=== PATIENT | male | born 1950 | race Caucasian/White ===

== ENCOUNTER 2022-12-15 10:27 | Outpatient (OUT) | payer MEDICARE, OTHER, SELFPAY ==
--- NOTE | 2022-12-15 | XR_ITS ---
[address] [address] Patient Name: DEDE ESTEVEZ MRN: [id number] date: 1950 Sex: M Assigned Patient Location: LAB Current Patient Location: LAB Accession/Order Number: [id number] Exam Date: 12/15/2022 11:01 Report Date: 12/15/2022 11:21 At the request of: JAYLA DOMÍNGUEZ Procedure: XR chest 2V EXAMINATION: XR chest 2V HISTORY: Pneumonia COMPARISON: 06/18/2022 TECHNIQUE: PA and lateral FINDINGS: LUNGS: No significant pulmonary parenchymal abnormalities. VASCULATURE: No increased pulmonary vasculature. PLEURA: No pneumothorax, effusion, or pleural thickening. CARDIAC: No cardiomegaly or cardiac silhouette abnormality. MEDIASTINUM: No visible mass or adenopathy. BONES: No fracture or visible bone lesion. OTHER: Negative. XR/XR chest 2V IMPRESSION: No acute cardiopulmonary process Electronically authenticated by: ELI RAMÍREZ Date: 12/15/2022 11:21
[2022-12-15 11:10] LABS: Basophils Absolute Auto 0.1 10^3/uL (0.0-0.1); Basophils Percent Auto 0.6 % (0.2-2.0); Eosinophils Absolute Auto 0.2 10^3/uL (0.0-0.7); Eosinophils Percent Auto 2.4 % (0.9-7.0); Hematocrit 46.7 % (42.0-54.0); Hemoglobin 14.9 g/dL (14.0-18.0); Immature Granulocytes Abs Auto 0.02 10^3/uL (0.00-0.03); Immature Granulocytes Pct Auto 0.3 % (0.0-0.5); Lymphocytes Absolute Auto 1.6 10^3/uL (1.2-3.8); Lymphocytes Percent Auto 20.8 % (20.5-60.0); Mean Corpuscular HGB Conc 31.9 g/dL (29.9-35.2); Mean Corpuscular Hemoglobin 27.6 pg (25.9-34.0); Mean Corpuscular Volume 86.5 fL (80.0-94.0); Mean Platelet Volume 9.6 fL (9.5-13.5); Monocytes Absolute Auto 0.5 10^3/uL (0.3-0.8); Monocytes Percent Auto 6.5 % (1.7-12.0); Neutrophils Absolute Auto 5.5 10^3/uL (1.4-6.5); Neutrophils Percent Auto 69.4 % (43.0-75.0); Platelet Count 243 10^3/uL (150-450); Red Cell Distribution Width 13.2 % (11.0-15.0); White Blood Count 7.9 10^3/uL (4.0-11.0)
[2022-12-15 12:40] LABS: Alanine Aminotransferase 13 U/L (16-63); Albumin Globulin Ratio 1.1; Albumin Level 4.1 g/dL (3.4-5.0); Alkaline Phosphatase 83 U/L (46-116); Anion Gap 10.6; Aspartate Amino Transferase 20 U/L (15-37); Bilirubin Total 0.6 mg/dL (0.2-1.0); Calcium 9.4 mg/dL (8.5-10.1); Carbon Dioxide 31.7 mmol/L (21.0-32.0); Chloride 101 mmol/L (98-107); Chol HDL Ratio 2.6; Cholesterol 172 mg/dL (<=200); Estimated GFR (African America >60 (>=60); Estimated GFR (Non-African Ame >60 (>=60); Free T3 3.18 pg/mL (2.18-3.98); Globulin 3.6 g/dL; Glucose 94 mg/dL (74-106); HDL Cholesterol 66 mg/dL (40-60); Potassium 4.3 mmol/L (3.5-5.1); Sodium 139 mmol/L (136-145); Thyroid Stimulating Hormone 0.929 uIU/mL (0.358-3.740); Total Protein 7.7 g/dL (6.4-8.2); Triglycerides 77 mg/dL (<=150); VLDL CHOLESTEROL 15.4 mg/dL
[2022-12-15 12:59] LABS: Estimated Average Glucose 117 mg/dL; Glycohemoglobin A1C 5.7 % (4.5-6.2)
[2022-12-15 15:02] LABS: Prostate Specific Antigen Scrn 0.16 ng/mL (<=4.00)
[2022-12-16 12:09] LABS: Insulin 26.4 uIU/mL (2.6-24.9)
== END 2022-12-15 10:28 | disposition home or self-care (01) ==
LOC: LAB 10:34
PROVIDERS: PCP Family Medicine; Visit Provider Family Medicine
DX: J18.9 Pneumonia, unspecified organism (principal); E55.9 Vitamin D deficiency, unspecified; E78.01 Familial hypercholesterolemia; N40.0 Benign prostatic hyperplasia without lower urinary tract symptoms; E78.5 Hyperlipidemia, unspecified; R73.09 Other abnormal glucose; Z12.5 Encounter for screening for malignant neoplasm of prostate
CPT/HCPCS: 36415; 71046; 80053; 80061; 82306; 83036; 83525; 84436; 84443; 84481; 85025; G0103

== ENCOUNTER 2022-12-24 12:37 | Outpatient (REF) | payer MEDICARE, OTHER, SELFPAY ==
[2022-12-24 15:33] LABS: Occult Blood Negative
== END 2022-12-24 12:38 | disposition home or self-care (01) ==
LOC: LAB 12:37
PROVIDERS: PCP Family Medicine; Visit Provider Family Medicine
DX: E55.9 Vitamin D deficiency, unspecified (principal); E78.01 Familial hypercholesterolemia; N40.0 Benign prostatic hyperplasia without lower urinary tract symptoms; E78.5 Hyperlipidemia, unspecified; R73.09 Other abnormal glucose; Z12.5 Encounter for screening for malignant neoplasm of prostate; Z12.12 Encounter for screening for malignant neoplasm of rectum
CPT/HCPCS: G0328

== ENCOUNTER 2023-02-09 08:32 | Outpatient (RCR) | payer MEDICARE, OTHER, SELFPAY | END 2023-03-22 15:47 | disposition home or self-care (01) | LOC: PT 08:32 | PROVIDERS: PCP Family Medicine; Visit Provider Nurse Practitioner Family | DX: G20.C Parkinsonism, unspecified (principal); R26.81 Unsteadiness on feet | CPT/HCPCS: 97110; 97112; 97161 ==

== ENCOUNTER 2023-07-17 07:40 | Inpatient (IN) | payer MEDICARE, OTHER, SELFPAY ==
[2023-07-17] VITALS (29 sets, daily range): BP systolic 107–145; BP diastolic 63–80; PULSE 67–85; TEMP 36.4–36.7; O2SAT 92–100; BMI 29.4; BMI 28.6
--- OUTSIDE RECORDS SUMMARY | 2023-07-17 07:46 | XMS_ITS | CCD ---
Author Organization [facility] Care Team Providers Care Family Engagement Specialist Name Role Phone PHYSICIAN, DEFAULT Unavailable Unavailable PHYSICIAN, DEFAULT Unavailable Unavailable HINA, CHRISTOPHER Unavailable Unavailable HINA, CHRISTOPHER Unavailable Unavailable HINA, CHRISTOPHER Unavailable Unavailable HOY JAYLA Unavailable Unavailable HINA, CHRISTOPHER Unavailable Unavailable HOY, JAYLA Unavailable Unavailable HINA, CHRISTOPHER Unavailable Unavailable HINA, CHRISTOPHER Unavailable Unavailable HOY, JAYLA Unavailable Unavailable HINA, CHRISTOPHER Unavailable Unavailable HINA, CHRISTOPHER Unavailable Unavailable HINA, CHRISTOPHER Unavailable Unavailable Lynn Gomez Unavailable MD Jayla Kong Primary Care Provider VADIM Gomez Attending Provider Lynn Gomez Attending Unavailable Lynn Gomez Admitting Unavailable Jayla Kong Primary Care Unavailable Jayla Kong Primary Care Physician Owen COOPER Attending Unavailable CATRACHITA Elliott, DR DICKERSON Admitting Unavailable HOАлександр Elliott, DR DICKERSON Attending Unavailable HOАлександр ., DR DICKERSON Consulting Unavailable CATRACHITA Elliott, DR DICKERSON Primary Care Unavailable MYNOR Elliott, DR KONG Osman Admitting Unavaila edith Elliott, DR KONG Osman Attending Unavaila edith Elliott, DR KONG Osman Consulting Unavaila edith Elliott, DR DICKERSON Primary Care Unavailable GARCÍA, CHELSEA Admitting Unavailable GARCÍA, CHELSEA Attending Unavailable GARCÍA, CHELSEA Consulting Unavailable CATRACHITA Elliott, DR DICKERSON Primary Care Unavailable MICHELLE DWYER Admitting Unavailable CATRACHITA ., DR DICKERSON Primary Care Unavailable MICHELLE DWYER Attending Unavailable ANUPAM, DR GARRICK Ko Consulting Unavailable MCIHELLE DWYER Consulting Unavailable CATRACHITA Elliott, DR DICKERSON Admitting Unavailable HOY ., DR DICKERSON Primary Care Unavailable HOY ., DR DICKERSON Attending Unavailable HOY ., DR DICKERSON Consulting Unavailable ANUPAM, DR GARRICK Ko Consulting Unavailable HOY ., DR DICKERSON Admitting Unavailable HOY ., DR DICKERSON Attending Unavailable HOY ., DR DICKERSON Primary Care Unavailable HOY ., DR DICKERSON Primary Care Unavailable HOY ., DR DICKERSON Admitting Unavailable HOY ., DR DICKERSON Attending Unavailable HOY ., DR DICKERSON Consulting Unavailable FREDERICK, DR ELI Sanchez Consulting Unavailable SLOAN ., GENE Consulting Unavailable HOY ., DR DICKERSON Admitting Unavailable HOY ., DR DICKERSON Attending Unavailable HOY ., DR DICKERSON Consulting Unavailable HOY ., DR DICKERSON Primary Care Unavailable JUAN DANIEL GARCIA Attending Unavailable Allergies Allergy Classification Reported Allergen(s) Allergy Type Date of Onset Reaction(s) Facility (1 source) No Known Medication Allergies; Translations: [No Known Medication Allergies] Propensity to adverse reactions (disorder) [facility] Repository Medications Current Medications Medication Drug Class(es) Dates Sig (Normalized) Sig (Original) clonazePAM (2 sources) Benzodiazepine Start: 02-09-2019 clonazepam Ora l, TID, Refills(s) 0 Start Date: 02/09/19 Status: Ordered clonazePAM 0.5 M G Oral for 90 Days Active donepezil hydrochloride 23 mg oral tablet (2 sources) Start: 04-27-2022 take 1 tablet by mouth once daily at bedtime donepezil 23 mg oral tablet 23 mg = 1 tab(s), Oral, Once a day (at bedtime), # 30 tab(s), Refills(s) 0 Start Date: 04/27/22 Status: Ordered Donepezil HCl 23 MG Oral for 30 Days Active Lamictal (2 sources) Mood Stabilizer, Anti-epileptic Agent Start: 02-09-2019 Lamictal Oral, BID, Refills(s) 0 Start Date: 02/09/19 Status: Ordered lamoTRIgine 100 MG Oral for 90 Days Active memantine hydrochloride 10 mg oral tablet (1 source) U-abvehi-G-aspartate Receptor Antagonist Memantine HCl 10 MG Oral for 90 Days Active naproxen sodium 550 mg oral tablet (1 source) Nonsteroidal Anti-inflammatory Drug Start: take 1 tablet by mouth every twelve hours at mealtime as needed Naproxen Sodium 550 MG 1 tablet with food or milk as needed Orally every 12 hrs for 7 days Jan, Active nefazodone (1 source) Serotonin Reuptake Inhibitor Start: 020 nefazodone Oral, BID, Refills(s) 0 Start Date: 02/09/19 Status: Ordered simvastatin 20 mg oral tablet (2 sources) HMG-CoA Reductase Inhibitor Start: 023 simvastatin 20 mg Tab Refills(s) 0 Start Date: 04/27/22 Status: Ordered Simvastatin 20 M G Oral for 30 Days Active Wrist Brace - (1 source) Start: 01-13-2022 Wrist Brace - as directed Jan, Active Problems Active Problems Problem Classification Problem Date Documented Da te Episodic/Chronic Acute and unspecified renal failure (1 source) Acute kidney failure, unspecified; Translations: [ACUTE KIDNEY FAILURE UNSPECIFIED] Onset: 06-24-2022 Episodic Anxiety disorders (2 sources) Anxiety; Translations: [Anxiety disorder, unspecified] Onset: 06-24-2022 02-13-2020 Chronic Cardiac dysrhythmias (1 source) Tachycardia, unspecified; Translations: [TACHYCARDIA UNSPECIFIED] Onset: 06-24-2022 Episodic Congestive heart failure; nonhypertensive (1 source) Unspecified diastolic (congestive) heart failure; Translations: [UNSPECIFIED DIASTOLIC HEART FAILURE] Onset: 11-08-2021 Chronic Delirium, dementia, and amnestic and other cognitive disorders (4 sources) Alzheimer's disease, unspecified; Translations: [ALZHEIMERS DISEASE UNSPECIFIED] Onset: 05-14-2022 Chronic Diseases of white blood cells (1 source) Elevated white blood cell count, unspecified; Translations: [ELEVATED WHITE BLOOD CELL COUNT UNS] Onset: 06-24-2022 Chronic Disorders of lipid metabolism (3 sources) Pure hypercholesterolemi a, unspecified; Translations: [Familial hypercholesterolemi a] Onset: 11-08-2021 Chronic Fluid and electrolyte disorders (1 source) Dehydration; Translations: [DEHYDRATION] Onset: 06-24-2022 Episodic Fracture of upper limb (1 source) Nondisplaced fracture of triquetrum [cuneiform] bone, left wrist, initial encounter for closed fracture Episodic Genitourinary symptoms and ill-defined conditions (2 sources) Increased frequency of urination; Translations: [Urgent desire to urinate] 02-13-2020 Episodic Hyperplasia of prostate (7 sources) Benign prostatic hypertrophy with outflow obstruction; Translations: [Benign prostatic hyperplasia with lower urinary tract symptoms] Onset: 01-27-2022 Chronic Hypertension with complications and secondary hypertension (1 source) Hypertensive heart disease with heart failure; Translations: [HTN HEART DISEASE W/HEART FAIL] Onset: 11-08-2021 Chronic Malaise and fatigue (3 sources) Weakness; Translations: [WEAKNESS] Onset: 06-18-2022 Episodic Mood disorders (1 source) Major depressive disorder 02-13-2020 Chronic Mood disorders (1 source) Mood disorders; Translations: [DEPRESSION UNSPECIFIED] Onset: 06-24-2022 Nutritional deficiencies (1 source) Vitamin D deficiency, unspecified; Translations: [VITAMIN D DEFICIENCY UNSPECIFIED] Onset: 11-08-2021 Chronic Other aftercare (1 source) 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; Translations: [OTH TUCK POINTER CURRENT DRUG THERAPY] Onset: 06-24-2022 Episodic Other injuries and conditions due to external causes (1 source) Unspecified injury of left wrist, hand and finger(s), initial encounter Episodic Other lower respiratory disease (1 source) Acute respiratory distress; Translations: [ACUTE RESPIRATORY DISTRESS] Onset: 06-24-2022 Episodic Other male genital disorders (1 source) Impotence 02-13-2020 Chronic Parkinson`s disease (1 source) Parkinson's disease; Translations: [PARKINSONS DISEASE] Onset: 06-24-2022 Chronic Pneumonia (except that caused by tuberculosis or sexually transmitted disease) (1 source) Pneumonia, unspecified organism; Translations: [PNEUMONIA UNSPECIFIED ORGANISM] Onset: 06-24-2022 Episodic Residual codes; unclassified (1 source) Altered mental status, unspecified; Translations: [ALTERED MENTAL STATUS UNSPECIFIED] Onset: 06-24-2022 Episodic Unclassified (1 source) Unspecified injury of left wrist, hand and finger(s), initial encounter; Translations: [Unspecified injury of left wrist, hand and finger(s), initial encounter] Onset: 01-13-2022 Unclassified (1 source) CONTACT W/AND (SUSP) EXPOS COVID-19; Translations: [CONTACT W/AND (SUSP) EXPOS COVID-19] Onset: 06-24-2022 Unclassified (1 source) PERSONAL HISTORY OF COVID-19; Translations: [PERSONAL HISTORY OF COVID-19] Onset: 06-24-2022 Unclassified (3 sources) COUGH, UNSPECIFIED; Translations: [COUGH, UNSPECIFIED] Onset: 01-24-2022 Past or Other Problems Problem Classification Problem Date Documented Da te Episodic/Chronic Diabetes mellitus without complication (1 source) Other abnormal glucose; Translations: [OTHER ABNORMAL GLUCOSE] Onset: 11-08-2021 Episodic Inflammatory conditions of male genital organs (1 source) Inflammatory disease of prostate, unspecified; Translations: [INFLAMMATORY DISEASE PROSTATE UNS] Onset: 11-08-2021 Episodic Nonspecific chest pain (4 sources) Chest pain, unspecified; Translations: [CHEST PAIN UNSPECIFIED] Onset: 11-06-2021 Episodic Other connective tissue disease (4 sources) Pain in right foot; Translations: [PAIN IN RIGHT FOOT] Onset: 10-15-2021 Episodic Other connective tissue disease (1 source) Pain in left foot; Translations: [PAIN IN LEFT FOOT] Onset: 10-20-2021 Episodic Other nervous system disorders (5 sources) Other lack of coordination; Translations: [OTHER LACK OF COORDINATION] Onset: 11-04-2021 Episodic Other screening for suspected conditions (not mental disorders or infectious disease) (6 sources) Encounter for screening for malignant neoplasm of rectum; Translations: [Encounter for screening for malignant neoplasm of prostate] Onset: 11-08-2021 Episodic Unclassified (3 sources) Other amnesia; Translations: [OTHER AMNESIA] Onset: 04-08-2017 Episodic Unclassified (1 source) COUGH, UNSPECIFIED; Translations: [COUGH, UNSPECIFIED] Onset: 01-21-2022 Results Test Name Value Interpretation Reference Range Facility CBC W MANUAL DIFFon 06-20-19 ATYPICAL LYMPH # 0.61 103/ul Normal [facility] Comment on above: Performed By: #### C MARY #### [facility] [address] [address] [address] Timmy Grant ATYPICAL LYMPH % 4 % Normal [facility] Comment on above: Performed By: #### C MARY #### [facility] [address] [address] [address] Timmy Grant BAND # 0.0 103/ul Normal 0.0-0.3 [facility] Comment on above: Performed By: #### C BCNAFISA #### [facility] [address] [place] [address] Dr. Timmy Grant BAND % 0 % Normal 0-5 [facility] Comment on above: Performed By: #### C MARY #### [facility] [address] [place] [address] Dr. Timmy Grant BASOM # 0.00 103/ul Normal 0.00-0.10 [facility] Comment on above: Performed By: #### C MARY #### [facility] [address] [place] [address] Dr. Timmy Grant BASOM % 0.0 % Critically low 0.2-2.0 [facility] Comment on above: Performed By: #### C MARY #### [facility] [address] [place] [address] Dr. Timmy Grant BLAST # Normal [facility] Comment on above: Performed By: #### C MARY #### [facility] [address] [place] [address] Dr. Timmy Grant BLAST % Normal [facility] Comment on above: Performed By: #### C MARY #### [facility] [address] [place] [address] Dr. Timmy Grant CORRECTED WBC Normal 4.0-11.0 [facility] Comment on above: Performed By: #### C MARY #### [facility] [address] [place] [address] Dr. Timmy Grant EOS # 0.00 103/ul Normal 0.00-0.70 [facility] Comment on above: Performed By: #### C MARY #### [facility] [address] [place] [address] Dr. Timmy Grant EOS% 0.0 % Critically low 0.9-7.0 [facility] Comment on above: Performed By: #### C MARY #### [facility] [address] [place] [address] Dr. Timmy Grant HCT 42.1 % Normal 42.0-54.0 [facility] Comment on above: Performed By: #### C MARY #### [facility] [address] [place] [address] Dr. Timmy Grant HGB 13.8 g/dl Critically low 14.0-18.0 [facility] Comment on above: Performed By: #### C MARY #### [facility] [address] [address] [address] Timmy Grant LYMPHM # 0.00 103/ul Critically low 1.20-3.80 [facility] Comment on above: Performed By: #### C MARY #### [facility] [address] [place] [address] Dr. Timmy Grant LYMPHM% 0.0 % Critically low 20.5-60.0 [facility] Comment on above: Performed By: #### C MARY #### [facility] [address] [place] [address] Dr. Timmy Grant MCH 27.4 pg Normal 25.9-34.0 [facility] Comment on above: Performed By: #### C MARY #### [facility] [address] [place] [address] Dr. Timmy Grant MCHC 32.8 g/dl Normal 29.9-35.2 [facility] Comment on above: Performed By: #### C MARY #### [facility] [address] [place] [address] Dr. Timmy Gratn MCV 83.7 fL Normal 80.0-94.0 [facility] Comment on above: Performed By: #### C BCNAFISA #### [facility] [address] [place] [address] Dr. Timmy Grant METAMYELOCYTE # Normal [facility] Comment on above: Performed By: #### C MARY #### [facility] [address] [place] [address] Dr. Timmy Grant METAMYELOCYTE % Normal [facility] Comment on above: Performed By: #### C BCNAFISA #### [facility] [address] [address] [address] Timmy Grant MONOM# 0.00 103/ul Critically low 0.30-0.80 [facility] Comment on above: Performed By: #### C MARY #### [facility] [address] [address] [address] Timmy Grant MONOM% 0.0 % Critically low 1.7-12.0 [facility] Comment on above: Performed By: #### C MARY #### [facility] [address] [place] [address] Dr. Timmy Grant MPV 9.7 fL Normal 9.5-13.5 [facility] Comment on above: Performed By: #### C MARY #### [facility] [address] [place] [address] Dr. Timmy Grant MYELOCYTE # Normal [facility] Comment on above: Performed By: #### C MARY #### [facility] [address] [address] [address] Timmy Grant MYELOCYTE % Normal [facility] Comment on above: Performed By: #### C MARY #### [facility] [address] [place] [address] Dr. Timmy Grant NRBC Normal [facility] Comment on above: Performed By: #### C MARY #### [facility] [address] [place] [address] Dr. Timmy Grant PLT 224 103/ul Normal 150-450 [facility] Comment on above: Performed By: #### C MARY #### [facility] [address] [place] [address] Dr. Timmy Grant RBC 5.03 106/ul Normal 4.70-6.10 [facility] Comment on above: Performed By: #### C MARY #### [facility] [address] [place] [address] Dr. Timmy Grant RDW 12.8 % Normal 11.0-15.0 [facility] Comment on above: Performed By: #### C MARY #### [facility] [address] [place], [place] [id number] Dr. Timmy Grant SEG # 14.69 103/ul Critically high 1.40-6.50 [facility] Comment on above: Performed By: #### C MARY #### [facility] [address] [place] [address] Dr. Timmy Grant SEG % 96.0 % Critically high 43.0-75.0 [facility] Comment on above: Performed By: #### C MARY #### [facility] [address] [address] [address] Timmy Grant WBC 15.3 103/ul Critically high 4.0-11.0 [facility] Comment on above: Performed By: #### C MARY #### [facility] [address] [place] [address] Dr. Timmy Grant PROF 14(COMP METB)on 023 Albumin [Mass/Vol] 3.2 g/dL Critically low 3.4-5.0 [facility] Comment on above: Performed By: #### O BSCRN #### [facility] [address] [place] [address] Dr. Timmy Grant Albumin/Globulin [Mass ratio] 0.8 {ratio} [facility] Comment on above: Performed By: #### O BSCRN #### [facility] [address] [place] [address] Dr. Timmy Grant ALP [Catalytic activity/Vol] 92 U/L Normal 46-116 [facility] Comment on above: Performed By: #### O BSCRN #### [facility] [address] [place] [address] Dr. Timmy Grant ALT [Catalytic activity/Vol] 13 U/L Critically low 16-63 [facility] Comment on above: Performed By: #### O BSCRN #### [facility] [address] [place] [address] Dr. Timmy Grant Anion gap [Moles/Vol] 11.0 mmol/L Normal [facility] Comment on above: Performed By: #### O BSCRN #### [facility] [address] [address] [address] Timmy Grant AST [Catalytic activity/Vol] 14 U/L Critically low 15-37 [facility] Comment on above: Performed By: #### O BSCRN #### [facility] [address] [place] [address] Dr. Timmy Grant Bilirubin [Mass/Vol] 0.5 mg/dL Normal 0.2-1.0 [facility] Comment on above: Performed By: #### O BSCRN #### [facility] [address] [place] [address] Dr. Timmy Grant Calcium [Mass/Vol] 9.5 mg/dL Normal 8.5-10.1 [facility] Comment on above: Performed By: #### O BSCRN #### [facility] [address] [place] [address] Dr. Timmy Grant Chloride [Moles/Vol] 105 mmol/L Normal 98-107 [facility] Comment on above: Performed By: #### O BSCRN #### [facility] [address] [place] [address] Dr. Timmy Grant CO2 [Moles/Vol] 26.2 mmol/L Normal 21.0-32.0 [facility] Comment on above: Performed By: #### O BSCRN #### [facility] [address] [place] [address] Dr. Timmy Grant Creatinine [Mass/Vol] 1.12 mg/dL Normal 0.70-1.30 [facility] Comment on above: Performed By: #### O BSCRN #### [facility] [address] [place] [address] Dr. Timmy Grant EGFR-AF MARTINIQUAIS >60 Normal >=60 [facility] Comment on above: Performed By: #### O BSCRN #### [facility] [address] [place] [address] Dr. Timmy Grant EGFR-NON AF MARTINIQUAIS >60 Normal >=60 [facility] Comment on above: Performed By: #### O BSCRN #### [facility] [address] [place] [address] Dr. Timmy Grant Globulin (S) [Mass/Vol] 4.2 g/dL Normal [facility] Comment on above: Performed By: #### O BSCRN #### [facility] [address] [place] [address] Dr. Timmy Grant Glucose [Mass/Vol] 171 mg/dL Critically high 74-106 [facility] Comment on above: Performed By: #### O BSCRN #### [facility] [address] [place] [address] Dr. Timmy Grant Potassium [Moles/Vol] 4.2 mmol/L Normal 3.5-5.1 [facility] Comment on above: Performed By: #### O BSCRN #### [facility] [address] [place] [address] Dr. Timmy Grant Protein [Mass/Vol] 7.4 g/dL Normal 6.4-8.2 [facility] Comment on above: Performed By: #### O BSCRN #### [facility] [address] [place] [address] Dr. Timmy Grant Sodium [Moles/Vol] 138 mmol/L Normal 136-145 [facility] Comment on above: Performed By: #### O BSCRN #### [facility] [address] [place] [address] Dr. Timmy Grant Urea nitrogen [Mass/Vol] 15.0 mg/dL Normal 7.0-18.0 [facility] Comment on above: Performed By: #### O BSCRN #### [facility] [address] [place] [address] Dr. Timmy Grant Urea nitrogen/Creatinin e [Mass ratio] 13.4 mg/mg Normal [facility] Comment on above: Performed By: #### O BSCRN #### [facility] [address] [place] [address] Dr. Timmy Grant BNPon 06-18-2022 Natriuretic peptide B (Bld) [Mass/Vol] 114.0 pg/mL Normal <=900.0 [facility] Comment on above: Performed By: #### O BSCRN #### [facility] [address] [address] [address] Timmy Grant CARDIAC SANJUANA ADMITon 023 CK [Catalytic activity/Vol] 209 U/L Normal 39-308 [facility] Comment on above: Performed By: #### O BSCRN #### [facility] [address] [place] [address] Dr. Timmy Grant CK.MB [Mass/Vol] 2.98 ng/mL Normal <=3.60 [facility] Comment on above: Performed By: #### O BSCRN #### [facility] [address] [place] [address] Dr. Timmy Grant HSTROP 5.6 pg/mL Normal 4.0-76.1 [facility] Comment on above: Result Comment: CUT- OFF POINTS HAVE BEEN ESTABLISHED BASED ON THE FOURTH UNIVERSAL DEFINITIONS OF MYOCARDIAL INFARCTION. THE UPPER REFERENCE LIMIT (URL) OF TROPONIN, DEFINED THE 99TH PERCENTILE OF cTnI DISTRIBUTION IN A REFERENCE POPULATION, HAS BEEN CONFIRMED THE DECISION THRESHOLD FOR OR DIAGNOSIS. Performed By: #### O BSCRN #### [facility] [address] [place] [address] Dr. Timmy Grant NAFISA 118 ng/mL Critically high 16-96 [facility] Comment on above: Performed By: #### O BSCRN #### [facility] [address] [place] [address] Dr. Timmy Grant CBC W MANUAL DIFFon 06-19-19 23 ATYPICAL LYMPH # Normal [facility] Comment on above: Performed By: #### C BCMAN #### [facility] [address] [place] [address] Dr. Timmy Grant ATYPICAL LYMPH % Normal [facility] Comment on above: Performed By: #### C BCMAN #### [facility] [address] [place] [address] Dr. Timmy Grant BAND # 0.6 103/ul Critically high 0.0-0.3 [facility] Comment on above: Performed By: #### C BCMAN #### [facility] [address] [place] [address] Dr. Timmy Grant BAND % 5 % Normal 0-5 [facility] Comment on above: Performed By: #### C MARY #### [facility] [address] [place] [address] Dr. Timmy Grant BASOM # 0.00 103/ul Normal 0.00-0.10 [facility] Comment on above: Performed By: #### C MARY #### [facility] [address] [place] [address] Dr. Timmy Grant BASOM % 0.0 % Critically low 0.2-2.0 [facility] Comment on above: Performed By: #### C BCNAFISA #### [facility] [address] [place] [address] Dr. Timmy Grant BLAST # Normal [facility] Comment on above: Performed By: #### C MARY #### [facility] [address] [place] [address] Dr. Timmy Grant BLAST % Normal [facility] Comment on above: Performed By: #### C BCNAFISA #### [facility] [address] [place] [address] Dr. Timmy Grant CORRECTED WBC Normal 4.0-11.0 [facility] [facility] Comment on above: Performed By: #### C MARY #### [facility] [address] [place] [address] Dr. Timmy Grant EOS # 0.00 103/ul Normal 0.00-0.70 [facility] Comment on above: Performed By: #### C MARY #### [facility] [address] [place] [address] Dr. Timmy Grant EOS% 0.0 % Critically low 0.9-7.0 [facility] Comment on above: Performed By: #### C BCNAFISA #### [facility] [address] [place] [address] Dr. Timmy Grant HCT 46.4 % Normal 42.0-54.0 [facility] Comment on above: Performed By: #### C MARY #### [facility] [address] [place] [address] Dr. Timmy Grant HGB 14.8 g/dl Normal 14.0-18.0 [facility] Comment on above: Performed By: #### C MARY #### [facility] [address] [place] [address] Dr. Timmy Grant LYMPHM # 0.57 103/ul Critically low 1.20-3.80 [facility] Comment on above: Performed By: #### C MARY #### [facility] [address] [place] [address] Dr. Timmy Grant LYMPHM% 5.0 % Critically low 20.5-60.0 [facility] Comment on above: Performed By: #### C MARY #### [facility] [address] [place] [address] Dr. Timmy Grant MCH 26.8 pg Normal 25.9-34.0 [facility] Comment on above: Performed By: #### Tali HERNANDEZ #### [facility] [address] [place] [address] Dr. Timmy Grant MCHC 31.9 g/dl Normal 29.9-35.2 [facility] Comment on above: Performed By: #### Tali HERNANDEZ #### [facility] [address] [place] [address] Dr. Timmy Grant MCV 84.1 fL Normal 80.0-94.0 [facility] Comment on above: Performed By: #### Tali HERNANDEZ #### [facility] [address] [place] [address] Dr. Timmy Grant METAMYELOCYTE # Normal [facility] Comment on above: Performed By: #### Tali HERNANDEZ #### [facility] [address] [place] [address] Dr. Timmy Grant METAMYELOCYTE % Normal [facility] Comment on above: Performed By: #### C MARY #### [facility] [address] [place] [address] Dr. Timmy Grant MONOM# 0.23 103/ul Critically low 0.30-0.80 [facility] Comment on above: Performed By: #### C MARY #### [facility] [address] [address] [address] Timmy Grant MONOM% 2.0 % Normal 1.7-12.0 [facility] Comment on above: Performed By: #### C MARY #### [facility] [address] [address] [address] Timmy Grant MPV 9.5 fL Normal 9.5-13.5 [facility] Comment on above: Performed By: #### C MARY #### [facility] [address] [place] [address] Dr. Timmy Grant MYELOCYTE # Normal [facility] Comment on above: Performed By: #### C MARY #### [facility] [address] [place] [address] Dr. Timmy Grant MYELOCYTE % Normal [facility] Comment on above: Performed By: #### Tali HERNANDEZ #### [facility] [address] [place] [address] Dr. Timmy Grant NRBC Normal [facility] Comment on above: Performed By: #### C MARY #### [facility] [address] [place] [address] Dr. Timmy Grant PLT 219 103/ul Normal 150-450 [facility] Comment on above: Performed By: #### C MARY #### [facility] [address] [place] [address] Dr. Timmy Grant RBC 5.52 106/ul Normal 4.70-6.10 [facility] Comment on above: Performed By: #### C MARY #### [facility] [address] [place] [address] Dr. Timmy Grant RDW 12.6 % Normal 11.0-15.0 [facility] Comment on above: Performed By: #### C MARY #### [facility] [address] [place] [address] Dr. Timmy Grant SEG # 10.12 103/ul Critically high 1.40-6.50 [facility] Comment on above: Performed By: #### C MARY #### [facility] [address] [address] [address] Timmy Grant SEG % 88.0 % Critically high 43.0-75.0 [facility] Comment on above: Performed By: #### C MARY #### [facility] [address] [address] [address] Timmy Grant WBC 11.5 103/ul Critically high 4.0-11.0 [facility] Comment on above: Performed By: #### C MARY #### [facility] [id number] Timmy Grant CT HEAD WO CONon 06-18-2022 CT HEAD WO CON EXAM: CT HEAD WO CON ; [id number] REASON FOR EXAM: Pain COMPARISON: None. TECHNIQUE: Axial CT images of the head obtained without contrast. Multiplanar reformats generated at the scanner. Dose reduction technique used: Automated exposure control and/or adjustment of the mA and/or kV according to patient size and/or use of iterative reconstruction technique. FINDINGS: Parenchyma: -Moderate generalized cerebral volume loss. -No midline shift or mass effect. Basilar cisterns are patent. -No acute intracranial hemorrhage. -No loss of cortical hein-white differentiation to indicate acute cortical infarct. Extra-axial spaces: No extra-axial fluid collection or hemorrhage. Ventricles: Normal in size and symmetric. Paranasal sinuses: Complete opacification of the right frontal sinus, right anterior ethmoid air cells, and partial opacification of the right maxillary sinus. There is associated hyperostosis compatible with chronic sinusitis. No layering fluid. Mastoid air cells: Visualized mastoids are clear. Orbits: No acute abnormality. Osseous: No acute findings. Soft tissues: No acute abnormality. IMPRESSION: 1. No acute or remote infarct or hemorrhage. No focal mass lesion. 2. Chronic right-sided sinusitis. Electronically authenticated by: BENTON FOSTER Date: 2022-06-18 11:17 Normal [facility] CULTURE BLOODon 06-18-2022 Microscopic examination of blood, culture Culture Observations: NO GROWTH AT 5 DAYS. Normal [facility] Comment on above: Performed By: #### O BSCRN #### [facility] [address] [address] [address] Timmy Grant Microscopic examination of blood, culture Culture Observations: NO GROWTH AT 5 DAYS. Normal [facility] Comment on above: Performed By: #### O BSCRN #### [facility] [address] [place] [address] Dr. Timmy Grant ER URINE PROFILEon 3 Bilirubin Ql (U) Negative Normal NEGATIVE [facility] Comment on above: Performed By: #### E RUR #### [facility] [address] [place] [address] Dr. Timmy Grant Clarity (U) CLEAR Normal CLEAR [facility] Comment on above: Performed By: #### E RUR #### [facility] [address] [place] [address] Dr. Timmy Grant Color (U) YELLOW Normal YELLOW [facility] Comment on above: Performed By: #### E RUR #### [facility] [address] [place] [address] Dr. Timmy Grant ERUAHD A micrscopic examina tion will be performed if indicated. Normal [facility] Comment on above: Performed By: #### E RUR #### [facility] [address] [place] [address] Dr. Timmy Grant Glucose Ql (U) Negative Normal NEGATIVE [facility] Comment on above: Performed By: #### E RUR #### [facility] [address] [place] [address] Dr. Timmy Grant Hemoglobin Ql (U) Negative Normal NEGATIVE [facility] Comment on above: Performed By: #### E RUR #### [facility] [address] [place] [address] Dr. Timmy Grant Ketones Ql (U) TRACE Abnormal NEGATIVE [facility] Comment on above: Performed By: #### E RUR #### [facility] [address] [place] [address] Dr. Timmy Grant LEUKOCYTES Negative Normal NEGATIVE [facility] Comment on above: Performed By: #### E RUR #### [facility] [address] [place] [address] Dr. Timmy Grant Nitrite Ql (U) Negative Normal NEGATIVE [facility] Comment on above: Performed By: #### E RUR #### [facility] [address] [place] [address] Dr. Timmy Gratn pH (U) 5.5 [pH] Normal 5-9 [facility] Comment on above: Performed By: #### E RUR #### [facility] [address] [place] [address] Dr. Timmy Grant SPEC GRAVITY 1.025 Normal 1.005-<=1.[address] [place] [address] Comment on above: Performed By: #### E RUR #### [facility] [address] [place] [address] Dr. Timmy Grant UA PROTEIN Negative Normal NEGATIVE/ TRACE [facility] Comment on above: Performed By: #### E RUR #### [facility] [address] [place] [address] Dr. Timmy Grant UR MICRO IND NOT INDICATED Normal [facility] Comment on above: Performed By: #### E RUR #### [facility] [address] [place] [address] Dr. Timmy Grant Urobilinogen Qn (U) 0.2 {Ana'U}/dL Normal 0.2 - 1.0 [facility] Comment on above: Performed By: #### E RUR #### [facility] [address] [place] [address] Dr. Timmy Grant GROUP A STREP CULTUREon 06-08 S. pyogenes Ag Ql (Unsp spec) Culture Observations: NEGATIVE FOR GROUP A STREPTOCOCCUS. Normal [facility] Comment on above: Performed By: #### P SASC, VITB12, VITAD #### [facility] [address] [place] [address] Dr. Timmy Grant LACTATE/LACTIC ACIDon 2022 Lactate [Moles/Vol] 2.0 mmol/L Normal 0.4-2.0 [facility] Comment on above: Performed By: #### P SASC, VITB12, VITAD #### [facility] [address] [place] [address] Dr. Timmy Grant Lactate [Moles/Vol] 1.7 mmol/L Normal 0.4-2.0 [facility] Comment on above: Performed By: #### E RUR #### [facility] [address] [place] [address] Dr. Timmy Grant PROF 14(COMP METB)on 023 Albumin [Mass/Vol] 3.6 g/dL Normal 3.4-5.0 [facility] Comment on above: Performed By: #### O BSCRN #### [facility] [address] [place] [address] Dr. Timmy Grant Albumin/Globulin [Mass ratio] 0.8 {ratio} Normal [facility] Comment on above: Performed By: #### O BSCRN #### [facility] [address] [place] [address] Dr. Timmy Grant ALP [Catalytic activity/Vol] 94 U/L Normal 46-116 [facility] Comment on above: Performed By: #### O BSCRN #### [facility] [address] [place] [address] Dr. Timmy Grant ALT [Catalytic activity/Vol] 33 U/L Normal 16-63 [facility] Comment on above: Performed By: #### O BSCRN #### [facility] [address] [place] [address] Dr. Timmy Grant Anion gap [Moles/Vol] 12.5 mmol/L Normal [facility] Comment on above: Performed By: #### O BSCRN #### [facility] [address] [place] [address] Dr. Timmy Grant AST [Catalytic activity/Vol] 19 U/L Normal 15-37 [facility] Comment on above: Performed By: #### O BSCRN #### [facility] [address] [place] [address] Dr. Timmy Grant Bilirubin [Mass/Vol] 0.8 mg/dL Normal 0.2-1.0 [facility] Comment on above: Performed By: #### O BSCRN #### [facility] [address] [address] [address] Timmy Grant Calcium [Mass/Vol] 9.4 mg/dL Normal 8.5-10.1 [facility] Comment on above: Performed By: #### O BSCRN #### [facility] [address] [address] [address] Timmy Grant Chloride [Moles/Vol] 100 mmol/L Normal 98-107 [facility] Comment on above: Performed By: #### O BSCRN #### [facility] [address] [address] [address] Timmy Grant CO2 [Moles/Vol] 28.7 mmol/L Normal 21.0-32.0 [facility] Comment on above: Performed By: #### O BSCRN #### [facility] [address] [place] [address] Dr. Timmy Grant Creatinine [Mass/Vol] 1.43 mg/dL Critically high 0.70-1.30 [facility] Comment on above: Performed By: #### O BSCRN #### [facility] [address] [address] [address] Timmy Grant EGFR-AF MARTINIQUAIS 59 mL/min/1.73m2 Critically low >=60 [facility] Comment on above: Performed By: #### O BSCRN #### [facility] [address] [place] [address] Dr. Timmy Grant EGFR-NON AF MARTINIQUAIS 49 mL/min/1.73m2 Critically low >=60 [facility] Comment on above: Performed By: #### O BSCRN #### [facility] [address] [address] [address] Timmy Grant Globulin (S) [Mass/Vol] 4.6 g/dL Normal [facility] Comment on above: Performed By: #### O BSCRN #### [facility] [address] [place] [address] Dr. Timmy Grant Glucose [Mass/Vol] 161 mg/dL Critically high 74-106 [facility] Comment on above: Performed By: #### O BSCRN #### [facility] [address] [address] [address] Timmy Grant Potassium [Moles/Vol] 4.2 mmol/L Normal 3.5-5.1 [facility] Comment on above: Performed By: #### O BSCRN #### [facility] [address] [address] [address] Timmy Grant Protein [Mass/Vol] 8.2 g/dL Normal 6.4-8.2 [facility] Comment on above: Performed By: #### O BSCRN #### [facility] [address] [address] [address] Timmy Grant Sodium [Moles/Vol] 137 mmol/L Normal 136-145 [facility] Comment on above: Performed By: #### O BSCRN #### [facility] [address] [place] [address] Dr. Timmy Grant Urea nitrogen [Mass/Vol] 14.0 mg/dL Normal 7.0-18.0 [facility] Comment on above: Performed By: #### O BSCRN #### [facility] [address] [address] [address] Timmy Grant Urea nitrogen/Creatinin e [Mass ratio] 9.8 mg/mg Normal [facility] Comment on above: Performed By: #### O BSCRN #### [facility] [address] [place] [address] Dr. Timmy Grant PROTIMEon 06-18-2022 INR Coag (PPP) [Relative time] 1.01 {INR} Normal [facility] Comment on above: Performed By: #### P SASC, VITB12, VITAD #### [facility] [address] [address] [address] Timmy Grant INR GUIDELINES SEE BELOW Normal [facility] Comment on above: Result Comment: REMIGIO RED INR: 2.0 - 3.0 CONDITIONS NOT LISTED BELOW 2.5 - 3.5 FOR PROSTHETIC HEART VALVE REPLACEMENT 2.5 - 3.5 RECURRENT THROMBOSIS Performed By: #### P SASC, VITB12, VITAD #### [facility] [address] [place] [address] Dr. Timmy Grant PT Coag (PPP) [Time] 10.7 s Normal 9.0-11.6 [facility] Comment on above: Performed By: #### P SASC, VITB12, VITAD #### [facility] [address] [place] [address] Dr. Timmy Grant PTTon 06-18-2022 aPTT Coag (Bld) [Time] 31.4 s Normal 22.3-36.2 [facility] Comment on above: Performed By: #### P SASC, VITB12, VITAD #### [facility] [address] [place] [address] Dr. Timmy Grant STREPT SCREENon 06-18-2022 STREP SCREEN A Negative Normal NEGATIVE [facility] Comment on above: Performed By: #### E RUR #### [facility] [address] [place] [address] Dr. Timmy Grant SYMPTOMATIC COVID-19 ANTIGEN on 06-18-2022 EUA Statement SEE BELOW Normal [facility] Comment on above: Result Comment: This test has not been FDA cleared or approved, but has been authorized by the FDA under an Emergency Use Authorization (EUA) for use by authorized laboratories certified under CLIA that meet the requirements to perform moderate or high complexity testing. This test has been authorized only for the detection of proteins from SARS-CoV-2, not for any other viruses or pathogens. The emergency use of this test is authorized for the duration of the declaration that circumstances exist justifying the authorization of emergency use of in vitro diagnostic tests for detection and/or diagnosis of Covid-19 under section 564(b)(1) of the Act, 21 U.S.C. 360bbb-3(b)(1), unless the declaration is terminated or authorization is revoked sooner. Performed By: #### P SASC, VITB12, VITAD #### [facility] [address] [place] [address] Dr. Timmy Grant SARS-CoV-2 (COVID-19) RNA ALEXA+probe Ql (Unsp spec) Negative Normal NEGATIVE [facility] Comment on above: Performed By: #### P SASC, VITB12, VITAD #### [facility] [address] [address] [address] Timmy Grant XR CHEST 1 Von 06-18-2022 XR CHEST 1 V EXAMINATION: XR CHES T 1 V HISTORY: COUGH COMPARISON: 12/11/2019 TECHNIQUE: Portable FINDINGS: LUNGS: Low lung volumes. The lungs are clear VASCULATURE: No increased pulmonary vasculature. PLEURA: No pneumothorax, effusion, or pleural thickening. CARDIAC: No cardiomegaly or cardiac silhouette abnormality. MEDIASTINUM: No visible mass or adenopathy. BONES: No fracture or visible bone lesion. OTHER: Negative. IMPRESSION: No acute cardiopulmonary process Electronically authenticated by: ELI RAMÍREZ Date: 2022-06-18 08:25 Normal [facility] VIT B12 AND FOLATEon 023 Cobalamin (Vitamin B12) [Mass/Vol] 270.0 pg/mL Normal 193.0-986.0 [facility] Comment on above: Performed By: #### B 12FOL #### [facility] [address] [place] [address] Dr. Timmy Grant FOLATE 23.00 ng/mL Normal 8.60-58.90 [facility] Comment on above: Performed By: #### B 12FOL #### [facility] [address] [place] [address] Dr. Timmy Grant Ambulatory Visit Summaryon 0 04-27-2022 Ambulatory Visit Summary CAMERON HENAO :1950 Visit Date:04/27/2022 Ambulatory Visit Instructions Your Diagnosis BPH with urinary obstruction Tests Performed Urnls Dip Stick Auto w/o Microscopy POC 27672 Your Care Team Attending Physician - DONAVON KOENIG, Owen Ko Primary Care Physician - Jayla Kong MD This Is Your Medications List Contact prescribing physician if questions or concerns clonazepam donepezil (donepezil 23 mg oral tablet) lamotrigine (Lamictal) nefazodone simvastatin (simvastatin 20 mg Tab) Procedures Performed TURP - Transurethral resection of prostate (03/04/2016), Cystoscopy (04/26/2015), Vasectomy. Discharge Vitals Heart Rate (Peripheral) 76 Respiratory Rate 16 Blood Pressure 132/84 Height 188 cm Height 74 in Weight 107 kg Weight 235.4 lb BMI 30.27 What to do next You Need to Schedule the Following Appointments Follow Up with DONAVON KOENIG, JENNY Miller When: Where: [facility] [address], [place] [id number]- Medications What How Much When Instructions Unchanged clonazepam By Mouth 3 times a day Contact prescribing physician if questions or concerns Unchanged donepezil (donepezil 23 mg oral tablet) 1 Tablets By Mouth Once a day (at bedtime) Contact prescribing physician if questions or concerns Unchanged lamotrigine (Lamictal) By Mouth 2 times a day Contact prescribing physician if questions or concerns Unchanged nefazodone By Mouth 2 times a day Contact prescribing physician if questions or concerns Unchanged simvastatin (simvastatin 20 mg Tab) Contact prescribing physician if questions or concerns Test Results Urnls Dip Stick Auto w/o Microscopy POC 22027 (04/27/2022) Bilirubin Urine Dipstick - Negative Blood Urine Dipstick - Negative Glucose Urine Dipstick - Negative Ketones Urine Dipstick - Negative Leukocytes Urine Dipstick - Negative Nitrite Urine Dipstick - Negative Protein Urine Dipstick - Negative Specific [place] Urine Dipstick - 1.015 Urine Appearance Urine Dipstick - Clear Urine Color Urine Dipstick - Yellow Urobilinogen Urine Dipstick - Normal 0.2-1 EU/dl pH Urine Dipstick - 5.5 Allergies No Known Medication Allergies Problems Ongoing - Any problem that you are currently receiving treatment for. Anxiety BPH with urinary obstruction Depression, major Erectile dysfunction Frequent urination Urgency of urination Education Materials Prostate Cancer Screening The prostate is a walnut-sized gland that is located below the bladder and in front of the rectum in males. The function of the prostate (prostate gland) is to add fluid to semen during ejaculation. Prostate cancer is the second most common type of cancer in men. A screening test for cancer is a test that is done before cancer symptoms start. Screening can help to identify cancer at an early stage, when the cancer can be treated more easily. The recommended prostate cancer screening test is a blood test called the prostate-specific antigen (PSA) test. PSA is a protein that is made in the prostate. As you age, your prostate naturally produces more PSA. Abnormally high PSA levels may be caused by: ? Prostate cancer. ? An enlarged prostate that is not caused by cancer (benign prostatic hyperplasia, BPH). This condition is very common in older men. ? A prostate gland infection (prostatitis). ? Medicines to assist with hair growth, such as finasteride. Depending on the PSA results, you may need more tests, such as: ? A physical exam to check the size of your prostate gland. ? Blood and imaging tests. ? A procedure to remove tissue samples from your prostate gland for testing (biopsy). Who should have screening? Screening recommendations vary based on age. ? If you are younger than age 40, screening is not recommended. ? If you are age 40?54 and you have no risk factors, screening is not recommended. ? If you are younger than age 55, ask your health care provider if you need screening if you have one of these risk factors: ? Being of -[place] descent. ? Having a family history of prostate cancer. ? If you are age 55?69, talk with your health care provider about your need for screening and how often screening should be done. ? If you are older than age 70, screening is not recommended. This is because the risks that screening can cause are greater than the benefits that it may provide (risks outweigh the benefits). If you are at high risk for prostate cancer, your health care provider may recommend that you have screenings more often or start screening at a younger age. You may be at high risk if you: ? Are older than age 55. ? Are -[place]ian. ? Have a father, brother, or uncle who has been diagnosed with prostate cancer. The risk may be higher if your family member's cancer occurred at an early age. What are the benefits of screening? Th (more content not included)... Normal [facility] Patient Educationon 04-28-19 Patient Education Oncology Prostate Cancer Screening The prostate is a walnut-sized gland that is located below the bladder and in front of the rectum in males. The function of the prostate (prostate gland) is to add fluid to semen during ejaculation. Prostate cancer is the second most common type of cancer in men. A screening test for cancer is a test that is done before cancer symptoms start. Screening can help to identify cancer at an early stage, when the cancer can be treated more easily. The recommended prostate cancer screening test is a blood test called the prostate-specific antigen (PSA) test. PSA is a protein that is made in the prostate. As you age, your prostate naturally produces more PSA. Abnormally high PSA levels may be caused by: ? Prostate cancer. ? An enlarged prostate that is not caused by cancer (benign prostatic hyperplasia, BPH). This condition is very common in older men. ? A prostate gland infection (prostatitis). ? Medicines to assist with hair growth, such as finasteride. Depending on the PSA results, you may need more tests, such as: ? A physical exam to check the size of your prostate gland. ? Blood and imaging tests. ? A procedure to remove tissue samples from your prostate gland for testing (biopsy). Who should have screening? Screening recommendations vary based on age. ? If you are younger than age 40, screening is not recommended. ? If you are age 40?54 and you have no risk factors, screening is not recommended. ? If you are younger than age 55, ask your health care provider if you need screening if you have one of these risk factors: ? Being of -[place] descent. ? Having a family history of prostate cancer. ? If you are age 55?69, talk with your health care provider about your need for screening and how often screening should be done. ? If you are older than age 70, screening is not recommended. This is because the risks that screening can cause are greater than the benefits that it may provide (risks outweigh the benefits). If you are at high risk for prostate cancer, your health care provider may recommend that you have screenings more often or start screening at a younger age. You may be at high risk if you: ? Are older than age 55. ? Are -[place]ian. ? Have a father, brother, or uncle who has been diagnosed with prostate cancer. The risk may be higher if your family member's cancer occurred at an early age. What are the benefits of screening? There is a small chance that screening may lower your risk of dying from prostate cancer. The chance is small because prostate cancer is typically a slow-growing cancer, and most men with prostate cancer from a different cause. What are the risks of screening? The main risk of prostate cancer screening is diagnosing and treating prostate cancer that would never have caused any symptoms or problems (overdiagnosis and overtreatment). PSA screening cannot tell you if your PSA is high due to cancer or a different cause. A prostate biopsy is the only procedure to diagnose prostate cancer. Even the results of a biopsy may not tell you if your cancer needs to be treated. Slow-growing prostate cancer may not need any treatment other than monitoring, so diagnosing and treating it may cause unnecessary stress or other side effects. A prostate biopsy may also cause: ? Infection or fever. ? A false negative. This is a result that shows that you do not have prostate cancer when you actually do have prostate cancer. Questions to ask your health care provider ? When should I start prostate cancer screening? ? What is my risk for prostate cancer? ? How often do I need screening? ? What type of screening tests do I need? ? How do I get my test results? ? What do my results mean? ? Do I need treatment? Contact a health care provider if: ? You have difficulty urinating. ? You have pain when you urinate or ejaculate. ? You have blood in your urine or semen. ? You have pain in your back or in the area of your prostate. ? You have trouble getting or maintaining an erection (erectile dysfunction, ED). Summary ? Prostate cancer is a common type of cancer in men. The prostate (prostate gland) is located below the bladder and in front of the rectum. This gland adds fluid to semen during ejaculation. ? Prostate cancer screening may identify cancer at an early stage, when the cancer can be treated more easily. ? The prostate-specific antigen (PSA) test is the recommended screening test for prostate cancer. ? Discuss the risks and benefits of prostate cancer screening with your health care provider. If you are age 70 or older, screening is likely to lead to more risks than benefits (risks outweigh the benefits). This information is not intended to replace advice given to you by your health care provider. Make sure you discuss any questions you have with your health care provider. Document Released: 11/05/2017 Document R (more content not included)... 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 DX: BPH & ED *No Urology Medications. PSA done 01/27/22- 0.29 Frequency increases with cold weather. Getting up 1x/night to void. No concerns with urinary symptoms at this time. History of Present Illness Tests reviewed: reviewed UA, PSA. I have reviewed the previous health record information and history for this patient from Dr. Pompa. I have reviewed and verified the staff HPI to be accurate for this encounter. There have been no associated fever, chills, flank pain, or blood in the urine. Denies any urinary infections since last encounter. Review of Systems PHQ Score Initial Depression Screen Score: 0 ROS - Provider Constitutional: denies weight loss, denies hot flashes. Eyes: denies eye problems. Gastrointestinal: denies nausea, denies vomiting. Cardiovascular: denies chest pain or angina. Integumentary: no dryness Musculoskeletal: denies musculoskeletal symptoms. ENMT: denies otolaryngeal symptoms. Respiratory: no shortness of breath. Heme/Lymph: denies easy bleeding tendency, denies easy bruising tendency. Psychiatric: no confusion, no anxiety. Genitourinary: See HPI. Physical Exam Vitals & Measurements HR: 76(Peripheral) RR: 16 BP: 132/84 HT: 74 in HT: 188 cm WT: 107 kg WT: 235.4 lb BMI: 30.27 General Appearance: alert, no distress, well nourished, well developed male. Genitourinary: normal scrotum, normal testes, normal urethra, normal epididymis, normal vas deferens/spermatic cord. Flank Pain: none. Bladder: nonpalpable. Assessment/Plan DLS pt. 1. BPH with urinary obstruction (N40.1: Benign prostatic hyperplasia with lower urinary tract symptoms) PSA: 01/10/20 - 0.48 01/30/21 - 0.10 01/27/22 - 0.29 S/p TURP 2017. UA today negative for blood and infection. Not taking any prostate meds. Nocturia 1x/night. Cold weather increases frequency but able to make it to the bathroom. Some urge with water running. Urinary habits not bothersome. PSA remains very low for age and stable. Will continue to monitor. Pt not interested in ED medication therapy. PCP is Dr. Kong, only sees him PRN. Overall pt is doing very well from a urologic standpoint. Discussed having Dr. Kong follow PSA. Strongly advised pt to see PCP annually. Admits to having mild dementia, follows with neurology. Follow up PRN. Pt understands and agrees with plan. Follow-up With When Contact Information DONAVON KOENIG, Owen Ko, [facility] [address] [place] [address]- Additional Instructions: PRN, PSA with Dr. Kong Patient Education Prostate Cancer Screening I, Archana Cheng, personally scribed for Dr. Cooper on 04/27/2022 12:34:04. . Documentation recorded by the scribe, Archana Cheng, accurately reflects the services(s) I performed and decisions made by me. Authenticated by Dr. Cooper on 04/27/2022 12:37:41. Problem List/Past Medical History Ongoing Anxiety BPH with urinary obstruction Depression, major Erectile dysfunction Frequent urination Urgency of urination Historical No qualifying data Procedure/Surgical History TURP - Transurethral resection of prostate (03/04/2016), Cystoscopy (04/26/2015), Vasectomy. Medications clonazepam, Oral, TID donepezil 23 mg oral tablet, 23 mg= 1 tab(s), Oral, Once a day (at bedtime) Lamictal, Oral, BID nefazodone, Oral, BID simvastatin 20 mg Tab Allergies No Known Medication Allergies Social History Tobacco Never (less than 100 in lifetime) Tobacco Use:. Never Smokeless Tobacco Use:., 04/27/2022 Family History Family history is negative Immunizations Vaccine Date Status Comments SARS-CoV-2 (COVID-19) mRNA-1273 vaccine 01/13/2021 Recorded SARS-CoV-2 (COVID-19) mRNA-1273 vaccine 12/2020 Recorded *Booster SARS-CoV-2 (COVID-19) mRNA-1273 vaccine 05/14/2020 Recorded SARS-CoV-2 (COVID-19) mRNA-1273 vaccine 04/16/2020 Recorded 2022-04-23: TPV70 SARS-CoV-2 (COVID-19) mRNA-1273 vaccine 03/2020 Recorded SARS-CoV-2 (COVID-19) mRNA-1273 vaccine 02/2020 Recorded zoster vaccine, inactivated 06/26/2018 Recorded zoster vaccine, inactivated 05/05/2017 Recorded Lab Results Test Name Test Result Date/Time PSA, External 0.29 ng/mL 01/27/2022 09:27 EST PSA, External 0.1 ng/mL 01/30/2021 14:31 EST PSA, External 0.48 ng/mL 01/10/2020 13:19 EST Ambulatory Point of Care Results Bilirubin Urine Dipstick: Negative (04/27/22 11:39:00) Blood Urine Dipstick: Negative (04/27/22 11:39:00) Glucose Urine Dipstick: Negative (04/27/22 11:39:00) Ketones Urine Dipstick: Negative (04/27/22 11:39:00) Leukocytes Urine Dipstick: Negative (04/27/22 11:39:00) Nitrite Urine Dipstick: Negative (04/27/22 11:39:00) Protein Urine Dipstick: Negative (04/27/22 11:39:00) Specific [place] Urine Dipstick: 1.015 (04/27/22 11:39:00) Urine Appearance Urine Dipstick: Clear (04/27/22 11:39:00) Urine Color (more content not included)... Normal [facility] Comment on above: Result Comment: Elec tronically Signed By: Owen COOPER MD\.br\Date and Time Signed: 04/27/22 12:37 EDT\.br\Electronically Co-Signed By: Archana Cheng\.br\Date and Time Co-Signed: 04/27/22 12:36 EDT Lab Reportson 01-28-2022 Lab Reports [id number] Normal [facility]08 SARS-CoV-2 (COVID-19) RNA ALEXA+probe Ql (Unsp spec) Not detected Normal NOT DETECTED [facility] Comment on above: Result Comment: When diagnostic testing is negative, the possibility of a false negative should be considered in the context of a patient's recent exposures and the presence of clinical signs and symptoms consistent with SARS-CoV-2. This test is not yet approved or cleared by the [place] FDA. When there are no FDA-approved or cleared tests available, and other criteria are met, FDA can make tests available under an emergency access mechanism called an Emergency Use Authorization (EUA). The EUA for this test is supported by the [place] of Health and Human Service's declaration that circumstances exist to justify the emergency use of in vitro diagnostics for the detection and/or diagnosis of the virus that causes COVID-19. This EUA will remain in effect for the duration of the COVID-19 declaration justifying emergency of IVDs, unless it is terminated or revoked by the FDA (after which the test may no longer be used). Performed By: #### C VDTB #### [facility] [address] [place] [address] Dr. Timmy Grant INFLUENZA A AND B AGon 01-21 INFLUBNEGH SEE BELOW Normal [facility] Comment on above: Result Comment: Nega tive for Flu B protein antigen. Infection due to Flu B cannot be ruled out. Flu B antigen in the sample may be below the detection limit of the test. Performed By: #### E RUR #### [facility] [address] [place] [address] Dr. Timmy Grant INFLUENZA A AG Positive Abnormal NEGATIVE SEE COMMENT [facility] Comment on above: Performed By: #### E RUR #### [facility] [address] [place] [address] Dr. Timmy Grant INFLUENZA B AG Negative Normal NEGATIVE SEE COMMENT [facility] Comment on above: Performed By: #### E RUR #### [facility] [address] [place] [address] Dr. Timmy Grant INFLUPOS SEE BELOW Normal [facility] Comment on above: Result Comment: NOTE : Live attenuated influenzae vaccine viruses can cause a positive result for a rapid influenza diagnostic test if administered up to 7 days prior to rapid testing. Performed By: #### E RUR #### [facility] [address] [place] [address] Dr. Timmy Grant INTERNAL CONTROLS Within Normal Limits Normal Wi thin Normal Limits [facility] Comment on above: Performed By: #### E RUR #### [facility] [address] [place] [address] Dr. Timmy Grant XR wrist LT min 3V*on 2021 XR wrist LT min 3V* [facility] Other XR wrist LT min 3V* [facility] [place] [employer] Other XR wrist LT min 3V* [address] [facility] [employer] Other XR wrist LT min 3V* R[place] [address] [employer] Other XR wrist LT min 3V* XRay Report [employer] Other XR wrist LT min 3V* Signed [employer] Other XR wrist LT min 3V* Patient: Cameron Henao MR#: [id number] [employer] Other XR wrist LT min 3V* 2 [employer] Other XR wrist LT min 3V* : 1950 Acct:[id number] [employer] Other XR wrist LT min 3V* Age/Sex: 71 / M ADM Date: 01/13/22 [employer] Other XR wrist LT min 3V* Loc: XDUCLY Room: Type: REG CLI [employer] Other XR wrist LT min 3V* [facility]ending Dr[facility] Gomez [facility] [employer] Other XR wrist LT min 3V* Copies to: LYNN GOMEZ [facility] [employer] Other XR wrist LT min 3V* Ordering Provider: LYNN GOMEZ [facility] [employer] Other XR wrist LT min 3V* Date of Service: 01/13/22 [employer] Other XR wrist LT min 3V* XR/XR wrist LT min 3V*: LEFT WRIST INJURY [employer] Other XR wrist LT min 3V* LEFT WRIST - 4 views [employer] Other XR wrist LT min 3V* CLINICAL HISTORY: Fell yesterday now with pain in left wrist and swelling. [employer] Other XR wrist LT min 3V* COMPARISON: None [employer] Other XR wrist LT min 3V* FINDINGS: [employer] Other XR wrist LT min 3V* Mild soft tissue swelling. Calcification versus radiopaque foreign body along the volar soft [employer] Other XR wrist LT min 3V* tissues. No acute bony process. Presumed remote triquetral fracture. Cystic changes involving the [employer] Other XR wrist LT min 3V* carpal bones without significant joint space narrowing. [employer] Other XR wrist LT min 3V* XR/XR wrist LT min 3V* [employer] Other XR wrist LT min 3V* IMPRESSION: [employer] Other XR wrist LT min 3V* MILD SOFT TISSUE SWELLING WITHOUT DEFINITIVE ACUTE BONY PROCESS. [employer] Other XR wrist LT min 3V* PRESUMED REMOTE TRIQUETRAL FRACTURE. CORRELATION WITH PAIN IS RECOMMENDED. [employer] Other XR wrist LT min 3V* Impression dictated by: Mehrdad Garcia Jr., D.OLexi01/13/2022 10:23 AM [employer] Other XR wrist LT min 3V* Dictation Location: [facility]--12 [employer] Other XR wrist LT min 3V* Transcribed By: YADIRA 01/13/22 [facility] [employer] Other XR wrist LT min 3V* Dictated By: Mehrdad Garcia Jr, DO 01/13/22 1020 [employer] Other XR wrist LT min 3V* Signed By: [employer] Other XR wrist LT min 3V* 01/13/22 1023 [employer] [facility] [employer] Other XR wrist LT min 3V* [facility] [place] [address] [place] [address] XRay Report Signed Patient: Cameron Henao MR#: [id number] 2 : 1950 Acct:[id number] Age/Sex: 71 / M ADM Date: 01/13/22 Loc: XDUCLY Room: Type: [facility] Attending Dr: Lynn FIERRO Copies to: LYNN GOMEZ Ordering Provider: LYNN GOMEZ Date of Service: 01/13/22 XR/XR wrist LT min 3V*: LEFT WRIST INJURY LEFT WRIST - 4 views CLINICAL HISTORY: Fell yesterday now with pain in left wrist and swelling. COMPARISON: None FINDINGS: Mild soft tissue swelling. Calcification versus radiopaque foreign body along the volar soft tissues. No acute bony process. Presumed remote triquetral fracture. Cystic changes involving the carpal bones without significant joint space narrowing. XR/XR wrist LT min 3V* IMPRESSION: MILD SOFT TISSUE SWELLING WITHOUT DEFINITIVE ACUTE BONY PROCESS. PRESUMED REMOTE TRIQUETRAL FRACTURE. CORRELATION WITH PAIN IS RECOMMENDED. Impression dictated by: Mehrdad Garcia Jr., DLexiOLexi01/13/2022 10:23 AM Dictation Location: [place] [address] Transcribed By: [facility] 01/13/22 1023 Dictated By: Mehrdad Garcia Jr, 01/13/22 1020 Signed By: 01/13/22 [address] [facility] OCC BLD IMMUNO SCREENon 10-0 OCCULT BLOOD Negative Normal NEGATIVE [facility] Comment on above: Performed By: #### O BSCRN #### [facility] [address] [address] [address] Timmy Grant INSULINon 11-07-2021 Insulin 27.7 uIU/mL Critically high 2.6-24.9 [facility] Comment on above: Performed By: #### P SASC, VITB12, VITAD #### [facility] [address] [place] [address] Dr. Timmy Grant T4, T3U, FTI LABCORPon 11-07 Free Thyroxine Index 1.7 Normal 1.2-4.9 [facility] Comment on above: Performed By: #### T HYLC #### [facility] [address] [place] [address] Dr. Timmy Grant T3 Uptake 23 % Critically low 24-39 [facility] Comment on above: Performed By: #### T HYLC #### [facility] [address] [place] [address] Dr. Timmy Grant T4 [Mass/Vol] 7.2 ug/dL Normal 4.5-12.0 [facility] Comment on above: Performed By: #### T HYLC #### [facility] [address] [place] [address] Dr. Timmy Grant BNPon 11-06-2021 Natriuretic peptide B (Bld) [Mass/Vol] 31.0 pg/mL Normal <=900.0 [facility] Comment on above: Performed By: #### E RUR #### [facility] [address] [place] [address] Dr. Timmy Grant CBC AUTO DIFFon 11-06-2021 BASO # 0.0 103/ul Normal 0.0-0.1 [facility] Comment on above: Performed By: #### P SASC, VITB12, VITAD #### [facility] [address] [place] [address] Dr. Timmy Grant Basophils/100 WBC (Bld) 0.6 % Normal 0.2-2.0 [facility] Comment on above: Performed By: #### P SASC, VITB12, VITAD #### [facility] [address] [place] [address] Dr. Timmy Grant EO # 0.1 103/ul Normal 0.0-0.7 [facility] Comment on above: Performed By: #### P SASC, VITB12, VITAD #### [facility] [address] [place] [address] Dr. Timmy Grant Eosinophils/100 WBC (Bld) 1.7 % Normal 0.9-7.0 [facility] Comment on above: Performed By: #### P SASC, VITB12, VITAD #### [facility] [address] [place] [address] Dr. Timmy Grant Erythrocyte distribution width (RBC) [Ratio] 13.3 % Normal 11.0-15.0 [facility] Comment on above: Performed By: #### P SASC, VITB12, VITAD #### [facility] [address] [place] [address] Dr. Timmy Grant Hematocrit (Bld) [Volume fraction] 48.8 % Normal 42.0-54.0 [facility] Comment on above: Performed By: #### P SASC, VITB12, VITAD #### [facility] [address] [place] [address] Dr. Timmy Grant Hemoglobin (Bld) [Mass/Vol] 15.7 g/dL Normal 14.0-18.0 [facility] Comment on above: Performed By: #### P SASC, VITB12, VITAD #### [facility] [address] [place] [address] Dr. Timmy Grant IG # 0.01 10e3/ul Normal 0.00-0.03 [facility] Comment on above: Performed By: #### P SASC, VITB12, VITAD #### [facility] [address] [place] [address] Dr. Timmy Grant IG % 0.2 % Normal 0.0-0.5 [facility] Comment on above: Performed By: #### P SASC, VITB12, VITAD #### [facility] [address] [place] [address] Dr. Timmy Grant LYMPH # 1.5 103/ul Normal 1.2-3.8 [facility] Comment on above: Performed By: #### P SASC, VITB12, VITAD #### [facility] [address] [place] [address] Dr. Timmy Grant Lymphocytes/100 WBC (Bld) 28.3 % Normal 20.5-60.0 [facility] Comment on above: Performed By: #### P SASC, VITB12, VITAD #### [facility] [address] [place] [address] Dr. Timmy Grant MANUAL DIFF REQ NO Normal [facility] Comment on above: Performed By: #### P SASC, VITB12, VITAD #### [facility] [address] [place] [address] Dr. Timmy Grant MCH (RBC) [Entitic mass] 27.1 pg Normal 25.9-34.0 [facility] Comment on above: Performed By: #### P SASC, VITB12, VITAD #### [facility] [address] [place] [address] Dr. Timmy Grant MCHC (RBC) [Mass/Vol] 32.2 g/dL Normal 29.9-35.2 [facility] Comment on above: Performed By: #### P SASC, VITB12, VITAD #### [facility] [address] [place] [address] Dr. Timmy Grant MCV (RBC) [Entitic vol] 84.3 fL Normal 80.0-94.0 [facility] Comment on above: Performed By: #### P SASC, VITB12, VITAD #### [facility] [address] [place] [address] Dr. Timmy Grant MONO # 0.4 103/ul Normal 0.3-0.8 [facility] Comment on above: Performed By: #### P SASC, VITB12, VITAD #### [facility] [address] [place] [address] Dr. Timmy Grant Monocytes/100 WBC (Bld) 7.8 % Normal 1.7-12.0 [facility] Comment on above: Performed By: #### P SASC, VITB12, VITAD #### [facility] [address] [place] [address] Dr. Timmy Grant NEUT # 3.2 103/ul Normal 1.4-6.5 [facility] Comment on above: Performed By: #### P SASC, VITB12, VITAD #### [facility] [address] [place] [address] Dr. Timmy Grant Neutrophils/100 WBC (Bld) 61.4 % Normal 43.0-75.0 [facility] Comment on above: Performed By: #### P SASC, VITB12, VITAD #### [facility] [address] [address] [address] Timmy Grant Platelet mean volume (Bld) [Entitic vol] 9.9 fL Normal 9.5-13.5 [facility] Comment on above: Performed By: #### P SASC, VITB12, VITAD #### [facility] [address] [place] [address] Dr. Timmy Grant PLT 237 103/ul Normal 150-450 [facility] Comment on above: Performed By: #### P SASC, VITB12, VITAD #### [facility] [address] [place] [address] Dr. Timmy Grant RBC 5.79 106/ul Normal 4.70-6.10 [facility] Comment on above: Performed By: #### P SASC, VITB12, VITAD #### [facility] [address] [place] [address] Dr. Timmy Grant WBC 5.3 103/ul Normal 4.0-11.0 [facility] Comment on above: Performed By: #### P SASC, VITB12, VITAD #### [facility] [address] [place] [address] Dr. Timmy Grant GLYCOHEMOGLOBIN A1Con 2021 ADA RECOMMENDATION SEE BELOW Normal [facility] Comment on above: Result Comment: ADA RECOMMENDED LIMIT 4.0 - 6.0 ADA THERAPEUTIC TARGET < 7.0 ACTION SUGGESTED > 7.0 Performed By: #### E RUR #### [facility] [address] [place] [address] Dr. Timmy Grant Glucose [Mass/Vol] 117 mg/dL Normal [facility] Comment on above: Performed By: #### E RUR #### [facility] [address] [address] [address] Timmy Grant HbA1c (Bld) [Mass fraction] 5.7 % Normal 4.5-6.2 [facility] Comment on above: Performed By: #### E RUR #### [facility] [address] [address] [address] Timmy Grant LIPID PROFILEon 11-06-2021 CHOL-HDL RATIO NORM SEE BELOW Normal [facility] Comment on above: Result Comment: 3.3 - 4.4 LOW RISK 4.4 - 7.1 AVERAGE RISK 7.1 - 11.0 MODERATE RISK >11.0 HIGH RISK Performed By: #### E RUR #### [facility] [address] [place] [address] Dr. Timmy Grant Cholesterol [Mass/Vol] 175 mg/dL Normal <=200 [facility] Comment on above: Performed By: #### E RUR #### [facility] [address] [place] [address] Dr. Timmy Grant Cholesterol in HDL [Mass/Vol] 65 mg/dL Critically high 40-60 [facility] Comment on above: Performed By: #### E RUR #### [facility] [address] [place] [address] Dr. Timmy Grant Cholesterol in LDL [Mass/Vol] 98.4 mg/dL Normal [facility] Comment on above: Performed By: #### E RUR #### [facility] [address] [place] [address] Dr. Timmy Grant Cholesterol.total/ Cholesterol in HDL [Mass ratio] 2.7 {ratio} Normal [facility] Comment on above: Performed By: #### E RUR #### [facility] [address] [place] [address] Dr. Timmy Grant HDL NORMAL > or = 60 mg/dl - LO W CARDIOVASCULAR RISK <40 mg/dl - HIGH CARDIOVASCULAR RISK Normal [facility] Comment on above: Performed By: #### E RUR #### [facility] [address] [address] [address] Timmy Grant LDL CALC NORMAL SEE BELOW Normal [facility] Comment on above: Result Comment: <100 mg/dl OPTIMAL 100 - 129 mg/dl NEAR OR ABOVE OPTIMAL 130 - 159 mg/dl BORDERLINE HIGH 160 - 189 mg/dl HIGH >190 mg/dl VERY HIGH Performed By: #### E RUR #### [facility] [address] [address] [address] Timmy Grant Triglyceride [Mass/Vol] 58 mg/dL Normal <=150 [facility] Comment on above: Performed By: #### E RUR #### [facility] [address] [address] [address] Timmy Grant VLDL CALC 11.6 mg/dL Normal [facility] Comment on above: Performed By: #### E RUR #### [facility] [address] [address] [address] Timmy Grant NM STRESS/REST MULTIon 11-06 SD STRESS/REST MULTI Patient: CAMERON HENAO Exam Date: 11/06/2021 : 1950 Gender:M Ordering : DR JAYLA KONG . Admission #: [id number] Family : Order #: [id number] CLICK HERE TO VIEW EXAM RADIOLOGY REPORT PROCEDURE: RADIONUCLIDE IMAGING STRESS/REST MULTI COMPARISON: SD STRESS/REST MULTI, 04/18/2015. INDICATIONS: Chest pain TECHNIQUE: Exam Description: Stress/Rest one day protocol gated SPECT Rest Imagin.6 mCi Tc-99m Cardiolite IV on 11/06/2021 Stress Imaging 31.4 mCi Tc-99m Cardiolite IV on 11/06/2021 Exercise Protocol: 0.4 mg Lexiscan given IV Heart Rate (bpm): Rest: 64 Max: 102 PMHR: 68 Blood Pressure: Rest: 128/86 Max: 138/78 Symptoms: Rest and peak stress ECG findings were normal and the exercise portion of the study was normal per attending physician Dr. Culver . For more details please see separate cardiac stress test report. FINDINGS: QUALITY OF STUDY: Excellent. PERFUSION DEFECT: None. LOCATION: N/A SIZE: N/A. SEVERITY: N/A. TYPE: N/A. WALL MOTION: Normal. LV SIZE: Normal. 67 mL. TID / TCD: None; 0.7 LVEF: Normal. Calculated EF 70%. SUMMARY: Myocardial perfusion imaging study is NORMAL. CONCLUSION: 1. Normal nuclear medicine myocardial perfusion scan. Dictated by: Garrick Armstrong M.D. on 11/06/2021 at 14:47 Approved by: Garrick Armstrong M.D. on 11/06/2021 at 14:54 Normal [facility] PROF 14(COMP METB)on 022 Albumin [Mass/Vol] 4.1 g/dL Normal 3.4-5.0 [facility] Comment on above: Performed By: #### E RUR #### [facility] [address] [place] [address] Dr. Timmy Grant Albumin/Globulin [Mass ratio] 1.1 {ratio} Normal [facility] Comment on above: Performed By: #### E RUR #### [facility] [address] [place] [address] Dr. Timmy Grant ALP [Catalytic activity/Vol] 79 U/L Normal 46-116 [facility] Comment on above: Performed By: #### E RUR #### [facility] [address] [place] [address] Dr. Timmy Grant ALT [Catalytic activity/Vol] 47 U/L Normal 16-63 [facility] Comment on above: Performed By: #### E RUR #### [facility] [address] [place] [address] Dr. Timmy Grant Anion gap [Moles/Vol] 10.5 mmol/L Normal [facility] Comment on above: Performed By: #### E RUR #### [facility] [address] [place] [address] Dr. Timmy Grant AST [Catalytic activity/Vol] 25 U/L Normal 15-37 [facility] Comment on above: Performed By: #### E RUR #### [facility] [address] [place] [address] Dr. Timmy Grant Bilirubin [Mass/Vol] 0.6 mg/dL Normal 0.2-1.0 [facility] Comment on above: Performed By: #### E RUR #### [facility] [address] [address] [address] Timmy Grant Calcium [Mass/Vol] 9.3 mg/dL Normal 8.5-10.1 [facility] Comment on above: Performed By: #### E RUR #### [facility] [address] [address] [address] Timmy Grant Chloride [Moles/Vol] 101 mmol/L Normal 98-107 [facility] Comment on above: Performed By: #### E RUR #### [facility] [address] [address] [address] Timmy Grant CO2 [Moles/Vol] 31.1 mmol/L Normal 21.0-32.0 [facility] Comment on above: Performed By: #### E RUR #### [facility] [address] [address] [address] Timmy Grant Creatinine [Mass/Vol] 1.17 mg/dL Normal 0.70-1.30 [facility] Comment on above: Performed By: #### E RUR #### [facility] [address] [address] [address] Timmy Grant EGFR-AF MARTINIQUAIS >60 Normal >=60 [facility] Comment on above: Performed By: #### E RUR #### [facility] [address] [address] [address] Timmy Grant EGFR-NON AF MARTINIQUAIS >60 Normal >=60 [facility] Comment on above: Performed By: #### E RUR #### [facility] [address] [address] [address] Timmy Grant Globulin (S) [Mass/Vol] 3.7 g/dL Normal [facility] Comment on above: Performed By: #### E RUR #### [facility] [address] [address] [address] Timmy Grant Glucose [Mass/Vol] 106 mg/dL Normal 74-106 [facility] Comment on above: Performed By: #### E RUR #### [facility] [address] [address] [address] Timmy Grant Potassium [Moles/Vol] 4.6 mmol/L Normal 3.5-5.1 [facility] Comment on above: Performed By: #### E RUR #### [facility] [address] [place] [address] Dr. Timmy Grant Protein [Mass/Vol] 7.8 g/dL Normal 6.4-8.2 [facility] Comment on above: Performed By: #### E RUR #### [facility] [address] [place] [address] Dr. Timmy Grant Sodium [Moles/Vol] 138 mmol/L Normal 136-145 [facility] Comment on above: Performed By: #### E RUR #### [facility] [address] [place] [address] Dr. Timmy Grant Urea nitrogen [Mass/Vol] 14.0 mg/dL Normal 7.0-18.0 [facility] Comment on above: Performed By: #### E RUR #### [facility] [address] [place] [address] Dr. Timmy Grant Urea nitrogen/Creatinin e [Mass ratio] 12.0 mg/mg Normal [facility] Comment on above: Performed By: #### E RUR #### [facility] [address] [place] [address] Dr. Timmy Grant TSHon 11-06-2021 TSH 0.931 uIU/mL Normal 0.358-3.740 [facility] Comment on above: Performed By: #### E RUR #### [facility] [address] [place] [address] Dr. Timmy Grant URIC ACID SERUMon 11-06-2021 Urate [Mass/Vol] 5.4 mg/dL Normal 3.5-7.2 [facility] Comment on above: Performed By: #### E RUR #### [facility] [address] [place] [address] Dr. Timmy Grant VITAMIN B12on 11-06-2021 Cobalamin (Vitamin B12) [Mass/Vol] 369.0 pg/mL Normal 193.0-986.0 [facility] Comment on above: Performed By: #### P SASC, VITB12, VITAD #### [facility] [address] [place] [address] Dr. Timmy Grant VITAMIN D 25 OHon 11-06-2021 VIT D 25-OH 35.4 ng/mL Normal [facility] Comment on above: Performed By: #### P SASC, VITB12, VITAD #### [facility] [address] [place] [address] Dr. Timmy Grant VIT D RANGES SEE BELOW Normal [facility] Comment on above: Result Comment: <20 ng/mL Vit D deficient 20 - <30 ng/mL Vit D insufficient 30 - 100 ng/mL Vit D sufficient >100 ng/mL Potential Toxicity Performed By: #### P SASC, VITB12, VITAD #### [facility] [address] [place] [address] Dr. Timmy Grant XR FOOT ABHINAV MIN 3 VIEWSon XR FOOT ABHINAV MIN 3 VIEWS EXAMINATION: XR FOOT ABHINAV MIN 3 VIEWS HISTORY: Pain in both feet ; chronic bilateral toes curling under COMPARISON: No relevant comparison available. FINDINGS: RIGHT FINDINGS: BONES: Persistent flexion of the fourth and fifth toes, and medial angulation of the articular surface of the distal interphalangeal joint of both toes. SOFT TISSUES: No visible soft tissue swelling. OTHER: Negative. LEFT FINDINGS: BONES: Persistent flexion of the fourth and fifth toes. Mediastinum ablation of the articular surface of the distal interphalangeal joint of both toes. SOFT TISSUES: No visible soft tissue swelling. OTHER: Negative. IMPRESSION: RIGHT CONCLUSION: Persistent flexion of fourth and fifth toes consistent with patient history which may be related to bone development or muscle contracture. LEFT CONCLUSION: Persistent flexion of fourth and fifth toes consistent patient history which may relate to bone development or muscle contracture. Electronically authenticated by: GARRICK ARMSTRONG Date: 2021-10-15 13:51 Normal [facility] Rehab Psych Evaluationon Rehab Psych Evaluation MR#: [id number] SERVICES( ) INPATIENT ( x )OUTPATIENT Patient Name: Cameron Henao Date of : 1950 Referring Physician: Maria C Gonzales D.O. 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 Cameron Henao, a 66-year-old, right-handed, White, gentleman. This evaluation was requested by Dr. Claudio, neurologist, to determine Mr. Henao's present neurocognitivestatus. Mr. Henao was referred with memory loss.HISTORY OF PRESENTING PROBLEM: The following information was obtained froma clinical interview with Mr. Henao on the date of this evaluation. Hewas a fine historian. He was accompanied by his , Ida Henao, whoalso provided background information. In addition, Dr. Gonzales kindlyforwarded to me a couple of clinic notes. According to Mr. Henao, he hasnoticed changes to his short-term memory. He describes when he is with hislong-term friends, one friend in particular has been finishing his thoughtsfor him because Mr. Henao has such difficulty finding the words he wantsto use and recalling his train of thought. He believes this has been goingon for at least 6 months, though Dr. Gonzales's clinic note from 02/14/2017indicates Mr. Henao stated at that time it has been about a year. reports he has recently been prescribed donepezil and he believesthis has helped to a degree. According to Dr. Gonzales's clinic note, underwent an EEG on 02/12/2017 that was read as normal. Dr. Gonzalesprovided me with an MRI of the brain report conducted on 02/10/2017 thatwas read as age-consistent atrophy and minimal chronic small vesselischemic changes; no suspicious findings to account for the patient'ssymptoms. Dr. Gonzales's neurologic exam appears to have been within normallimits with the exception of the cognitive screening ([facility] CognitiveAssessment), at which time it was a 1430 (severely impaired).CURRENT MEDICATIONS: Mr. Henao knew the names of a couple of hismedications, but used a list to remind himself of the others: Klonopin,Serzone, lamotrigine, and donepezil.PAST MEDICAL HISTORY: Mr. Henao acknowledges a long-term history ofanxiety and depression. He notes no other major medical conditions,history of seizures, history of head trauma, or hospitalizations.PAST SURGICAL HISTORY: Mrs. Henao indicates her underwent a TURPlast year.PSYCHIATRIC HISTORY: Mr. Henao reports his psychotropic medication isprescribed by a psychiatrist in [place], Dr. Donis. He reports no history ofcounseling, though his believes when Mr. Henao first began to see apsychiatrist, he may have participated in a short period of counseling.Mr. Henao acknowledges a history of suicidal ideation, particularly whenhe was in his late 30s or early 40s. He reports no suicide attempts, nopsychiatric hospitalizations, no emotionally traumatic events, and nohistory of abuse.SUBSTANCE USE: Mr. Henao reports very occasional alcohol use (perhaps 6drinks per year), which he notes has been typical for him throughout hislife. He reports no illicit drug use and no tobacco use.FAMILY MEDICAL HISTORY: Mr. Henoa reports his mother in her 60s dueto cancer. He acknowledges she had significant mental health issuesthrough her life and attempted suicide a couple times. He reports hisfather was 86 at the time of his and had Parkinson disease. His wifeindicates Mr. Henao's almost had dementia at the end. She notes hedeveloped a deep vein thrombosis, which eventually led to his passing. indicates he had one brother, who recently after sustaining afall. He notes he has two sisters and his describes one of hissisters as being obsessed with the idea she has multiple sclerosis. reports this sister holds this belief even after having seenmultiple neurologists, who have all told her she does not have MS. indicates his children are in good health, though his reportsone has seizures.SOCIAL HISTORY: Mr. Henao reports he [place] of 44 [place] He notes he is a samish of [employer]. He notes theyhave 3 sons.EDUCATIONAL HISTORY: Mr. 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 Henao acknowledges his sleep is perhaps more restlesswith the sabianism of the donepezil. His describes occasional snoringand an increase in mumbling and thrashing. Despite this, Mr. Ferreradicates his sleep is pretty good. He reports no naps on a regularbasis, though his acknowledges they tend to doze in the evening whenwatching television. Mr. Henao reports no problems with appetite. Hiswife indicates her sense of smell has always been better than Mr. Henao's,though Mr. Henao does not believe this is a change for him. He reports nochange in his interest level in activities.Emotional: Mr. Henao acknowledges a lifelong history of anxiety anddepression. His reports he has been treated for about the past 20years. He reports the medications are quite helpful to him. He reports nohistory of hallucinations. He acknowledges feeling stressed at presentbecause he is bringing his son into the farming operation and this is achange for all of them.Cognitive: Mr. Henao believes his ability to sustain his attention isfine. He acknowledges he may lose his train of thought in a conversationand he has noticed his friend is finishing his thoughts. Mr. Henaobelieves his ability to understand what he is reading is as it always hasbeen, though acknowledges writing and particularly spelling are morechallenging for him than they used to be. His believes hisorganization ability is as it always was.Physical: Mr. Henao believes his ability to walk is not as quick as itused to be. He acknowledges he has had a few stumbles, but no yaquelin falls.He reports no pain on a regular basis. He believes his vision to beadequately corrected with his bifocal lenses. He reports no difficultieswith hearing.Activities of Daily Living: Mr. Henao reports his ability to self-care isintact. He indicates he cooks his own breakfast and is quite vigilantabout turning off the stove and making sure the toaster is not on. Hereports no incontinence, though acknowledges he is awoken once per night touse the restroom. His believes the TURP surgery has helped. Thecouple indicates that they conduct money management for the householdtogether and his indicates his math brain is good. Mr. Henaoreports he conducts his own medication management. He notes no particulardifficulties with driving, though acknowledges judging distances whenparking, may be more of a challenge for him.FINDINGSBehavior: Mr. Henao was early to the appointment. He was neat and clean inappearance. He was appropriately dressed for the season and situation. Heis of above average height and average weight. Ambulation appeared ofnormal gait and posture. His level of activity throughout the examinationwas generally normal, though he exhibited very mild impulsivity in that hewanted to start before the examiner was ready for him to, but just a fewtimes. Sensory and motor functions appeared within functional limits.Rapport was easily established; he is a friendly gentleman with pleasantmood, good sense of humor, and normal range of emotional expression. Hecould become easily frustrated by some of the more challenging tasks, butpersevered. Speech was coherent and goal-directed. No formal languageerrors were noted. He required a few repetitions of instructions because heforgot them almost immediately. Language pragmatics was notable for a smallamount of perseveration. He also was mildly just internally distractible.He recognized when he was having difficulties and made self-deprecatingcomments at times, such as, I must look really stupid. Nevertheless, heremained cooperative through testing; embedded validity measures werewithin normal limits and results appear valid.Intellectual Functioning: Mr. Henao was administered a reading recognitiontask designed to yield an estimate of premorbid IQ. His score is a 98(average). He was then administered selected subtests from the WAIS-IV,earning a current estimated IQ score of 83 (low end of low average). [id number] difference is significant, indicating attenuation.Orientation: Mr. Henao was oriented to all temporal information. He wasunsure what particular building he was in; this is qualitatively in the lowaverage range, but still within normal limits.Motor: On tasks of praxis (e.g., alternating hand movements), hisperformance was well within functional limits.Visual Perception: This domain is variable; on less complex tasks,performances were intact. As the executive function component of the taskincreased, he had increasing difficulty. On the Construction subtest fromthe Dementia Rating (DRS-2), his performance was in the average range; hewas well able to copy simple geometric shapes. On a task of visualconstruction in which he had to put red and white blocks together to makethem look like a pictured design, his performance was in the low averagerange; this likely reflects a subtle decline for him, as his describeshim as having been someone who always was able to manufacture and assemblecomplicated pieces of machinery. On a task of visual spatial judgment(recognizing orientation of lines), his performance was borderline. Whenasked to draw a clock, his initial drawing was in the profoundly impairedrange. He exhibited a tendency to be stimulus bound in that when asked toput in the time of 1:45, he actually wrote the numbers 1 and 45. He wasable to benefit only slightly from the examiner cuing, rising to themoderately impaired range when asked to copy a clock.Speech and Language: This domain is variable; with increasing executivefunction component, his performances were lower. On the Conceptualizationsubtest from the DRS-2, his performance was borderline; he exhibited atendency toward concrete thinking. Oral vocabulary was in the averagerange. On tasks of speech fluency, his performance ranged from borderlineto low average; he had most difficulty with categorical fluency, thoughoverall exhibited slightly slower speed of information processing.Attention: His performance on a task of Attention from the DRS-2 was lowaverage. On a more complex task of immediate auditory attention from theWAIS-IV, his scores varied from mildly impaired to low average. He actuallydid best with the most challenging task in which he had to listen to a listof numbers and repeat them back in reverse order (low average). Overall,however, his working memory span is about 3-4 items of information.Memory: This domain is significantly impaired. On the Memory subtest fromthe DRS-2, his score was profoundly impaired. Memory for stories on theWMS-IV was profoundly impaired with initially and after a delay. He did notbenefit significantly from recognition cuing, rising only to the moderatelyimpaired range on that aspect of the task. Memory for a list of words wasalso profoundly impaired initially and after a delay. Again, he did notbenefit significantly from recognition cuing, rising only to the moderatelyimpaired range on that aspect of the task. Mr. Henao best performance wason a task of visual memory; his initial recall was borderline, delayedrecall was low average, and with recognition cuing, he ever to the averagerange. When the story memory and visual memory scores are combined,however, on the WMS-IV, his Immediate Memory index is 66 (moderatelyimpaired) and Delayed Memory is 64 (severely impaired). These are comparedto predicted scores (based on the reading recognition task mentioned above)of 97 and 98, respectively, both average. There has been significantattenuation of memory functioning.Higher Cognitive Functioning: This domain is impaired. On the DRS-2, hisoverall Total score was in the profoundly impaired range; this indicates heis scoring more similarly to individuals with dementia than without. On atask of visual motor sequencing in which he had to connect the dots asquickly as he could, his performance was in the severely impaired range.When the task demands were increased and he needed to switch back and forthbetween two sequences, but still go as quickly as he could, his performancewas in the profoundly impaired range.Affective functioning: Mr. Henao was administered a self-reportquestionnaire current depressive symptomatology. His responses indicate martinais endorsing a [id number] level of depressive symptoms.TEST DATA:TOPF: Pred FSIQ: 98WAIS-IV (all scores are scale scores): VC = 9, BD = 8, DS = 5DRS-2 (all scores are scale scores): ATT = 8, I/P = 6, CONST = 10, concept= 6, ME = 2, TOT = 3 (3)CLOX I: 5; II: 12JOLO: 14F-A-S: 27Animal fluency: 13Trail making test: A = 78 , B = 58 WMS-IV (all scores are scale scores): LM I = 2, II = 1; VR I = 6, II = 7;IMI = 66, DMI = 64HVLT-R: Recall = 10, trial 4 = 4, DI = 8, FP = 2GDS: 14IMPRESSIONS: 1. Mr. Henao was referred with memory loss. The results of the currentevaluation are consistent with a diagnosis of dementia. Specifically, heexhibits a steep forgetting curve and limited benefit from cueing,suggestive of cortical dysfunction. He also exhibits deficits in attentionand executive functioning (particularly planning, sequencing, and cognitiveflexibility). The most common cortical dementia is Alzheimer's. He reportsno history of tremor, orthostasis, hallucinations, vivid dreams,incontinence, or gait disturbance. 2. Mr. Henao did well in the following areas: Motor praxis, simple visual perception, expressive language, simple attention, and did best with learning and retaining visual information. 3. No behavioral issues were exhibited during testing. He was pleasant, cooperative, and hard working. He could become frustrated with the more challenging tasks, but generally coped adequately. 4. Emotional issues exhibited during testing included the mild frustration. He acknowledges a history/diagnosis of anxiety/depression; his responses on a self-report questionnaire current psychological symptomatology indicate he is endorsing a mild to moderate level ofdepressive symptoms.RECOMMENDATIONS 1. Continued use of memory-enhancing medication appears warranted. Dr. Gonzales may wish to consider the addition of memantine. 2. Continued psychotropic medication appears warranted. 3. Mr. Henao's psychiatrist may wish to refer him for individual counseling for adjustment to disability. Mr. Henao is experiencing asignificant change in his abilities and having a professional who may helpteach him new coping strategies at this juncture in his life may be aprudent tack. 4. If not already done, I encourage Mr. Henao to assign a trustedindividual with durable power of admitted attorneys. This person should accompany himto all appointments. 5. Based on the diagnosis of dementia, I am concerned about Mr. Henao continuing to drive. If Dr. Gonzales shares my concern, he may wish to refer Mr. Henao for a driving simulation evaluation. An order may be faxed to [phone]. Mr. Henao should be aware that the risks for accident for those with diagnosis of dementia does not just increase, it multiplies. Regardless, I encourage him to use common sense whiledriving, (driving only short distances), avoiding night driving, avoidingdriving on the expressway or in heavy traffic, and avoiding driving inheavy precipitation. ADDENDUM: Mr. Henao left a voice mail expressinghis dismay that I would question his driving skills. As I stated duringthe feedback session, I have never seen him drive and do not know hispersonal skills and certainly do not mean to impugn him. However, as notedabove, research indicates individuals with diagnoses of dementia have asignificantly increased risk of accident and I would be remiss if I did notexpress my concerns about driving as the result of that diagnosis. 6. Mr. Henao and his family may benefit from information and resources found online or with the Alzheimer's association: Alz.org;669.171.3698. 7. I encourage Mr. Henao to remain as physically and cognitively active as possible. These are the best strategies for brain health. 8. These results are to be discussed with Mr. Henao and his on Friday, April 21, 2017, at 3 p.m. ADDENDUM: So discussed. At thistime, he is discharged from my care. 9. Follow up neuropsychological evaluation at Dr. Gonzales's discretion.2-3 years is a great timeline.Thank you for allowing me to participate in the care of this chaztleman. If you have any questions, call [phone].DICTATED AND REVIEWED BY:Electronically Signed by:Sarah Estrada PhD, ABPP 04/23/2017 08:35 A Sarah Estrada, PhD, ABPPBoard Certified Clinical NeuropsychologistDate Dict: 04/15/2017/11:18 A/Sarah Estrada PhD, ABPPDate Trans: 04/16/2017 07:20 A/mmoAddendum: 04/16/2017 01:23 P/paDN_JN:[id number]: Sarah Estrada, PhD, ABPP [address] [facility] [address] Maria C Gonzales D.O. [address] [facility] [address] Jayla Kong M.D. [facility] [address] [facility] [facility] [address] *Mr. cameron henao ([address]; [place] [address]) Normal [facility] Vital Signs Date Time Vital Sign Value Performing Clinician Facility 04-27-2022 11:43-0400 Blood Pressure Location Owensaul COOPER [facility] 04-27-2022 11:43-0400 Diastolic blood pressure 84 mm[Hg] Owensaul COOPER [facility] 04-27-2022 11:43-0400 Heart rate 76 /min Owen COOPER [facility] 04-27-2022 11:43-0400 Respiratory rate 16 /min Owen COOPER [facility] 04-27-2022 11:43-0400 Systolic blood pressure 132 mm[Hg] Owen COOPER [facility] 01-13-2022 10:25-0500 Body height 187.96 cm Lynn Gomez Other [facility] Other 01-13-2022 10:25-0500 Body mass index (BMI) [Ratio] 29.53 kg/m2 Lynn Gomez Other [facility] Other 01-13-2022 10:25-0500 Body temperature 97.8 [degF] Lynn Gomez Other [facility] Other 01-13-2022 10:25-0500 Body weight 104.33 kg Lynn Gomez Other [facility] Other 01-13-2022 10:25-0500 Diastolic blood pressure 70 mm[Hg] Lynn Gomez Other [facility] Other 01-13-2022 10:25-0500 Respiratory rate 18 /min Lynn Gomez Other [facility] Other 01-13-2022 10:25-0500 SaO2% (BldA) [Mass fraction] 97 % Lynn Gomez Other [facility] Other 01-13-2022 10:25-0500 Systolic blood pressure 122 mm[Hg] Lynn Gomez Other [facility] Other Encounters Encounter Date Encounter Type Care Provider Facility Start: 03-02-2023 End: 03-02-2023 ambulatory JUAN DANIEL A JOSE Not Available Start: 06-18-2022 End: 06-19-[address] JAYLA KONG . Facility: Start: 05-14-2022 End: 05-15-2022 ambulatory CHELSEA MARIANO Facility: Start: 04-27-2022 End: 04-28-2022 ambulatory Owen COOPER Facility:[facility] Start: 04-27-2022 End: 04-27-2022 Patient encounter procedure Owen COOPER [facility] Start: 01-27-2022 End: 01-28-[address] KONG Elliott Facility: Start: 01-21-2022 End: 01-21-[address] JAYLA KONG . Facility:[facility] Start: 01-13-2022 Office outpatient ne w 20 minutes Lynn Gomez [facility] Start: 01-13-2022 End: 01-13-2022 ambulatory MD Jayla Kong Work Phone: [facility] Other Start: 01-13-2022 End: 01-13-2022 Patient encounter procedure MD Jayla Kong Work Phone: [facility] Start: 11-11-2021 End: 11-11-[address] JAYLA KONG . Facility: Start: 11-06-2021 End: 11-07-[address] JAYLA KONG . Facility: Start: 11-04-2021 End: 12-12-[address] JAYLA KONG . Facility: Start: 10-15-2021 End: 2021 ambulatory MICHELLE DWYER Facility: Start: 04-08-2017 End: 05-09-2017 Ambulatory JAYLA KONG Facility:[facility] Start: 03-11-2017 End: 04-08-2017 Ambulatory MARIA C GONZALES Facility:[facility] Start: 02-26-2017 End: 03-11-2017 Ambulatory MARIA C GONZALES Facility:[facility] Start: 02-26-2017 End: 02-27-2017 Ambulatory DEFAULT PHYSICIAN Facility:[facility] Procedures Date Procedure Procedure Detail Performing Clinician Start: 01-27-[address] KINA KONG . Comment on above: Performed By: #### O BSCRN #### [facility] [address] [place] [address] Dr. Timmy Grant Start: 01-13-2022 Plain X-ray of left wrist MD Jayla Kong Work Phone: Start: 11-06-[address] KINA KONG . Comment on above: Performed By: #### P SASC, VITB12, VITAD #### [facility] [address] [place] [address] Dr. Timmy Grant Start: 03-04-2016 Transurethral prostatectomy Owen COOPER Start: 04-26-2015 Cystoscopy Owen CARL Vasectomy Owen COOPER Immunizations Immunization Date Immunization Notes Care Provider Fa cili 01-13-2021 SARS-CoV-2 (COVID-19 ) mRNA-1273 vaccine Owen COOPER [facility] 12-09-2020 SARS-CoV-2 (COVID-19 ) mRNA-1273 vaccine Owen COOPER [facility] Comment on above: Result Comment: *Stephens ster 05-14-2020 SARS-CoV-2 (COVID-19 ) mRNA-1273 vaccine Owen COOPER [facility] 04-16-2020 SARS-CoV-2 (COVID-19 ) mRNA-1273 vaccine Owen COOPER [facility] Comment on above: Result Comment: 2022: [id number] 03-11-2020 SARS-CoV-2 (COVID-19 ) mRNA-1273 vaccine Owen COOPER [facility] 02-09-2020 SARS-CoV-2 (COVID-19 ) mRNA-1273 vaccine Owen COOPER [facility] 06-26-2018 zoster vaccine recombinant Owen COOPER [facility] 05-05-2017 zoster vaccine recombinant Owen COOPER [facility] Payers Date Payer Category Payer Private Health Insurance [id number] 2022 Self-pay [id number] 2019 Private Health Insurance [id number] 2014 Medicare [id number] 1959 Medicare [id number] 2.1 [id number] 1959 Private Health Insurance [id number] 1949 Unknown [id number] 2.16.8 [id number] 1950 Unknown [id number] 2.16.84 [id number] 1950 Unknown [id number] 2.16.84 0.1.176212.3.579.2.593 1949 Unknown [id number] 2.16.84 0.1.996115.3.579.2.593 1949 Unknown [id number] 2.16.84 0.1.313152.3.579.2.593 1949 Unknown [id number] 2.16.84 0.1.892463.3.579.2.593 1949 Unknown [id number] 2.16.84 0.1.395781.3.579.2.593 1949 Unknown [id number] 2.16.84 0.1.686548.3.579.2.593 1949 Unknown [id number] 2.16.84 0.1.436007.3.579.2.593 1949 Unknown [id number] 2.16.84 [id number] Medicare [id number] Unknown Unknown [id number] 2.16.8 [id number] Social History Date Type Detail Facility Sex Assigned At [facility] Start: 1950 Sex Assigned At Male [facility] Start: 04-27-2022 Tobacco smoking status Never s moked tobacco (finding) [facility] Tobacco smoking status Never [facility] Functional Status Date Assessment Result Facility 04-27-2022 Functional Status N/A [facility] Hospital Discharge instructions 04-27-2022 Note Date & Type Note Facility 04-27-2022 Hospital Discharg e instructions Patient Education 04/27/2022 12:29:43 Prostate Cancer Screening Prostate Cancer Screening The prostate is a walnut-sized gland that is located below the bladder and in front of the rectum in males. The function of the prostate (prostate gland) is to add fluid to semen during ejaculation. Prostate cancer is the second most common type of cancer in men. A screening test for cancer is a test that is done before cancer symptoms start. Screening can help to identify cancer at an early stage, when the cancer can be treated more easily. The recommended prostate cancer screening test is a blood test called the prostate-specific antigen (PSA) test. PSA is a protein that is made in the prostate. As you age, your prostate naturally produces more PSA. Abnormally high PSA levels may be caused by: Prostate cancer. An enlarged prostate that is not caused by cancer (benign prostatic hyperplasia, BPH). This condition is very common in older men. A prostate gland infection (prostatitis). Medicines to assist with hair growth, such as finasteride. Depending on the PSA results, you may need more tests, such as: A physical exam to check the size of your prostate gland. Blood and imaging tests. A procedure to remove tissue samples from your prostate gland for testing (biopsy). Who should have screening? Screening recommendations vary based on age. If you are younger than age 40, screening is not recommended. If you are age 40 54 and you have no risk factors, screening is not recommended. If you are younger than age 55, ask your health care provider if you need screening if you have one of these risk factors: ?Being of -[place] descent. ?Having a family history of prostate cancer. If you are age 55 69, talk with your health care provider about your need for screening and how often screening should be done. If you are older than age 70, screening is not recommended. This is because the risks that screening can cause are greater than the benefits that it may provide (risks outweigh the benefits). If you are at high risk for prostate cancer, your health care provider may recommend that you have screenings more often or start screening at a younger age. You may be at high risk if you: Are older than age 55. Are -[place]ian. Have a father, brother, or uncle who has been diagnosed with prostate cancer. The risk may be higher if your family member's cancer occurred at an early age. What are the benefits of screening? There is a small chance that screening may lower your risk of dying from prostate cancer. The chance is small because prostate cancer is typically a slow-growing cancer, and most men with prostate cancer from a different cause. What are the risks of screening? The main risk of prostate cancer screening is diagnosing and treating prostate cancer that would never have caused any symptoms or problems (overdiagnosis and overtreatment). PSA screening cannot tell you if your PSA is high due to cancer or a different cause. A prostate biopsy is the only procedure to diagnose prostate cancer. Even the results of a biopsy may not tell you if your cancer needs to be treated. Slow-growing prostate cancer may not need any treatment other than monitoring, so diagnosing and treating it may cause unnecessary stress or other side effects. A prostate biopsy may also cause: Infection or fever. A false negative. This is a result that shows that you do not have prostate cancer when you actually do have prostate cancer. Questions to ask your health care provider When should I start prostate cancer screening? What is my risk for prostate cancer? How often do I need screening? What type of screening tests do I need? How do I get my test results? What do my results mean? Do I need treatment? Contact a health care provider if: You have difficulty urinating. You have pain when you urinate or ejaculate. You have blood in your urine or semen. You have pain in your back or in the area of your prostate. You have trouble getting or maintaining an erection (erectile dysfunction, ED). Summary Prostate cancer is a common type of cancer in men. The prostate (prostate gland) is located below the bladder and in front of the rectum. This gland adds fluid to semen during ejaculation. Prostate cancer screening may identify cancer at an early stage, when the cancer can be treated more easily. The prostate-specific antigen (PSA) test is the recommended screening test for prostate cancer. Discuss the risks and benefits of prostate cancer screening with your health care provider. If you are age 70 or older, screening is likely to lead to more risks than benefits (risks outweigh the benefits). This information is not intended to replace advice given to you by your health care provider. Make sure you discuss any questions you have with your health care provider. Document Released: 11/05/2017 Document Revised: 01/07/2018 Document Reviewed: 11/05/2017 [employer] Patient Education 2020 [employer]. Follow Up Care 02/11/2021 08:58:53 With:DONAVON KOENIG, Owen Ko, URL Address: [facility] [address], [place] [address]- When: Unknown [facility] Evaluation note 01-13-2022 Note Date & Type Note Facility 01-13-2022 Evaluation note Encounter Date Diagnosis Assessment Notes Jan, Injury of left wrist, initial encounter (ICD-10 - S69.92XA) Jan, Closed nondisplaced fracture of triquetrum of left wrist, initial encounter (ICD-10 - S62.115A) Use RICE therapy as discussed: Rest, Ice Compression, Elevate. Apply ice to affected area 3-4 times daily (Do not place ice source directly on skin, must cover with towel-like material). Take medication as directed. Rest and elevate sore extremity as much as possible. Do not take OTC medication pain relievers if prescription of medication given in office today. Contact PCP for follow up [facility] Other Evaluation + Plan note Note Date & Type Note Facility Evaluation + Plan note No data available for this section [facility] Evaluation note Note Date & Type Note Facility Evaluation note No assessment information availa [facility] Work Phone: History general Narrative - Reported Note Date & Type Note Facility History general Narrative - Reported Type Medical History hypercholesterolemia Medical History Depression Medical History alzheimers disease [facility] Other Progress note Note Date & Type Note Facility Progress note No data available for this section [facility] Summary Purpose Family History No Family History Records FoundNo Family History Records FoundNo Family History Records FoundNo Family History Records FoundNo Family History Records Found Advance Directives No Advanced Directives Records Found Advance Directive Response Recorded Date/ Time Advance Directives No June 01, 018 2:30pm Additional Source Comments (unrecognized sect ion and content) No Status Records FoundNo Status Records FoundNo Status Records FoundNo Status Records FoundNo Status Records Found INFORMATION SOURCE (unrecogn ized section and content) DATE CREATED AUTHOR 07/29/2017 [facility] DATE CREATED AUTHOR AUTHOR'S ORGANIZ ATION 01/30/2022 [facility] DATE CREATED AUTHOR AUTHOR'S ORGANIZ ATION 04/28/2022 [facility] DATE CREATED AUTHOR AUTHOR'S ORGANIZ ATION 06/24/2022 [facility] DATE CREATED AUTHOR AUTHOR'S ORGANIZ ATION 03/03/2023 [facility] d[facility] Specialists EPIC REASON FOR VISIT (unrecogniz ed section and content) LEFT WRIST PT FELL ON THAT W RIST Care Teams (unrecognized sec tion and content) Team Status: Inactive Member Role Status Dates Jayla Kong MD Primary Care Provider Active VADIM Pablo Attending Provider Active Team Status: Active Member Role Status Dates Jayla Kong MD Primary Care Provider Active Goals (unrecognized section and content) Goals may be documented in a n alternate section FOR RECORDS PERTAINING TO PATIENTS WHO ARE OR HAVE BEEN ENROLLED IN A CHEMICAL DEPENDENCY/SUBSTANCEABUSE PROGRAM, SOME INFORMATION MAY BE OMITTED. This clinical summary was aggregated from multiple sources. Caution should be exercised in using it in the provision of clinical care. This summary normalizes information from multiple sources, and as a consequence, information in this document may materially change the coding, format and clinical context of patient data. In addition, data may be omitted in some cases. CLINICAL DECISIONS SHOULD BE BASED ON THE PRIMARY CLINICAL RECORDS. [employer] [facility]. provides no warranty or guarantee of the accuracy or completeness of information in this document.
--- NOTE | 2023-07-17 07:56 | ECG_ITS ---
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
--- NOTE | 2023-07-17 07:56 | CT_ITS ---
[address] [address] Patient Name: DEDE ESTEVEZ MRN: [id number] date: 1950 Sex: M Assigned Patient Location: ER Current Patient Location: ER Accession/Order Number: [id number] Exam Date: 07/17/2023 08:40 Report Date: 07/17/2023 09:06 At the request of: CONY SEVILLA Procedure: CT head/brain wo con CT head/brain wo con, 07/17/2023 8:40 AM EDT INDICATION: Confusion, fall COMPARISON: Noncontrast CT of the head 06/18/2022 TECHNIQUE: Axial CT images of the brain from skull base to vertex, including portions of the face and sinuses, were obtained without contrast. Multiplanar reformatted images were generated and reviewed as needed. FINDINGS: No intracranial mass, hydrocephalus, midline shift or acute hemorrhage. No extra-axial collection. Multifocal and confluent mild periventricular and deep white matter microvascular ischemic change. Caballero-white matter differentiation is preserved. Faint calcifications within the basal ganglia bilaterally. The paranasal sinuses and mastoid air cells are clear. Orbits are within normal limits. No acute skull fracture. CT/CT head/brain wo con IMPRESSION: No acute intracranial abnormality. Electronically authenticated by: ANANDA NOBLE Date: 07/17/2023 09:06
--- NOTE | 2023-07-17 07:56 | CT_ITS ---
The [address] [address] Patient Name: DEDE ESTEVEZ MRN: [id number] date: 1950 Sex: M Assigned Patient Location: ER Current Patient Location: Accession/Order Number: [id number] Exam Date: 07/17/2023 08:40 Report Date: 07/17/2023 10:02 At the request of: CONY SEVILLA Procedure: CT pelvis wo con EXAM: CT pelvis wo con HISTORY: Fall. Left lower back and hip pain. COMPARISON: CT lumbar spine 07/17/2023. TECHNIQUE: Multiple axial unenhanced CT images of the pelvis were supplemented with 2-D coronal and sagittal reformations. Dose reduction techniques were achieved by using automated exposure control and/or adjustment of mA and/or kV according to patient size and/or use of iterative reconstruction technique. FINDINGS: No displaced sacrococcygeal fracture is identified. Mild to moderate bilateral SI joint marginal spur and subchondral sclerosis. The pelvic ring appears intact. Mild to moderate bilateral hip joint marginal spur is noted with subchondral cystic change in the periphery of the acetabula bilaterally. Femoral heads appear smooth. Proximal femurs appear intact. Mild to moderate calcific plaque in the abdominal aorta and iliac branches. Cggk-[id number] stool throughout the course of the colon and rectum. Urinary bladder appears unremarkable. Prostate gland measures 4.1 cm. No inguinal or pelvic lymphadenopathy identified. CT/CT pelvis wo con IMPRESSION: 1. No acute osseous variation identified. 2. Mild to moderate bilateral hip joint osteoarthritis. Electronically authenticated by: GEOVANI CHRISTOPHER Date: 07/17/2023 10:02
--- NOTE | 2023-07-17 07:56 | CT_ITS ---
The [address] [address] Patient Name: DEDE ESTEVEZ MRN: [id number] date: 1950 Sex: M Assigned Patient Location: ER Current Patient Location: Accession/Order Number: [id number] Exam Date: 07/17/2023 08:40 Report Date: 07/17/2023 09:52 At the request of: CONY SEVILLA Procedure: CT lumbar spine wo con EXAM: CT lumbar spine wo con HISTORY: fall, pain COMPARISON: CT pelvis performed contemporaneously and reported separately. TECHNIQUE: Axial noncontrast CT imaging of the lumbar spine was performed without intravenous contrast. This CT exam was performed using one or more of the following dose reduction techniques: Automated exposure control, adjustment of the MA and/or kV according to patient size, or use of iterative reconstruction technique. FINDINGS: Alignment: Minimal dextrocurvature of the lumbar spine. No substantial subluxation. Vertebrae: Vertebral body heights are maintained. Acute fracture of the right L2 transverse process without substantial displacement. Mineralization is normal. Degenerative changes: T12-L1: No substantial canal or foraminal stenosis. L1-L2: No substantial canal or foraminal stenosis. L2-L3: No substantial canal or foraminal stenosis. L3-L4: Minimal disc bulge. Mild facet arthropathy. No substantial canal or foraminal stenosis. L4-L5: Mild diffuse disc bulge. Mild left greater than right facet arthropathy. Mild canal stenosis. Mild bilateral foraminal stenosis. L5-S1: Mild eccentric right disc bulge with probable small left central protrusion. Minimal facet arthropathy. No substantial canal stenosis. Mild bilateral foraminal stenosis. Additional comments: Mild atherosclerotic change. Visualized portion of the intra-abdominal structures are otherwise grossly unremarkable. CT/CT lumbar spine wo con IMPRESSION: 1. Acute nondisplaced fracture of the right L2 transverse process. 2. Mild degenerative changes of lower lumbar spine. Electronically authenticated by: DILLON CISSE Date: 07/17/2023 09:52
--- NOTE | 2023-07-17 08:11 | ED.GENADUL1 ---
HPI HPI - General Adult General Chief complaint: Fall Stated complaint: FALL Time Seen by Provider: 07/17/23 07:42 Source: patient Mode of arrival: Wheelchair History of Present Illness HPI narrative: Patient presents ED after a fall last night. Patient has a history of Parkinson's and reports that it is kind of worsened recently. He has had more rigidity and difficulty moving. She was going upstairs last night to get ready and when she came back downstairs he was on the floor. Patient reports pain in the left hip and the left low back and tailbone area. Initially he was able to get up and walk but when he tried to go up the steps he could not. He slept in the chair last night but according to the they had a rough night because he was in pain and not able to get comfortable. Then this morning he had a lot of difficulty even standing or walking. He does have a history of dementia and does have some confusion but reports he is relatively at baseline with his mentation and neurological status. No fevers no cough no shortness of breath. Patient denies headache or neck pain. Related Data Home Medications ?Medication ?Instructions ?Recorded ?Confirmed carbidopa 25 mg-levodopa 100 mg 2 tab PO TID 07/17/23 07/17/23 tablet clonazepam 0.5 mg tablet 0.5 mg PO Q12H 07/17/23 07/17/23 donepezil 23 mg tablet 23 mg PO DAILY 07/17/23 07/17/23 lamotrigine 100 mg tablet 100 mg PO Q12H 07/17/23 07/17/23 memantine 10 mg tablet 10 mg PO BID 07/17/23 07/17/23 polyethylene glycol 3350 17 gram 17 g PO DAILY 07/17/23 07/17/23 oral powder packet (ClearLax) simvastatin 20 mg tablet 20 mg PO DAILY 07/17/23 07/17/23 Allergies Allergy/AdvReac Type Severity Reaction Status Date / Time No Known Drug Allergies Allergy Verified 07/17/23 07:49 Opioid HPI Opioid Management Most Recent Opioid Data: Last Pain Scale 3 07/17/23 14:09 Last Pain Assessment 07/17/23 15:46 Last ORT Total Score 1 07/17/23 13:20 Last ORT Risk Category Low Risk 07/17/23 13:20 Review of Systems ROS Status of ROS 10 or more systems reviewed and unremarkable except as noted in history and below PFSH PFSH Medical History (Updated 07/17/23 @ 16:39 by Eve Caballero DO) Anxiety ?F41.9 - Anxiety disorder, unspecified (ICD-10) Depression ?F32.A - Depression, unspecified (ICD-10) Urinary hesitancy ?R39.11 - Hesitancy of micturition (ICD-10) High blood cholesterol ?E78.00 - Pure hypercholesterolemia, unspecified (ICD-10) Dementia ?F03.90 - Unspecified dementia, unspecified severity, without behavioral disturbance, psychotic disturbance, mood disturbance, and anxiety (ICD-10) Parkinson disease ?G20.A1 - Parkinson's disease without dyskinesia, without mention of fluctuations (ICD-10) Surgical History (Updated 07/17/23 @ 13:47 by Kiah Garcia) H/O transurethral resection of prostate ?Z98.890 - Other specified postprocedural states (ICD-10) ?Z90.79 - Acquired absence of other genital organ(s) (ICD-10) Family History (Updated 07/17/23 @ 13:47 by Kiah Garcia) Mother Family history of cancer Sister Family history of hypertension Social History (Updated 07/17/23 @ 13:50 by Kiah Garcia) Within the past year, how often did you have a drink containing alcohol: never Within the past year, how often did you have six or more drinks on one occasion: never Score interpretation: A score less than 4 is consistent with normal alcohol consumption. Smoking status: Never smoker Non-prescribed substance use: denies use Previous occupational history: retired Highest level of school completed/degree received: high school graduate Are you now , , , , never or living with a partner: Little interest or pleasure in doing things: not at all Feeling down, depressed, or hopeless: not at all Feel stressed/tense/nervous/anxious/difficulty sleeping: not at all Exam Narrative Exam Narrative: Time Seen: [] Vital Signs: [Per nurse's notes.] General: [Alert] Skin: [Warm, dry, no rash.] Head: [Normocephalic, atraumatic.] Neck: [Supple, trachea midline.] Eye: [Pupils are equal, round and reactive to light, extraocular movements are intact, normal conjunctiva.] Ears, nose, mouth and throat: oral mucosa moist. Cardiovascular: [Regular rate and rhythm, no murmur.] Respiratory: [Lungs are clear to auscultation, respirations are non-labored, breath sounds are equal.] Chest wall: [No tenderness, no deformity.] Gastrointestinal: [Soft, nontender, non distended, normal bowel sounds.] MSK: 4 out of 5 muscle strength x 4 extremities no calf pain or edema. Pain with internal/external rotation of the left hip. Pain to the left lateral hip and tailbone area Lymphatics: [No lymphadenopathy.] Psychiatric: [Cooperative, appropriate mood & affect.] Neurological: [Alert and oriented to person, place, time, and situation, no focal neurological deficit observed.] Constitutional Vital Signs, click to edit/add: Last Vital Signs Temp 97.8 F 07/17/23 13:20 Pulse 74 07/17/23 13:20 Resp 20 07/17/23 13:20 BP 124/72 07/17/23 13:20 Pulse Ox 94 L 07/17/23 13:20 O2 Del Method Room Air 07/17/23 13:20 Course Vital Signs Vital signs: Vital Signs Temperature 97.6 F 07/17/23 07:44 Pulse Rate 85 07/17/23 07:44 Respiratory Rate 18 07/17/23 07:44 Blood Pressure 126/68 07/17/23 07:44 Pulse Oximetry 98 07/17/23 07:44 Oxygen Delivery Method Room Air 07/17/23 07:44 Temperature 97.8 F 07/17/23 13:20 Pulse Rate 74 07/17/23 13:20 Respiratory Rate 20 07/17/23 13:20 Blood Pressure 124/72 07/17/23 13:20 Pulse Oximetry 94 L 07/17/23 13:20 Oxygen Delivery Method Room Air 07/17/23 13:20 Medical Decision Making MDM Narrative Medical decision making narrative: Patient has an L2 transverse process fracture. Labs are stable. Patient is not able to move get up and around or ambulate well at home. His is unable to take care of him. He will be admitted to the hospital for pain control and possible placement to a rehab facility. I spoke to Dr. Crisostomo and he agrees with plan for admission. Patient and family are comfortable with care plan for admit. Differential Diagnosis Differential Diagnosis: Fracture sprain strain Multiple falls worsening Parkinson's Lab Data Lab results reviewed: Yes I reviewed the patient's lab results Labs: Lab Results 07/17/23 07/17/23 Range/Units 08:14 10:46 WBC 9.5 (4.0-11.0) 10^3/uL RBC 4.79 (4.70-6.10) 10^6/uL Hgb 13.3 L (14.0-18.0) g/dL Hct 41.3 L (42.0-54.0) % MCV 86.2 (80.0-94.0) fL MCH 27.8 (25.9-34.0) pg MCHC 32.2 (29.9-35.2) g/dL RDW 12.4 (11.0-15.0) % Plt Count 245 (150-450) 10^3/uL MPV 9.5 (9.5-13.5) fL Neut % (Auto) 79.7 H (43.0-75.0) % Lymph % (Auto) 11.5 L (20.5-60.0) % [place] % (Auto) 7.5 (1.7-12.0) % Eos % (Auto) 0.8 L (0.9-7.0) % Baso % (Auto) 0.3 (0.2-2.0) % Neut # (Auto) 7.6 H (1.4-6.5) 10^3/uL Lymph # (Auto) 1.1 L (1.2-3.8) 10^3/uL [place] # (Auto) 0.7 (0.3-0.8) 10^3/uL Eos # (Auto) 0.1 (0.0-0.7) 10^3/uL Baso # (Auto) 0.0 (0.0-0.1) 10^3/uL Abs Immat Gran (auto) 0.02 (0.00-0.03) 10^3/uL Imm/Tot Granulo (auto) 0.2 (0.0-0.5) % Sodium 142 (136-145) mmol/L Potassium 4.2 (3.5-5.1) mmol/L Chloride 103 (98-107) mmol/L Carbon Dioxide 28.5 (21.0-32.0) mmol/L Anion Gap 14.7 BUN 18.0 (7.0-18.0) mg/dL Creatinine 1.00 (0.70-1.30) mg/dL Est GFR ( Amer) >60 (>=60) Est GFR (Non-Af Amer) >60 (>=60) BUN/Creatinine Ratio 18.0 Glucose 131 H (74-106) mg/dL Calcium 9.0 (8.5-10.1) mg/dL Total Bilirubin 0.6 (0.2-1.0) mg/dL AST 21 (15-37) U/L ALT 15 L (16-63) U/L Alkaline Phosphatase 101 (46-116) U/L Total Protein 7.2 (6.4-8.2) g/dL Albumin 3.3 L (3.4-5.0) g/dL Globulin 3.9 g/dL Albumin/Globulin Ratio 0.8 Urine Color Yellow (YELLOW) Urine Clarity Clear (CLEAR) Urine pH 6.0 (5.0-9.0) Ur Specific [place] >=1.030 A (1.005-1.025) Urine Protein Negative (NEG/TRACE) mg/dL Urine Glucose (UA) Negative (NEGATIVE) mg/dL Urine Ketones Negative (NEGATIVE) mg/dL Urine Occult Blood Negative (NEGATIVE) Urine Nitrite Negative (NEGATIVE) Urine Bilirubin Negative (NEGATIVE) Urine Urobilinogen 0.2 (0.2-1.0) EU/dL Ur Leukocyte Esterase Negative (NEGATIVE) Imaging Data CT scan - pelvis: Radiologist's impression: ITS Impressions Head CT 07/17/23 07:56 IMPRESSION: No acute intracranial abnormality. Electronically authenticated by: ANANDA NOBLE Date: 07/17/2023 09:[address] 07/17/23 07:56 IMPRESSION: 1. Acute nondisplaced fracture of the right L2 transverse process. 2. Mild degenerative changes of lower lumbar spine. Electronically authenticated by: DILLON CISSE Date: 07/17/2023 09:[address] 07/17/23 07:56 IMPRESSION: 1. No acute osseous variation identified. 2. Mild to moderate bilateral hip joint osteoarthritis. Electronically authenticated by: GEOVANI CHRISTOPHER Date: 07/17/2023 10:02 ECG Data Attestation: I personally reviewed and interpreted this ECG as follows: Interpretation: EKG INTERPRETATION Time: []808 Rate: []76 Rhythm: _ []Normal sinus rhythm ST segments: _ [] T waves: _ [] Ectopy: _ [] P wave/NV interval: _ [] QRS interval: _ [] QT interval: _ [] Comparison: _ [] Comparison EKG date: [] Performed by: [self]No acute ST elevation or depression Discharge Plan Discharge Chief Complaint: Fall Clinical Impression: Closed fracture of transverse process of lumbar vertebra Patient Disposition: Admitted as Observation Condition: Fair Discharge Date/Time: 07/17/23 13:08
[2023-07-17 08:25] LABS: Basophils Percent Auto 0.3 % (0.2-2.0); Eosinophils Absolute Auto 0.1 10^3/uL (0.0-0.7); Eosinophils Percent Auto 0.8 % (0.9-7.0); Hematocrit 41.3 % (42.0-54.0); Hemoglobin 13.3 g/dL (14.0-18.0); Immature Granulocytes Abs Auto 0.02 10^3/uL (0.00-0.03); Immature Granulocytes Pct Auto 0.2 % (0.0-0.5); Lymphocytes Absolute Auto 1.1 10^3/uL (1.2-3.8); Lymphocytes Percent Auto 11.5 % (20.5-60.0); Mean Corpuscular HGB Conc 32.2 g/dL (29.9-35.2); Mean Corpuscular Hemoglobin 27.8 pg (25.9-34.0); Mean Corpuscular Volume 86.2 fL (80.0-94.0); Mean Platelet Volume 9.5 fL (9.5-13.5); Monocytes Absolute Auto 0.7 10^3/uL (0.3-0.8); Monocytes Percent Auto 7.5 % (1.7-12.0); Neutrophils Absolute Auto 7.6 10^3/uL (1.4-6.5); Neutrophils Percent Auto 79.7 % (43.0-75.0); Platelet Count 245 10^3/uL (150-450); Red Blood Count 4.79 10^6/uL (4.70-6.10); Red Cell Distribution Width 12.4 % (11.0-15.0); White Blood Count 9.5 10^3/uL (4.0-11.0)
[2023-07-17 08:41] LABS: Alanine Aminotransferase 15 U/L (16-63); Albumin Globulin Ratio 0.8; Albumin Level 3.3 g/dL (3.4-5.0); Alkaline Phosphatase 101 U/L (46-116); Anion Gap 14.7; Aspartate Amino Transferase 21 U/L (15-37); Bilirubin Total 0.6 mg/dL (0.2-1.0); Carbon Dioxide 28.5 mmol/L (21.0-32.0); Chloride 103 mmol/L (98-107); Estimated GFR (African America >60 (>=60); Estimated GFR (Non-African Ame >60 (>=60); Globulin 3.9 g/dL; Glucose 131 mg/dL (74-106); Potassium 4.2 mmol/L (3.5-5.1); Sodium 142 mmol/L (136-145); Total Protein 7.2 g/dL (6.4-8.2)
[2023-07-17 11:03] LABS: Bilirubin Urine NEGATIVE (NEGATIVE); Blood Urine NEGATIVE (NEGATIVE); Clarity Urine CLEAR (CLEAR); Color Urine YELLOW (YELLOW); Glucose Urine UA NEGATIVE (NEGATIVE); Ketones Urine NEGATIVE (NEGATIVE); Leukocyte Esterase Urine NEGATIVE (NEGATIVE); Nitrite Urine NEGATIVE (NEGATIVE); Protein Urine NEGATIVE (NEG/TRACE); Specific Gravity Urine >=1.030 (1.005-1.025); Urobilinogen Urine 0.2 EU/dL (0.2-1.0)
[2023-07-17 11:07] LABS: Urine Microscopic Indicated NO
--- OUTSIDE RECORDS SUMMARY | 2023-07-17 13:16 | XMS_ITS | CCD ---
Author Organization [facility] Care Team Providers Care Cellular Phone Repairer Name Role Phone PHYSICIAN, DEFAULT Unavailable Unavailable [...] Unavailable MD Jayla Kong Primary Care Provider [phone] VADIM Gomez Attending Provider Lynn Gomez Attending [...] Unavailable ANUPAM, DR GARRICK Ko Consulting Unavailable MICHELLE DWYER Consulting Unavailable CATRACHITA Elliott, DR DICKERSON [...] Unavailable HOY ., DR DICKERSON Consulting Unavailable DANIELSON, DR ELI Sanchez Consulting Unavailable SLOAN ., [...] Medication Allergies] Propensity to adverse reactions (disorder) [facility] Repository Medications Current Medications Medication Drug [...] hydrochloride 10 mg oral tablet (1 source) W-tstbvb-C-aspartate Receptor Antagonist Memantine HCl 10 MG Oral [...] 11-08-2021 Chronic Other aftercare (1 source) Other intermediate card tender (current) drug therapy; Translations: [OTH SALESPERSON HANDBAGS CURRENT DRUG THERAPY] Onset: 06-24-2022 Episodic Other [...] ATYPICAL LYMPH # 0.61 103/ul Normal [facility] Comment on above: Performed By: #### C MARY #### [facility] [address] [address] [address] Timmy Grant ATYPICAL LYMPH % 4 % Normal [facility] Comment on above: Performed By: #### C MARY #### [facility] [address] [address] [address] Timmy Grant BAND # 0.0 103/ul Normal 0.0-0.3 [facility] Comment on above: Performed By: #### C BCNAFISA #### [facility] [address] [place] [address] Dr. Timmy Grant BAND % 0 % Normal 0-5 [facility] Comment on above: Performed By: #### C MARY #### [facility] [address] [place] [address] Dr. Timmy Grant BASOM # 0.00 103/ul Normal 0.00-0.10 [facility] Comment on above: Performed By: #### C MARY #### [facility] [address] [place] [address] Dr. Timmy Grant BASOM % 0.0 % Critically low 0.2-2.0 [facility] Comment on above: Performed By: #### C MARY #### [facility] [address] [place] [address] Dr. Timmy Grant BLAST # Normal [facility] Comment on above: Performed By: #### C MARY #### [facility] [address] [place] [address] Dr. Timmy Grant BLAST % Normal [facility] Comment on above: Performed By: #### C MARY #### [facility] [address] [place] [address] Dr. Timmy Grant CORRECTED WBC Normal 4.0-11.0 [facility] Comment on above: Performed By: #### C MARY #### [facility] [address] [place] [address] Dr. Timmy Grant EOS # 0.00 103/ul Normal 0.00-0.70 [facility] Comment on above: Performed By: #### C MARY #### [facility] [address] [place] [address] Dr. Timmy Grant EOS% 0.0 % Critically low 0.9-7.0 [facility] Comment on above: Performed By: #### C MARY #### [facility] [address] [place] [address] Dr. Timmy Grant HCT 42.1 % Normal 42.0-54.0 [facility] Comment on above: Performed By: #### C MARY #### [facility] [address] [place] [address] Dr. Timmy Grant HGB 13.8 g/dl Critically low 14.0-18.0 [facility] Comment on above: Performed By: #### C MARY #### [facility] [address] [address] [address] Tmimy Grant LYMPHM # 0.00 103/ul Critically low 1.20-3.80 [facility] Comment on above: Performed By: #### C MARY #### [facility] [address] [place] [address] Dr. Timmy Grant LYMPHM% 0.0 % Critically low 20.5-60.0 [facility] Comment on above: Performed By: #### C MARY #### [facility] [address] [place] [address] Dr. Timmy Grant MCH 27.4 pg Normal 25.9-34.0 [facility] Comment on above: Performed By: #### C MARY #### [facility] [address] [place] [address] Dr. Timmy Grant MCHC 32.8 g/dl Normal 29.9-35.2 [facility] Comment on above: Performed By: #### C MARY #### [facility] [address] [place] [address] Dr. Timmy Grant MCV 83.7 fL Normal 80.0-94.0 [facility] Comment on above: Performed By: #### C BCNAFISA #### [facility] [address] [place] [address] Dr. Timmy Grant METAMYELOCYTE # Normal [facility] Comment on above: Performed By: #### C MARY #### [facility] [address] [place] [address] Dr. Timmy Grant METAMYELOCYTE % Normal [facility] Comment on above: Performed By: #### C BCNAFISA #### [facility] [address] [address] [address] Timmy Grant MONOM# 0.00 103/ul Critically low 0.30-0.80 [facility] Comment on above: Performed By: #### C MARY #### [facility] [address] [address] [address] Timmy Grant MONOM% 0.0 % Critically low 1.7-12.0 [facility] Comment on above: Performed By: #### C MARY #### [facility] [address] [place] [address] Dr. Timmy Grant MPV 9.7 fL Normal 9.5-13.5 [facility] Comment on above: Performed By: #### C MARY #### [facility] [address] [place] [address] Dr. Timmy Grant MYELOCYTE # Normal [facility] Comment on above: Performed By: #### C MARY #### [facility] [address] [address] [address] Timmy Grant MYELOCYTE % Normal [facility] Comment on above: Performed By: #### C MARY #### [facility] [address] [place] [address] Dr. Timmy Grant NRBC Normal [facility] Comment on above: Performed By: #### C MARY #### [facility] [address] [place] [address] Dr. Timmy Grant PLT 224 103/ul Normal 150-450 [facility] Comment on above: Performed By: #### C MARY #### [facility] [address] [place] [address] Dr. Timmy Grant RBC 5.03 106/ul Normal 4.70-6.10 [facility] Comment on above: Performed By: #### C MARY #### [facility] [address] [place] [address] Dr. Timmy Grant RDW 12.8 % Normal 11.0-15.0 [facility] Comment on above: Performed By: #### C MARY #### [facility] [address] [place], [place] [id number] Dr. Timmy Grant SEG # 14.69 103/ul Critically high 1.40-6.50 [facility] Comment on above: Performed By: #### C MARY #### [facility] [address] [place] [address] Dr. Timmy Grant SEG % 96.0 % Critically high 43.0-75.0 [facility] Comment on above: Performed By: #### C MARY #### [facility] [address] [address] [address] Timmy Grant WBC 15.3 103/ul Critically high 4.0-11.0 [facility] Comment on above: Performed By: #### C MARY #### [facility] [address] [place] [address] Dr. Timmy Grant PROF 14(COMP METB)on 023 Albumin [Mass/Vol] 3.2 g/dL Critically low 3.4-5.0 [facility] Comment on above: Performed By: #### O BSCRN #### [facility] [address] [place] [address] Dr. Timmy Grant Albumin/Globulin [Mass ratio] 0.8 {ratio} [facility] Comment on above: Performed By: #### O BSCRN #### [facility] [address] [place] [address] Dr. Timmy Grant ALP [Catalytic activity/Vol] 92 U/L Normal 46-116 [facility] Comment on above: Performed By: #### O BSCRN #### [facility] [address] [place] [address] Dr. Timmy Grant ALT [Catalytic activity/Vol] 13 U/L Critically low 16-63 [facility] Comment on above: Performed By: #### O BSCRN #### [facility] [address] [place] [address] Dr. Timmy Grant Anion gap [Moles/Vol] 11.0 mmol/L Normal [facility] Comment on above: Performed By: #### O BSCRN #### [facility] [address] [address] [address] Timmy Grant AST [Catalytic activity/Vol] 14 U/L Critically low 15-37 [facility] Comment on above: Performed By: #### O BSCRN #### [facility] [address] [place] [address] Dr. Timmy Grant Bilirubin [Mass/Vol] 0.5 mg/dL Normal 0.2-1.0 [facility] Comment on above: Performed By: #### O BSCRN #### [facility] [address] [place] [address] Dr. Timmy Grant Calcium [Mass/Vol] 9.5 mg/dL Normal 8.5-10.1 [facility] Comment on above: Performed By: #### O BSCRN #### [facility] [address] [place] [address] Dr. Timmy Grant Chloride [Moles/Vol] 105 mmol/L Normal 98-107 [facility] Comment on above: Performed By: #### O BSCRN #### [facility] [address] [place] [address] Dr. Timmy Grant CO2 [Moles/Vol] 26.2 mmol/L Normal 21.0-32.0 [facility] Comment on above: Performed By: #### O BSCRN #### [facility] [address] [place] [address] Dr. Timmy Grant Creatinine [Mass/Vol] 1.12 mg/dL Normal 0.70-1.30 [facility] Comment on above: Performed By: #### O BSCRN #### [facility] [address] [place] [address] Dr. Timmy Grant EGFR-AF RWANDAN >60 Normal >=60 [facility] Comment on above: Performed By: #### O BSCRN #### [facility] [address] [place] [address] Dr. Timmy Grant EGFR-NON AF RWANDAN >60 Normal >=60 [facility] Comment on above: Performed By: #### O BSCRN #### [facility] [address] [place] [address] Dr. Timmy Grant Globulin (S) [Mass/Vol] 4.2 g/dL Normal [facility] Comment on above: Performed By: #### O BSCRN #### [facility] [address] [place] [address] Dr. Timmy Grant Glucose [Mass/Vol] 171 mg/dL Critically high 74-106 [facility] Comment on above: Performed By: #### O BSCRN #### [facility] [address] [place] [address] Dr. Timmy Grant Potassium [Moles/Vol] 4.2 mmol/L Normal 3.5-5.1 [facility] Comment on above: Performed By: #### O BSCRN #### [facility] [address] [place] [address] Dr. Timmy Grant Protein [Mass/Vol] 7.4 g/dL Normal 6.4-8.2 [facility] Comment on above: Performed By: #### O BSCRN #### [facility] [address] [place] [address] Dr. Timmy Grant Sodium [Moles/Vol] 138 mmol/L Normal 136-145 [facility] Comment on above: Performed By: #### O BSCRN #### [facility] [address] [place] [address] Dr. Timmy Grant Urea nitrogen [Mass/Vol] 15.0 mg/dL Normal 7.0-18.0 [facility] Comment on above: Performed By: #### O BSCRN #### [facility] [address] [place] [address] Dr. Timmy Grant Urea nitrogen/Creatinin e [Mass ratio] 13.4 mg/mg Normal [facility] Comment on above: Performed By: #### O BSCRN #### [facility] [address] [place] [address] Dr. Timmy Grant BNPon 06-18-2022 Natriuretic peptide B (Bld) [Mass/Vol] 114.0 pg/mL Normal <=900.0 [facility] Comment on above: Performed By: #### O BSCRN #### [facility] [address] [address] [address] Timmy Grant CARDIAC SANJUANA ADMITon 023 CK [Catalytic activity/Vol] 209 U/L Normal 39-308 [facility] Comment on above: Performed By: #### O BSCRN #### [facility] [address] [place] [address] Dr. Timmy Grant CK.MB [Mass/Vol] 2.98 ng/mL Normal <=3.60 [facility] Comment on above: Performed By: #### O BSCRN #### [facility] [address] [place] [address] Dr. Timmy Grant HSTROP 5.6 pg/mL Normal 4.0-76.1 [facility] Comment on above: Result Comment: CUT- OFF POINTS HAVE BEEN ESTABLISHED BASED ON THE FOURTH UNIVERSAL DEFINITIONS OF MYOCARDIAL INFARCTION. THE UPPER REFERENCE LIMIT (URL) OF TROPONIN, DEFINED THE 99TH PERCENTILE OF cTnI DISTRIBUTION IN A REFERENCE POPULATION, HAS BEEN CONFIRMED THE DECISION THRESHOLD FOR CA DIAGNOSIS. Performed By: #### O BSCRN #### [facility] [address] [place] [address] Dr. Timmy Grant NAFISA 118 ng/mL Critically high 16-96 [facility] Comment on above: Performed By: #### O BSCRN #### [facility] [address] [place] [address] Dr. Timmy Grant CBC W MANUAL DIFFon 06-19-19 23 ATYPICAL LYMPH # Normal [facility] Comment on above: Performed By: #### C BCMAN #### [facility] [address] [place] [address] Dr. Timmy Grant ATYPICAL LYMPH % Normal [facility] Comment on above: Performed By: #### C BCMAN #### [facility] [address] [place] [address] Dr. Timmy Grant BAND # 0.6 103/ul Critically high 0.0-0.3 [facility] Comment on above: Performed By: #### C BCMAN #### [facility] [address] [place] [address] Dr. Timmy Grant BAND % 5 % Normal 0-5 [facility] Comment on above: Performed By: #### C MARY #### [facility] [address] [place] [address] Dr. Timmy Grant BASOM # 0.00 103/ul Normal 0.00-0.10 [facility] Comment on above: Performed By: #### C MARY #### [facility] [address] [place] [address] Dr. Timmy Grant BASOM % 0.0 % Critically low 0.2-2.0 [facility] Comment on above: Performed By: #### C BCNAFISA #### [facility] [address] [place] [address] Dr. Timmy Grant BLAST # Normal [facility] Comment on above: Performed By: #### C MARY #### [facility] [address] [place] [address] Dr. Timmy Grant BLAST % Normal [facility] Comment on above: Performed By: #### C BCNAFISA #### [facility] [address] [place] [address] Dr. Timmy Grant CORRECTED WBC Normal 4.0-11.0 [facility] Comment on above: Performed By: #### C MARY #### [facility] [address] [place] [address] Dr. Timmy Grant EOS # 0.00 103/ul Normal 0.00-0.70 [facility] Comment on above: Performed By: #### C MARY #### [facility] [address] [place] [address] Dr. Timmy Grant EOS% 0.0 % Critically low 0.9-7.0 [facility] Comment on above: Performed By: #### C BCNAFISA #### [facility] [address] [place] [address] Dr. Timmy Grant HCT 46.4 % Normal 42.0-54.0 [facility] Comment on above: Performed By: #### C MARY #### [facility] [address] [place] [address] Dr. Timmy Grant HGB 14.8 g/dl Normal 14.0-18.0 [facility] Comment on above: Performed By: #### C MARY #### [facility] [address] [place] [address] Dr. Timmy Grant LYMPHM # 0.57 103/ul Critically low 1.20-3.80 [facility] Comment on above: Performed By: #### C MARY #### [facility] [address] [place] [address] Dr. Timmy Grant LYMPHM% 5.0 % Critically low 20.5-60.0 [facility] Comment on above: Performed By: #### C MARY #### [facility] [address] [place] [address] Dr. Timmy Grant MCH 26.8 pg Normal 25.9-34.0 [facility] Comment on above: Performed By: #### Tali HERNANDEZ #### [facility] [address] [place] [address] Dr. Timmy Grant MCHC 31.9 g/dl Normal 29.9-35.2 [facility] Comment on above: Performed By: #### Tali HERNANDEZ #### [facility] [address] [place] [address] Dr. Timmy Grant MCV 84.1 fL Normal 80.0-94.0 [facility] Comment on above: Performed By: #### Tali HERNANDEZ #### [facility] [address] [place] [address] Dr. Timmy Grant METAMYELOCYTE # Normal [facility] Comment on above: Performed By: #### Tali HERNANDEZ #### [facility] [address] [place] [address] Dr. Timmy Grant METAMYELOCYTE % Normal [facility] Comment on above: Performed By: #### C MARY #### [facility] [address] [place] [address] Dr. Timmy Grant MONOM# 0.23 103/ul Critically low 0.30-0.80 [facility] Comment on above: Performed By: #### C MARY #### [facility] [address] [address] [address] Timmy Grant MONOM% 2.0 % Normal 1.7-12.0 [facility] Comment on above: Performed By: #### C MARY #### [facility] [address] [address] [address] Timmy Grant MPV 9.5 fL Normal 9.5-13.5 [facility] Comment on above: Performed By: #### C MARY #### [facility] [address] [place] [address] Dr. Timmy Grant MYELOCYTE # Normal [facility] Comment on above: Performed By: #### C MARY #### [facility] [address] [place] [address] Dr. Timmy Grant MYELOCYTE % Normal [facility] Comment on above: Performed By: #### Tali HERNANDEZ #### [facility] [address] [place] [address] Dr. Timmy Grant NRBC Normal [facility] Comment on above: Performed By: #### C MARY #### [facility] [address] [place] [address] Dr. Timmy Grant PLT 219 103/ul Normal 150-450 [facility] Comment on above: Performed By: #### C MARY #### [facility] [address] [place] [address] Dr. Timmy Grant RBC 5.52 106/ul Normal 4.70-6.10 [facility] Comment on above: Performed By: #### C MARY #### [facility] [address] [place] [address] Dr. Timmy Grant RDW 12.6 % Normal 11.0-15.0 [facility] Comment on above: Performed By: #### C MARY #### [facility] [address] [place] [address] Dr. Timmy Grant SEG # 10.12 103/ul Critically high 1.40-6.50 [facility] Comment on above: Performed By: #### C MARY #### [facility] [address] [address] [address] Timmy Grant SEG % 88.0 % Critically high 43.0-75.0 [facility] Comment on above: Performed By: #### C MARY #### [facility] [address] [address] [address] Timmy Grant WBC 11.5 103/ul Critically high 4.0-11.0 [facility] Comment on above: Performed By: #### C MARY #### [facility] [id number] Timmy Grant CT HEAD WO CONon 06-18-2022 CT HEAD WO CON EXAM: CT HEAD WO CON ; [id number] REASON FOR EXAM: Pain COMPARISON: None. TECHNIQUE: [...] BENTON FOSTER Date: 2022-06-18 11:17 Normal [facility] CULTURE BLOODon 06-18-2022 Microscopic examination of blood, culture Culture Observations: NO GROWTH AT 5 DAYS. Normal [facility] Comment on above: Performed By: #### O BSCRN #### [facility] [address] [address] [address] Timmy Grant Microscopic examination of blood, culture Culture Observations: NO GROWTH AT 5 DAYS. Normal [facility] Comment on above: Performed By: #### O BSCRN #### [facility] [address] [place] [address] Dr. Timmy Grant ER URINE PROFILEon 3 Bilirubin Ql (U) Negative Normal NEGATIVE [facility] Comment on above: Performed By: #### E RUR #### [facility] [address] [place] [address] Dr. Timmy Grant Clarity (U) CLEAR Normal CLEAR [facility] Comment on above: Performed By: #### E RUR #### [facility] [address] [place] [address] Dr. Timmy Grant Color (U) YELLOW Normal YELLOW [facility] Comment on above: Performed By: #### E RUR #### [facility] [facility] [address] [place] [address] Dr. Timmy Grant ERUAHD A micrscopic examina tion will be performed if indicated. Normal [facility] Comment on above: Performed By: #### E RUR #### [facility] [address] [place] [address] Dr. Timmy Grant Glucose Ql (U) Negative Normal NEGATIVE [facility] Comment on above: Performed By: #### E RUR #### [facility] [address] [place] [address] Dr. Timmy Grant Hemoglobin Ql (U) Negative Normal NEGATIVE [facility] Comment on above: Performed By: #### E RUR #### [facility] [address] [place] [address] Dr. Timmy Grant Ketones Ql (U) TRACE Abnormal NEGATIVE [facility] Comment on above: Performed By: #### E RUR #### [facility] [address] [place] [address] Dr. Timmy Grant LEUKOCYTES Negative Normal NEGATIVE [facility] Comment on above: Performed By: #### E RUR #### [facility] [address] [place] [address] Dr. Timmy Grant Nitrite Ql (U) Negative Normal NEGATIVE [facility] Comment on above: Performed By: #### E RUR #### [facility] [address] [place] [address] Dr. Timmy Grant pH (U) 5.5 [pH] Normal 5-9 [facility] Comment on above: Performed By: #### E RUR #### [facility] [address] [place] [address] Dr. Timmy Grant SPEC GRAVITY 1.025 Normal 1.005-<=1.[address] [place] [address] Comment on above: Performed By: #### E RUR #### [facility] [address] [place] [address] Dr. Timmy Grant UA PROTEIN Negative Normal NEGATIVE/ TRACE [facility] Comment on above: Performed By: #### E RUR #### [facility] [address] [place] [address] Dr. Timmy Grant UR MICRO IND NOT INDICATED Normal [facility] Comment on above: Performed By: #### E RUR #### [facility] [address] [place] [address] Dr. Timmy Grant Urobilinogen Qn (U) 0.2 {Ana'U}/dL Normal 0.2 - 1.0 [facility] Comment on above: Performed By: #### E RUR #### [facility] [address] [place] [address] Dr. Timmy Grant GROUP A STREP CULTUREon 06-08 S. pyogenes Ag Ql (Unsp spec) Culture Observations: NEGATIVE FOR GROUP A STREPTOCOCCUS. Normal [facility] Comment on above: Performed By: #### P SASC, VITB12, VITAD #### [facility] [address] [place] [address] Dr. Timmy Grant LACTATE/LACTIC ACIDon 2022 Lactate [Moles/Vol] 2.0 mmol/L Normal 0.4-2.0 [facility] Comment on above: Performed By: #### P SASC, VITB12, VITAD #### [facility] [address] [place] [address] Dr. Timmy Grant Lactate [Moles/Vol] 1.7 mmol/L Normal 0.4-2.0 [facility] Comment on above: Performed By: #### E RUR #### [facility] [address] [place] [address] Dr. Timmy Grant PROF 14(COMP METB)on 023 Albumin [Mass/Vol] 3.6 g/dL Normal 3.4-5.0 [facility] Comment on above: Performed By: #### O BSCRN #### [facility] [address] [place] [address] Dr. Timmy Grant Albumin/Globulin [Mass ratio] 0.8 {ratio} Normal [facility] Comment on above: Performed By: #### O BSCRN #### [facility] [address] [place] [address] Dr. Timmy Grant ALP [Catalytic activity/Vol] 94 U/L Normal 46-116 [facility] Comment on above: Performed By: #### O BSCRN #### [facility] [address] [place] [address] Dr. Timmy Grant ALT [Catalytic activity/Vol] 33 U/L Normal 16-63 [facility] Comment on above: Performed By: #### O BSCRN #### [facility] [address] [place] [address] Dr. Timmy Grant Anion gap [Moles/Vol] 12.5 mmol/L Normal [facility] Comment on above: Performed By: #### O BSCRN #### [facility] [address] [place] [address] Dr. Timmy Grant AST [Catalytic activity/Vol] 19 U/L Normal 15-37 [facility] Comment on above: Performed By: #### O BSCRN #### [facility] [address] [place] [address] Dr. Timmy Grant Bilirubin [Mass/Vol] 0.8 mg/dL Normal 0.2-1.0 [facility] Comment on above: Performed By: #### O BSCRN #### [facility] [address] [address] [address] Timmy Grant Calcium [Mass/Vol] 9.4 mg/dL Normal 8.5-10.1 [facility] Comment on above: Performed By: #### O BSCRN #### [facility] [address] [address] [address] Timmy Grant Chloride [Moles/Vol] 100 mmol/L Normal 98-107 [facility] Comment on above: Performed By: #### O BSCRN #### [facility] [address] [address] [address] Timmy Grant CO2 [Moles/Vol] 28.7 mmol/L Normal 21.0-32.0 [facility] Comment on above: Performed By: #### O BSCRN #### [facility] [address] [place] [address] Dr. Timmy Grant Creatinine [Mass/Vol] 1.43 mg/dL Critically high 0.70-1.30 [facility] Comment on above: Performed By: #### O BSCRN #### [facility] [address] [address] [address] Timmy Grant EGFR-AF RWANDAN 59 mL/min/1.73m2 Critically low >=60 [facility] Comment on above: Performed By: #### O BSCRN #### [facility] [address] [place] [address] Dr. Timmy Grant EGFR-NON AF RWANDAN 49 mL/min/1.73m2 Critically low >=60 [facility] Comment on above: Performed By: #### O BSCRN #### [facility] [address] [address] [address] Timmy Grant Globulin (S) [Mass/Vol] 4.6 g/dL Normal [facility] Comment on above: Performed By: #### O BSCRN #### [facility] [address] [place] [address] Dr. Timmy Grant Glucose [Mass/Vol] 161 mg/dL Critically high 74-106 [facility] Comment on above: Performed By: #### O BSCRN #### [facility] [address] [address] [address] Timmy Grant Potassium [Moles/Vol] 4.2 mmol/L Normal 3.5-5.1 [facility] Comment on above: Performed By: #### O BSCRN #### [facility] [address] [address] [address] Timmy Grant Protein [Mass/Vol] 8.2 g/dL Normal 6.4-8.2 [facility] Comment on above: Performed By: #### O BSCRN #### [facility] [address] [address] [address] Timmy Grant Sodium [Moles/Vol] 137 mmol/L Normal 136-145 [facility] Comment on above: Performed By: #### O BSCRN #### [facility] [address] [place] [address] Dr. Timmy Grant Urea nitrogen [Mass/Vol] 14.0 mg/dL Normal 7.0-18.0 [facility] Comment on above: Performed By: #### O BSCRN #### [facility] [address] [address] [address] Timmy Grant Urea nitrogen/Creatinin e [Mass ratio] 9.8 mg/mg Normal [facility] Comment on above: Performed By: #### O BSCRN #### [facility] [address] [place] [address] Dr. Timmy Grant PROTIMEon 06-18-2022 INR Coag (PPP) [Relative time] 1.01 {INR} Normal [facility] Comment on above: Performed By: #### P SASC, VITB12, VITAD #### [facility] [address] [address] [address] Timmy Grant INR GUIDELINES SEE BELOW Normal [facility] Comment on above: Result Comment: REMIGIO RED INR: 2.0 - 3.0 CONDITIONS NOT LISTED BELOW 2.5 - 3.5 FOR PROSTHETIC HEART VALVE REPLACEMENT 2.5 - 3.5 RECURRENT THROMBOSIS Performed By: #### P SASC, VITB12, VITAD #### [facility] [address] [place] [address] Dr. Timmy Grant PT Coag (PPP) [Time] 10.7 s Normal 9.0-11.6 [facility] Comment on above: Performed By: #### P SASC, VITB12, VITAD #### [facility] [address] [place] [address] Dr. Timmy Grant PTTon 06-18-2022 aPTT Coag (Bld) [Time] 31.4 s Normal 22.3-36.2 [facility] Comment on above: Performed By: #### P SASC, VITB12, VITAD #### [facility] [address] [place] [address] Dr. Timmy Grant STREPT SCREENon 06-18-2022 STREP SCREEN A Negative Normal NEGATIVE [facility] Comment on above: Performed By: #### E RUR #### [facility] [address] [place] [address] Dr. Timmy Grant SYMPTOMATIC COVID-19 ANTIGEN on 06-18-2022 EUA Statement SEE BELOW Normal [facility] Comment on above: Result Comment: This [...] By: #### P SASC, VITB12, VITAD #### [facility] [address] [place] [address] Dr. Timmy Grant SARS-CoV-2 (COVID-19) RNA ALEXA+probe Ql (Unsp spec) Negative Normal NEGATIVE [facility] Comment on above: Performed By: #### P SASC, VITB12, VITAD #### [facility] [address] [address] [address] Timmy Grant XR CHEST 1 Von [...] by: ELI RAMÍREZ Date: 2022-06-18 08:25 Normal [facility] VIT B12 AND FOLATEon 023 Cobalamin (Vitamin B12) [Mass/Vol] 270.0 pg/mL Normal 193.0-986.0 [facility] Comment on above: Performed By: #### B 12FOL #### [facility] [address] [place] [address] Dr. Timmy Grant FOLATE 23.00 ng/mL Normal 8.60-58.90 [facility] Comment on above: Performed By: #### B 12FOL #### [facility] [address] [place] [address] Dr. Timmy Grant Ambulatory Visit Summaryon 0 04-27-2022 Ambulatory Visit Summary CAMERON HENAO :1950 Visit Date:04/27/2022 Ambulatory Visit Instructions Your Diagnosis BPH with urinary obstruction Tests Performed Urnls Dip Stick Auto w/o Microscopy POC 18263 Your Care Team Attending Physician - DONAVON [...] Urology [address], [place] [address]- Medications What How Much When Instructions Unchanged [...] Urnls Dip Stick Auto w/o Microscopy POC 44395 (04/27/2022) Bilirubin Urine Dipstick - Negative Blood Urine Dipstick - Negative Glucose Urine Dipstick - Negative Ketones Urine Dipstick - Negative Leukocytes Urine Dipstick - Negative Nitrite Urine Dipstick - Negative Protein Urine Dipstick - Negative Specific [place] Urine Dipstick - 1.015 Urine Appearance Urine [...] of these risk factors: ? Being of -[place]og[place] descent. ? Having a family history of [...] Are older than age 55. ? Are -T[place]ese. ? Have a father, brother, or uncle who has been diagnosed with prostate cancer. The risk may be higher if your family member's cancer occurred at an early age. What are the benefits of screening? Th (more content not included)... Normal [facility] Patient Educationon 04-28-19 Patient Education Oncology [...] of these risk factors: ? Being of -[place] descent. ? Having a family history of [...] Are older than age 55. ? Are -T[place]ese. ? Have a father, brother, or uncle [...] Document R (more content not included)... Normal [facility] Urology Office/Clinic Noteon 04-27-2022 Urology Office/Clinic [...] Ko, URL [facility] [address] [place] [address]- Additional Instructions: PRN, PSA with Dr. Kong [...] Protein Urine Dipstick: Negative (04/27/22 11:39:00) Specific [place] Urine Dipstick: 1.015 (04/27/22 11:39:00) Urine Appearance Urine Dipstick: Clear (04/27/22 11:39:00) Urine Color (more content not included)... Normal [facility] Comment on above: Result Comment: Elec tronically Signed By: Owen COOPER MD\.br\Date and Time Signed: 04/27/22 12:37 EDT\.br\Electronically Co-Signed By: Archana Cheng\.br\Date and Time Co-Signed: 04/27/22 12:36 EDT Lab Reportson 01-28-2022 Lab Reports [id number] Normal [facility]08 SARS-CoV-2 (COVID-19) RNA ALEXA+probe Ql (Unsp spec) Not detected Normal NOT DETECTED [facility] Comment on above: Result Comment: When diagnostic [...] for this test is supported by the [place] of [employer] and Human Service's declaration that [...] used). Performed By: #### C VDTB #### [facility] [address] [place] [address] Dr. Timmy Grant INFLUENZA A AND B AGon 01-21 INFLUBNEGH SEE BELOW Normal [facility] Comment on above: Result Comment: Nega tive for Flu B protein antigen. Infection due to Flu B cannot be ruled out. Flu B antigen in the sample may be below the detection limit of the test. Performed By: #### E RUR #### [facility] [address] [place] [address] Dr. Timmy Grant INFLUENZA A AG Positive Abnormal NEGATIVE SEE COMMENT [facility] Comment on above: Performed By: #### E RUR #### [facility] [address] [place] [address] Dr. Timmy Grant INFLUENZA B AG Negative Normal NEGATIVE SEE COMMENT [facility] Comment on above: Performed By: #### E RUR #### [facility] [address] [place] [address] Dr. Timmy Grant INFLUPOS SEE BELOW Normal [facility] Comment on above: Result Comment: NOTE : Live attenuated influenzae vaccine viruses can cause a positive result for a rapid influenza diagnostic test if administered up to 7 days prior to rapid testing. Performed By: #### E RUR #### [facility] [address] [place] [address] Dr. Timmy Grant INTERNAL CONTROLS Within Normal Limits Normal Wi thin Normal Limits [facility] Comment on above: Performed By: #### E RUR #### [facility] [address] [place] [address] Dr. Timmy Grant XR wrist LT min 3V*on 2021 XR wrist LT min 3V* [facility] [employer] Other XR wrist LT min 3V* [facility] [address] [place] [employer] Other XR wrist LT min 3V* [address] [facility] [employer] Other XR wrist LT min 3V* RUBEN Aviles [address] [employer] Other XR wrist LT min 3V* XRay Report [employer] Other XR wrist LT min 3V* Signed [employer] Other XR wrist LT min 3V* Patient: Cameron Henao MR#: [id number] [employer] Other XR wrist LT min 3V* 2 [employer] Other XR wrist LT min 3V* : 1950 Acct:[id number] [employer] Other XR wrist LT min 3V* Age/Sex: 71 / M ADM Date: 01/13/22 [employer] Other XR wrist LT min 3V* Loc: XDUCLY Room: Type: REG CLI [employer] Other XR wrist LT min 3V* Attending Dr: Lynn Gomez [facility] [employer] Other XR wrist LT min 3V* Copies [facility]: [facility] Other XR wrist LT min 3V* Ordering Provider: LYNN GOMEZ [facility] [employer] Other XR wrist LT min 3V* Date of Service: 01/13/22 [employer] Other XR wrist LT min 3V* XR/XR wrist LT min 3V*: LEFT WRIST INJURY [employer] Other XR wrist LT min 3V* LEFT WRIST - 4 views [employer] Other XR wrist LT min 3V* CLINICAL HISTORY: Fell yesterday now with pain in left wrist and swelling. [employer] Other XR wrist LT min 3V* COMPARISON: None [employer] Other XR wrist LT min 3V* FINDINGS: [employer] Other XR wrist LT min 3V* Mild soft tissue swelling. Calcification versus radiopaque foreign body along the volar soft [employer] Other XR wrist LT min 3V* tissues. No acute bony process. Presumed remote triquetral fracture. Cystic changes involving the [employer] Other XR wrist LT min 3V* carpal bones without significant joint space narrowing. [employer] Other XR wrist LT min 3V* XR/XR wrist LT min 3V* [employer] Other XR wrist LT min 3V* IMPRESSION: [employer] Other XR wrist LT min 3V* MILD SOFT TISSUE SWELLING WITHOUT DEFINITIVE ACUTE BONY PROCESS. [employer] Other XR wrist LT min 3V* PRESUMED REMOTE TRIQUETRAL FRACTURE. CORRELATION WITH PAIN IS RECOMMENDED. [employer] Other XR wrist LT min 3V* Impression dictated by: Mehrdad Garcia Jr., D.OLexi01/13/2022 10:23 AM [employer] Other XR wrist LT min 3V* Dictation Location: [facility]12 [employer] Other XR wrist LT min 3V* Transcribed By: YADIRA 01/13/22 [facility] [employer] Other XR wrist LT min 3V* Dictated By: Mehrdad Garcia Jr, DO 01/13/22 1020 [employer] Other XR wrist LT min 3V* Signed By: [employer] Other XR wrist LT min 3V* 01/13/22 1023 [facility] [employer] Other XR wrist LT min 3V* [facility] [address] [place] [address] [place] [address] XRay Report Signed Patient: Cameron Henao MR#: [id number] 2 : 1950 Acct:[id number] Age/Sex: 71 / M ADM Date: 01/13/22 Loc: XDUCLY Room: Type: [facility] Attending Dr: Lynn FIERRO Copies to: [...] Garcia Jr., DLexiOLexi01/13/2022 10:23 AM Dictation Location: [place] [address] Transcribed By: [facility] 01/13/22 1023 Dictated By: Mehrdad Garcia Jr, 01/13/22 1020 Signed By: 01/13/22 1023 Normal [facility] OCC BLD IMMUNO SCREENon 10-0 OCCULT BLOOD Negative Normal NEGATIVE [facility] Comment on above: Performed By: #### O BSCRN #### [facility] [address] [address] [address] Timmy Grant INSULINon 11-07-2021 Insulin 27.7 uIU/mL Critically high 2.6-24.9 [facility] Comment on above: Performed By: #### P SASC, VITB12, VITAD #### [facility] [address] [place] [address] Dr. Timmy Grant T4, T3U, FTI LABCORPon 11-07 Free Thyroxine Index 1.7 Normal 1.2-4.9 [facility] Comment on above: Performed By: #### T HYLC #### [facility] [address] [place] [address] Dr. Timmy Grant T3 Uptake 23 % Critically low 24-39 [facility] Comment on above: Performed By: #### T HYLC #### [facility] [address] [place] [address] Dr. Timmy Grant T4 [Mass/Vol] 7.2 ug/dL Normal 4.5-12.0 [facility] Comment on above: Performed By: #### T HYLC #### [facility] [address] [place] [address] Dr. Timmy Grant BNPon 11-06-2021 Natriuretic peptide B (Bld) [Mass/Vol] 31.0 pg/mL Normal <=900.0 [facility] Comment on above: Performed By: #### E RUR #### [facility] [address] [place] [address] Dr. Timmy Grant CBC AUTO DIFFon 11-06-2021 BASO # 0.0 103/ul Normal 0.0-0.1 [facility] Comment on above: Performed By: #### P SASC, VITB12, VITAD #### [facility] [address] [place] [address] Dr. Timmy Grant Basophils/100 WBC (Bld) 0.6 % Normal 0.2-2.0 [facility] Comment on above: Performed By: #### P SASC, VITB12, VITAD #### [facility] [address] [place] [address] Dr. Timmy Grant EO # 0.1 103/ul Normal 0.0-0.7 [facility] Comment on above: Performed By: #### P SASC, VITB12, VITAD #### [facility] [address] [place] [address] Dr. Timmy Grant Eosinophils/100 WBC (Bld) 1.7 % Normal 0.9-7.0 [facility] Comment on above: Performed By: #### P SASC, VITB12, VITAD #### [facility] [address] [place] [address] Dr. Timmy Grant Erythrocyte distribution width (RBC) [Ratio] 13.3 % Normal 11.0-15.0 [facility] Comment on above: Performed By: #### P SASC, VITB12, VITAD #### [facility] [address] [place] [address] Dr. Timmy Grant Hematocrit (Bld) [Volume fraction] 48.8 % Normal 42.0-54.0 [facility] Comment on above: Performed By: #### P SASC, VITB12, VITAD #### [facility] [address] [place] [address] Dr. Timmy Grant Hemoglobin (Bld) [Mass/Vol] 15.7 g/dL Normal 14.0-18.0 [facility] Comment on above: Performed By: #### P SASC, VITB12, VITAD #### [facility] [address] [place] [address] Dr. Timmy Grant IG # 0.01 10e3/ul Normal 0.00-0.03 [facility] Comment on above: Performed By: #### P SASC, VITB12, VITAD #### [facility] [address] [place] [address] Dr. Timmy Grant IG % 0.2 % Normal 0.0-0.5 [facility] Comment on above: Performed By: #### P SASC, VITB12, VITAD #### [facility] [address] [place] [address] Dr. Timmy Grant LYMPH # 1.5 103/ul Normal 1.2-3.8 [facility] Comment on above: Performed By: #### P SASC, VITB12, VITAD #### [facility] [address] [place] [address] Dr. Timmy Grant Lymphocytes/100 WBC (Bld) 28.3 % Normal 20.5-60.0 [facility] Comment on above: Performed By: #### P SASC, VITB12, VITAD #### [facility] [address] [place] [address] Dr. Timmy Grant MANUAL DIFF REQ NO Normal [facility] Comment on above: Performed By: #### P SASC, VITB12, VITAD #### [facility] [address] [place] [address] Dr. Timmy Grant MCH (RBC) [Entitic mass] 27.1 pg Normal 25.9-34.0 [facility] Comment on above: Performed By: #### P SASC, VITB12, VITAD #### [facility] [address] [place] [address] Dr. Timmy Grant MCHC (RBC) [Mass/Vol] 32.2 g/dL Normal 29.9-35.2 [facility] Comment on above: Performed By: #### P SASC, VITB12, VITAD #### [facility] [address] [place] [address] Dr. Timmy Grant MCV (RBC) [Entitic vol] 84.3 fL Normal 80.0-94.0 [facility] Comment on above: Performed By: #### P SASC, VITB12, VITAD #### [facility] [address] [place] [address] Dr. Timmy Grant MONO # 0.4 103/ul Normal 0.3-0.8 [facility] Comment on above: Performed By: #### P SASC, VITB12, VITAD #### [facility] [address] [place] [address] Dr. Timmy Grant Monocytes/100 WBC (Bld) 7.8 % Normal 1.7-12.0 [facility] Comment on above: Performed By: #### P SASC, VITB12, VITAD #### [facility] [address] [place] [address] Dr. Timmy Grant NEUT # 3.2 103/ul Normal 1.4-6.5 [facility] Comment on above: Performed By: #### P SASC, VITB12, VITAD #### [facility] [address] [place] [address] Dr. Timmy Grant Neutrophils/100 WBC (Bld) 61.4 % Normal 43.0-75.0 [facility] Comment on above: Performed By: #### P SASC, VITB12, VITAD #### [facility] [address] [address] [address] Timmy Grant Platelet mean volume (Bld) [Entitic vol] 9.9 fL Normal 9.5-13.5 [facility] Comment on above: Performed By: #### P SASC, VITB12, VITAD #### [facility] [address] [place] [address] Dr. Timmy Grant PLT 237 103/ul Normal 150-450 [facility] Comment on above: Performed By: #### P SASC, VITB12, VITAD #### [facility] [address] [place] [address] Dr. Timmy Grant RBC 5.79 106/ul Normal 4.70-6.10 [facility] Comment on above: Performed By: #### P SASC, VITB12, VITAD #### [facility] [address] [place] [address] Dr. Timmy Grant WBC 5.3 103/ul Normal 4.0-11.0 [facility] Comment on above: Performed By: #### P SASC, VITB12, VITAD #### [facility] [address] [place] [address] Dr. Timmy Grant GLYCOHEMOGLOBIN A1Con 2021 ADA RECOMMENDATION SEE BELOW Normal [facility] Comment on above: Result Comment: ADA RECOMMENDED LIMIT 4.0 - 6.0 ADA THERAPEUTIC TARGET < 7.0 ACTION SUGGESTED > 7.0 Performed By: #### E RUR #### [facility] [address] [place] [address] Dr. Timmy Grant Glucose [Mass/Vol] 117 mg/dL Normal [facility] Comment on above: Performed By: #### E RUR #### [facility] [address] [address] [address] Timmy Grant HbA1c (Bld) [Mass fraction] 5.7 % Normal 4.5-6.2 [facility] Comment on above: Performed By: #### E RUR #### [facility] [address] [address] [address] Timmy Grant LIPID PROFILEon 11-06-2021 CHOL-HDL RATIO NORM SEE BELOW Normal [facility] Comment on above: Result Comment: 3.3 - 4.4 LOW RISK 4.4 - 7.1 AVERAGE RISK 7.1 - 11.0 MODERATE RISK >11.0 HIGH RISK Performed By: #### E RUR #### [facility] [address] [place] [address] Dr. Timmy Grant Cholesterol [Mass/Vol] 175 mg/dL Normal <=200 [facility] Comment on above: Performed By: #### E RUR #### [facility] [address] [place] [address] Dr. Timmy Grant Cholesterol in HDL [Mass/Vol] 65 mg/dL Critically high 40-60 [facility] Comment on above: Performed By: #### E RUR #### [facility] [address] [place] [address] Dr. Timmy Grant Cholesterol in LDL [Mass/Vol] 98.4 mg/dL Normal [facility] Comment on above: Performed By: #### E RUR #### [facility] [address] [place] [address] Dr. Timmy Grant Cholesterol.total/ Cholesterol in HDL [Mass ratio] 2.7 {ratio} Normal [facility] Comment on above: Performed By: #### E RUR #### [facility] [address] [place] [address] Dr. Timmy Grant HDL NORMAL > or = 60 mg/dl - LO W CARDIOVASCULAR RISK <40 mg/dl - HIGH CARDIOVASCULAR RISK Normal [facility] Comment on above: Performed By: #### E RUR #### [facility] [address] [address] [address] Timmy Grant LDL CALC NORMAL SEE BELOW Normal [facility] Comment on above: Result Comment: <100 mg/dl OPTIMAL 100 - 129 mg/dl NEAR OR ABOVE OPTIMAL 130 - 159 mg/dl BORDERLINE HIGH 160 - 189 mg/dl HIGH >190 mg/dl VERY HIGH Performed By: #### E RUR #### [facility] [address] [address] [address] Timmy Grant Triglyceride [Mass/Vol] 58 mg/dL Normal <=150 [facility] Comment on above: Performed By: #### E RUR #### [facility] [address] [address] [address] Timmy Grant VLDL CALC 11.6 mg/dL Normal [facility] Comment on above: Performed By: #### E RUR #### [facility] [address] [address] [address] Timmy Grant NM STRESS/REST MULTIon 11-06 [place] STRESS/REST MULTI Patient: CAMERON HENAO Exam Date: 11/06/2021 : 1950 Gender:M Ordering : DR JAYLA KONG . Admission #: [id number] Family : Order #: [id number] CLICK HERE TO VIEW EXAM RADIOLOGY REPORT PROCEDURE: RADIONUCLIDE IMAGING STRESS/REST MULTI COMPARISON: [place] STRESS/REST MULTI, 04/18/2015. INDICATIONS: Chest pain TECHNIQUE: [...] M.D. on 11/06/2021 at 14:54 Normal [facility] PROF 14(COMP METB)on 022 Albumin [Mass/Vol] 4.1 g/dL Normal 3.4-5.0 [facility] Comment on above: Performed By: #### E RUR #### [facility] [address] [place] [address] Dr. Timmy Grant Albumin/Globulin [Mass ratio] 1.1 {ratio} Normal [facility] Comment on above: Performed By: #### E RUR #### [facility] [address] [place] [address] Dr. Timmy Grant ALP [Catalytic activity/Vol] 79 U/L Normal 46-116 [facility] Comment on above: Performed By: #### E RUR #### [facility] [address] [place] [address] Dr. Timmy Grant ALT [Catalytic activity/Vol] 47 U/L Normal 16-63 [facility] Comment on above: Performed By: #### E RUR #### [facility] [address] [place] [address] Dr. Timmy Grant Anion gap [Moles/Vol] 10.5 mmol/L Normal [facility] Comment on above: Performed By: #### E RUR #### [facility] [address] [place] [address] Dr. Timmy Grant AST [Catalytic activity/Vol] 25 U/L Normal 15-37 [facility] Comment on above: Performed By: #### E RUR #### [facility] [address] [place] [address] Dr. Timmy Grant Bilirubin [Mass/Vol] 0.6 mg/dL Normal 0.2-1.0 [facility] Comment on above: Performed By: #### E RUR #### [facility] [address] [address] [address] Timmy Grant Calcium [Mass/Vol] 9.3 mg/dL Normal 8.5-10.1 [facility] Comment on above: Performed By: #### E RUR #### [facility] [address] [address] [address] Timmy Grant Chloride [Moles/Vol] 101 mmol/L Normal 98-107 [facility] Comment on above: Performed By: #### E RUR #### [facility] [address] [address] [address] Timmy Grant CO2 [Moles/Vol] 31.1 mmol/L Normal 21.0-32.0 [facility] Comment on above: Performed By: #### E RUR #### [facility] [address] [address] [address] Timmy Grant Creatinine [Mass/Vol] 1.17 mg/dL Normal 0.70-1.30 [facility] Comment on above: Performed By: #### E RUR #### [facility] [address] [address] [address] Timmy Grant EGFR-AF RWANDAN >60 Normal >=60 [facility] Comment on above: Performed By: #### E RUR #### [facility] [address] [address] [address] Timmy Grant EGFR-NON AF RWANDAN >60 Normal >=60 [facility] Comment on above: Performed By: #### E RUR #### [facility] [address] [address] [address] Timmy Grant Globulin (S) [Mass/Vol] 3.7 g/dL Normal [facility] Comment on above: Performed By: #### E RUR #### [facility] [address] [address] [address] Timmy Grant Glucose [Mass/Vol] 106 mg/dL Normal 74-106 [facility] Comment on above: Performed By: #### E RUR #### [facility] [address] [address] [address] Timmy Grant Potassium [Moles/Vol] 4.6 mmol/L Normal 3.5-5.1 [facility] Comment on above: Performed By: #### E RUR #### [facility] [address] [place] [address] Dr. Timmy Grant Protein [Mass/Vol] 7.8 g/dL Normal 6.4-8.2 [facility] Comment on above: Performed By: #### E RUR #### [facility] [address] [place] [address] Dr. Timmy Grant Sodium [Moles/Vol] 138 mmol/L Normal 136-145 [facility] Comment on above: Performed By: #### E RUR #### [facility] [address] [place] [address] Dr. Timmy Grant Urea nitrogen [Mass/Vol] 14.0 mg/dL Normal 7.0-18.0 [facility] Comment on above: Performed By: #### E RUR #### [facility] [address] [place] [address] Dr. Timmy Grant Urea nitrogen/Creatinin e [Mass ratio] 12.0 mg/mg Normal [facility] Comment on above: Performed By: #### E RUR #### [facility] [address] [place] [address] Dr. Timmy Grant TSHon 11-06-2021 TSH 0.931 uIU/mL Normal 0.358-3.740 [facility] Comment on above: Performed By: #### E RUR #### [facility] [address] [place] [address] Dr. Timmy Grant URIC ACID SERUMon 11-06-2021 Urate [Mass/Vol] 5.4 mg/dL Normal 3.5-7.2 [facility] Comment on above: Performed By: #### E RUR #### [facility] [address] [place] [address] Dr. Timmy Grant VITAMIN B12on 11-06-2021 Cobalamin (Vitamin B12) [Mass/Vol] 369.0 pg/mL Normal 193.0-986.0 [facility] Comment on above: Performed By: #### P SASC, VITB12, VITAD #### [facility] [address] [place] [address] Dr. Timmy Grant VITAMIN D 25 OHon 11-06-2021 VIT D 25-OH 35.4 ng/mL Normal [facility] Comment on above: Performed By: #### P SASC, VITB12, VITAD #### [facility] [address] [place] [address] Dr. Timmy Grant VIT D RANGES SEE BELOW Normal [facility] Comment on above: Result Comment: <20 ng/mL Vit D deficient 20 - <30 ng/mL Vit D insufficient 30 - 100 ng/mL Vit D sufficient >100 ng/mL Potential Toxicity Performed By: #### P SASC, VITB12, VITAD #### [facility] [address] [place] [address] Dr. Timmy Grant XR FOOT ABHINAV MIN [...] GARRICK ARMSTRONG Date: 2021-10-15 13:51 Normal [facility] Rehab Psych Evaluationon Rehab Psych Evaluation MR#: [id number] SERVICES( ) INPATIENT ( x )OUTPATIENT Patient Name: Cameron Henao Date of : 1950 Referring Physician: Maria C Gonzales D.O. 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 Donis. He reports no history ofcounseling, [...] and no tobacco use.FAMILY MEDICAL HISTORY: Mr. Henao reports his mother in her 60s dueto [...] and his of 44 [place] He notes he is a eyak of [employer]. He notes theyhave 3 sons.EDUCATIONAL HISTORY: Mr. [...] his sleep is perhaps more restlesswith the gnosticism of the donepezil. His describes occasional snoringand [...] of 83 (low end of low average). Rlta80-ldvpe difference is significant, indicating attenuation.Orientation: Mr. Henao [...] symptomatology. His responses indicate martinais endorsing a efmo-kx-mjjxhhcs level of depressive symptoms.TEST DATA:TOPF: Pred FSIQ: [...] assign a trustedindividual with durable power of divorce attorney. This person should accompany himto all appointments. 5. Based on the diagnosis of dementia, I am concerned about Mr. Henao continuing to drive. If Dr. Gonzales shares my concern, he may wish to refer Mr. Henao for a driving simulation evaluation. An order may be faxed to [phone]. Mr. Henao should be aware that the [...] found online or with the Alzheimer's association: Alz.org;[phone]. 7. I encourage Mr. Henao to remain [...] chaztleman. If you have any questions, call [phone].DICTATED AND REVIEWED BY:Electronically Signed by:Sarah Estrada PhD, ABPP 04/23/2017 08:35 A Sarah Estrada, PhD, ABPPBoard Certified Clinical NeuropsychologistDate Dict: 04/15/2017/11:18 A/Sarah Estrada PhD, ABPPDate Trans: 04/16/2017 07:20 A/mmoAddendum: 04/16/2017 01:23 P/paDN_JN:[id number]/ [id number]: Sarah Estrada, PhD, ABPP [address] [facility] [address] Maria C Gonzales D.O. [address] [facility] [address] aJyla Kong M.D. [facility] [address] [facility] [address] *Mr. cameron henao ([address]; [place] [address]) Normal [facility] Vital Signs Date Time Vital Sign Value Performing Clinician Facility 04-27-2022 11:43-0400 Blood Pressure Location Owensaul COOPER [facility] 04-27-2022 11:43-0400 Diastolic blood pressure 84 mm[Hg] Owensaul COOPER [facility] 04-27-2022 11:43-0400 Heart rate 76 /min Owen COOPER [facility] 04-27-2022 11:43-0400 Respiratory rate 16 /min Owen COOPER [facility] 04-27-2022 11:43-0400 Systolic blood pressure 132 mm[Hg] Owen COOPER [facility] 01-13-2022 10:25-0500 Body height 187.96 cm Lynn Gomez Other [facility] Other 01-13-2022 10:25-0500 Body mass index (BMI) [Ratio] 29.53 kg/m2 Lynn Gomez Other [facility] Other 01-13-2022 10:25-0500 Body temperature 97.8 [degF] Lynn Gomez Other [facility] Other 01-13-2022 10:25-0500 Body weight 104.33 kg Lynn Gomez Other [facility] Other 01-13-2022 10:25-0500 Diastolic blood pressure 70 mm[Hg] Lynn Gomez Other [facility] Other 01-13-2022 10:25-0500 Respiratory rate 18 /min Lynn Gomez Other [facility] Other 01-13-2022 10:25-0500 SaO2% (BldA) [Mass fraction] 97 % Lynn Gomez Other [facility] Other 01-13-2022 10:25-0500 Systolic blood pressure 122 mm[Hg] Lynn Gomez Other [facility] Other Encounters Encounter Date Encounter Type Care Provider Facility Start: 03-02-2023 End: 03-02-2023 ambulatory JUAN DANIEL A JOSE Not Available Start: 06-18-2022 End: 06-19-[address] JAYLA KONG . Facility: Start: 05-14-2022 End: 05-15-2022 ambulatory CHELSEA MARIANO Facility: Start: 04-27-2022 End: 04-28-2022 ambulatory Owen COOPER Facility:[facility] Start: 04-27-2022 End: 04-27-2022 Patient encounter procedure Owen COOPER [facility] Start: 01-27-2022 End: 01-28-[address] KONG Elliott Facility: Start: 01-21-2022 End: 01-21-[address] JAYLA KONG . Facility:[facility] Start: 01-13-2022 Office outpatient ne w 20 minutes Lynn Gomez [facility] Start: 01-13-2022 End: 01-13-2022 ambulatory MD Jayla Kong Work Phone: [facility] Other Start: 01-13-2022 End: 01-13-2022 Patient encounter procedure MD Jayla Kong Work Phone: [facility] Start: 11-11-2021 End: 11-11-[address] JAYLA KONG . Facility: Start: 11-06-2021 End: 11-07-[address] JAYLA KONG . Facility: Start: 11-04-2021 End: 12-12-[address] JAYLA KONG . Facility: Start: 10-15-2021 End: 2021 ambulatory MICHELLE DWYER Facility: Start: 04-08-2017 End: 05-09-2017 Ambulatory JAYLA KONG Facility:[facility] Start: 03-11-2017 End: 04-08-2017 Ambulatory MARIA C GONZALES Facility:[facility] Start: 02-26-2017 End: 03-11-2017 Ambulatory MARIA C GONZALES Facility:[facility] Start: 02-26-2017 End: 02-27-2017 Ambulatory DEFAULT PHYSICIAN Facility:[facility] Procedures Date Procedure Procedure Detail Performing Clinician Start: 01-27-[address] KINA KONG . Comment on above: Performed By: #### O BSCRN #### [facility] [address] [place] [address] Dr. Timmy Grant Start: 01-13-2022 Plain X-ray of left wrist MD Jayla Kong Work Phone: Start: 11-06-[address] KINA KONG . Comment on above: Performed By: #### P SASC, VITB12, VITAD #### [facility] [address] [place] [address] Dr. Timmy Grant Start: 03-04-2016 Transurethral prostatectomy Owen COOPER Start: 04-26-2015 Cystoscopy Owen CARL Vasectomy Owen COOPER Immunizations Immunization Date Immunization Notes Care Provider Fa cili 01-13-2021 SARS-CoV-2 (COVID-19 ) mRNA-1273 vaccine Owen COOPER [facility] 12-09-2020 SARS-CoV-2 (COVID-19 ) mRNA-1273 vaccine Owen COOPER [facility] Comment on above: Result Comment: *Stephens ster 05-14-2020 SARS-CoV-2 (COVID-19 ) mRNA-1273 vaccine Owen COOPER [facility] 04-16-2020 SARS-CoV-2 (COVID-19 ) mRNA-1273 vaccine Owen COOPER [facility] Comment on above: Result Comment: 2022: [id number] 03-11-2020 SARS-CoV-2 (COVID-19 ) mRNA-1273 vaccine Owen COOPER [facility] 02-09-2020 SARS-CoV-2 (COVID-19 ) mRNA-1273 vaccine Owen COOPER [facility] 06-26-2018 zoster vaccine recombinant Owen COOPER [facility] 05-05-2017 zoster vaccine recombinant Owen COOPER [facility] Payers Date Payer Category Payer Private Health Insurance [id number] 2022 Self-pay [id number] 2019 Private Health Insurance [id number] 2014 Medicare [id number] 1959 Medicare [id number] 2.1 [id number] 1959 Private Health Insurance [id number] 1950 Unknown [id number] 2.16.8 [id number] 1950 Unknown [id number] 2.16.84 [id number] 1950 Unknown [id number] 2.16.84 [id number] 1950 Unknown [id number] 2.16.84 0.1.140105.3.579.2.593 1950 Unknown [id number] 2.16.84 0.1.077899.3.579.2.593 1950 Unknown [id number] 2.16.84 0.1.179694.3.579.2.593 1950 Unknown [id number] 2.16.84 [id number] 1950 Unknown [id number] 2.16.84 [id number] 1950 Unknown [id number] 2.16.84 0.1.276876.3.579.2.593 1950 Unknown [id number] 2.16.84 [id number] Medicare [id number] Unknown Unknown [id number] 2.16.8 [id number] Social History Date Type Detail Facility Sex Assigned At [facility] Start: 1950 Sex Assigned At Male [facility] Start: 04-27-2022 Tobacco smoking status Never s moked tobacco (finding) [facility] Tobacco smoking status Never [facility] Functional Status Date Assessment Result Facility 04-27-2022 Functional Status N/A [facility] Discharge instructions 04-27-2022 Note Date & [...] one of these risk factors: ?Being of -[place] descent. ?Having a family history of prostate [...] you: Are older than age 55. Are -Tog[place]ese. Have a father, brother, or uncle who [...] 11/05/2017 Document Revised: 01/07/2018 Document Reviewed: 11/05/2017 [employer] Patient Education 2020 [employer]. Follow Up Care 02/11/2021 08:58:53 With:DONAVON KOEING, Owen Ko, URL Address: [facility] [address], [place] [address]- When: Unknown [facility] Evaluation note 01-13-2022 Note Date & Type [...] office today. Contact PCP for follow up [facility] Other Evaluation + Plan note Note Date & Type Note Facility Evaluation + Plan note No data available for this section [facility] Evaluation note Note Date & Type Note Facility Evaluation note No assessment information availa [facility] Work Phone: History general Narrative - Reported Note Date & Type Note Facility History general Narrative - Reported Type Medical History hypercholesterolemia Medical History Depression Medical History alzheimers disease [facility] Other Progress note Note Date & Type Note Facility Progress note No data available for this section [facility] Summary Purpose Family History No Family History [...] section and content) DATE CREATED AUTHOR 07/29/2017 [facility] DATE CREATED AUTHOR AUTHOR'S ORGANIZ ATION 01/30/2022 [facility] DATE CREATED AUTHOR AUTHOR'S ORGANIZ ATION 04/28/2022 [facility] DATE CREATED AUTHOR AUTHOR'S ORGANIZ ATION 06/24/2022 [facility] DATE CREATED AUTHOR AUTHOR'S ORGANIZ ATION 03/03/2023 [facility] EPIC REASON FOR VISIT (unrecogniz [...] BE BASED ON THE PRIMARY CLINICAL RECORDS. [employer] [facility]. provides no warranty or guarantee of the accuracy or completeness of information in this document.
[2023-07-17] MEDS: CARBIDOPA/LEVODOPA 25 MG-100 MG TABLET 2 TAB PO (17:59)
[2023-07-17] MEDS: ATORVASTATIN CALCIUM 10 MG TABLET PO (17:59)
[2023-07-17] MEDS: LAMOTRIGINE 100 MG TABLET PO (18:00)
[2023-07-17] MEDS: MEMANTINE HCL 28 MG CAP XR PO (18:00)
[2023-07-17] MEDS: CLONAZEPAM 0.5 MG TABLET PO (18:00)
[2023-07-17] MEDS: ENOXAPARIN SODIUM 40 MG/0.4 ML SYRINGE SUBQ (18:00)
[2023-07-18] VITALS (10 sets, daily range): BP systolic 138–154; BP diastolic 81–84; PULSE 77–97; TEMP 36.4–36.6; O2SAT 93–94
[2023-07-18] MEDS: CLONAZEPAM 0.5 MG TABLET PO ×2 (05:26→17:30)
[2023-07-18] MEDS: POLYETHYLENE GLYCOL 3350 17 GM POWDER PACKET PO (05:26)
[2023-07-18] MEDS: LAMOTRIGINE 100 MG TABLET PO ×2 (05:26→17:30)
[2023-07-18] MEDS: CARBIDOPA/LEVODOPA 25 MG-100 MG TABLET 2 TAB PO ×3 (05:26→17:30)
[2023-07-18 05:51] LABS: Basophils Percent Auto 0.4 % (0.2-2.0); Eosinophils Absolute Auto 0.1 10^3/uL (0.0-0.7); Hemoglobin 13.7 g/dL (14.0-18.0); Immature Granulocytes Abs Auto 0.04 10^3/uL (0.00-0.03); Immature Granulocytes Pct Auto 0.4 % (0.0-0.5); Lymphocytes Absolute Auto 1.8 10^3/uL (1.2-3.8); Lymphocytes Percent Auto 17.2 % (20.5-60.0); Mean Corpuscular HGB Conc 32.6 g/dL (29.9-35.2); Mean Corpuscular Hemoglobin 27.7 pg (25.9-34.0); Mean Corpuscular Volume 84.8 fL (80.0-94.0); Mean Platelet Volume 9.6 fL (9.5-13.5); Monocytes Absolute Auto 0.8 10^3/uL (0.3-0.8); Monocytes Percent Auto 7.6 % (1.7-12.0); Neutrophils Absolute Auto 7.6 10^3/uL (1.4-6.5); Neutrophils Percent Auto 73.4 % (43.0-75.0); Platelet Count 271 10^3/uL (150-450); Red Blood Count 4.95 10^6/uL (4.70-6.10); Red Cell Distribution Width 12.4 % (11.0-15.0); White Blood Count 10.4 10^3/uL (4.0-11.0)
[2023-07-18 05:54] LABS: Anion Gap 11.9; BUN Creatinine Ratio 16.1; Calcium 9.3 mg/dL (8.5-10.1); Carbon Dioxide 27.3 mmol/L (21.0-32.0); Chloride 105 mmol/L (98-107); Estimated GFR (African America >60 (>=60); Estimated GFR (Non-African Ame >60 (>=60); Glucose 105 mg/dL (74-106); Potassium 4.2 mmol/L (3.5-5.1); Sodium 140 mmol/L (136-145)
[2023-07-18] MEDS: DONEPEZIL HCL 10 MG TABLET 20 MG PO (06:05)
--- NOTE | 2023-07-18 07:58 | P.HP_ITS ---
HPI H&P: HPI History of Present Illness Chief complaint: FALL K2 TRANSVERSE L2 Narrative: Patient was seen and evaluated in the emergency room status post fall. Found to have transverse process L2 fracture. Patient with significant pain and unable to ambulate so admitted to observation. I saw patient up on the medical surgical floor, resting comfortably in bed and does have significant pain with any activity. Unable to get out of bed on his own. No other complaints. He does describe a attack as was sounds like syncopal. He says multiple times he just falls asleep. While walking. Opioid HPI Opioid Management Most Recent Opioid Data: Last Pain Scale 3 07/17/23 14:09 Last Pain Assessment 07/18/23 07:29 Last ORT Total Score 1 07/17/23 13:20 Last ORT Risk Category Low Risk 07/17/23 13:20 Review of Systems ROS Status of ROS 10 or more systems reviewed and unremark able except as noted in history and below PFSH PFSH Medical History (Updated 07/17/23 @ 16:39 by Eve Caballero DO) Anxiety ?F41.9 - Anxiety disorder, unspecified (ICD-10) Depression ?F32.A - Depression, unspecified (ICD-10) Urinary hesitancy ?R39.11 - Hesitancy of micturition (ICD-10) High blood cholesterol ?E78.00 - Pure hypercholesterolemia, unspecified (ICD-10) Dementia ?F03.90 - Unspecified dementia, unspecified severity, without behavioral disturbance, psychotic disturbance, mood disturbance, and anxiety (ICD-10) Parkinson disease ?G20.A1 - Parkinson's disease without dyskinesia, without mention of fluctuations (ICD-10) Surgical History (Updated 07/17/23 @ 13:47 by Kiah Garcia) H/O transurethral resection of prostate ?Z98.890 - Other specified postprocedural states (ICD-10) ?Z90.79 - Acquired absence of other genital organ(s) (ICD-10) Family History (Updated 07/17/23 @ 13:47 by Kiah Garcia) Mother Family history of cancer Sister Family history of hypertension Social History (Updated 07/17/23 @ 13:50 by Kiah Garcia) Within the past year, how often did you have a drink containing alcohol: never Within the past year, how often did you have six or more drinks on one occasion: never Score interpretation: A score less than 4 is consistent with normal alcohol consumption. Smoking status: Never smoker Non-prescribed substance use: denies use Previous occupational history: retired Highest level of school completed/degree received: high school graduate Are you now , , , , never or living with a partner: Little interest or pleasure in doing things: not at all Feeling down, depressed, or hopeless: not at all Feel stressed/tense/nervous/anxious/difficulty sleeping: not at all Meds Home Medications and Allergies Home Medications ?Medication ?Instructions ?Recorded ?Confirmed ?Type carbidopa 25 mg-levodopa 100 mg 2 tab PO TID 07/17/23 07/17/23 History tablet clonazepam 0.5 mg tablet 0.5 mg PO Q12H 07/17/23 07/17/23 History donepezil 23 mg tablet 23 mg PO DAILY 07/17/23 07/17/23 History lamotrigine 100 mg tablet 100 mg PO Q12H 07/17/23 07/17/23 History memantine 10 mg tablet 10 mg PO BID 07/17/23 07/17/23 History polyethylene glycol 3350 17 gram 17 g PO DAILY 07/17/23 07/17/23 History oral powder packet (ClearLax) simvastatin 20 mg tablet 20 mg PO DAILY 07/17/23 07/17/23 History Allergies Allergy/AdvReac Type Severity Reaction Status Date / Time No Known Drug Allergies Allergy Verified 07/17/23 07:49 Exam Constitutional Vital Signs, click to edit/add: Last Vital Signs Temp 97.5 F L 07/18/23 05:37 Pulse 97 H 07/18/23 05:37 Resp 20 07/18/23 05:37 BP 154/84 H 07/18/23 05:37 Pulse Ox 94 L 07/18/23 05:37 O2 Del Method Room Air 07/18/23 05:37 Documenting provider has reviewed patient's vital signs: yes Common normals: no apparent distress Chest Common normals: inspection of chest normal and palpation of chest normal Respiratory Common normals: normal respiratory effort, no retractions and clear to auscultation bilaterally Cardio Common normals: regular rate, regular rhythm and no murmurs GI Common normals: Normal to inspection, nondistended, normoactive bowel sounds pr esent Back & Pelvis Common normals: thoracic and lumbar spine normal to inspection; thoracic and/or lumbar spine tender Lumbar spine/lower back: ROM limited, pain with ROM, lumbar spinal tenderness, paraspinal muscle tenderness and straight leg raise negative bilaterally; lumbar ROM abnormal Neuro Common normals: oriented x3, CN's II-XII intact bilaterally and moves all extremities (Slowly secondary to Parkinson's) Results Labs Labs: Short CBC 07/17/23 07/18/23 Range/Units 08:14 05:08 WBC 9.5 10.4 (4.0-11.0) 10^3/uL Hgb 13.3 L 13.7 L (14.0-18.0) g/dL Hct 41.3 L 42.0 (42.0-54.0) % Plt Count 245 271 (150-450) 10^3/uL BMP 07/17/23 07/18/23 08:14 05:08 Sodium 142 140 Potassium 4.2 4.2 Chloride 103 105 Carbon Dioxide 28.5 27.3 BUN 18.0 15.0 Creatinine 1.00 0.93 Glucose 131 H 105 Calcium 9.0 9.3 Liver Function 07/17/23 Range/Units 08:14 Total Bilirubin 0.6 (0.2-1.0) mg/dL AST 21 (15-37) U/L ALT 15 L (16-63) U/L Alkaline Phosphatase 101 (46-116) U/L Albumin 3.3 L (3.4-5.0) g/dL Urine 07/17/23 Range/Units 10:46 Urine Color Yellow (YELLOW) Urine Clarity Clear (CLEAR) Urine pH 6.0 (5.0-9.0) Ur Specific [place] >=1.030 A (1.005-1.025) Urine Protein Negative (NEG/TRACE) mg/dL Urine Glucose (UA) Negative (NEGATIVE) mg/dL Assessment and Plan Assessment and Plan (1) Closed fracture of transverse process of lumbar vertebra: (2) Parkinson disease: (3) Dementia: Plan Back pain and unable to ambulate secondary to pain secondary to L2 transverse process fracture. Physical therapy to evaluate and treat patient. Patient likely needs placement for rehabilitation. High fall risk. Syncopal episode-patient states he just falls asleep at random times. Could be orthostatic hypotension related to the Parkinson's versus bradycardia. Place patient on telemetry. Unable to do orthostatic vital secondary to pain. Parkinson's disease-continue with home medications. This has been progressive. Stiffness definitely progressive. This is likely the reason for his fall. A 2 to 3-week rehabilitation will improve his stiffness and ability to ambulate while decreasing his fall risk. Dementia-continue with home medications Generalized anxiety disorder-continue with home medications Hypercholesterolemia-continue with home medications Admission status: Patient without significant improvement in his ability to ambulate. A significant fall risk. Patient is in need of rehabilitation. But currently is medically necessary treatment as we complete workup for syncope will span 2 midnights. Will change patient to inpatient status
[2023-07-18] MEDS: ATORVASTATIN CALCIUM 10 MG TABLET PO (17:30)
[2023-07-18] MEDS: MEMANTINE HCL 28 MG CAP XR PO (17:30)
[2023-07-18] MEDS: ENOXAPARIN SODIUM 40 MG/0.4 ML SYRINGE SUBQ (17:30)
[2023-07-18] MEDS: OXYCODONE HCL/ACETAMINOPHEN 5MG/325MG 1 TAB PO (22:18)
[2023-07-18] MEDS: DIPHENHYDRAMINE HCL 25 MG CAPSULE PO (22:18)
[2023-07-19] VITALS (16 sets, daily range): BP systolic 112–132; BP diastolic 71–78; PULSE 67–96; TEMP 36.5–36.6; O2SAT 92–96
[2023-07-19 05:11] LABS: Basophils Percent Auto 0.2 % (0.2-2.0); Eosinophils Absolute Auto 0.1 10^3/uL (0.0-0.7); Eosinophils Percent Auto 1.4 % (0.9-7.0); Hematocrit 42.7 % (42.0-54.0); Hemoglobin 13.8 g/dL (14.0-18.0); Immature Granulocytes Abs Auto 0.02 10^3/uL (0.00-0.03); Immature Granulocytes Pct Auto 0.2 % (0.0-0.5); Lymphocytes Absolute Auto 1.9 10^3/uL (1.2-3.8); Lymphocytes Percent Auto 22.5 % (20.5-60.0); Mean Corpuscular HGB Conc 32.3 g/dL (29.9-35.2); Mean Corpuscular Hemoglobin 27.5 pg (25.9-34.0); Mean Corpuscular Volume 85.1 fL (80.0-94.0); Mean Platelet Volume 9.8 fL (9.5-13.5); Monocytes Absolute Auto 0.6 10^3/uL (0.3-0.8); Monocytes Percent Auto 7.7 % (1.7-12.0); Neutrophils Absolute Auto 5.7 10^3/uL (1.4-6.5); Platelet Count 286 10^3/uL (150-450); Red Blood Count 5.02 10^6/uL (4.70-6.10); Red Cell Distribution Width 12.4 % (11.0-15.0); White Blood Count 8.3 10^3/uL (4.0-11.0)
[2023-07-19 05:25] LABS: Anion Gap 12.6; Calcium 9.3 mg/dL (8.5-10.1); Carbon Dioxide 28.2 mmol/L (21.0-32.0); Chloride 104 mmol/L (98-107); Estimated GFR (African America >60 (>=60); Estimated GFR (Non-African Ame >60 (>=60); Glucose 95 mg/dL (74-106); Potassium 3.8 mmol/L (3.5-5.1); Sodium 141 mmol/L (136-145)
[2023-07-19] MEDS: CARBIDOPA/LEVODOPA 25 MG-100 MG TABLET 2 TAB PO ×3 (06:00→17:36)
[2023-07-19] MEDS: DONEPEZIL HCL 10 MG TABLET 20 MG PO (06:00)
[2023-07-19] MEDS: POLYETHYLENE GLYCOL 3350 17 GM POWDER PACKET PO (06:01)
[2023-07-19] MEDS: LAMOTRIGINE 100 MG TABLET PO ×2 (06:01→17:36)
[2023-07-19] MEDS: CLONAZEPAM 0.5 MG TABLET PO ×2 (06:01→17:37)
[2023-07-19] MEDS: OXYCODONE HCL/ACETAMINOPHEN 5MG/325MG 1 TAB PO (06:01)
--- NOTE | 2023-07-19 08:00 | P.PN_ITS ---
Progress Note: Subjective Subjective Interval history: Saw patient at bedside with present as well. Still has pain in back as expected from the fracture. Still difficulty getting out of bed on his own secondary to the pain and stiffness. Exam Constitutional Vital Signs, click to edit/add: Last Vital Signs Temp 97.7 F 07/19/23 04:31 Pulse 77 07/19/23 06:00 Resp 18 07/19/23 04:31 BP 124/74 07/19/23 04:31 Pulse Ox 94 L 07/19/23 04:31 O2 Del Method Room Air 07/19/23 04:31 Documenting provider has reviewed patient's vital signs: yes Common normals: no apparent distress Chest Common normals: inspection of chest normal and palpation of chest normal Respiratory Common normals: normal respiratory effort, no retractions and clear to auscultation bilaterally Cardio Common normals: regular rate, regular rhythm and no murmurs GI Common normals: Normal to inspection, nondistended, normoactive bowel sounds present Back & Pelvis Common normals: thoracic and lumbar spine normal to inspection; thoracic and/or lumbar spine tender Lumbar spine/lower back: ROM limited, pain with ROM, lumbar spinal tenderness, paraspinal muscle tenderness and straight leg raise negative bilaterally; lumbar ROM abnormal Neuro Common normals: oriented x3, CN's II-XII intact bilaterally and moves all extremities (Slowly secondary to Parkinson's) Progress Note: Objective Labs Labs: Short CBC 07/19/23 Range/Units 04:39 WBC 8.3 (4.0-11.0) 10^3/uL Hgb 13.8 L (14.0-18.0) g/dL Hct 42.7 (42.0-54.0) % Plt Count 286 (150-450) 10^3/uL BMP 07/19/23 04:39 Sodium 141 Potassium 3.8 Chloride 104 Carbon Dioxide 28.2 BUN 15.0 Creatinine 1.00 Glucose 95 Calcium 9.3 Progress Note: A&P Assessment and Plan (1) Closed fracture of transverse process of lumbar vertebra: (2) Parkinson disease: (3) Dementia: Plan Admission findings: Syncopal episode resulting in transverse process fracture- pain persisting. Unable to ambulate safely. High fall risk. Pain control, physical therapy Syncopal episode-patient states he just falls asleep at random times. Could be orthostatic hypotension related to the Parkinson's versus bradycardia. Check on telemetry today. See if we can complete orthostatic vitals, will be difficult secondary to pain and stiffness Parkinson's disease-continue with home medications. This has been progressive. Stiffness definitely progressive. This is likely the reason for his fall. A 2 to 3-week rehabilitation will improve his stiffness and ability to ambulate while decreasing his fall risk. Physical therapy to work with patient today Dementia-continue with home medications-did have deterioration yesterday afternoon but is alert and oriented this morning Generalized anxiety disorder-continue with home medications Hypercholesterolemia-continue with home medications Admission status: Patient without significant improvement in his ability to ambulate. A significant fall risk. Patient is in need of rehabilitation. But currently is medically necessary treatment as we complete workup for syncope will span 2 midnights. Maintain inpatient status
--- NOTE | 2023-07-19 09:43 | SWNOTE1 ---
SW received a message from case management and pt's would like pt to go to [facility]. Pt has Parkinsons and Dementia. SW to reach out to [facility].
--- NOTE | 2023-07-19 09:53 | SWNOTE1 ---
Referral sent to [facility].. Referral included face sheet, ED note, H&P, provider notes, case management report, nursing notes, diagnostic imaging, med list, and PT notes.
--- NOTE | 2023-07-19 10:46 | SWNOTE1 ---
[facility] is able to accept when pt is medically stable for discharge.
[2023-07-19] MEDS: ENOXAPARIN SODIUM 40 MG/0.4 ML SYRINGE SUBQ (17:36)
[2023-07-19] MEDS: MEMANTINE HCL 28 MG CAP XR PO (17:37)
[2023-07-19] MEDS: ATORVASTATIN CALCIUM 10 MG TABLET PO (17:38)
[2023-07-20] VITALS (16 sets, daily range): BP systolic 103–135; BP diastolic 70–86; PULSE 76–103; TEMP 36.2–36.6; O2SAT 91–94
[2023-07-20 05:54] LABS: Basophils Percent Auto 0.4 % (0.2-2.0); Eosinophils Absolute Auto 0.1 10^3/uL (0.0-0.7); Eosinophils Percent Auto 0.9 % (0.9-7.0); Hematocrit 43.3 % (42.0-54.0); Hemoglobin 14.1 g/dL (14.0-18.0); Immature Granulocytes Abs Auto 0.03 10^3/uL (0.00-0.03); Immature Granulocytes Pct Auto 0.3 % (0.0-0.5); Lymphocytes Absolute Auto 1.7 10^3/uL (1.2-3.8); Lymphocytes Percent Auto 16.3 % (20.5-60.0); Mean Corpuscular HGB Conc 32.6 g/dL (29.9-35.2); Mean Corpuscular Hemoglobin 27.9 pg (25.9-34.0); Mean Corpuscular Volume 85.6 fL (80.0-94.0); Monocytes Absolute Auto 0.7 10^3/uL (0.3-0.8); Monocytes Percent Auto 6.9 % (1.7-12.0); Neutrophils Absolute Auto 7.9 10^3/uL (1.4-6.5); Neutrophils Percent Auto 75.2 % (43.0-75.0); Platelet Count 313 10^3/uL (150-450); Red Blood Count 5.06 10^6/uL (4.70-6.10); Red Cell Distribution Width 12.3 % (11.0-15.0); White Blood Count 10.5 10^3/uL (4.0-11.0)
[2023-07-20] MEDS: CLONAZEPAM 0.5 MG TABLET PO ×2 (06:04→18:03)
[2023-07-20] MEDS: DONEPEZIL HCL 10 MG TABLET 20 MG PO (06:04)
[2023-07-20] MEDS: CARBIDOPA/LEVODOPA 25 MG-100 MG TABLET 2 TAB PO ×3 (06:04→18:03)
[2023-07-20] MEDS: LAMOTRIGINE 100 MG TABLET PO ×2 (06:04→18:03)
[2023-07-20] MEDS: POLYETHYLENE GLYCOL 3350 17 GM POWDER PACKET PO (06:05)
[2023-07-20 06:15] LABS: Anion Gap 13.7; BUN Creatinine Ratio 14.2; Calcium 9.2 mg/dL (8.5-10.1); Carbon Dioxide 27.8 mmol/L (21.0-32.0); Chloride 103 mmol/L (98-107); Estimated GFR (African America >60 (>=60); Estimated GFR (Non-African Ame >60 (>=60); Glucose 109 mg/dL (74-106); Potassium 3.5 mmol/L (3.5-5.1); Sodium 141 mmol/L (136-145)
--- NOTE | 2023-07-20 06:53 | P.PN_ITS ---
Progress Note: Subjective Subjective Interval history: Saw patient at bedside with present as well. Did not sleep much last night. No new complaints. Pain well-controlled Exam Constitutional Vital Signs, click to edit/add: Last Vital Signs Temp 97.4 F L 07/20/23 04:18 Pulse 76 07/20/23 06:00 Resp 18 07/20/23 04:18 BP 135/86 07/20/23 04:18 Pulse Ox 94 L 07/20/23 04:18 O2 Del Method Room Air 07/20/23 04:18 Documenting provider has reviewed patient's vital signs: yes Common normals: no apparent distress Chest Common normals: inspection of chest normal and palpation of chest normal Respiratory Common normals: normal respiratory effort, no retractions and clear to auscultation bilaterally Cardio Common normals: regular rate, regular rhythm and no murmurs GI Common normals: Normal to inspection, nondistended, normoactive bowel sounds present Back & Pelvis Common normals: thoracic and lumbar spine normal to inspection; thoracic and/or lumbar spine tender Lumbar spine/lower back: ROM limited, pain with ROM, lumbar spinal tenderness, paraspinal muscle tenderness and straight leg raise negative bilaterally; lumbar ROM abnormal Neuro Common normals: oriented x3, CN's II-XII intact bilaterally and moves all extremities (Slowly secondary to Parkinson's) Progress Note: Objective Labs Labs: Short CBC 07/20/23 Range/Units 04:57 WBC 10.5 (4.0-11.0) 10^3/uL Hgb 14.1 (14.0-18.0) g/dL Hct 43.3 (42.0-54.0) % Plt Count 313 (150-450) 10^3/uL BMP 07/20/23 04:57 Sodium 141 Potassium 3.5 Chloride 103 Carbon Dioxide 27.8 BUN 16.0 Creatinine 1.13 Glucose 109 H Calcium 9.2 Progress Note: A&P Assessment and Plan (1) Closed fracture of transverse process of lumbar vertebra: (2) Parkinson disease: (3) Dementia: Plan Admission findings: Syncopal episode resulting in transverse process fracture- pain persisting. Pain fairly well-controlled currently. Needs further rehab. Syncopal episode-patient states he just falls asleep at random times. So far telemetry is unremarkable. Check on echo Parkinson's disease-continue with home medications. This has been progressive. Stiffness definitely progressive. This is likely the reason for his fall. A 2 to 3-week rehabilitation will improve his stiffness and ability to ambulate while decreasing his fall risk. Physical therapy to work with patient today Dementia-continue with home medications-did have deterioration yesterday afternoon but is alert and oriented this morning Generalized anxiety disorder-continue with home medications Hypercholesterolemia-continue with home medications Insomnia-add Restoril Admission status: Patient without significant improvement in his ability to ambulate. A significant fall risk. Patient is in need of rehabilitation. But currently is medically necessary treatment as we complete workup for syncope will span 2 midnights. Maintain inpatient status
--- NOTE | 2023-07-20 10:37 | SWNOTE1 ---
Important Message from [employer] reviewed and discussed with patient's . Pt's verbalized understanding and signed the form. Original given to patient's and copy placed in patient?s chart. Plan is for possible discharge tomorrow to [facility].
--- NOTE | 2023-07-20 11:33 | REH.PTDLY ---
Physical Therapy Daily Note PT Daily Note/Assess Start: 07/19/23 08:29 Freq: Status: Active Protocol: Document 07/20/23 11:24 KAIA (Rec: 07/20/23 11:33 [id number]) Physical Therapy Daily Note/Assessment Time In 10:41 Time Out 10:56 Subjective in room with pt and wanting to get up and move. Therapeutic Exercise Minutes (minutes) 5 Therapeutic Exercise Units 0 Therapeutic Exercise Treatment Instructed in seated exs prior to gait and transfers to help reduce stiffness 10x ea. Therapeutic Activity Minutes (minutes) 10 Therapeutic Activity Units 1 Chair Transfer Ability Contact Guard Assist,Minimum Assist,1 Person Assist Therapeutic Activity Comments Instructed in sit to stand transfers Min A first time with pt given RW to ambulate. Pt ambulates with RW 25 feet with Min A to help move RW and cues for larger strides to avoid shuffling. Pt then over exaggerates strides and is not focused on RW, cues to just ambulate with normal stride length and help is needed when turning RW with several cues. Pt returns to chair to rest. Sit to stand transfer again CGA this time. Gait training with no AD CGA with pt doing much better with improved posture and able to follow cues better. Pt ambulated for 165 feet, small limp noted towards end of gait, pt states L LE gives him trouble at times. Pt returns to chair with chair alarm on and in room Total Therapy Minutes 15 Total Physical Therapy Units 1 Daily Note Summary Attempted AD, but pt does not do well with this. Improved ambulation with less confusion when ambulating with no AD. Pt does not do well with dual tasks. Needs CGA for safety due to unsteadiness at times. Plan is for pt is to go SNF at [place] tomorrow
--- NOTE | 2023-07-20 12:13 | SWNOTE1 ---
SW sent over PT/OT, progress note, labs, vitals, and updated med list to [facility].
--- NOTE | 2023-07-20 12:54 | OT.DAILY ---
Occupational Therapy Daily Note OT Inpatient Daily Visit Note Start: 07/19/23 11:20 Freq: Status: Active Protocol: Document 07/20/23 12:51 [id number] (Rec: 07/20/23 12:54 [id number]) Visit Not Completed Visit Not Completed Visit Not Completed Due to: Pt refusing Other Reason Visit Not Completed Pt refusal. Pt sleeping in bed and did not want to participate. Denies the need to complete self care tasks. When offered to get out of bed he refuses. Reports he did not get much sleep the night before due to loud noises during the night. He states he is fatigued and just wants to sleep. Left in bed, call light within reach. OT Visit Details Time In/Time Out Time In 12:40 Time Out 12:50 GG. Functional Abilities and Goals-Complete for Swing Bed Patients Only [id number]. Self-Care [id number]. Mobility
[2023-07-20] MEDS: ENOXAPARIN SODIUM 40 MG/0.4 ML SYRINGE SUBQ (18:02)
[2023-07-20] MEDS: ATORVASTATIN CALCIUM 10 MG TABLET PO (18:03)
[2023-07-20] MEDS: MEMANTINE HCL 28 MG CAP XR PO (18:04)
[2023-07-20] MEDS: TEMAZEPAM 15 MG CAPSULE PO (21:09)
[2023-07-20] MEDS: OXYCODONE HCL/ACETAMINOPHEN 5MG/325MG 1 TAB PO (21:09)
[2023-07-21] VITALS (8 sets, daily range): BP systolic 128; BP diastolic 77; PULSE 70–85; TEMP 36.6; O2SAT 94
[2023-07-21 05:16] LABS: Basophils Percent Auto 0.4 % (0.2-2.0); Eosinophils Absolute Auto 0.1 10^3/uL (0.0-0.7); Eosinophils Percent Auto 1.4 % (0.9-7.0); Hematocrit 42.6 % (42.0-54.0); Hemoglobin 13.6 g/dL (14.0-18.0); Immature Granulocytes Abs Auto 0.03 10^3/uL (0.00-0.03); Immature Granulocytes Pct Auto 0.4 % (0.0-0.5); Lymphocytes Percent Auto 23.3 % (20.5-60.0); Mean Corpuscular HGB Conc 31.9 g/dL (29.9-35.2); Mean Corpuscular Hemoglobin 27.3 pg (25.9-34.0); Mean Corpuscular Volume 85.4 fL (80.0-94.0); Mean Platelet Volume 9.8 fL (9.5-13.5); Monocytes Absolute Auto 0.7 10^3/uL (0.3-0.8); Monocytes Percent Auto 8.3 % (1.7-12.0); Neutrophils Absolute Auto 5.6 10^3/uL (1.4-6.5); Neutrophils Percent Auto 66.2 % (43.0-75.0); Platelet Count 273 10^3/uL (150-450); Red Blood Count 4.99 10^6/uL (4.70-6.10); Red Cell Distribution Width 12.4 % (11.0-15.0); White Blood Count 8.5 10^3/uL (4.0-11.0)
[2023-07-21 05:24] LABS: Anion Gap 9.7; Calcium 9.2 mg/dL (8.5-10.1); Carbon Dioxide 28.4 mmol/L (21.0-32.0); Chloride 105 mmol/L (98-107); Estimated GFR (African America >60 (>=60); Estimated GFR (Non-African Ame >60 (>=60); Glucose 96 mg/dL (74-106); Potassium 4.1 mmol/L (3.5-5.1); Sodium 139 mmol/L (136-145)
--- NOTE | 2023-07-21 06:04 | PC.NURSE ---
pt woke up and had his call light on stating he needed someone to come into his room. RN in room to assist and patient stated he is very confused and does not understand what is going on. 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 RN re-oriented patient that he was in the hospital due to a fall but the patient was still caught up in the farm. RN stated that his would be here later this morning and she would be better able to explain the farm to him. Patient was okay with this and was then resting in bed with call light in reach. About 10 minutes later the patient had his call light on again stating he was confused and needed someone to explain what is going on. Nursing supervisor floor assembly went into room to assist and was able to help re-orient the patient and help him call his . Pt is now resting in bed with call light in reach on the phone with his .
[2023-07-21] MEDS: CARBIDOPA/LEVODOPA 25 MG-100 MG TABLET 2 TAB PO ×2 (06:08→11:52)
[2023-07-21] MEDS: CLONAZEPAM 0.5 MG TABLET PO (06:08)
[2023-07-21] MEDS: LAMOTRIGINE 100 MG TABLET PO (06:09)
[2023-07-21] MEDS: DONEPEZIL HCL 10 MG TABLET 20 MG PO (06:09)
[2023-07-21] MEDS: POLYETHYLENE GLYCOL 3350 17 GM POWDER PACKET PO (06:09)
--- NOTE | 2023-07-21 08:10 | P.DS_ITS ---
DS: Providers Provider Date of admission: 07/18/23 07:59 Primary care physician: Lázaro Kong MD Consults: 07/17/23 14:27 Occupational Therapy Eval and Treat Routine Reason for consultation: L2 transverse fracture, weakness Physical Therapy Eval and Treat Routine Reason for consultation: L2 transverse fracture, weakness DS: Diagnosis Discharge Diagnosis (1) Closed fracture of transverse process of lumbar vertebra: (2) Parkinson disease: (3) Dementia: Plan Admission findings: Syncopal episode resulting in transverse process fracture- pain persisting. Stable at rehab Syncopal episode-patient states he just falls asleep at random times. No further episodes Parkinson's disease-continue with home medications. Stable Dementia-continue with home medications-deteriorated while he was here, is more alert this morning Generalized anxiety disorder-continue with home medications Hypercholesterolemia-continue with home medications Insomnia-add Restoril Admission status: Patient without significant improvement in his ability to ambulate. A significant fall risk. Patient is in need of rehabilitation. But currently is medically necessary treatment as we complete workup for syncope will span 2 midnights. Maintain inpatient status ? DS: Summary Hospital Course Hospital Course: Patient was admitted after syncopal episode. No further syncopal episodes while here in the hospital. She was also normal. Could be orthostatic hypotension. Unable to assess secondary to his Parkinson's. And low back pain. Low back pains been pretty stable. Still has significant stiffness and weakness secondary to the fall and Parkinson's. Excellent rehabilitation candidate. Cleared for rehab today. Time Spent with Patient Time attestation: Total time spent providing and/or coordinating discharge services: Time spent: greater than 30 minutes Exam Constitutional Vital Signs, click to edit/add: Last Vital Signs Temp 97.9 F 07/21/23 04:39 Pulse 71 07/21/23 07:48 Resp 16 07/21/23 04:39 BP 128/77 07/21/23 04:39 Pulse Ox 94 L 07/21/23 04:39 O2 Del Method Room Air 07/21/23 04:39 Documenting provider has reviewed patient's vital signs: yes Common normals: no apparent distress Chest Common normals: inspection of chest normal and palpation of chest normal Respiratory Common normals: normal respiratory effort, no retractions and clear to auscultation bilaterally Cardio Common normals: regular rate, regular rhythm and no murmurs GI Common normals: Normal to inspection, nondistended, normoactive bowel sounds present Back & Pelvis Common normals: thoracic and lumbar spine normal to inspection; thoracic and/or lumbar spine tender Lumbar spine/lower back: ROM limited, pain with ROM, lumbar spinal tenderness, paraspinal muscle tenderness and straight leg raise negative bilaterally; lumbar ROM abnormal Neuro Common normals: oriented x3, CN's II-XII intact bilaterally and moves all extremities (Slowly secondary to Parkinson's) DS: Data Data Completed and Pending Labs on day of discharge: Labs from last 24 hours 07/21/23 04:32 WBC 8.5 RBC 4.99 Hgb 13.6 L Hct 42.6 MCV 85.4 MCH 27.3 MCHC 31.9 RDW 12.4 Plt Count 273 MPV 9.8 Neut % (Auto) 66.2 Lymph % (Auto) 23.3 [place] % (Auto) 8.3 Eos % (Auto) 1.4 Baso % (Auto) 0.4 Neut # (Auto) 5.6 Lymph # (Auto) 2.0 [place] # (Auto) 0.7 Eos # (Auto) 0.1 Baso # (Auto) 0.0 Abs Immat Gran (auto) 0.03 Imm/Tot Granulo (auto) 0.4 Sodium 139 Potassium 4.1 Chloride 105 Carbon Dioxide 28.4 Anion Gap 9.7 BUN 17.0 Creatinine 1.06 Est GFR ( Amer) >60 Est GFR (Non-Af Amer) >60 BUN/Creatinine Ratio 16.0 Glucose 96 Calcium 9.2 Discharge Plan Discharge Disposition: Xfer SNF Condition: Fair Discharge Medications: New acetaminophen 500 mg Tablet 1,000 mg PO Q6H PRN (Reason: Pain) Qty: 240 11RF Continued carbidopa-levodopa 25-100 mg tablet 2 tab PO TID clonazepam 0.5 mg tablet 0.5 mg PO Q12H donepezil 23 mg tablet 23 mg PO DAILY lamotrigine 100 mg tablet 100 mg PO Q12H simvastatin 20 mg tablet 20 mg PO DAILY polyethylene glycol 3350 [ClearLax] 17 gram powder in packet 17 g PO DAILY memantine 10 mg tablet 10 mg PO BID Rx Instructions: AT 6 AND 6 Print Language: Mosotho Forms: Portal Instructions
--- NOTE | 2023-07-21 10:06 | SWNOTE1 ---
Pt is ready for discharge today to [facility] for rehab. Pt's is transporting. SW spoke to nurse and she will have him ready around noon. SW let pt's know and [facility]. KARYNA sent over dc med rec and dc summary to [facility].
--- NOTE | 2023-07-21 10:37 | SWNOTE1 ---
SW completed HENS. Pt is going to [facility] today for rehab, SNF.
[2023-07-21] MEDS: ACETAMINOPHEN 500 MG TABLET 1000 MG PO (12:04)
--- NOTE | 2023-07-21 12:25 | PC.NURSE ---
card writer hand gave report to Sunita at the [facility]
== END 2023-07-21 12:53 | DRG 552 ==
LOC: ER 07:44 → MS 13:14
PROVIDERS: Family Medicine; Admitting Provider Family Medicine; Emergency Provider Emergency Medicine; PCP Family Medicine; Visit Provider Family Medicine
DX: S32.029A Unspecified fracture of second lumbar vertebra, initial encounter for closed fracture (principal); W19.XXXA Unspecified fall, initial encounter; G20.A1 Parkinson's disease without dyskinesia, without mention of fluctuations; F02.80 Dementia in other diseases classified elsewhere, unspecified severity, without behavioral disturbance, psychotic disturbance, mood disturbance, and anxiety; E78.00 Pure hypercholesterolemia, unspecified; F32.A Depression, unspecified; Z90.79 Acquired absence of other genital organ(s); Z91.81 History of falling; R55 Syncope and collapse; F41.1 Generalized anxiety disorder; G47.00 Insomnia, unspecified
CPT/HCPCS: 36415; 70450; 72131; 72192; 80048; 80053; 81003; 85025; 93005; 96372; 97161; 97165; 97530; 97535; 99285; G0378; J1650

== ENCOUNTER 2023-11-17 07:53 | Outpatient (OUT) | payer MEDICARE, OTHER, SELFPAY ==
--- OUTSIDE RECORDS SUMMARY | 2023-11-17 07:55 | XMS_ITS | CCD ---
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 Role Phone PHYSICIAN, DEFAULT Unavailable Unavailable [...] Unavailable MD Jayla Kong Primary Care Provider [phone] VADIM Gomez Attending Provider Lynn Gomez Attending Unavailable Lynn Gomez Admitting Unavailable Jayla Kong Primary Care Unavailable Jayla Kong Primary Care Physician [phone] Owen COOPER Attending Unavailable CATRACHITA Elliott, DR DICKERSON Admitting Unavailable HOY ., DR DICKERSON Attending Unavailable HOY ., DR DICKERSON Consulting Unavailable HOАлександр Elliott, DR DICKERSON Primary Care Unavailable MYNOR Elliott, DR KONG Osman Admitting Unavaila edith Elliott, DR KONG Osman Attending Unavaila edith Elliott, DR KONG Osman Consulting Unavaila edith Elliott, DR DICKERSON Primary Care Unavailable GARCÍA, CHELSEA Admitting Unavailable GARCÍAEDWARDOE Attending Unavailable GARCÍA, CHELSEA Consulting Unavailable CATRACHITA Elliott, DR DICKERSON Primary Care Unavailable MICHELLE DWYER Admitting Unavailable HOАлександр ., DR DICKERSON Primary Care Unavailable MICHELLE DWYER Attending Unavailable ANUPAM, DR NARA Ko Consulting Unavailable MICHELLE DWYER Consulting Unavailable CATRACHITA Elliott, DR DICKERSON Admitting Unavailable HOY ., DR DICKERSON Primary Care Unavailable HOАлександр ., DR DICKERSON Attending Unavailable HOY ., DR DICKERSON Consulting Unavailable ANUPAM, DR NARA Ko Consulting Unavailable HOY ., DR DICKERSON Admitting Unavailable HOY ., DR DICKERSON Attending Unavailable HOY ., DR DICKERSON Primary Care Unavailable HOY ., DR DICKERSON Primary Care Unavailable HOY ., DR DICKERSON Admitting Unavailable HOY ., DR DICKERSON Attending Unavailable HOY ., DR DICKERSON Consulting Unavailable HACKETT, DR ELI Sanchez Consulting Unavailable SLOAN ., GENE Consulting Unavailable HOY ., DR DICKERSON Admitting Unavailable HOY ., DR DICKERSON Attending Unavailable HOY ., DR DICKERSON Consulting Unavailable HOY ., DR DICKERSON Primary Care Unavailable JUAN DANIEL GARCIA Attending Jayla Fortune MD Primary Care Provider [phone] JAYLA KONG Referring Unavailable JAYLA KONG Primary Care Unavailable DUSTIN BURNS Attending JAYLA Parsons Primary Care Unavailable DUSTIN BURNS Referring Unavailab DUSTIN Carney Attending JAYLA Parsons Primary Care Unavailable DUSTIN BURNS Attending Unavailab ki SELF, SELF Referring Unavailable Allergies Allergy Classification Reported Allergen(s) Allergy Type Date of Onset Reaction(s) Facility (1 source) No Known Medication Allergies; Translations: [No Known Medication Allergies] Propensity to adverse reactions (disorder) [facility] Repository Medications Current Medications Medication Drug Class(es) Dates Sig (Normalized) Sig (Original) carbidopa 25 mg / levodopa 100 mg oral tablet (5 sources) Aromatic Amino Acid Decarboxylation Inhibitor, Aromatic Amino Acid Carbidopa-levodopa 25-100 MG per tablet Take 2 tablets by mouth 3 times daily. Taking every 5 hours Active End: 09-14-2023 carbidopa-levodopa 25-100 MG Tab CR Take 2 tablets by mouth 3 times daily. 1.5 3 times a day 09/14/2023 Discontinued (Alternate therapy) clonazePAM (5 sources) Benzodiazepine Start: 02-09-2019 clonazepam Ora l, TID, Refills(s) 0 Start Date: 02/09/19 Status: Ordered take 1 tablet by bhavin th at bedtime, then take 1 tablet by mouth in the morning, then take 1 tablet by mouth in the evening clonazePAM 0.5 MG tablet Take 1 tablet b y mouth at bedtime. 1 tablet at 900 am and 1 tablet at 900 pm Active donepezil hydrochloride 23 mg oral tablet (6 sources) Start: 09-14-2023 take 1 tablet by mouth once daily in the morning Donepezil HCl 23 MG tablet Indications: Cognitive impairment Take 1 tablet by mouth daily every morning. 90 tablet 3 09/14/2023 Active Start: 04-27-2022 take 1 tablet by bhavin th once daily at bedtime donepezil 23 mg oral tablet 23 mg = 1 tab(s), Oral, Once a day (at bedtime), # 30 tab(s), Refills(s) 0 Start Date: 04/27/22 Status: Ordered End: 09-14-2023 take 1 tablet by mouth once daily donepezil 5 MG tablet Take 1 tablet by mouth daily. 09/14/2023 Discontinued (Dose adjustment (suppress cancel msg)) Donepezil HCl 23 MG Oral for 30 Days Active Lamictal (5 sources) Mood Stabilizer, Anti-epileptic Agent Start: 02-09-2019 Lamictal Oral, BID, Refills(s) 0 Start Date: 02/09/19 Status: Ordered take 1 tablet by mouth at bedtim e lamoTRIgine 100 MG tablet Take 1 tablet by mouth at bedtime. Active memantine hydrochloride 10 mg oral tablet (5 sources) Q-ejewct-D-aspartate Receptor Antagonist Start: 09-14-2023 take 1 tablet by mouth twice daily Memantine 10 MG tablet Indications: Cognitive impairment Take 1 tablet by mouth 2 times daily. 180 tablet 3 09/14/2023 Active End: 09-14-2023 take 10 mg by mouth every twenty-four hours at bedtime Memantine HCl ER 7 MG Cap SR 24HR Take 10 mg by mouth at bedtime. 09/14/2023 Discontinued (Dose adjustment (suppress cancel msg)) Memantine HCl 10 MG Oral for 90 Days Active naproxen sodium 550 mg oral tablet (1 source) Nonsteroidal Anti-inflammatory Drug Start: 01-13-2022 take 1 tablet by mouth every twelve hours at mealtime as needed Naproxen Sodium 550 MG 1 tablet with food or milk as needed Orally every 12 hrs for 7 days Jan, Active nefazodone (1 source) Serotonin Reuptake Inhibitor Start: 02-09-2019 nefazodone Oral, BID, Refills(s) 0 Start Date: 02/09/19 Status: Ordered polyethylene glycol 3350 05086 mg powder for oral solution (3 sources) Osmotic Laxative take 1 dose by mouth once daily Polyethylene glycol 17 g Pack packet Take 1 packet by mouth daily. Active simvastatin 20 mg oral tablet (5 sources) HMG-CoA Reductase Inhibitor Start: 04-27-2022 simvastatin 20 mg Tab Refills(s) 0 Start Date: 04/27/22 Status: Ordered vitamin b12 0.5 mg oral tablet (3 sources) Vitamin B12 take 2 tablets by mouth once daily cyanocobalamin 500 MCG tablet Take 2 tablets by mouth daily. Active Wrist Brace - (1 source) Start: 01-13-2022 Wrist Brace - as directed Jan, Active Completed/Discontinued Medications Medication Drug Class(es) Dates Sig (Normalized) Sig (Original) Gadopiclenol SOLN 1-25 mL (1 source) Start: 08-25-2023 End: 08-25-2023 1-25 mL, Intravenous, ONCE, 1 dose, On Wed08/25/23 at 1345 Problems Active Problems Problem Classification Problem Date Documented Da te Episodic/Chronic Acute and unspecified renal failure (1 source) Acute kidney failure, unspecified; Translations: [ACUTE KIDNEY FAILURE UNSPECIFIED] Onset: 06-24-2022 Episodic Anxiety disorders (5 sources) Anxiety; Translations: [Anxiety disorder, unspecified] Onset: 06-24-2022 02-13-2020 Chronic Cardiac dysrhythmias (1 source) Tachycardia, unspecified; Translations: [TACHYCARDIA UNSPECIFIED] Onset: 06-24-2022 Episodic Congestive heart failure; nonhypertensive (1 source) Unspecified diastolic (congestive) heart failure; Translations: [UNSPECIFIED DIASTOLIC HEART FAILURE] Onset: 11-08-2021 Chronic Delirium, dementia, and amnestic and other cognitive disorders (12 sources) Alzheimer's disease, unspecified; Translations: [Alzheimer's disease] Onset: 05-14-2022 Chronic Diseases of white blood cells (1 source) Elevated white blood cell count, unspecified; Translations: [ELEVATED WHITE BLOOD CELL COUNT UNS] Onset: 06-24-2022 Chronic Disorders of lipid metabolism (3 sources) Pure hypercholesterolemia , unspecified; Translations: [Familial hypercholesterolemia ] Onset: 11-08-2021 Chronic Fluid and electrolyte disorders (1 source) Dehydration; Translations: [DEHYDRATION] Onset: 06-24-2022 Episodic Fracture of upper limb (1 source) Nondisplaced fracture of triquetrum [cuneiform] bone, left wrist, initial encounter for closed fracture Episodic Genitourinary symptoms and ill-defined conditions (4 sources) Increased frequency of urination; Translations: [Urgent desire to urinate] Onset: 09-14-2023 02-13-2020 Episodic Hyperplasia of prostate (7 sources) [...] Major depressive disorder 02-13-2020 Chronic Mood disorders (2 sources) Mood swings; Translations: [Emotional lability] Onset: 09-14-2023 09-14-2023 Episodic Mood disorders (1 source) Mood disorders; Translations: [DEPRESSION UNSPECIFIED] Onset: 06-24-2022 Nutritional deficiencies (1 source) Vitamin D deficiency, unspecified; Translations: [VITAMIN D DEFICIENCY UNSPECIFIED] Onset: 11-08-2021 Chronic Other aftercare (1 source) Other long term care phlebotomist (current) drug therapy; Translations: [OTH 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 CURRENT DRUG THERAPY] Onset: 06-24-2022 Episodic Other eye disorders (2 sources) Abnormal ocular motility; Translations: [Unspecified disorder of binocular movement] Onset: 09-14-2023 09-14-2023 Episodic Other injuries and conditions due to external causes (1 source) Unspecified injury of left wrist, hand and finger(s), initial encounter Episodic Other lower respiratory disease (1 source) Acute respiratory distress; Translations: [ACUTE RESPIRATORY DISTRESS] Onset: 06-24-2022 Episodic Other male genital disorders (1 source) Impotence 02-13-2020 Chronic Other nervous system disorders (3 sources) Abnormal gait; Translations: [Unspecified abnormalities of gait and mobility] Onset: 09-14-2023 08-04-2023 Episodic Other nervous system disorders (3 sources) Unsteady when standing; Translations: [Unsteadiness on feet] Onset: 07-23-2023 07-23-2023 Episodic Other nervous system disorders (2 sources) Impaired cognition; Translations: [Other symptoms and signs involving cognitive functions and awareness] Onset: 09-14-2023 09-14-2023 Episodic Parkinson`s disease (1 source) Parkinson's disease; Translations: [PARKINSONS DISEASE] Onset: 06-24-2022 Chronic Pneumonia (except that caused by tuberculosis or sexually transmitted disease) (1 source) Pneumonia, unspecified organism; Translations: [PNEUMONIA UNSPECIFIED ORGANISM] Onset: 06-24-2022 Episodic Residual codes; unclassified (1 source) Altered mental status, unspecified; Translations: [ALTERED MENTAL STATUS UNSPECIFIED] Onset: 06-24-2022 Episodic Residual codes; unclassified (2 sources) Detailed recall of dream; Translations: [Other general symptoms and signs] Onset: 09-14-2023 09-14-2023 Episodic Skin and subcutaneous tissue infections (3 sources) Cellulitis of left hand; Translations: [Cellulitis of left upper limb] Onset: 07-23-2023 07-23-2023 Episodic Unclassified (3 sources) Atypical Parkinsonism; 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] Onset: 09-14-2023 08-04-2023 Chronic Unclassified (1 source) Unspecified injury of left [...] prostate] Onset: 11-08-2021 Episodic Unclassified (3 sources) Parkinson's disease; Translations: [Parkinson disease] Onset: 07-23-2023 Resolved: 09-14-2023 07-23-2023 Chronic Unclassified (3 sources) Other amnesia; Translations: [OTHER AMNESIA] Onset: 04-08-2017 Episodic Unclassified (1 source) COUGH, UNSPECIFIED; Translations: [COUGH, UNSPECIFIED] Onset: 01-21-2022 Unclassified (1 source) Onset: 08-04-2023 08-04-2023 Results Test Name Value Interpretation Reference Range Facility MRI BRAIN WITH AND WITHOUT C [facility] 08-26-2023 MRI BRAIN WITH AND WITHOUT CONTRAST [facility] NAME: CAMERON HENAO DATE OF SERVICE: 08/25/2023 Patient No: [id number] Physician: MARIA EUGENIA Date of : 1950 MRI BRAIN WITH AND WITHOUT CONTRAST INDICATION: PARKINSONISM; atypical parkinsonism, levodopa Unresponsive COMPARISON: None. TECHNIQUE: Multiplanar, multisequence MRI of the brain with and without intravenous contrast. Sequences obtained include localizer, axial T1W, axial DWI/ADC map, axial, sagittal and coronal FLAIR, axial T2W, axial SWI with mIP reconstructions and axial, coronal and sagittal T1W postcontrast. FINDINGS: No acute infarct. No mass-effect, shift of midline structures or hydrocephalus. The major vascular flow voids are present at the skull base. Midline structures appear normal. No suspicious cerebral T2W/FLAIR or SWI signal alteration. No pathologic intracranial enhancement. Mild brain parenchymal volume loss and mild white matter changes. Incidental developmental venous anomaly along theLateral aspect of the right cerebral hemisphere. The paranasal sinuses appear clear. No mastoid or middle ear effusions. IMPRESSION: No evidence for acute intracranial abnormality. Maria C Casey M.D. This report has been electronically signed and verified by the Radiologist whose name is printed above. This report contains privileged and confidential information and is intended solely for the use of the individual or entity to which it is addressed. If you are not the intended recipient of this report, you are hereby notified that any copying, distribution, dissemination or action taken in relation to the contents of this report is strictly prohibited and may be unlawful. If you have received this report in error, please notify the sender immediately at [phone] and permanently delete the original report and destroy any copies or printouts. Normal [facility] CBC W MANUAL DIFFon 06-20-19 23 ATYPICAL LYMPH # 0.61 103/ul Normal [facility] Comment on above: Performed By: #### C BCMAN #### [facility] [address] [place] [address] Dr. Timmy Grant ATYPICAL LYMPH % 4 % Normal [facility] Comment on above: Performed By: #### C BCMAN #### [facility] [address] [place] [address] Dr. Timmy Grant BAND # 0.0 103/ul Normal 0.0-0.3 [facility] Comment on above: Performed By: #### C BCMAN #### [facility] [address] [place] [address] Dr. Timmy Grant BAND % 0 % Normal 0-5 [facility] Comment on above: Performed By: #### C BCMAN #### [facility] [address] [place] [address] Dr. Timmy Grant BASOM # 0.00 103/ul Normal 0.00-0.10 [facility] Comment on above: Performed By: #### C BCMAN #### [facility] [address] [place] [address] Dr. Timmy Grant BASOM % 0.0 % Critically low 0.2-2.0 [facility] Comment on above: Performed By: #### C BCMAN #### [facility] [address] [address] [address] Timmy Grant BLAST # Normal [facility] Comment on above: Performed By: #### C BCMAN #### [facility] [address] [address] [address] Timmy Grant BLAST % Normal [facility] Comment on above: Performed By: #### C BCNAFISA #### [facility] [address] [place] [address] Dr. Timmy Grant CORRECTED WBC Normal 4.0-11.0 [facility] Comment on above: Performed By: #### C BCNAFISA #### [facility] [address] [place] [address] Dr. Timmy Grant EOS # 0.00 103/ul Normal 0.00-0.70 [facility] Comment on above: Performed By: #### C BCNAFISA #### [facility] [address] [place] [address] Dr. Timmy Grant EOS% 0.0 % Critically low 0.9-7.0 [facility] Comment on above: Performed By: #### C BCNAFISA #### [facility] [address] [place] [address] Dr. Timmy Grant HCT 42.1 % Normal 42.0-54.0 [facility] Comment on above: Performed By: #### C BCMAN #### [facility] [address] [place] [address] Dr. Timmy Grant HGB 13.8 g/dl Critically low 14.0-18.0 [facility] Comment on above: Performed By: #### C BCMAN #### [facility] [address] [place] [address] Dr. Timmy Grant LYMPHM # 0.00 103/ul Critically low 1.20-3.80 [facility] Comment on above: Performed By: #### C BCMAN #### [facility] [address] [address] [address] Timmy Grant LYMPHM% 0.0 % Critically low 20.5-60.0 [facility] Comment on above: Performed By: #### C MARY #### [facility] [address] [place] [address] Dr. Timmy Grant MCH 27.4 pg Normal 25.9-34.0 [facility] Comment on above: Performed By: #### C MARY #### [facility] [address] [place] [address] Dr. Timmy Grant MCHC 32.8 g/dl Normal 29.9-35.2 [facility] Comment on above: Performed By: #### C MARY #### [facility] [address] [place] [address] Dr. Timmy Grant MCV 83.7 fL Normal 80.0-94.0 [facility] Comment on above: Performed By: #### C MARY #### [facility] [address] [place] [address] Dr. Timmy Grant METAMYELOCYTE # Normal [facility] Comment on above: Performed By: #### C MARY #### [facility] [address] [place] [address] Dr. Timmy Grant METAMYELOCYTE % Normal [facility] Comment on above: Performed By: #### C MARY #### [facility] [address] [place] [address] Dr. Timmy Grant MONOM# 0.00 103/ul Critically low 0.30-0.80 [facility] Comment on above: Performed By: #### C MARY #### [facility] [address] [place] [address] Dr. Timmy Grant MONOM% 0.0 % Critically low 1.7-12.0 [facility] Comment on above: Performed By: #### C MARY #### [facility] [address] [place] [address] Dr. Timmy Grant MPV 9.7 fL Normal 9.5-13.5 [facility] Comment on above: Performed By: #### C BCMAN #### [facility] [address] [address] [address] Timmy Grant MYELOCYTE # Normal [facility] Comment on above: Performed By: #### C BCMAN #### [facility] [address] [address] [address] Timmy Grant MYELOCYTE % Normal [facility] Comment on above: Performed By: #### C BCMAN #### [facility] [address] [address] [address] Timmy Grant NRBC Normal [facility] Comment on above: Performed By: #### C BCNAFISA #### [facility] [address] [address] [address] Timmy Grant PLT 224 103/ul Normal 150-450 [facility] Comment on above: Performed By: #### C MARY #### [facility] [address] [address] [address] Timmy Grant RBC 5.03 106/ul Normal 4.70-6.10 [facility] Comment on above: Performed By: #### C MARY #### [facility] [address] [address] [address] Timmy Grant RDW 12.8 % Normal 11.0-15.0 [facility] Comment on above: Performed By: #### C MARY #### [facility] [address] [address] [address] Timmy Grant SEG # 14.69 103/ul Critically high 1.40-6.50 [facility] Comment on above: Performed By: #### C BCNAFISA #### [facility] [address] [address] [address] Timmy Grant SEG % 96.0 % Critically high 43.0-75.0 [facility] Comment on above: Performed By: #### C BCMAN #### [facility] [address] [address] [address] Timmy Grant WBC 15.3 103/ul Critically high 4.0-11.0 [facility] Comment on above: Performed By: #### C BCNAFISA #### [facility] [address] [address] [address] Timmy Grant PROF 14(COMP METB)on 023 Albumin [Mass/Vol] 3.2 g/dL Critically low 3.4-5.0 [facility] Comment on above: Performed By: #### O BSCRN #### [facility] [address] [address] [address] Timmy Grant Albumin/Globulin [Mass ratio] 0.8 {ratio} Normal [facility] Comment on above: Performed By: #### O BSCRN #### [facility] [address] [address] [address] Timmy Grant ALP [Catalytic activity/Vol] 92 U/L Normal 46-116 [facility] Comment on above: Performed By: #### O BSCRN #### [facility] [address] [address] [address] Timmy Grant ALT [Catalytic activity/Vol] 13 U/L Critically low 16-63 [facility] Comment on above: Performed By: #### O BSCRN #### [facility] [address] [address] [address] Timmy Grant Anion gap [Moles/Vol] 11.0 mmol/L Normal [facility] Comment on above: Performed By: #### O BSCRN #### [facility] [address] [address] [address] Timmy Grant AST [Catalytic activity/Vol] 14 U/L Critically low 15-37 [facility] Comment on above: Performed By: #### O BSCRN #### [facility] [address] [address] [address] Timmy Grant Bilirubin [Mass/Vol] 0.5 mg/dL Normal 0.2-1.0 [facility] Comment on above: Performed By: #### O BSCRN #### [facility] [address] [address] [address] Timmy Grant Calcium [Mass/Vol] 9.5 mg/dL Normal 8.5-10.1 [facility] Comment on above: Performed By: #### O BSCRN #### [facility] [address] [address] [address] Timmy Grant Chloride [Moles/Vol] 105 mmol/L Normal 98-107 [facility] Comment on above: Performed By: #### O BSCRN #### [facility] [address] [address] [address] Timmy Grnat CO2 [Moles/Vol] 26.2 mmol/L Normal 21.0-32.0 [facility] Comment on above: Performed By: #### O BSCRN #### [facility] [address] [address] [address] Timmy Grant Creatinine [Mass/Vol] 1.12 mg/dL Normal 0.70-1.30 [facility] Comment on above: Performed By: #### O BSCRN #### [facility] [address] [place] [address] Dr. Timmy Grant EGFR-AF GERMAN >60 Normal >=60 [facility] Comment on above: Performed By: #### O BSCRN #### [facility] [address] [address] [address] Timmy Grant EGFR-NON AF GERMAN >60 Normal >=60 [facility] Comment on above: Performed By: #### O BSCRN #### [facility] [address] [address] [address] Timmy Grant Globulin (S) [Mass/Vol] 4.2 g/dL Normal [facility] Comment on above: Performed By: #### O BSCRN #### [facility] [address] [address] [address] Timmy Grant Glucose [Mass/Vol] 171 mg/dL Critically high 74-106 [facility] Comment on above: Performed By: #### O BSCRN #### [facility] [address] [address] [address] Timmy Grant Potassium [Moles/Vol] 4.2 mmol/L Normal 3.5-5.1 [facility] Comment on above: Performed By: #### O BSCRN #### [facility] [address] [place] [address] Dr. Timmy Grant Protein [Mass/Vol] 7.4 g/dL Normal 6.4-8.2 [facility] Comment on above: Performed By: #### O BSCRN #### [facility] [address] [place] [address] Dr. Timmy Grant Sodium [Moles/Vol] 138 mmol/L Normal 136-145 [facility] Comment on above: Performed By: #### O BSCRN #### [facility] [address] [place] [address] Dr. Timmy Grant Urea nitrogen [Mass/Vol] 15.0 mg/dL Normal 7.0-18.0 [facility] Comment on above: Performed By: #### O BSCRN #### [facility] [address] [place] [address] Dr. Timmy Grant Urea nitrogen/Creatinin e [Mass ratio] 13.4 mg/mg Normal [facility] Comment on above: Performed By: #### O BSCRN #### [facility] [address] [place] [address] Dr. Timmy Grant BNPon 06-18-2022 Natriuretic peptide B (Bld) [Mass/Vol] 114.0 pg/mL Normal <=900.0 [facility] Comment on above: Performed By: #### O BSCRN #### [facility] [address] [place] [address] Dr. Timmy Grant CARDIAC SANJUANA ADMITon 023 CK [Catalytic activity/Vol] 209 U/L Normal 39-308 [facility] Comment on above: Performed By: #### O BSCRN #### [facility] [address] [place] [address] Dr. Timmy Grant CK.MB [Mass/Vol] 2.98 ng/mL Normal <=3.60 [facility] Comment on above: Performed By: #### O BSCRN #### [facility] [address] [place] [address] Dr. Timmy Grant HSTROP 5.6 pg/mL Normal 4.0-76.1 [facility] Comment on above: Result Comment: CUT- OFF POINTS HAVE BEEN ESTABLISHED BASED ON THE FOURTH UNIVERSAL DEFINITIONS OF MYOCARDIAL INFARCTION. THE UPPER REFERENCE LIMIT (URL) OF TROPONIN, DEFINED THE 99TH PERCENTILE OF cTnI DISTRIBUTION IN A REFERENCE POPULATION, HAS BEEN CONFIRMED THE DECISION THRESHOLD FOR [place] DIAGNOSIS. Performed By: #### O BSCRN #### [facility] [address] [place] [address] Dr. Timmy Grant NAFISA 118 ng/mL Critically high 16-96 [facility] Comment on above: Performed By: #### O BSCRN #### [facility] [address] [place] [address] Dr. Timmy Grant CBC W MANUAL DIFFon 06-19-19 23 ATYPICAL LYMPH # Normal [facility] Comment on above: Performed By: #### C BCMAN #### [facility] [address] [place] [address] Dr. Timmy Grant ATYPICAL LYMPH % Normal [facility] Comment on above: Performed By: #### C BCMAN #### [facility] [address] [place] [address] Dr. Timmy Grant BAND # 0.6 103/ul Critically high 0.0-0.3 [facility] Comment on above: Performed By: #### C BCMAN #### [facility] [address] [place] [address] Dr. Timmy Grant BAND % 5 % Normal 0-5 [facility] Comment on above: Performed By: #### C BCMAN #### [facility] [address] [place] [address] Dr. Timmy Grant BASOM # 0.00 103/ul Normal 0.00-0.10 [facility] Comment on above: Performed By: #### C BCMAN #### [facility] [address] [place] [address] Dr. Timmy Grant BASOM % 0.0 % Critically low 0.2-2.0 [facility] Comment on above: Performed By: #### C BCMAN #### [facility] [address] [address] [address] Timmy Grant BLAST # Normal [facility] Comment on above: Performed By: #### C BCNAFISA #### [facility] [address] [address] [address] Timmy Grant BLAST % Normal [facility] Comment on above: Performed By: #### C BCNAFISA #### [facility] [address] [address] [address] Timmy Grant CORRECTED WBC Normal 4.0-11.0 [facility] Comment on above: Performed By: #### C MARY #### [facility] [address] [address] [address] Timmy Grant EOS # 0.00 103/ul Normal 0.00-0.70 [facility] Comment on above: Performed By: #### C MARY #### [facility] [address] [place] [address] Dr. Timmy Grant EOS% 0.0 % Critically low 0.9-7.0 [facility] Comment on above: Performed By: #### C MARY #### [facility] [address] [address] [address] Timmy Grant HCT 46.4 % Normal 42.0-54.0 [facility] Comment on above: Performed By: #### C MARY #### [facility] [address] [place] [address] Dr. Timmy Grant HGB 14.8 g/dl Normal 14.0-18.0 [facility] Comment on above: Performed By: #### C BCMAN #### [facility] [address] [address] [address] Timmy Grant LYMPHM # 0.57 103/ul Critically low 1.20-3.80 [facility] Comment on above: Performed By: #### C BCNAFISA #### [facility] [address] [address] [address] Timmy Grant LYMPHM% 5.0 % Critically low 20.5-60.0 [facility] Comment on above: Performed By: #### C MARY #### [facility] [address] [place] [address] Dr. Timmy Grant MCH 26.8 pg Normal 25.9-34.0 [facility] Comment on above: Performed By: #### C MARY #### [facility] [address] [place] [address] Dr. Timmy Grant MCHC 31.9 g/dl Normal 29.9-35.2 [facility] Comment on above: Performed By: #### C MARY #### [facility] [address] [place] [address] Dr. Timmy Grant MCV 84.1 fL Normal 80.0-94.0 [facility] Comment on above: Performed By: #### C MARY #### [facility] [address] [place] [address] Dr. Timmy Grant METAMYELOCYTE # Normal [facility] Comment on above: Performed By: #### C MARY #### [facility] [address] [place] [address] Dr. Timmy Grant METAMYELOCYTE % Normal [facility] Comment on above: Performed By: #### Tali HERNANDEZ #### [facility] [address] [place] [address] Dr. Timmy Grant MONOM# 0.23 103/ul Critically low 0.30-0.80 [facility] Comment on above: Performed By: #### Tali HERNANDEZ #### [facility] [address] [place] [address] Dr. Timmy Grant MONOM% 2.0 % Normal 1.7-12.0 [facility] Comment on above: Performed By: #### Tali HERNANDEZ #### [facility] [address] [place] [address] Dr. Timmy Grant MPV 9.5 fL Normal 9.5-13.5 [facility] Comment on above: Performed By: #### C MARY #### [facility] [address] [place] [address] Dr. Timmy Grant MYELOCYTE # Normal [facility] Comment on above: Performed By: #### C MARY #### [facility] [address] [address] [address] Timmy Grant MYELOCYTE % Normal [facility] Comment on above: Performed By: #### C BCMAN #### [facility] [address] [address] [address] Timmy Grant NRBC Normal [facility] Comment on above: Performed By: #### C BCMAN #### [facility] [address] [address] [address] Timmy Grant PLT 219 103/ul Normal 150-450 [facility] Comment on above: Performed By: #### C BCMAN #### [facility] [address] [address] [address] Timmy Grant RBC 5.52 106/ul Normal 4.70-6.10 [facility] Comment on above: Performed By: #### C BCMAN #### [facility] [address] [place] [address] Dr. Timmy Grant RDW 12.6 % Normal 11.0-15.0 [facility] Comment on above: Performed By: #### C BCMAN #### [facility] [address] [address] [address] Timmy Grant SEG # 10.12 103/ul Critically high 1.40-6.50 [facility] Comment on above: Performed By: #### C BCMAN #### [facility] [address] [address] [address] Timmy Grant SEG % 88.0 % Critically high 43.0-75.0 [facility] Comment on above: Performed By: #### C BCMAN #### [facility] [address] [address] [address] Timmy Grant WBC 11.5 103/ul Critically high 4.0-11.0 [facility] Comment on above: Performed By: #### C BCMAN #### [facility] [address] [place] [address] HEAD WO CONon 06-18-2022 CT HEAD WO CON EXAM: CT HEAD WO CON ; [id number] REASON FOR EXAM: Pain COMPARISON: None. TECHNIQUE: [...] by: BENTON FOSTER Date: 2022-06-18 11:17 Normal [facility] CULTURE BLOODon 06-18-2022 Microscopic examination of blood, culture Culture Observations: NO GROWTH AT 5 DAYS. Normal [facility] Comment on above: Performed By: #### O BSCRN #### [facility] [address] [place] [address] Dr. Timmy Grant Microscopic examination of blood, culture Culture Observations: NO GROWTH AT 5 DAYS. Normal [facility] Comment on above: Performed By: #### O BSCRN #### [facility] [address] [place] [address] Dr. Timmy Grant ER URINE PROFILEon 3 Bilirubin Ql (U) Negative Normal NEGATIVE [facility] Comment on above: Performed By: #### E RUR #### [facility] [address] [place] [address] Dr. Timmy Grant Clarity (U) CLEAR Normal CLEAR [facility] Comment on above: Performed By: #### E RUR #### [facility] [address] [place] [address] Dr. Timmy Grant Color (U) YELLOW Normal YELLOW [facility] Comment on above: Performed By: #### E RUR #### [facility] [address] [place] [address] Dr. Timmy GUY A micrscopic examina tion will be performed if indicated. Normal [facility] Comment on above: Performed By: #### E RUR #### [facility] [address] [place] [address] Dr. Timmy Grant Glucose Ql (U) Negative Normal NEGATIVE [facility] Comment on above: Performed By: #### E RUR #### [facility] [address] [place] [address] Dr. Timmy Grant Hemoglobin Ql (U) Negative Normal NEGATIVE [facility] Comment on above: Performed By: #### E RUR #### [facility] [address] [place] [address] Dr. Timmy Grant Ketones Ql (U) TRACE Abnormal NEGATIVE [facility] Comment on above: Performed By: #### E RUR #### [facility] [address] [place] [address] Dr. Timmy Grant LEUKOCYTES Negative Normal NEGATIVE [facility] Comment on above: Performed By: #### E RUR #### [facility] [address] [place] [address] Dr. Timmy Grant Nitrite Ql (U) Negative Normal NEGATIVE [facility] Comment on above: Performed By: #### E RUR #### [facility] [address] [place] [address] Dr. Timmy Grant pH (U) 5.5 [pH] Normal 5-9 [facility] Comment on above: Performed By: #### E RUR #### [facility] [address] [place] [address] Dr. Timmy Grant SPEC GRAVITY 1.025 Normal 1.005-<=1.02 5 [facility] Comment on above: Performed By: #### E RUR #### [facility] [address] [place] [address] Dr. Timmy Grant UA PROTEIN Negative Normal NEGATIVE/ TRACE [facility] Comment on above: Performed By: #### E RUR #### [facility] [address] [place] [address] Dr. Timmy Grant UR MICRO IND NOT INDICATED Normal [facility] Comment on above: Performed By: #### E RUR #### [facility] [address] [place] [address] Dr. Timmy Grant Urobilinogen Qn (U) 0.2 {Ana'U}/dL Normal 0.2 - 1.0 [facility] Comment on above: Performed By: #### E RUR #### [facility] [address] [place] [address] Dr. Timmy Grant GROUP A STREP CULTUREon 06-08 S. pyogenes Ag Ql (Unsp spec) Culture Observations: NEGATIVE FOR GROUP A STREPTOCOCCUS. Normal [facility] Comment on above: Performed By: #### P SASC, VITB12, VITAD #### [facility] [address] [place] [address] Dr. Timmy Grant LACTATE/LACTIC ACIDon 2022 Lactate [Moles/Vol] 2.0 mmol/L Normal 0.4-2.0 [facility] Comment on above: Performed By: #### P SASC, VITB12, VITAD #### [facility] [address] [place] [address] Dr. Timmy Grant Lactate [Moles/Vol] 1.7 mmol/L Normal 0.4-2.0 [facility] Comment on above: Performed By: #### E RUR #### [facility] [address] [place] [address] Dr. Timmy Grant PROF 14(COMP METB)on 023 Albumin [Mass/Vol] 3.6 g/dL Normal 3.4-5.0 [facility] Comment on above: Performed By: #### O BSCRN #### [facility] [address] [place] [address] Dr. Timmy Grant Albumin/Globulin [Mass ratio] 0.8 {ratio} Normal [facility] Comment on above: Performed By: #### O BSCRN #### [facility] [address] [address] [address] Timmy Grant ALP [Catalytic activity/Vol] 94 U/L Normal 46-116 [facility] Comment on above: Performed By: #### O BSCRN #### [facility] [address] [address] [address] Timmy Grant ALT [Catalytic activity/Vol] 33 U/L Normal 16-63 [facility] Comment on above: Performed By: #### O BSCRN #### [facility] [address] [address] [address] Timmy Grant Anion gap [Moles/Vol] 12.5 mmol/L Normal [facility] Comment on above: Performed By: #### O BSCRN #### [facility] [address] [address] [address] Timmy Grant AST [Catalytic activity/Vol] 19 U/L Normal 15-37 [facility] Comment on above: Performed By: #### O BSCRN #### [facility] [address] [address] [address] Timmy Grant Bilirubin [Mass/Vol] 0.8 mg/dL Normal 0.2-1.0 [facility] Comment on above: Performed By: #### O BSCRN #### [facility] [address] [address] [address] Timmy Grant Calcium [Mass/Vol] 9.4 mg/dL Normal 8.5-10.1 [facility] Comment on above: Performed By: #### O BSCRN #### [facility] [address] [address] [address] Timmy Grant Chloride [Moles/Vol] 100 mmol/L Normal 98-107 [facility] Comment on above: Performed By: #### O BSCRN #### [facility] [address] [address] [address] Timmy Grant CO2 [Moles/Vol] 28.7 mmol/L Normal 21.0-32.0 [facility] Comment on above: Performed By: #### O BSCRN #### [facility] [address] [address] [address] Timmy Grant Creatinine [Mass/Vol] 1.43 mg/dL Critically high 0.70-1.30 [facility] Comment on above: Performed By: #### O BSCRN #### [facility] [address] [address] [address] Timmy Grant EGFR-AF GERMAN 59 mL/min/1.73m2 Critically low >=60 [facility] Comment on above: Performed By: #### O BSCRN #### [facility] [address] [address] [address] Timmy Grant EGFR-NON AF GERMAN 49 mL/min/1.73m2 Critically low >=60 [facility] Comment on above: Performed By: #### O BSCRN #### [facility] [address] [address] [address] Timmy Grant Globulin (S) [Mass/Vol] 4.6 g/dL Normal [facility] Comment on above: Performed By: #### O BSCRN #### [facility] [address] [address] [address] Timmy Grant Glucose [Mass/Vol] 161 mg/dL Critically high 74-106 [facility] Comment on above: Performed By: #### O BSCRN #### [facility] [address] [address] [address] Timmy Grant Potassium [Moles/Vol] 4.2 mmol/L Normal 3.5-5.1 [facility] Comment on above: Performed By: #### O BSCRN #### [facility] [address] [address] [address] Timmy Grant Protein [Mass/Vol] 8.2 g/dL Normal 6.4-8.2 [facility] Comment on above: Performed By: #### O BSCRN #### [facility] [address] [address] [address] Timmy Grant Sodium [Moles/Vol] 137 mmol/L Normal 136-145 [facility] Comment on above: Performed By: #### O BSCRN #### [facility] [address] [place] [address] Dr. Timmy Grant Urea nitrogen [Mass/Vol] 14.0 mg/dL Normal 7.0-18.0 [facility] Comment on above: Performed By: #### O BSCRN #### [facility] [address] [place] [address] Dr. Timmy Grant Urea nitrogen/Creatinin e [Mass ratio] 9.8 mg/mg Normal [facility] Comment on above: Performed By: #### O BSCRN #### [facility] [address] [place] [address] Dr. Timmy Grant PROTIMEon 06-18-2022 INR Coag (PPP) [Relative time] 1.01 {INR} Normal [facility] Comment on above: Performed By: #### P SASC, VITB12, VITAD #### [facility] [address] [place] [address] Dr. Timmy Grant INR GUIDELINES SEE BELOW Normal [facility] Comment on above: Result Comment: REMIGIO RED INR: 2.0 - 3.0 CONDITIONS NOT LISTED BELOW 2.5 - 3.5 FOR PROSTHETIC HEART VALVE REPLACEMENT 2.5 - 3.5 RECURRENT THROMBOSIS Performed By: #### P SASC, VITB12, VITAD #### [facility] [address] [place] [address] Dr. Timmy Grant PT Coag (PPP) [Time] 10.7 s Normal 9.0-11.6 [facility] Comment on above: Performed By: #### P SASC, VITB12, VITAD #### [facility] [address] [place] [address] Dr. Timmy Grant PTTon 06-18-2022 aPTT Coag (Bld) [Time] 31.4 s Normal 22.3-36.2 [facility] Comment on above: Performed By: #### P SASC, VITB12, VITAD #### [facility] [address] [place] [address] Dr. Timmy Grant STREPT SCREENon 06-18-2022 STREP SCREEN A Negative Normal NEGATIVE [facility] Comment on above: Performed By: #### E RUR #### [facility] [address] [place] [address] Dr. Timmy Grant SYMPTOMATIC COVID-19 ANTIGEN on 06-18-2022 EUA Statement SEE BELOW Normal [facility] Comment on above: Result Comment: This [...] By: #### P SASC, VITB12, VITAD #### [facility] [address] [place] [address] Dr. Timmy Grant SARS-CoV-2 (COVID-19) RNA ALEXA+probe Ql (Unsp spec) Negative Normal NEGATIVE [facility] Comment on above: Performed By: #### P SASC, VITB12, VITAD #### [facility] [address] [place] [address] Dr. Timmy Grant XR CHEST 1 Von [...] by: ELI RAMÍREZ Date: 2022-06-18 08:25 Normal [facility] VIT B12 AND FOLATEon 023 Cobalamin (Vitamin B12) [Mass/Vol] 270.0 pg/mL Normal 193.0-986.0 [facility] Comment on above: Performed By: #### B 12FOL #### [facility] [address] [address] [address] Timmy Grant FOLATE 23.00 ng/mL Normal 8.60-58.90 [facility] Comment on above: Performed By: #### B 12FOL #### [facility] [address] [address] [address] Timmy Grant Ambulatory Visit Summaryon 0 04-27-2022 Ambulatory Visit Summary CAMERON HENAO :1950 Visit Date:04/27/2022 Ambulatory Visit Instructions Your Diagnosis BPH with urinary obstruction Tests Performed Urnls Dip Stick Auto w/o Microscopy POC 35891 Your Care Team Attending Physician - Owen COOPER MD Primary Care Physician - Jayla Kong MD [...] Miller When: Where: [facility] [address] [place] [address]- Medications What How Much When Instructions Unchanged [...] Urnls Dip Stick Auto w/o Microscopy POC 86026 (04/27/2022) Bilirubin Urine Dipstick - Negative Blood Urine Dipstick - Negative Glucose Urine Dipstick - Negative Ketones Urine Dipstick - Negative Leukocytes Urine Dipstick - Negative Nitrite Urine Dipstick - Negative Protein Urine Dipstick - Negative Specific [place] Urine Dipstick - 1.015 Urine Appearance Urine [...] of these risk factors: ? Being of -[place] descent. ? Having a family history of [...] Are older than age 55. ? Are -[place]serr[place]ian. ? Have a father, brother, or uncle who has been diagnosed with prostate cancer. The risk may be higher if your family member's cancer occurred at an early age. What are the benefits of screening? Th (more content not included)... Normal [facility] Patient Educationon 04-28-19 Patient Education Oncology [...] of these risk factors: ? Being of -[place] descent. ? Having a family history of [...] Are older than age 55. ? Are -[place]err[place]ian. ? Have a father, brother, or uncle [...] Document R (more content not included)... Normal [facility] Urology Office/Clinic Noteon 04-27-2022 Urology Office/Clinic [...] Owen Ko, URL [facility] [address] [place] [address]- Additional Instructions: PRN, PSA with Dr. Kong [...] Protein Urine Dipstick: Negative (04/27/22 11:39:00) Specific [place] Urine Dipstick: 1.015 (04/27/22 11:39:00) Urine Appearance Urine Dipstick: Clear (04/27/22 11:39:00) Urine Color (more content not included)... Normal [facility] Comment on above: Result Comment: Elec tronically Signed By: Owen COOPER MD\.br\Date and Time Signed: 04/27/22 12:37 EDT\.br\Electronically Co-Signed By: Archana Cheng\.br\Date and Time Co-Signed: 04/27/22 12:36 EDT Lab Reportson 01-28-2022 Lab Reports [id number] Normal [facility]08 SARS-CoV-2 (COVID-19) RNA ALEXA+probe Ql (Unsp spec) Not detected Normal NOT DETECTED [facility] Comment on above: Result Comment: When [...] for this test is supported by the Marketing Compliance Manager of Health and Human Service's declaration that [...] used). Performed By: #### C VDTB #### [facility] [address] [place] [address] Dr. Timmy Grant INFLUENZA A AND B AGon 01-21 INFLUBNEG SEE BELOW Normal [facility] Comment on above: Result Comment: Nega tive for Flu B protein antigen. Infection due to Flu B cannot be ruled out. Flu B antigen in the sample may be below the detection limit of the test. Performed By: #### E RUR #### [facility] [address] [address] [address] Timmy Grant INFLUENZA A AG Positive Abnormal NEGATIVE SEE COMMENT [facility] Comment on above: Performed By: #### E RUR #### [facility] [address] [address] [address] Timmy Grant INFLUENZA B AG Negative Normal NEGATIVE SEE COMMENT [facility] Comment on above: Performed By: #### E RUR #### [facility] [address] [address] [address] Timmy Grant INFLUPOSH SEE BELOW Normal [facility] Comment on above: Result Comment: NOTE : Live attenuated influenzae vaccine viruses can cause a positive result for a rapid influenza diagnostic test if administered up to 7 days prior to rapid testing. Performed By: #### E RUR #### [facility] [address] [address] [address] Timmy Grant INTERNAL CONTROLS Within Normal Limits Normal Wi thin Normal Limits [facility] Comment on above: Performed By: #### E RUR #### [facility] [address] [place] [address] Dr. Timmy Grant XR wrist LT min 3V*on 2021 XR wrist LT min 3V* [facility] [employer] [facility] [employer] Other XR wrist LT min 3V* [facility] [employer] Other XR wrist LT min 3V* [address] [place] [address] [employer] Other XR wrist LT min 3V* [place] [address] [employer] [facility] [employer] Other XR wrist LT min 3V* XRay Report [employer] [facility] [employer] Other XR wrist LT min 3V* Signed [employer] Other XR wrist LT min 3V* Patient: Cameron Henao MR#: [id number] [employer] Other XR wrist LT min 3V* 2 [employer] Other XR wrist LT min 3V* : 1950 Acct:[id number] [employer] Other XR wrist LT min 3V* Age/Sex: 71 / M ADM Date: 01/13/22 [employer] Other XR wrist LT min 3V* Loc: XDUCLY Room: Type: REG CLI [employer] Other XR wrist LT min 3V* Attending Dr: Lynn Gomez [facility] [employer] Other XR wrist LT min 3V* Copies to: LYNN G[facility]Z [facility] [employer] Other XR wrist LT min 3V* Ordering Provider: LYNN GOMEZ [facility] Brigade Other XR wrist LT min 3V* Date of Service: 01/13/22 Brigade Other XR wrist LT min 3V* XR/XR wrist LT min 3V*: LEFT WRIST INJURY Brigade Other XR wrist LT min 3V* LEFT WRIST - 4 views Brigade Other XR wrist LT min 3V* CLINICAL HISTORY: Fell yesterday now with pain in left wrist and swelling. Brigade Other XR wrist LT min 3V* COMPARISON: None Brigade Other XR wrist LT min 3V* FINDINGS: Brigade Other XR wrist LT min 3V* Mild soft tissue swelling. Calcification versus radiopaque foreign body along the volar soft Brigade Other XR wrist LT min 3V* tissues. No acute bony process. Presumed remote triquetral fracture. Cystic changes involving the Brigade Other XR wrist LT min 3V* carpal bones without significant joint space narrowing. Brigade Other XR wrist LT min 3V* XR/XR wrist LT min 3V* Brigade Other XR wrist LT min 3V* IMPRESSION: Brigade Other XR wrist LT min 3V* MILD SOFT TISSUE SWELLING WITHOUT DEFINITIVE ACUTE BONY PROCESS. Brigade Other XR wrist LT min 3V* PRESUMED REMOTE TRIQUETRAL FRACTURE. CORRELATION WITH PAIN IS RECOMMENDED. Brigade Other XR wrist LT min 3V* Impression dictated by: Mehrdad Garcia Jr., D.O.01/13/2022 10:23 AM Brigade Other XR wrist LT min 3V* Dictation Location: [place] [address] Brigade Other XR wrist LT min 3V* Transcribed By: [facility] 01/13/22 [facility] Brigade Other XR wrist LT min 3V* Dictated By: Mehrdad Garcia Jr, DO 01/13/22 [facility] [place][note 2] Brigade Other XR wrist LT min 3V* Signed By: Brigade Other XR wrist LT min 3V* 01/13/22 [facility] Brigade Other XR wrist LT min 3V* [facility] [place] [address] [place] [address] XRay Report Signed Patient: Cameron Henao MR#: [id number] 2 : 1950 Acct:[id number] Age/Sex: 71 / M ADM Date: 01/13/22 Loc: XDUCLY Room: Type: [facility] Attending Dr: Lynn FIERRO Copies to: LYNN GOMEZ Ordering Provider: LYNN GOMEZ-Tali Date of Service: 01/13/22 XR/XR wrist LT [...] RECOMMENDED. Impression dictated by: Mehrdad Garcia Jr., D.OLexi01/13/2022 10:23 AM Dictation Location: [place] [address] Transcribed By: [facility] 01/13/22 1023 Dictated By: Mehrdad Garcia Jr, DO 01/13/22 1020 Signed By: 01/13/22 1023 [facility] OCC BLD IMMUNO SCREENon 10-0 OCCULT BLOOD Negative Normal NEGATIVE [facility] Comment on above: Performed By: #### O BSCRN #### [facility] [address] [place] [address] Dr. Timmy Grant INSULINon 11-07-2021 Insulin 27.7 uIU/mL Critically high 2.6-24.9 [facility] Comment on above: Performed By: #### P SASC, VITB12, VITAD #### [facility] [address] [place] [address] Dr. Timmy Grant T4, T3U, FTI LABCORPon 11-07 Free Thyroxine Index 1.7 Normal 1.2-4.9 [facility] Comment on above: Performed By: #### T HYLC #### [facility] [address] [place] [address] Dr. Timmy Grant T3 Uptake 23 % Critically low 24-39 [facility] Comment on above: Performed By: #### T HYLC #### [facility] [address] [place] [address] Dr. Timmy Grant T4 [Mass/Vol] 7.2 ug/dL Normal 4.5-12.0 [facility] Comment on above: Performed By: #### T HYLC #### [facility] [address] [place] [address] Dr. Timmy Grant BNPon 11-06-2021 Natriuretic peptide B (Bld) [Mass/Vol] 31.0 pg/mL Normal <=900.0 [facility] Comment on above: Performed By: #### E RUR #### [facility] [address] [place] [address] Dr. Timmy Grant CBC AUTO DIFFon 11-06-2021 BASO # 0.0 103/ul Normal 0.0-0.1 [facility] Comment on above: Performed By: #### P SASC, VITB12, VITAD #### [facility] [address] [place] [address] Dr. Timmy Grant Basophils/100 WBC (Bld) 0.6 % Normal 0.2-2.0 [facility] Comment on above: Performed By: #### P SASC, VITB12, VITAD #### [facility] [address] [place] [address] Dr. Timmy Grant EO # 0.1 103/ul Normal 0.0-0.7 [facility] Comment on above: Performed By: #### P SASC, VITB12, VITAD #### [facility] [address] [place] [address] Dr. Timmy Grant Eosinophils/100 WBC (Bld) 1.7 % Normal 0.9-7.0 [facility] Comment on above: Performed By: #### P SASC, VITB12, VITAD #### [facility] [address] [place] [address] Dr. Timmy Grant Erythrocyte distribution width (RBC) [Ratio] 13.3 % Normal 11.0-15.0 [facility] Comment on above: Performed By: #### P SASC, VITB12, VITAD #### [facility] [address] [place] [address] Dr. Timmy Grant Hematocrit (Bld) [Volume fraction] 48.8 % Normal 42.0-54.0 [facility] Comment on above: Performed By: #### P SASC, VITB12, VITAD #### [facility] [address] [place] [address] Dr. Timmy Grant Hemoglobin (Bld) [Mass/Vol] 15.7 g/dL Normal 14.0-18.0 [facility] Comment on above: Performed By: #### P SASC, VITB12, VITAD #### [facility] [address] [place] [address] Dr. Timmy Grant IG # 0.01 10e3/ul Normal 0.00-0.03 [facility] Comment on above: Performed By: #### P SASC, VITB12, VITAD #### [facility] [address] [place] [address] Dr. Timmy Grant IG % 0.2 % Normal 0.0-0.5 [facility] Comment on above: Performed By: #### P SASC, VITB12, VITAD #### [facility] [address] [place] [address] Dr. Timmy Grant LYMPH # 1.5 103/ul Normal 1.2-3.8 [facility] Comment on above: Performed By: #### P SASC, VITB12, VITAD #### [facility] [address] [place] [address] Dr. Timmy Grant Lymphocytes/100 WBC (Bld) 28.3 % Normal 20.5-60.0 [facility] Comment on above: Performed By: #### P SASC, VITB12, VITAD #### [facility] [address] [place] [address] Dr. Timmy Grant MANUAL DIFF REQ NO Normal [facility] Comment on above: Performed By: #### P SASC, VITB12, VITAD #### [facility] [address] [place] [address] Dr. Timmy Grant MCH (RBC) [Entitic mass] 27.1 pg Normal 25.9-34.0 [facility] Comment on above: Performed By: #### P SASC, VITB12, VITAD #### [facility] [address] [place] [address] Dr. Timmy Grant MCHC (RBC) [Mass/Vol] 32.2 g/dL Normal 29.9-35.2 [facility] Comment on above: Performed By: #### P SASC, VITB12, VITAD #### [facility] [address] [place] [address] Dr. Timmy Grant MCV (RBC) [Entitic vol] 84.3 fL Normal 80.0-94.0 [facility] Comment on above: Performed By: #### P SASC, VITB12, VITAD #### [facility] [address] [place] [address] Dr. Timmy Grant MONO # 0.4 103/ul Normal 0.3-0.8 [facility] Comment on above: Performed By: #### P SASC, VITB12, VITAD #### [facility] [address] [place] [address] Dr. Timmy Grant Monocytes/100 WBC (Bld) 7.8 % Normal 1.7-12.0 [facility] Comment on above: Performed By: #### P SASC, VITB12, VITAD #### [facility] [address] [place] [address] Dr. Timmy Grant NEUT # 3.2 103/ul Normal 1.4-6.5 [facility] Comment on above: Performed By: #### P SASC, VITB12, VITAD #### [facility] [address] [place] [address] Dr. Timmy Grant Neutrophils/100 WBC (Bld) 61.4 % Normal 43.0-75.0 [facility] Comment on above: Performed By: #### P SASC, VITB12, VITAD #### [facility] [address] [place] [address] Dr. Timmy Grant Platelet mean volume (Bld) [Entitic vol] 9.9 fL Normal 9.5-13.5 [facility] Comment on above: Performed By: #### P SASC, VITB12, VITAD #### [facility] [address] [place] [address] Dr. Timmy Grant PLT 237 103/ul Normal 150-450 [facility] Comment on above: Performed By: #### P SASC, VITB12, VITAD #### [facility] [address] [place] [address] Dr. Timmy Grant RBC 5.79 106/ul Normal 4.70-6.10 [facility] Comment on above: Performed By: #### P SASC, VITB12, VITAD #### [facility] [address] [place] [address] Dr. Timmy Grant WBC 5.3 103/ul Normal 4.0-11.0 [facility] Comment on above: Performed By: #### P SASC, VITB12, VITAD #### [facility] [address] [place] [address] Dr. Timmy Grant GLYCOHEMOGLOBIN A1Con 2021 ADA RECOMMENDATION SEE BELOW Normal [facility] Comment on above: Result Comment: ADA RECOMMENDED LIMIT 4.0 - 6.0 ADA THERAPEUTIC TARGET < 7.0 ACTION SUGGESTED > 7.0 Performed By: #### E RUR #### [facility] [address] [place] [address] Dr. Timmy Grnat Glucose [Mass/Vol] 117 mg/dL Normal [facility] Comment on above: Performed By: #### E RUR #### [facility] [address] [place] [address] Dr. Timmy Grant HbA1c (Bld) [Mass fraction] 5.7 % Normal 4.5-6.2 [facility] Comment on above: Performed By: #### E RUR #### [facility] [address] [place] [address] Dr. Timmy Grant LIPID PROFILEon 11-06-2021 CHOL-HDL RATIO NORM SEE BELOW Normal [facility] Comment on above: Result Comment: 3.3 - 4.4 LOW RISK 4.4 - 7.1 AVERAGE RISK 7.1 - 11.0 MODERATE RISK >11.0 HIGH RISK Performed By: #### E RUR #### [facility] [address] [place] [address] [address] Timmy Grant Cholesterol [Mass/Vol] 175 mg/dL Normal <=200 [facility] Comment on above: Performed By: #### E RUR #### [facility] [address] [place] [address] [address] Timmy Grant Cholesterol in HDL [Mass/Vol] 65 mg/dL Critically high 40-60 [facility] Comment on above: Performed By: #### E RUR #### [facility] [address] [place] [address] [address] Timmy Grant Cholesterol in LDL [Mass/Vol] 98.4 mg/dL Normal [facility] Comment on above: Performed By: #### E RUR #### [facility] [address] [place] [address] [address] Timmy Grant Cholesterol.total/ Cholesterol in HDL [Mass ratio] 2.7 {ratio} Normal [facility] Comment on above: Performed By: #### E RUR #### [facility] [address] [place] [address] [address] Timmy Grant HDL NORMAL > or = 60 mg/dl - LO W CARDIOVASCULAR RISK <40 mg/dl - HIGH CARDIOVASCULAR RISK Normal [facility] Comment on above: Performed By: #### E RUR #### [facility] [address] [place] [address] [address] Timmy Grant LDL CALC NORMAL SEE BELOW Normal [facility] Comment on above: Result Comment: <100 mg/dl OPTIMAL 100 - 129 mg/dl NEAR OR ABOVE OPTIMAL 130 - 159 mg/dl BORDERLINE HIGH 160 - 189 mg/dl HIGH >190 mg/dl VERY HIGH Performed By: #### E RUR #### [facility] [address] [place] [address] [address] Timmy Grant Triglyceride [Mass/Vol] 58 mg/dL Normal <=150 [facility] Comment on above: Performed By: #### E RUR #### [facility] [address] [place] [address] [address] Timmy Grant VLDL CALC 11.6 mg/dL Normal [facility] Comment on above: Performed By: #### E RUR #### [facility] [address] [place], [place] [address] Dr. Timmy Grant NM STRESS/REST MULTIon 11-06 NM STRESS/REST MULTI Patient: CAMERON HENAO Exam Date: 11/06/2021 : 1950 Gender:M Ordering : DR JAYLA KONG . Admission #: [id number] Family : Order #: [id number] CLICK HERE TO VIEW EXAM RADIOLOGY REPORT PROCEDURE: RADIONUCLIDE IMAGING STRESS/REST MULTI COMPARISON: NM STRESS/REST MULTI, 04/18/2015. INDICATIONS: Chest pain TECHNIQUE: [...] nuclear medicine myocardial perfusion scan. Dictated by: Nara Armstrong M.D. on 11/06/2021 at 14:47 Approved by: Nara Armstrong M.D. on 11/06/2021 at 14:54 Normal [facility] PROF 14(COMP METB)on 022 Albumin [Mass/Vol] 4.1 g/dL Normal 3.4-5.0 [facility] Comment on above: Performed By: #### E RUR #### [facility] [address] [place] [address] Dr. Timmy Grant Albumin/Globulin [Mass ratio] 1.1 {ratio} Normal [facility] Comment on above: Performed By: #### E RUR #### [facility] [address] [place] [address] Dr. Timmy Grant ALP [Catalytic activity/Vol] 79 U/L Normal 46-116 [facility] Comment on above: Performed By: #### E RUR #### [facility] [address] [place] [address] Dr. Timmy Grant ALT [Catalytic activity/Vol] 47 U/L Normal 16-63 [facility] Comment on above: Performed By: #### E RUR #### [facility] [address] [place] [address] Dr. Timmy Grant Anion gap [Moles/Vol] 10.5 mmol/L Normal [facility] Comment on above: Performed By: #### E RUR #### [facility] [address] [place] [address] Dr. Timmy Grant AST [Catalytic activity/Vol] 25 U/L Normal 15-37 [facility] Comment on above: Performed By: #### E RUR #### [facility] [address] [place] [address] Dr. Timmy Grant Bilirubin [Mass/Vol] 0.6 mg/dL Normal 0.2-1.0 [facility] Comment on above: Performed By: #### E RUR #### [facility] [address] [place] [address] Dr. Timmy Grant Calcium [Mass/Vol] 9.3 mg/dL Normal 8.5-10.1 [facility] Comment on above: Performed By: #### E RUR #### [facility] [address] [place] [address] Dr. Timmy Grant Chloride [Moles/Vol] 101 mmol/L Normal 98-107 [facility] Comment on above: Performed By: #### E RUR #### [facility] [address] [place] [address] Dr. Timmy Grant CO2 [Moles/Vol] 31.1 mmol/L Normal 21.0-32.0 [facility] Comment on above: Performed By: #### E RUR #### [facility] [address] [place] [address] Dr. Timmy Grant Creatinine [Mass/Vol] 1.17 mg/dL Normal 0.70-1.30 [facility] Comment on above: Performed By: #### E RUR #### [facility] [address] [place] [address] [address] Timmy Grant EGFR-AF GERMAN >60 Normal >=60 [facility] Comment on above: Performed By: #### E RUR #### [facility] [address] [place] [address] Dr. Timmy Grant EGFR-NON AF GERMAN >60 Normal >=60 [facility] Comment on above: Performed By: #### E RUR #### [facility] [address] [place] [address] Dr. Timmy Grant Globulin (S) [Mass/Vol] 3.7 g/dL Normal [facility] Comment on above: Performed By: #### E RUR #### [facility] [address] [place] [address] Dr. Timmy Grant Glucose [Mass/Vol] 106 mg/dL Normal 74-106 [facility] Comment on above: Performed By: #### E RUR #### [facility] [address] [place] [address] Dr. Timmy Grant Potassium [Moles/Vol] 4.6 mmol/L Normal 3.5-5.1 [facility] Comment on above: Performed By: #### E RUR #### [facility] [address] [place] [address] Dr. Timmy Grant Protein [Mass/Vol] 7.8 g/dL Normal 6.4-8.2 [facility] Comment on above: Performed By: #### E RUR #### [facility] [address] [place] [address] Dr. Timmy Grant Sodium [Moles/Vol] 138 mmol/L Normal 136-145 [facility] Comment on above: Performed By: #### E RUR #### [facility] [address] [place] [address] Dr. Timmy Grant Urea nitrogen [Mass/Vol] 14.0 mg/dL Normal 7.0-18.0 [facility] Comment on above: Performed By: #### E RUR #### [facility] [address] [place] [address] Dr. Timmy Grant Urea nitrogen/Creatinin e [Mass ratio] 12.0 mg/mg Normal [facility] Comment on above: Performed By: #### E RUR #### [facility] [address] [place] [address] Dr. Timmy Grant TSHon 11-06-2021 TSH 0.931 uIU/mL Normal 0.358-3.740 [facility] Comment on above: Performed By: #### E RUR #### [facility] [address] [place] [address] Dr. Timmy Grant URIC ACID SERUMon 11-06-2021 Urate [Mass/Vol] 5.4 mg/dL Normal 3.5-7.2 [facility] Comment on above: Performed By: #### E RUR #### [facility] [address] [place] [address] Dr. Timmy Grant VITAMIN B12on 11-06-2021 Cobalamin (Vitamin B12) [Mass/Vol] 369.0 pg/mL Normal 193.0-986.0 [facility] Comment on above: Performed By: #### P SASC, VITB12, VITAD #### [facility] [address] [place] [address] Dr. Timmy Grant VITAMIN D 25 OHon 11-06-2021 VIT D 25-OH 35.4 ng/mL Normal [facility] Comment on above: Performed By: #### P SASC, VITB12, VITAD #### [facility] [address] [place] [address] Dr. Timmy Grant VIT D RANGES SEE BELOW Normal [facility] Comment on above: Result Comment: <20 ng/mL Vit D deficient 20 - <30 ng/mL Vit D insufficient 30 - 100 ng/mL Vit D sufficient >100 ng/mL Potential Toxicity Performed By: #### P SASC, VITB12, VITAD #### [facility] [address] [place] [address] [address] Timmy Grant XR FOOT ABHINAV MIN [...] development or muscle contracture. Electronically authenticated by: NARA ARMSTRONG Date: 2021-10-15 13:51 Normal [facility] Rehab Psych Evaluationon Rehab Psych Evaluation MR#: [id number] SERVICES( ) INPATIENT ( x )OUTPATIENT Patient Name: Cameron Henao Date of : 1950 Referring Physician: Maria C Gonzales D.O. 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 Henao knew the [...] psychotropic medication isprescribed by a psychiatrist in Dr. Gag[place]. He reports no history ofcounseling, though his [...] he and his of 44 years reside [place], [place]. He notes he is a [place] [employer]. He notes theyhave 3 sons.EDUCATIONAL HISTORY: [...] his sleep is perhaps more restlesswith the jewish of the donepezil. His describes occasional snoringand an increase in mumbling and thrashing. Despite this, Mr. Powellindicates his sleep is pretty good. 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 Kbji79-hnhhk difference is significant, indicating attenuation.Orientation: Mr. Henao [...] self-reportquestionnaire current depressive symptomatology. His responses indicate heis endorsing a cajs-on-amauexgk level of depressive symptoms.TEST DATA:TOPF: Pred FSIQ: [...] assign a trustedindividual with durable power of attorney at law. This person should accompany himto all appointments. 5. Based on the diagnosis of dementia, I am concerned about Mr. Henao continuing to drive. If Dr. Gonzales shares my concern, he may wish to refer Mr. Henao for a driving simulation evaluation. An order may be faxed to [phone]. Mr. Henao should be aware that the [...] found online or with the Alzheimer's association: Alz.org;182.605.6603. 7. I encourage Mr. Henao to remain [...] to participate in the care of this cristaman. If you have any questions, call [phone].DICTATED AND REVIEWED BY:Electronically Signed by:Sarah Estrada, PhD, ABPP 04/23/2017 08:35 A Sarah Estrada, PhD, ABPPBoard Certified Clinical NeuropsychologistDate Dict: 04/15/2017/11:18 A/Sarah Estrada, PhD, ABPPDate Trans: 04/16/2017 07:20 A/mmoAddendum: 04/16/2017 01:23 P/[id number]: Sarah Estrada, PhD, ABPP [address] [facility] Rehab Medicine [facility] [address] Maria C Gonzales D.O. [address] [facility] [address] [facility] [address] [facility] [address] *Mr. cameron henao ([address]; [place] [address]) Normal [facility] [place] Vital Signs Date Time Vital Sign Value Performing Clinician Scotty smith 09-14-2023 13:48-0400 Body height 188 cm Dustin Burns DO Work Phone: [facility] 09-14-2023 13:48-0400 Body mass index (BMI) [Ratio] 27.73 kg/m2 Dustin Burns DO Work Phone: [facility] 09-14-2023 13:48-0400 Body weight 97.98 kg Dustin Burns DO Work Phone: [facility] 09-14-2023 13:48-0400 Diastolic blood pressure 66 mm[Hg] Dustin Burns DO Work Phone: [facility] 09-14-2023 13:48-0400 Heart rate 101 /min Dustin Burns DO Work Phone: [facility] 09-14-2023 13:48-0400 Systolic blood pressure 125 mm[Hg] Dustin Burns DO Work Phone: [facility] 08-25-2023 13:29-0400 Body height 188 cm Dustin Burns DO Work Phone: [facility] 08-25-2023 13:29-0400 Body mass index (BMI) [Ratio] 27.73 kg/m2 Dustin Burns DO Work Phone: [facility] 08-25-2023 13:29-0400 Body weight 97.98 kg Dustin Burns DO Work Phone: [facility] 08-25-2023 13:29-0400 Diastolic blood pressure 71 mm[Hg] Dustin Burns DO Work Phone: [facility] 08-25-2023 13:29-0400 Heart rate 108 /min Dustin Burns DO Work Phone: [facility] 08-25-2023 13:29-0400 Systolic blood pressure 130 mm[Hg] Dustin Burns DO Work Phone: [facility] 08-04-2023 15:19-0400 Body height 188 cm Dustin Burns DO Work Phone: [facility] 08-04-2023 15:19-0400 Body mass index (BMI) [Ratio] 27.73 kg/m2 Dsutin Katy DO Work Phone: [facility] 08-04-2023 15:19-0400 Body temperature 97.2 [degF] Dustin Burns DO Work Phone: [facility] 08-04-2023 15:19-0400 Body weight 97.98 kg Dustin Niharikaloc DO Work Phone: [facility] 08-04-2023 15:19-0400 Diastolic blood pressure 80 mm[Hg] Dustin Burns DO Work Phone: [facility] 08-04-2023 15:19-0400 Heart rate 100 /min Dustin Burns DO Work Phone: [facility] 08-04-2023 15:19-0400 Systolic blood pressure 136 mm[Hg] Dustin Burns DO Work Phone: [facility] 04-27-2022 11:43-0400 Blood Pressure Location [facility] 04-27-2022 11:43-0400 Diastolic blood pressure 84 mm[Hg] [facility] 04-27-2022 11:43-0400 Heart rate 76 /min Owen [facility] 04-27-2022 11:43-0400 Respiratory rate 16 /min [facility] 04-27-2022 11:43-0400 Systolic blood pressure 132 mm[Hg] [facility] [facility] 01-13-2022 10:25-0500 Body height 187.96 cm Lynn Gomez Other Brigade Other 01-13-2022 10:25-0500 Body mass index (BMI) [Ratio] 29.53 kg/m2 Lynn Gomez Other Brigade Other 01-13-2022 10:25-0500 Body temperature 97.8 [degF] Lynn Gomez Other [facility] Other 01-13-2022 10:25-0500 Body weight 104.33 kg Lynn Gomez Other [facility] Other 01-13-2022 10:25-0500 Diastolic blood pressure 70 mm[Hg] Lynn Gomez Other Brigade Other 01-13-2022 10:25-0500 Respiratory rate 18 /min Lynn Gomez Other [facility] Other 01-13-2022 10:25-0500 SaO2% (BldA) [Mass fraction] 97 % Lynn Gomez Other [facility] Other 01-13-2022 10:25-0500 Systolic blood pressure 122 mm[Hg] Lynn Gomez Other Brigade Other Encounters Encounter Date Encounter Type Care Provider Facility Start: 09-14-2023 End: 09-14-2023 Office outpatient visit 40 minutes Dustin Burns DO Work Phone: [facility] Comment on above: Atypical parkinsonis m (Primary Dx); Abnormality of gait and mobility; Eye movement abnormality; Vivid dream; Alzheimers disease; Cognitive impairment; Nocturia; Emotional lability Start: 09-14-2023 ambulatory JAYLA KONG Facility: [facility] Start: 08-25-2023 ambulatory JAYLA KONG Facility: [facility] Start: 08-25-2023 End: 08-25-2023 Subsequent hospital visit by physician Dustin Burns DO Work Phone: [facility] Comment on above: Arrived Start: 08-04-2023 End: 08-04-2023 Office outpatient new 60 minutes Dustin Burns DO Work Phone: [facility] Comment on above: Atypical parkinsonis m (Primary Dx); Alzheimers disease; Abnormality of gait and mobility Start: 08-04-2023 ambulatory JAYLA KONG Facility: [facility] Start: 03-02-2023 End: 03-02-2023 ambulatory JUAN DANIEL GARCIA Not Available Start: 06-18-2022 End: 06-19-[address] JAYLA KONG . Facility: Start: 05-14-2022 End: 05-15-2022 ambulatory CHELSEA MARIANO Facility: Start: 04-27-2022 End: 04-28-2022 ambulatory Owen COOPER Facility:[facility] Start: 04-27-2022 End: 04-27-2022 Patient encounter procedure Owen COOPER [facility] Start: 01-27-2022 End: 01-28-[address] KONG Elliott Facility: Start: 01-21-2022 End: 01-21-[address] JAYLA KONG . Facility:[facility] Start: 01-13-2022 Office outpatient ne w 20 minutes Lynn Gmoez [facility] Start: 01-13-2022 End: 01-13-2022 ambulatory MD Jayla Kong Work Phone: Brigade Other Start: 01-13-2022 End: 01-13-2022 Patient encounter procedure MD Jayla Kong Work Phone: [facility] Start: 11-11-2021 End: 11-11-[address] JAYLA KONG . Facility: Start: 11-06-2021 End: 11-07-[address] JAYLA KONG . Facility: Start: 11-04-2021 End: 12-12-[address] JAYLA KONG . Facility: Start: 10-15-2021 End: 2021 ambulatory MICHELLE DWYER Facility: Start: 04-08-2017 End: 05-09-2017 Ambulatory JAYLA KONG Facility:[facility] Start: 03-11-2017 End: 04-08-2017 Ambulatory MARIA C GONZALES Facility:[facility] Start: 02-26-2017 End: 03-11-2017 Ambulatory MARIA C GONZALES Facility:[facility] Start: 02-26-2017 End: 02-27-2017 Ambulatory DEFAULT PHYSICIAN Facility:[facility] Procedures Date Procedure Procedure Detail Performing Clinician Start: 09-14-2023 Follow-up visit Follow-up DUSTIN BURNS Start: 01-27-[address] KINA KONG . Comment on above: Performed By: #### O BSCRN #### [facility] [address] [place] [address] Dr. Timmy Grant Start: 01-13-2022 Plain X-ray of left wrist MD Jayla Kong Work Phone: Start: 11-06-[address] KINA KONG . Comment on above: Performed By: #### P SASC, VITB12, VITAD #### [facility] [address] [place] [address] Dr. Timmy Grant Start: 03-04-2016 Transurethral prostatectomy Owen COOPER Start: 04-26-2015 Cystoscopy Owen CARL Vasectomy Owen COOPER Plan of Treatment Date Care Activity Detail Author Start: 12-16-2023 End: 12-16-2023 Telemedicine consultation with patient 12/16/2023 3:00 PM EST Telemedicine [facility] [address] [place] [address] Dustin Burns, [address] [place] [address] [facility] [place] Start: 11-25-2023 End: 11-25-2023 Patient encounter procedure 11/25/2023 3:00 PM EDT Office Visit [facility] [address] [place] [address] [place] [id number] Nuha Olguin, QUANTITATIVE ANALYST-HOLLOW HANDLE KNIFE ASSEMBLER [address] [place] [id number] [facility] Start: 10-10-2023 Influenza vaccination INFLUENZA VACCINE (#1) [facility] Start: 10-09-2022 COVID-19 VACCINE ( season) COVID-19 VACCINE ( season) [facility] Start: 2014 Abdominal aortic aneurysm screening ABDOMINAL AORTIC ANEURYSM HIGH RISK SCREEN [facility] Start: 10-17-1999 Prostate specific antigen measurement PROSTATE CANCER SCREENING DISCUSSION [facility] Start: 1994 Screening for malignant neoplasm of colon COLORECTAL CANCER SCREENING DISCUSSION [facility] Start: 1989 Lipid panel LIPID SCREENING [facility] Start: 1968 Third diphtheria, tetanus and acellular pertussis (DTaP) vaccination TDAP (ADULT) [facility] Start: 1949 Hepatitis C screening HEPATITIS C VIRUS SCREENING [facility] Start: 1950 Tetanus vaccination TETANUS [facility] Immunizations Immunization Date Immunization Notes Care Provider Fa cility 01-13-2021 SARS-CoV-2 (COVID-19 ) mRNA-1273 vaccine Owen COOPER [facility] 12-09-2020 SARS-CoV-2 (COVID-19 ) mRNA-1273 vaccine Owen COOPER [facility] Comment on above: Result Comment: *Stephens ster 05-14-2020 SARS-CoV-2 (COVID-19 ) mRNA-1273 vaccine Owen COOPER [facility] 04-16-2020 SARS-CoV-2 (COVID-19 ) mRNA-1273 vaccine Owensaul COOPER [facility] Comment on above: Result Comment: 2022: [id number] 03-11-2020 SARS-CoV-2 (COVID-19 ) mRNA-1273 vaccine Owensaul COOPER [facility] 02-09-2020 SARS-CoV-2 (COVID-19 ) mRNA-1273 vaccine Owensaul COOPER [facility] 06-26-2018 zoster vaccine recombinant Owen COOPER [facility] 05-05-2017 zoster vaccine recombinant Owen COOPER [facility] Payers Date Payer Category Payer Medicare MEDICARE MEDICAR E A AND B [id number] 2023-Present [address] [place] [address] [id number] 2022 Private Health Insurance [id number] 2022 Self-pay [id number] 2019 Private Health Insurance [id number] 2015 Unknown 2014 Medicare [id number] 1959 Medicare [id number] 1959 Private Health Insurance [id number] 1949 Unknown [id number] 1949 Unknown [id number] .593 1949 Unknown [id number] [id number] .593 1949 Unknown [id number] [id number] .593 1949 Unknown [id number] [id number] .593 1949 Unknown [id number] [id number] .593 1949 Unknown [id number] [id number] .593 1949 Unknown [id number] [id number] .593 1949 Unknown [id number] [id number] .593 1949 Unknown [id number] [id number] .1259 1949 Unknown [id number] [id number] .594 1949 Unknown [id number] [id number] .594 1949 Unknown [id number] .594 Medicare [id number] Unknown [id number] .531 Social History Date Type Detail Facility Sex Assigned At [facility] Start: 1950 Sex Assigned At Male [facility] Start: 04-27-2022 Tobacco smoking status Never smoked tobacco (finding) [facility] Tobacco smoking status Never [facility] Tobacco smoking status NHIS Tobacco smoking consumption unknown [facility] Start: 1950 Sex assigned at Not on file O MCNAMARA [facility] Functional Status Date Assessment Result Facility 04-27-2022 Functional Status N/A [facility] Clinical Notes 01-13-2022 to 09-14-2023 Dustin Burns, DO - 09/14/2023 2:00 PM EDTPatient InstructionsDustin Burns, - 08/04/2023 4:00 PM EDTLatwaniru Lee - 08/04/2023 4:00 PM EDTPatient Instructions Note Date & Type Note Facility 09-14-2023 History of Present illness Narrative Images from the original note were not included. [facility] [address] [place] [address] [facility] Neurology Follow-Up Note - [facility] 09/14/2023 Cameron Henao 1950 72 y.o. [id number] REFERRED BY: Self Self No address on file Chief Complaint Patient presents with Follow-up History of Present Illness: I had the pleasure of seeing Cameron Henao and his son Gibran in my office today for neurological follow-up regarding a history of Parkinson's Disease (PD) with some form of cognitive impairment/dementia. He is a 72 y.o. year old right handed white male last seen on 08/04/23. As a reminder, he reportedly has a history of dementia and so his family provides the history. At his last visit his neurological exam demonstrated inconsistent parkinsonian features as well as cognitive difficulties Conclusions and Plans were as follows: At this time since we do not know if he is truly levodopa responsive we cannot formally say he has idiopathic PD. However he is not taking his Sinemet ideally nor were they really informed of what it should improve. We did discuss management strategies going forward. I will have them adjust his Sinemet to every 5 hours; if we can get to a ceiling of 3 pills TID and we don't see any benefit, we will start to wean him off and repeat a brain scan at that time to check for changes consistent with a parkinson's plus syndrome. The patient is NOT interested in participating in a research study at this time. Discharge Instructions were as follows: THE FIRST THING WE HAVE TO DO IS DETERMINE IF THIS IS TRUE PARKINSON'S DISEASE - THE WAY WE DO THAT IS TO CONFIRM RESPONSIVENESS TO THE CARBIDOPA/LEVODOPA FOR 2 WEEKS I WANT YOU TO KEEP THE CARBIDOPA/LEVODOPA AT 2 PILLS THREE TIMES A DAY BUT SPACE THE DOSES 5 HOURS APART SO FIRST DOSE SHOULD BE WHEN WE GET OUT OF BED TO START THE DAY (6 AM) SECOND DOSE IS 5 HOURS LATER THIRD DOSE IS 5 HOURS LATER DO THIS FOR 2 WEEKS THEN CONTACT ME WITH AN UPDATE - OR SOONER WITH ANY PROBLEMS IF HE IS TOLERATING THE DOSE BUT YOU ARE NOT SEEING ANY BENEFIT (SLOWNESS, STIFFNESS, SHAKING) WE WILL SLOWLY INCREASE THE DOSE FURTHER IF WE GET TO A CERTAIN CEILING WITHOUT ANY BENEFIT, WE WILL BACK OFF THE MEDICINE AND REPEAT A BRAIN SCAN HERE IS THE INFORMATION I GIVE PEOPLE WHEN I START THEM ON CARBIDOPA/LEVODOPA: PLEASE TAKE THIS MEDICATION FOLLOWS: SINEMET (CARBIDOPA/LEVODOPA) 25/100 mg - Round Yellow Pills MORNING (UPON WAKING) 5 HOURS LATER 5 HOURS LATER (NOT BEDTIME) HOW TO TAKE: Take without food (at least 30 minutes BEFORE eating or at least 60 minutes AFTER eating) - food will slow the medicine down and make it less effective, especially foods high in protein However, if taking it without food makes you nauseous, can take with cracker, banana, juice - just do not take pill with anything rich in protein (ie meat, fish, eggs, etc). IF YOU ARE TAKING ANY IRON SUPPLEMENTS/VITAMINS PLEASE TAKE THEM AT BEDTIME SO THEY DO NOT INTERFERE WITH THE SINEMET RULES: 1. If you miss a dose, do NOT double the next 2. NEVER STOP THIS MEDICINE SUDDENLY ( COLD TURKEY ) - IT MUST BE WEANED SLOWLY - IF YOU CANNOT TOLERATE PILL, CONTACT US TO LEARN HOW TO BACK OFF POTENTIAL SIDE EFFECTS: NAUSEA POSTURAL LIGHTHEADEDNESS (FEELING FAINT WHEN STANDING UP) HALLUCINATIONS VIVID DREAMS (IF TAKEN TOO CLOSE TO BEDTIME) DYSKINESIAS (FIDGET-LIKE MOVEMENTS THAT ARE HARD TO CONTROL) WHAT SYMPTOMS DOES THIS MEDICINE TREAT/HELP - (THE 3 S's) SLOWNESS OF MOVEMENT STIFFNESS (RIGIDITY) SHAKING (REST TREMOR) WHAT SYMPTOMS DOES THIS MEDICINE NOT HELP: FREEZING OF GAIT FALLING SPEECH CHANGES SWALLOWING CHANGES DROOLING WEAKNESS/STRENGTH NUMBNESS/TINGLING MEMORY PROBLEMS MOOD PROBLEMS PAIN OF ANY KIND QUESTIONS TO ASK AT EACH FOLLOWING VISIT: CAN YOU FEEL THE MEDICINE KICK IN (START TO WORK) - HOW LONG DOES IT TAKE? CAN YOU FEEL THE MEDICINE WEAR OFF (STOP WORKING)? HOW LONG DOES EACH DOSE LAST (5 HOURS OR FEWER)? WHAT DOES THE MEDICINE HELP WITH? WHAT SIDE EFFECTS ARE YOU HAVING (IF ANY)? REMEMBER THAT ALL TREMORS OF ALL KINDS WILL ALWAYS WORSEN UNDER ANY FORM OF STRESS (WHETHER YOU ARE BEING TREATED FOR TREMORS OR NOT) THIS INCLUDES: FATIGUE, PAIN, INFECTION, ANXIETY, DEPRESSION, ANGER, FEELING TOO COLD/HOT, ETC I WILL WORK ON GETTING THE OUTSIDE IMAGES NO OTHER MEDICATION CHANGES TODAY Several communications were exchanged since his visit, including noting any changes in his symptoms which seemed to be inconsistent at times. At the family's request, an MRI of the brain was performed on 08/25/23; while read as no acute findings, on personal review I question the presence of midbrain atrophy out of proportion to the rest of the brainstem. Today they state he has had a couple afternoons when he is mobile with less rigidity; however in the morning and evening and overnight he has trouble moving, rising, and nocturia. The good afternoons are unpredictable and do not seem to correspond with the timing of his most recent levodopa dose. He still has dreams some nights; to the point of he doesn't know what is reality after he wakes up - he can wake up panicky at times, sweaty. He continues on Sinemet IR 2 pills TID every 5 hours. No help, no side effects. They have no other new complaints. As a reminder, he was diagnosed with dementia by a neurologist, Dr. Gonzales in [place], by Jan 2017/February 2017 and started on Aricept for early onset dementia as diagnosed in [place]. They continued to follow with Dr. Gonzales, while his became concerned about his walking slower especially in May 2022. Neurological exam at that time was minimal until raised concerns for parkinson's at which point he was started on Sinemet; current dose is max ever at 2 pills TID He also apparently underwent neuropsychological testing in April of [address] Sarah Calloway, who reported findings consistent with dementia most likely Alzheimer's disease . MoCA scores in the past have been 14/30 in late 2016, 15/30 in July 2022 This spring the rigidity got much worse. He fell in early July and fractured part of his L2; this seems to have become more difficult over the past 4-6 weeks. Previous neurological testing includes none known; - images are NOT available as of today. With regards to His family history, nothing similar is known. The middle son Sea has seizures. There is no other known similar/neurological/autoimmune family history. DISEASE SUMMARY Handedness: right Duration of symptoms: 7+ years Initial Symptoms: slowness/memory Kidney Stones: ? Glaucoma: ? CKD: ? Sulfa Allergy: ? Neurosurgical History: ? Medications Tried (Max Doses, Reasons for Stopping) None known Current Movement Disorder/Important Neurological/Psychiatric Medication Schedule Sinemet 25/100 mg 2 pills 3 times a day at 6 am, 11 am and 4 pm (wake at 6 am, bedtime at 9-10 pm) - without food Aricept 23 mg 1 pill in the morning Namenda 10 mg BID (6-7, 6-7) Klonopin 0.5 mg 1 pill BID at morning (6-7 am) and 6-7 pm - anxiety Lamictal 100 mg 1 pil BID - same times - depression Historical Neuroleptic/Anti-Emetic Exposure: None known Symptomatic Assessment and Review of Systems: Can Feel Medicine Kick In: No Can Feel It Wear Off: No How Long Do Doses Last: N/A What Symptoms Improve: None Side Effects: ? Treatment effective: No Motor fluctuations: No Dyskinesias: no Independent with activities of daily living: yes, somewhat Falls: yes - no one direction Trouble Rising From Chairs/Rolling Over in Bed: yes Change in Writing: no Freezing: no Shuffling: no Assistive devices used: yes Vision changes: no Dry mouth: no Drooling: no Difficulty smelling: yes Change in Taste: no Dysphagia: no Voice changes: yes Urinary problems: yes Constipation: yes Sudden sleep attacks: yes Sleep disturbances: yes Vivid Dreams/Nightmares: yes Dream Enactment: yes Cognitive changes: yes Lightheadedness/Dizziness: no Muscle cramping/toe curling: yes Depression: yes Anxiety: yes Hallucinations/Delusions: yes - sees stuff at night; is confused about where he is and what he has to do - this past week Symptoms of impulse control disorder: no Currently driving: no - stopped about June 2023 Exercise: yes Recent rehab services: yes Past Medical History: Diagnosis Date Acute gastroenteritis Allergic rhinitis, seasonal Asymptomatic COVID-19 virus infection At risk for falls Chest pain, unspecified Coordination impairment Depression Familial hypercholesterolemia Frequency of urination Hand fracture, left Hyperplasia of prostate without lower urinary tract symptoms (LUTS) Influenza A (H5N1) Memory loss Nocturia Prostatitis Unresolved pneumonia Urgency of urination Vitamin D deficiency Well adult exam No past surgical history on file. History reviewed. No pertinent family history. Social History Socioeconomic History Marital status: Outpatient Medications Prior to Visit Medication Sig Dispense Refill Carbidopa-levodopa 25-100 MG per tablet Take 2 tablets by mouth 3 times daily. Taking every 5 hours clonazePAM 0.5 MG tablet Take 1 tablet by mouth at bedtime. 1 tablet at 900 am and 1 tablet at 900 pm cyanocobalamin 500 MCG tablet Take 2 tablets by mouth daily. donepezil 5 MG tablet Take 1 tablet by mouth daily. lamoTRIgine 100 MG tablet Take 1 tablet by mouth at bedtime. Memantine HCl ER 7 MG Cap SR 24HR Take 10 mg by mouth at bedtime. Polyethylene glycol 17 g Pack packet Take 1 packet by mouth daily. simvastatin 20 MG tablet Take 1 tablet by mouth every evening at 6 PM. carbidopa-levodopa 25-100 MG Tab CR Take 2 tablets by mouth 3 times daily. 1.5 3 times a day (Patient not taking: Reported on 09/14/2023) No facility-administered medications prior to visit. Allergies as of 09/14/2023 (Not on File) Review of Systems: Limited Due to Baseline Mental Status A neurological system review was conducted and was positive for chief complaint symptoms as per the HPI; it was negative for change in mentation/behavior, memory loss, headache, vision or hearing disturbance, loss of consciousness, lightheadedness/room-spinning dizziness, weakness, numbness/tingling, gait disturbance, tremor, falls, mood disorder, apathy, anosmia, dysphagia, loss of bowel/bladder control, sexual dysfunction, vivid dreams/nightmares, hallucinations. A 14-system review was conducted and was positive for fatigue as per the HPI; the remainder of the 14-system review was negative as per the HPI. Objective: Vitals: 09/14/23 1348 BP: 125/66 Pulse: 101 General: Awake and alert, in no apparent distress. Appears well-nourished and is not dehydrated. HEENT: Head normocephalic/atraumatic. No Cd's sign, Raccoon's sign, or evidence of CSF leak. Pupils equally round and reactive to light. Mucous membranes moist. Neck supple with no jugular venous distention. Cardiovascular: Heart regular rhythm with mild tachycardia. Respiratory: Lungs resonant bilaterally. No increased effort of breathing. No inspiratory stridor. Extremities: Radial and dorsalis pedis pulses 2/4 bilaterally. No cyanosis, clubbing or edema. Neurological Exam: Mental Status: He is awake, alert and oriented to self and his family. He has trouble counting backwards from 10. There is psychomotor slowing. Mood is ok and affect appears moderately blunted, although teary at times and somewhat anguished .. Speech is fluent with mild hypophonia and without aphasia or dysarthria. There is right-left confusion; when asked to do a task with one side he will use the opposite side. An Applause sign is absent. Cranial Nerves: I: Not tested II, III: Visual doll are full to confrontation bilaterally. Afferent and efferent pupil responses are intact bilaterally. Pupils are equal in size. III, IV, : Extraocular movements today reveal impaired bilateral upgaze and downgaze. V: Facial sensation is intact to light touch in all three distributions bilaterally. Muscles of mastication are intact bilaterally. VII: Muscles of facial expression are intact bilaterally with no obvious facial asymmetry. VIII: Hearing is grossly intact bilaterally. IX, X: Soft palate elevation is intact bilaterally. XI: Sternocleidomastoid and trapezius strength is intact bilaterally. XII: Tongue protrusion is midline without deviation. No atrophy, fasciculations or lacerations. Sensation Exam: Light touch and deep pressure sensation is intact globally. Double simultaneous stimulation is intact without extinction. Motor Exam: There is no pronator drift. Muscle strength testing is symmetrically anti-gravity in the bilateral deltoids, triceps, biceps, wrist flexors, wrist extensors, intrinsic hand muscles, hip flexors, knee flexors, knee extensors, ankle dorsiflexors, and ankle plantarflexors. Normal bulk without atrophy. No Cheng's or clonus. No myoclonus, asterixis or dystonic posturing. There is no spasticity or flaccidity. No fasciculations are seen. [facility] Clinic Exam: he is examined just over 3 hours after his last dose of Sinemet (2 pills). Bilateral hand high frequency postural < kinetic tremors are noted with milder resting spillover but no re-emergence. There is generalized moderate-marked bradykinesia and decrementing to repetitive movements. There is global paratonia due to inability to fully relax. It is hard to assess if there is true rigidity. He is able to rise from a chair with pushing off. He walks with a moderately posture and a normal-wide based, shuffling gait with reduced bilateral arm swing and no tremors. There is start hesitancy and en bloc turning. He cannot perform complex gait testing. Pull test deferred due to postural instability. MDS UPDRS Part III Motor examination 3a Is the patient on medication YES 3b Patient s clinical state ON 3c Is the patient on levodopa YES 3.c1 If yes, minutes since last dose: 185 3.1 Speech 1 3.2 Facial expression (observed 10 sec without talking and with talking) 2 3.3a Rigidity--neck PARATONIA 3.3b Rigidity--RUE P 3.3c Rigidity--LUE P 3.3d Rigidity--RLE P 3.3e Rigidity--LLE P 3.4a Finger tapping--right hand 1 3.4b Finger tapping--left hand 2 3.4c Hand movements--right hand 2 3.5a Hand movements--left hand 2 3.6a Pronation--supination movements--right hand 2 3.6b Pronation--supination movements--left hand 2 3.7a Toe tapping--right foot (pt taps 10 times big and fast) 3 3.7b Toe tapping--left foot 3 3.8a Leg agility--right leg 1 3.8b Leg agility--left leg 0 3.9 Arising from chair 2 3.10 Gait 2 3.11 Freezing of gait 2 3.12 Postural stability X 3.13 Posture 2 3.14 Global spontaneity of movement 2 3.15a Postural tremor RUE 2 3.15b Postural tremor LUE 2 3.16a Kinetic tremor RUE 3 3.16b Kinetic tremor LUE 2 3.17a Rest tremor amplitude RUE 1 3.17b Rest tremor amplitude LUE 1 3.17c Rest tremor amplitude RLE 0 3.17d Rest tremor amplitude LLE 0 3.17e Rest tremor amplitude Lip/jaw 0 3.18 Constancy of rest 1 Were dyskinesias present [x] No [] Yes If yes, did these movements interfere with rating? [x] No [] Yes Total Score 43 WITHOUT THE PULL TEST Andres and Yahr Stage asymptomatic Unilateral involvement only Bilateral involvement without impairment of balance Mild to moderate involvement; some postural instability but physically independent, needs assistance to recover from pull test Severe disability, still able to walk or stand unassisted Wheelchair bound or bedridden unless aided 4 Cerebellar testing: No truncal ataxia is seen while sitting. Reflexes: Plantar responses are equivocal bilaterally. No Cheng signs or ankle clonus. No frontal release signs are present. IMAGING: MRI BRAIN WITH AND WITHOUT CONTRAST INDICATION: PARKINSONISM; atypical parkinsonism, levodopa Unresponsive COMPARISON: None. TECHNIQUE: Multiplanar, multisequence MRI of the brain with and without intravenous contrast. Sequences obtained include localizer, axial T1W, axial DWI/ADC map, axial, sagittal and coronal FLAIR, axial T2W, axial SWI with mIP reconstructions and axial, coronal and sagittal T1W postcontrast. FINDINGS: No acute infarct. No mass-effect, shift of midline structures or hydrocephalus. The major vascular flow voids are present at the skull base. Midline structures appear normal. No suspicious cerebral T2W/FLAIR or SWI signal alteration. No pathologic intracranial enhancement. Mild brain parenchymal volume loss and mild white matter changes. Incidental developmental venous anomaly along theLateral aspect of the right cerebral hemisphere. The paranasal sinuses appear clear. No mastoid or middle ear effusions. IMPRESSION IMPRESSION: No evidence for acute intracranial abnormality. PROCEDURES: LABS: I have independently reviewed all of the available above testing and agree with the interpretations as stated. ASSESSMENT/PLAN: I had a lengthy discussion with Cameron Henao and his family in my office today. His neurological exam demonstrated several global parkinsonian features which seemed more pronounced today, with a UPDRS2 motor score of 43 without the pull test. Today more obvious vertical eye movement impairment was noted, as was emotional lability and cognitive difficulties. I reviewed His available records, imaging/reports, procedure reports, and labs personally and in full detail, and agree with the result reads as I personally understand them. I also reviewed his recent MRI of the brain in the room with them today. At this time since we do not think he is levodopa responsive; that plus his history of early falls, lack of obvious rest tremors, vertical gaze impairment, cognitive dysfunction, and suspected midbrain atrophy ( hummingbird sign ) on his MRI makes me concerned for an atypical parkinsonian/ parkinson's plus syndrome. I am most concerned for progressive supranuclear palsy (PSP). We went over this entity and how it differs from PD in detail. I also gave them the website [employer]. We did discuss management strategies going forward. I will have them start to wean his Sinemet down by 1/2 pill every 5 days and have them update me regularly. I also refilled his Aricept 23 mg and Namenda 10 mg 1 pill BID for 90 days each. I will refer them to Ms. Liza Delarosa of social work for guidance about community and home support resources. The patient is NOT interested in participating in a research study at this time. Discharge Instructions were as follows: WE WILL START WEANING DOWN THE CARBIDOPA/LEVODOPA 25/100 MG AT THE RATE OF ONE-HALF (1/2) PILL EVERY 5 DAYS FOLLOWS: DAYS 1-5: 2 PILLS - 2 PILLS - 1.5 PILLS DAYS 6-10: 2 PILLS - 1.5 PILLS - 1.5 PILLS DAYS 11-15: 1.5 PILLS THREE TIMES A DAY DAYS 16-20: 1.5 PILLS - 1.5 PILLS - 1 PILL DAYS 21-25: 1.5 PILLS - 1 PILL - 1 PILL DAYS 26-30: 1 PILL THREE TIMES A DAYS CONTACT ME WITH AN UPDATE - IF NOTHING HAS OBVIOUSLY WORSENED ALONG THE TIME OF THE WEANING SCHEDULE WE WILL CONTINUE TO WEAN OFF AT THE SAME RATE LET ME KNOW IF THE DREAMING HAS CHANGED IN ANY WAY REFERRAL TO CENTRAL STERILIZATION TECHNICIAN LIZA DELAROSA ABOUT COMMUNITY/HOME HELP AND SAFETY RESOURCES MONITOR SWALLOWING, AND FALL RISK Webiste [employer] - www.psp.org - select Progressive Supranuclear Palsy SET UP VIDEO VIRTUAL VISIT IN 3 MONTHS The patient has been advised to call the office in the interim with any questions or concerns. He and his family verbalized understanding and agreement of these plans. All questions were answered satisfactorily. This will likely be a long-term relationship with the patient given the complexity of the case. Total time: > 80 minutes, which includes pre-visit chart review (including relevant labs/imaging), [id number]-bk-[id number] time counseling and educating the patient, pre- and post-visit documentation and placing referrals. Dustin Burns D.O., M.B.A. Division of Movement Disorders Department of Neurology CC: Jayla Kong CC: - Neurology documented in this encounter [facility] 09-14-2023 Instructions Dustin Burns DO - 09/14/2023 2:00 PM EDT WE WILL START WEANING DOWN THE CARBIDOPA/LEVODOPA 25/100 MG AT THE RATE OF ONE-HALF (1/2) PILL EVERY 5 DAYS FOLLOWS: DAYS 1-5: 2 PILLS - 2 PILLS - 1.5 PILLS DAYS 6-10: 2 PILLS - 1.5 PILLS - 1.5 PILLS DAYS 11-15: 1.5 PILLS THREE TIMES A DAY DAYS 16-20: 1.5 PILLS - 1.5 PILLS - 1 PILL DAYS 21-25: 1.5 PILLS - 1 PILL - 1 PILL DAYS 26-30: 1 PILL THREE TIMES A DAYS CONTACT ME WITH AN UPDATE - IF NOTHING HAS OBVIOUSLY WORSENED ALONG THE TIME OF THE WEANING SCHEDULE WE WILL CONTINUE TO WEAN OFF AT THE SAME RATE LET ME KNOW IF THE DREAMING HAS CHANGED IN ANY WAY REFERRAL TO CENTRAL STERILIZATION TECHNICIAN LIZA DELAROSA ABOUT COMMUNITY/HOME HELP AND SAFETY RESOURCES MONITOR SWALLOWING, AND FALL RISK [employer] - www.[email or web address] - select Progressive Supranuclear Palsy SET UP VIDEO VIRTUAL VISIT IN 3 MONTHS documented in this encounter [facility] 08-04-2023 History of Present illness Narrative Images from the original note were not included. [facility] [address] [place] [address] [place] [id number] [facility] Neurology New Patient Note - Movement Disorders Center 08/04/2023 Cameron Henao 1950 72 y.o. [id number] REFERRED BY: Jayla Kong MD [address] [place] [address] Chief Complaint Patient presents with New Patient 72 year old Male PD. History of Present Illness: I had the pleasure of seeing Cameron Henao and his son Gibran and son Dexter in my office today for neurological evaluation regarding a history of Parkinson's Disease (PD) with some form of cognitive impairment/dementia. He is a 72 y.o. year old right handed white male requested to be seen by Jayla Kong MD [address] [place] [address] , as well as his PCP, Jayla Kong. He reportedly has a history of dementia and so his family provides the history. He was diagnosed with dementia by a neurologist, Dr. Gonzales in [place], by Jan 2017/February 2017 and started on Aricept for early onset dementia as diagnosed in [place]. They continued to follow with Dr. Gonzales, while his became concerned about his walking slower especially in May 2022. Neurological exam at that time was minimal until raised concerns for parkinson's at which point he was started on Sinemet; current dose is max ever at 2 pills TID He also apparently underwent neuropsychological testing in April of [address] Sarah Calloway, who reported findings consistent with dementia most likely Alzheimer's disease . MoCA scores in the past have been 14/30 in late 2016, 15/30 in July 2022 This spring the rigidity got much worse. He fell in early July and fractured part of his L2; this seems to have become more difficult over the past 4-6 weeks. Previous neurological testing includes none known; - images are NOT available as of today. With regards to His family history, nothing similar is known. The middle son Sea has seizures. There is no other known similar/neurological/autoimmune family history. DISEASE SUMMARY Handedness: right Duration of symptoms: 7+ years Initial Symptoms: slowness/memory Kidney Stones: ? Glaucoma: ? CKD: ? Sulfa Allergy: ? Neurosurgical History: ? Medications Tried (Max Doses, Reasons for Stopping) None known Current Movement Disorder/Important Neurological/Psychiatric Medication Schedule Sinemet 25/100 mg 2 pills 3 times a day at 6-7 am, 12 pm and 6-7 pm (wake at 6 am, bedtime at 9-10 pm) - without food Aricept 23 mg 1 pill in the morning Namenda 10 mg BID (6-7, 6-7) Klonopin 0.5 mg 1 pill BID at morning (6-7 am) and 6-7 pm - anxiety Lamictal 100 mg 1 pil BID - same times - depression Historical Neuroleptic/Anti-Emetic Exposure: None known Symptomatic Assessment and Review of Systems: Can Feel Medicine Kick In: No Can Feel It Wear Off: No How Long Do Doses Last: N/A What Symptoms Improve: None Side Effects: ? Treatment effective: No Motor fluctuations: No Dyskinesias: no Independent with activities of daily living: yes, somewhat Falls: yes - no one direction Trouble Rising From Chairs/Rolling Over in Bed: yes Change in Writing: no Freezing: no Shuffling: no Assistive devices used: yes Vision changes: no Dry mouth: no Drooling: no Difficulty smelling: yes Change in Taste: no Dysphagia: no Voice changes: yes Urinary problems: yes Constipation: yes Sudden sleep attacks: yes Sleep disturbances: yes Vivid Dreams/Nightmares: yes Dream Enactment: yes Cognitive changes: yes Lightheadedness/Dizziness: no Muscle cramping/toe curling: yes Depression: yes Anxiety: yes Hallucinations/Delusions: yes - sees stuff at night; is confused about where he is and what he has to do - this past week Symptoms of impulse control disorder: no Currently driving: no - stopped about June 2023 Exercise: yes Recent rehab services: yes Past Medical History: Diagnosis Date Acute gastroenteritis Allergic rhinitis, seasonal Asymptomatic COVID-19 virus infection At risk for falls Chest pain, unspecified Coordination impairment Depression Familial hypercholesterolemia Frequency of urination Hand fracture, left Hyperplasia of prostate without lower urinary tract symptoms (LUTS) Influenza A (H5N1) Memory loss Nocturia Prostatitis Unresolved pneumonia Urgency of urination Vitamin D deficiency Well adult exam No past surgical history on file. History reviewed. No pertinent family history. Social History Socioeconomic History Marital status: Outpatient Medications Prior to Visit Medication Sig Dispense Refill carbidopa-levodopa 25-100 MG Tab CR Take 2 tablets by mouth 3 times daily. 1.5 3 times a day clonazePAM 0.5 MG tablet Take 1 tablet by mouth at bedtime. cyanocobalamin 500 MCG tablet Take 2 tablets by mouth daily. donepezil 5 MG tablet Take 1 tablet by mouth daily. lamoTRIgine 100 MG tablet Take 1 tablet by mouth at bedtime. Memantine HCl ER 7 MG Cap SR 24HR Take 10 mg by mouth at bedtime. simvastatin 20 MG tablet Take 1 tablet by mouth every evening at 6 PM. No facility-administered medications prior to visit. Allergies as of 08/04/2023 (Not on File) Review of Systems: Limited Due to Baseline Mental Status A neurological system review was conducted and was positive for chief complaint symptoms as per the HPI; it was negative for change in mentation/behavior, memory loss, headache, vision or hearing disturbance, loss of consciousness, lightheadedness/room-spinning dizziness, weakness, numbness/tingling, gait disturbance, tremor, falls, mood disorder, apathy, anosmia, dysphagia, loss of bowel/bladder control, sexual dysfunction, vivid dreams/nightmares, hallucinations. A 14-system review was conducted and was positive for fatigue as per the HPI; the remainder of the 14-system review was negative as per the HPI. Objective: Vitals: 08/04/23 1519 BP: 136/80 Pulse: 100 Temp: 97.2 F (36.2 C) General: Awake and alert, in no apparent distress. Appears well-nourished and is not dehydrated. HEENT: Head normocephalic/atraumatic. No Dc's sign, Raccoon's sign, or evidence of CSF leak. Pupils equally round and reactive to light. Mucous membranes moist. Neck supple with no jugular venous distention. Cardiovascular: Heart regular rate and rhythm. Respiratory: Lungs resonant bilaterally. No increased effort of breathing. Extremities: Radial and dorsalis pedis pulses 2/4 bilaterally. No cyanosis, clubbing or edema. Neurological Exam: Mental Status: He is awake, alert and oriented to self and his family. There is psychomotor slowing. Mood is ok and affect appears moderately blunted. Speech is fluent with mild hypophonia and without aphasia or dysarthria. There is right-left confusion. An Applause sign is absent. Cranial Nerves: I: Not tested II, III: Visual doll are full to confrontation bilaterally. Afferent and efferent pupil responses are intact bilaterally. Pupils are equal in size. III, IV, : Extraocular movements are intact without nystagmus. V: Facial sensation is intact to light touch in all three distributions bilaterally. Muscles of mastication are intact bilaterally. VII: Muscles of facial expression are intact bilaterally with no obvious facial asymmetry. VIII: Hearing is grossly intact bilaterally. IX, X: Soft palate elevation is intact bilaterally. XI: Sternocleidomastoid and trapezius strength is intact bilaterally. XII: Tongue protrusion is midline without deviation. No atrophy, fasciculations or lacerations. Sensation Exam: Light touch and deep pressure sensation is intact globally. The reminder of the sensory exam is inconsistent. Double simultaneous stimulation is intact without extinction. Romberg position with eyes closed is deferred. Motor Exam: There is no pronator drift. Muscle strength testing is symmetrically anti-gravity in the bilateral deltoids, triceps, biceps, wrist flexors, wrist extensors, intrinsic hand muscles, hip flexors, knee flexors, knee extensors, ankle dorsiflexors, and ankle plantarflexors. Normal bulk without atrophy. No Cheng's or clonus. No myoclonus, asterixis or dystonic posturing. There is no spasticity or flaccidity. No fasciculations are seen. Movement Clinic Exam: he is examined 4.5 hours after his last dose of Sinemet (2 pills). No rest tremors are noted; bilateral hand high frequency postural and kinetic tremors are noted.. No overt bradykinesia or other hyperkinesia is appreciated. No rigidity is noted; global paratonia feels appreciated. Inconsistent decrementing to repetitive movements is noted. He is able to rise from a chair with pushing off. He walks with an upright posture and a normal based, symmetric gait with reduced bilateral arm swing. There is start hesitancy and en bloc turning. He cannot perform complex gait testing. Pull test deferred due to postural instability. MDS UPDRS Part III Motor examination 3a Is the patient on medication YES 3b Patient s clinical state OFF 3c Is the patient on levodopa 3.c1 If yes, minutes since last dose: 3.1 Speech 3.2 Facial expression (observed 10 sec without talking and with talking) 3.3a Rigidity--neck 3.3b Rigidity--RUE 3.3c Rigidity--LUE 3.3d Rigidity--RLE 3.3e Rigidity--LLE 3.4a Finger tapping--right hand 3.4b Finger tapping--left hand 3.4c Hand movements--right hand 3.5a Hand movements--left hand 3.6a Pronation--supination movements--right hand 3.6b Pronation--supination movements--left hand 3.7a Toe tapping--right foot (pt taps 10 times big and fast) 3.7b Toe tapping--left foot 3.8a Leg agility--right leg 3.8b Leg agility--left leg 3.9 Arising from chair 3.10 Gait 3.11 Freezing of gait 3.12 Postural stability 3.13 Posture 3.14 Global spontaneity of movement 3.15a Postural tremor RUE 3.15b Postural tremor LUE 3.16a Kinetic tremor RUE 3.16b Kinetic tremor LUE 3.17a Rest tremor amplitude RUE 3.17b Rest tremor amplitude LUE 3.17c Rest tremor amplitude RLE 3.17d Rest tremor amplitude LLE 3.17e Rest tremor amplitude Lip/jaw 3.18 Constancy of rest Were dyskinesias present [] No [] Yes If yes, did these movements interfere with rating? [] No [] Yes Total Score Andres and Yahr Stage asymptomatic Unilateral involvement only Bilateral involvement without impairment of balance Mild to moderate involvement; some postural instability but physically independent, needs assistance to recover from pull test Severe disability, still able to walk or stand unassisted Wheelchair bound or bedridden unless aided Cerebellar testing: There is no significant arm rebound. No truncal ataxia is seen while sitting. Spnwoi-vlhg-[id number] testing is normal bilaterally without dysmetria. Rapid alternating movements are performed normally without dysdiadochokinesia. Romberg position with eyes open is again deferred. Reflexes: Plantar responses are equivocal bilaterally. No Cheng signs or ankle clonus. No frontal release signs are present. IMAGING: PROCEDURES: LABS: CBC No results found for: WBC , WBCCOUNT , WBCFETAL , HGB , HCT , PLATELET , MCV EDIF No results found for: RBCDISTRIBU , GRNLOCYT , LYMPHOCYT , MONOCYTELEC , EOSINOPHILS , BASOPHILS , GRNLOCTYABS , LYMPHOCYTABS , MONOSABSOLU , EOSINOPHLABS , BASOPHILSABS , PLATELET , MNPLATVOLME , MPV I have independently reviewed all of the available above testing and agree with the interpretations as stated. ASSESSMENT/PLAN: I had a lengthy discussion with Cameron Henao and his family in my office today. His neurological exam demonstrated inconsistent parkinsonian features as well as cognitive difficulties I reviewed His available records, imaging/reports, procedure reports, and labs personally and in full detail, and agree with the result reads as I personally understand them. At this time since we do not know if he is truly levodopa responsive we cannot formally say he has idiopathic PD. However he is not taking his Sinemet ideally nor were they really informed of what it should improve. We did discuss management strategies going forward. I will have them adjust his Sinemet to every 5 hours; if we can get to a ceiling of 3 pills TID and we don't see any benefit, we will start to wean him off and repeat a brain scan at that time to check for changes consistent with a parkinson's plus syndrome. The patient is NOT interested in participating in a research study at this time. Discharge Instructions were as follows: THE FIRST THING WE HAVE TO DO IS DETERMINE IF THIS IS TRUE PARKINSON'S DISEASE - THE WAY WE DO THAT IS TO CONFIRM RESPONSIVENESS TO THE CARBIDOPA/LEVODOPA FOR 2 WEEKS I WANT YOU TO KEEP THE CARBIDOPA/LEVODOPA AT 2 PILLS THREE TIMES A DAY BUT SPACE THE DOSES 5 HOURS APART SO FIRST DOSE SHOULD BE WHEN WE GET OUT OF BED TO START THE DAY (6 AM) SECOND DOSE IS 5 HOURS LATER THIRD DOSE IS 5 HOURS LATER DO THIS FOR 2 WEEKS THEN CONTACT ME WITH AN UPDATE - OR SOONER WITH ANY PROBLEMS IF HE IS TOLERATING THE DOSE BUT YOU ARE NOT SEEING ANY BENEFIT (SLOWNESS, STIFFNESS, SHAKING) WE WILL SLOWLY INCREASE THE DOSE FURTHER IF WE GET TO A CERTAIN CEILING WITHOUT ANY BENEFIT, WE WILL BACK OFF THE MEDICINE AND REPEAT A BRAIN SCAN HERE IS THE INFORMATION I GIVE PEOPLE WHEN I START THEM ON CARBIDOPA/LEVODOPA: PLEASE TAKE THIS MEDICATION FOLLOWS: SINEMET (CARBIDOPA/LEVODOPA) 25/100 mg - Round Yellow Pills MORNING (UPON WAKING) 5 HOURS LATER 5 HOURS LATER (NOT BEDTIME) HOW TO TAKE: Take without food (at least 30 minutes BEFORE eating or at least 60 minutes AFTER eating) - food will slow the medicine down and make it less effective, especially foods high in protein However, if taking it without food makes you nauseous, can take with cracker, banana, juice - just do not take pill with anything rich in protein (ie meat, fish, eggs, etc). IF YOU ARE TAKING ANY IRON SUPPLEMENTS/VITAMINS PLEASE TAKE THEM AT BEDTIME SO THEY DO NOT INTERFERE WITH THE SINEMET RULES: 1. If you miss a dose, do NOT double the next 2. NEVER STOP THIS MEDICINE SUDDENLY ( COLD TURKEY ) - IT MUST BE WEANED SLOWLY - IF YOU CANNOT TOLERATE PILL, CONTACT US TO LEARN HOW TO BACK OFF POTENTIAL SIDE EFFECTS: NAUSEA POSTURAL LIGHTHEADEDNESS (FEELING FAINT WHEN STANDING UP) HALLUCINATIONS VIVID DREAMS (IF TAKEN TOO CLOSE TO BEDTIME) DYSKINESIAS (FIDGET-LIKE MOVEMENTS THAT ARE HARD TO CONTROL) WHAT SYMPTOMS DOES THIS MEDICINE TREAT/HELP - (THE 3 S's) SLOWNESS OF MOVEMENT STIFFNESS (RIGIDITY) SHAKING (REST TREMOR) WHAT SYMPTOMS DOES THIS MEDICINE NOT HELP: FREEZING OF GAIT FALLING SPEECH CHANGES SWALLOWING CHANGES DROOLING WEAKNESS/STRENGTH NUMBNESS/TINGLING MEMORY PROBLEMS MOOD PROBLEMS PAIN OF ANY KIND QUESTIONS TO ASK AT EACH FOLLOWING VISIT: CAN YOU FEEL THE MEDICINE KICK IN (START TO WORK) - HOW LONG DOES IT TAKE? CAN YOU FEEL THE MEDICINE WEAR OFF (STOP WORKING)? HOW LONG DOES EACH DOSE LAST (5 HOURS OR FEWER)? WHAT DOES THE MEDICINE HELP WITH? WHAT SIDE EFFECTS ARE YOU HAVING (IF ANY)? REMEMBER THAT ALL TREMORS OF ALL KINDS WILL ALWAYS WORSEN UNDER ANY FORM OF STRESS (WHETHER YOU ARE BEING TREATED FOR TREMORS OR NOT) THIS INCLUDES: FATIGUE, PAIN, INFECTION, ANXIETY, DEPRESSION, ANGER, FEELING TOO COLD/HOT, ETC I WILL WORK ON GETTING THE OUTSIDE IMAGES NO OTHER MEDICATION CHANGES TODAY MAKE AN APPOINTMENT TO COME BACK IN 3 MONTHS The patient has been advised to call the office in the interim with any questions or concerns. He and his family verbalized understanding and agreement of these plans. All questions were answered satisfactorily. This will likely be a long-term relationship with the patient given the complexity of the case. Total time: > 60 minutes, which includes pre-visit chart review (including relevant labs/imaging), [id number] time counseling and educating the patient, pre- and post-visit documentation and placing referrals. Dustin Burns D.O., M.B.A. Division of Movement Disorders Department of Neurology CC: Jayla Kong CC: - Neurology Cameron Henao was offered and declined a Medical Studio Assistant for this exam/procedure/test 08/04/2023. documented in this encounter [facility] 08-04-2023 Instructions Dustin Burns, DO - 08/04/2023 4:00 PM EDT THE FIRST THING WE HAVE TO DO IS DETERMINE IF THIS IS TRUE PARKINSON'S DISEASE - THE WAY WE DO THAT IS TO CONFIRM RESPONSIVENESS TO THE CARBIDOPA/LEVODOPA FOR 2 WEEKS I WANT YOU TO KEEP THE CARBIDOPA/LEVODOPA AT 2 PILLS THREE TIMES A DAY BUT SPACE THE DOSES 5 HOURS APART SO FIRST DOSE SHOULD BE WHEN WE GET OUT OF BED TO START THE DAY (6 AM) SECOND DOSE IS 5 HOURS LATER THIRD DOSE IS 5 HOURS LATER DO THIS FOR 2 WEEKS THEN CONTACT ME WITH AN UPDATE - OR SOONER WITH ANY PROBLEMS IF HE IS TOLERATING THE DOSE BUT YOU ARE NOT SEEING ANY BENEFIT (SLOWNESS, STIFFNESS, SHAKING) WE WILL SLOWLY INCREASE THE DOSE FURTHER IF WE GET TO A CERTAIN CEILING WITHOUT ANY BENEFIT, WE WILL BACK OFF THE MEDICINE AND REPEAT A BRAIN SCAN HERE IS THE INFORMATION I GIVE PEOPLE WHEN I START THEM ON CARBIDOPA/LEVODOPA: PLEASE TAKE THIS MEDICATION FOLLOWS: SINEMET (CARBIDOPA/LEVODOPA) 25/100 mg - Round Yellow Pills MORNING (UPON WAKING) 5 HOURS LATER 5 HOURS LATER (NOT BEDTIME) HOW TO TAKE: Take without food (at least 30 minutes BEFORE eating or at least 60 minutes AFTER eating) - food will slow the medicine down and make it less effective, especially foods high in protein However, if taking it without food makes you nauseous, can take with cracker, banana, juice - just do not take pill with anything rich in protein (ie meat, fish, eggs, etc). IF YOU ARE TAKING ANY IRON SUPPLEMENTS/VITAMINS PLEASE TAKE THEM AT BEDTIME SO THEY DO NOT INTERFERE WITH THE SINEMET RULES: 1. If you miss a dose, do NOT double the next 2. NEVER STOP THIS MEDICINE SUDDENLY ( COLD TURKEY ) - IT MUST BE WEANED SLOWLY - IF YOU CANNOT TOLERATE PILL, CONTACT US TO LEARN HOW TO BACK OFF POTENTIAL SIDE EFFECTS: NAUSEA POSTURAL LIGHTHEADEDNESS (FEELING FAINT WHEN STANDING UP) HALLUCINATIONS VIVID DREAMS (IF TAKEN TOO CLOSE TO BEDTIME) DYSKINESIAS (FIDGET-LIKE MOVEMENTS THAT ARE HARD TO CONTROL) WHAT SYMPTOMS DOES THIS MEDICINE TREAT/HELP - (THE 3 S's) SLOWNESS OF MOVEMENT STIFFNESS (RIGIDITY) SHAKING (REST TREMOR) WHAT SYMPTOMS DOES THIS MEDICINE NOT HELP: FREEZING OF GAIT FALLING SPEECH CHANGES SWALLOWING CHANGES DROOLING WEAKNESS/STRENGTH NUMBNESS/TINGLING MEMORY PROBLEMS MOOD PROBLEMS PAIN OF ANY KIND QUESTIONS TO ASK AT EACH FOLLOWING VISIT: CAN YOU FEEL THE MEDICINE KICK IN (START TO WORK) - HOW LONG DOES IT TAKE? CAN YOU FEEL THE MEDICINE WEAR OFF (STOP WORKING)? HOW LONG DOES EACH DOSE LAST (5 HOURS OR FEWER)? WHAT DOES THE MEDICINE HELP WITH? WHAT SIDE EFFECTS ARE YOU HAVING (IF ANY)? REMEMBER THAT ALL TREMORS OF ALL KINDS WILL ALWAYS WORSEN UNDER ANY FORM OF STRESS (WHETHER YOU ARE BEING TREATED FOR TREMORS OR NOT) THIS INCLUDES: FATIGUE, PAIN, INFECTION, ANXIETY, DEPRESSION, ANGER, FEELING TOO COLD/HOT, ETC I WILL WORK ON GETTING THE OUTSIDE IMAGES NO OTHER MEDICATION CHANGES TODAY MAKE AN APPOINTMENT TO COME BACK IN 3 MONTHS documented in this encounter [facility] 04-27-2022 Hospital Discharge instructions Patient Education 04/27/2022 12:29:43 Prostate Cancer [...] one of these risk factors: ?Being of -[place] descent. ?Having a family history of prostate [...] you: Are older than age 55. Are -[place]. Have a father, brother, or uncle who [...] 11/05/2017 Document Revised: 01/07/2018 Document Reviewed: 11/05/2017 [place] Patient Education [employer] Follow Up Care 02/11/2021 08:58:53 With:DONAVON KOENIG, Owen Ko, URL Address: [facility] [address], [place] [address]- When: Unknown [facility] 01-13-2022 Evaluation note Encounter Date Diagnosis Assessment [...] office today. 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 Other Evaluation + Plan note No data available for this section [facility] evaluation noteNo assessment information available [facility] Work Phone: Evaluation note* Diagnosis Atypical parkinsonism- Primary Paralysis agitans Alzheimers disease Alzheimer's disease Abnormality of gait and mobility Abnormality of gait [facility] Diagnosis Atypical parkinsonism- Primary Paralysis agitans Abnormality of gait and mobility Abnormality of gait Eye movement abnormality Unspecified disorder of eye movements Vivid dream Other dysfunctions of sleep stages or arousal from sleep Alzheimers disease Alzheimer's disease Cognitive impairment Unspecified persistent mental disorders due to conditions classified elsewhere Nocturia Emotional lability [facility] N[facility]ative - Reported* Type Description Date Medical History hypercholesterolemia Medical History Depression Medical History alzheimers disease 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 Other Progress note No data available for this section [facility] reason for referral (narrative)* Consultation (Routine) - New Request Specialty Diagnoses / Procedures Referred By Mone t Referred To Contact Neurology Diagnoses Atypical parkinsonism Cognitive impairment Dustin Burns, [address] [place] [address] [place] [address] Liza Delarosa, RA [address] [place] [address] Referral ID Status Reason Start Date Expiration Date V isits Requested Visits Authorized [id number] New Request 09/14/2023 10/08/2024 1 1 [facility] Summary Purpose Family History No Family History Records FoundNo Family History Records FoundNo Family History Records FoundNo Family History Records FoundNo Family History Records FoundNo Family History Records Found Advance Directives No Advanced Directives Records Found Advance Directive Response Recorded Date/ Time Advance Directives No June 01, 2 018 2:30pm Additional Source Comments (unrecognized sect ion and content) No Status Records FoundNo Status Records FoundNo Status Records FoundNo Status Records FoundNo Status Records FoundNo Status Records Found INFORMATION SOURCE (unrecogn ized section and content) DATE CREATED AUTHOR 07/29/2017 [facility] DATE CREATED AUTHOR AUTHOR'S ORGANIZ ATION 01/30/2022 [facility] DATE CREATED AUTHOR AUTHOR'S ORGANIZ ATION 04/28/2022 [facility] DATE CREATED AUTHOR AUTHOR'S ORGANIZ ATION 06/24/2022 [facility] DATE CREATED AUTHOR AUTHOR'S ORGANIZ ATION 03/03/2023 [facility] EPIC DATE CREATED AUTHOR AUTHOR'S ORGANIZ ATION 09/16/2023 [facility] REASON FOR VISIT (unrecogniz ed section and content) Reason Comments New Patient 72 year old Male PD. Specialty Diagnoses / Procedures Referred By Mone woodward Referred To Contact Neurology Diagnoses Parkinson's disease, unspecified whether dyskinesia present, unspecified whether manifestations fluctuate Jayla Kong MD [address] [facility] [place] [place] [address] [facility] [address] [place] [address] Referral ID Status Reason Start Date Expiration Date V isits Requested Visits Authorized [id number] Pending Review 07/21/2023 08/14/2024 1 1 Specialty Diagnoses / Procedures Referred By Mone woodward Referred To Contact Diagnoses Atypical parkinsonism Procedures MRI BRAIN WITH AND WITHOUT CONTRAST CHG MRI BRAIN BRAIN STEM W/O W/CONTRAST MATERIAL Dustin Burns, [address] [place] [address] Referral ID Status Reason Start Date Expiration Date V isits Requested Visits Authorized [id number] New Request 08/18/2023 09/11/2024 1 1 Reason Comments Follow-up Care Teams (unrecognized sec tion and content) Team Status: Inactive Member Role Status Dates Jayla Kong MD Primary Care Provider Active VADIM Pablo Attending Provider Active Team Status: Active Member Role Status Dates Jayla Kong MD Primary Care Provider Active [employer] Rol[employer] Cover[employer] Relationship Specialty Start Date End Date Jayla Kong MD [address] [place] [address] PCP - General Family Medicine 08/04/23 [employer] Relationship Specialty Start Date End Date Jayla Kong MD [address] [facility] [place] [address] PCP - General Family Medicine 08/04/23 [employer] 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 [employer] provides no warranty or guarantee of the accuracy or completeness of information in this document.
--- NOTE | 2023-11-17 07:56 | US_ITS ---
The [address] [address] Patient Name: DEDE ESTEVEZ MRN: [id number] date: 1950 Sex: M Assigned Patient Location: US Current Patient Location: Accession/Order Number: [id number] Exam Date: 11/17/2023 08:00 Report Date: 11/18/2023 05:56 At the request of: JAYLA DOMÍNGUEZ Procedure: US renal bladder EXAMINATION: US renal bladder HISTORY: Bladder Outlet Obstruction COMPARISON: No relevant comparison available. TECHNIQUE: Ultrasound examination was performed of the kidneys and urinary bladder. FINDINGS: RIGHT KIDNEY: No evidence of pelvocaliectasis, mass, or calculi. No significant cortical thinning. Normal parenchymal echogenicity. Color Doppler demonstrates blood flow within the kidney. Kidney: 11.7 x 4.7 x 6.3 cm LEFT KIDNEY: No evidence of pelvocaliectasis, mass, or calculi. No significant cortical thinning. Normal parenchymal echogenicity. Color Doppler demonstrates blood flow within the kidney. Kidney: 11.1 x 6.3 x 5.8 cm BLADDER: No visible wall thickening, mass, or calculi. Post void residual: 39 mL URETERAL JETS: Visualized bilaterally. US/US renal bladder IMPRESSION: 1. Post void residual urine within bladder: 39 mL. No appreciable stones or mass. 2. Unremarkable kidneys. Electronically authenticated by: NARA BO Date: 11/18/2023 05:56
== END 2023-11-17 07:54 | disposition home or self-care (01) ==
LOC: US 07:53
PROVIDERS: PCP Family Medicine; Visit Provider Family Medicine
DX: N32.0 Bladder-neck obstruction (principal)
CPT/HCPCS: 76770

== ENCOUNTER 2023-12-10 06:41 | Emergency (ER) | payer MEDICARE, OTHER, SELFPAY ==
[2023-12-10 06:43] VITALS: BP 173/98; PULSE 103; TEMP 36.3; O2SAT 99; BMI 27.0
--- OUTSIDE RECORDS SUMMARY | 2023-12-10 06:51 | XMS_ITS | CCD ---
Author Organization [facility] CliniSysd Care Team Providers Care Retail Training Manager Name Role Phone PHYSICIAN, DEFAULT Unavailable Unavailable [...] Primary Care Provider VADIM Gomez Attending Provider [phone] Lynn Gomez Attending Unavailable Lynn Gomez Admitting Unavailable Jayla Kong Primary Care Unavailable Jayla Kong Primary Care Physician [phone] Owen COOPER Attending Unavailable CATRACHITA Elliott, DR DICKERSON Admitting Unavailable HOY ., DR DICKERSON Attending Unavailable HOY ., DR DICKERSON Consulting Unavailable CATRACHITA Elliott, [...] HOY ., DR DICKERSON Primary Care Unavailable HOАелксандр ., DR DICKERSON Attending Unavailable HOY ., DR DICKERSON Consulting Unavailable ANUPAM, DR NARA Ko Consulting Unavailable HOY ., DR DICKERSON Admitting Unavailable HOY ., DR DICKERSON Attending Unavailable HOY ., DR DICKERSON Primary Care Unavailable HOY ., DR DICKERSON Primary Care Unavailable HOY ., DR DICKERSON Admitting Unavailable HOY ., DR DICKERSON Attending Unavailable HOY ., DR DICKERSON Consulting Unavailable WILSON, DR ELI Sanchez Consulting Unavailable SLOAN ., GENE Consulting Unavailable HOY ., DR DICKERSON Admitting Unavailable HOY ., DR DICKERSON Attending Unavailable HOY ., DR DICKERSON Consulting Unavailable HOY ., DR DICKERSON Primary Care Unavailable JUAN DANIEL GARCIA Attending Unavailable Jayla Kong MD Primary Care Provider [phone] JAYLA KONG Referring Unavailable JAYLA KONG Primary Care Unavailable DUSTIN BURNS Attending UnavailJAYLA Lizama Primary Care Unavailable DUSTIN BURNS Referring Unavailab DUSTIN Carney Attending Unavailab JAYLA Clark Primary Care Unavailable DUSTIN BURNS Attending Unavailab ki SELF, SELF Referring Unavailable Unavailable Primary Care Provider UnavailYE Villagomez Attending Unavailable Allergies Allergy Classification Reported Allergen(s) Allergy Type Date of Onset Reaction(s) Facility (1 source) No Known Medication Allergies; Translations: [No Known Medication Allergies] Propensity to adverse reactions (disorder) [facility] Repository Medications Current Medications Medication Drug Class(es) [...] a day 09/14/2023 Discontinued (Alternate therapy) clonazePAM (6 sources) Benzodiazepine Start: 02-09-2019 clonazepam Ora l, TID, Refills(s) 0 Start Date: 02/09/19 Status: Ordered take 1 tablet by bhavin th every twelve hours as needed clonazePAM (KLONOPIN) 0.5 mg tablet Take 0.5 mg by mouth two times a day as needed. Active donepezil hydrochloride 23 mg oral tablet (7 sources) Start: 09-14-2023 take 1 tablet by [...] Refills(s) 0 Start Date: 04/27/22 Status: Ordered take 5 mg by mouth o nce daily in the morning donepezil (ARICEPT) 23 mg tablet Take 5 mg by mouth daily at 6 am. Active End: 09-14-2023 take 1 tablet by mouth once daily donepezil 5 MG tablet Take 1 tablet by mouth daily. 09/14/2023 Discontinued (Dose adjustment (suppress cancel msg)) Donepezil HCl 23 MG Oral for 30 Days Active Lamictal (6 sources) Mood Stabilizer, Anti-epileptic Agent Start: 02-09-2019 Lamictal Oral, BID, Refills(s) 0 Start Date: 02/09/19 Status: Ordered lamoTRIgine (FIGUEROA ICTAL) 100 mg tablet Take 100 mg by mouth. Active memantine hydrochloride 10 mg oral tablet (6 sources) E-odcgom-P-aspartate Receptor Antagonist Start: 09-14-2023 take 1 tablet [...] 09/14/2023 Discontinued (Dose adjustment (suppress cancel msg)) naproxen sodium 550 mg oral tablet (1 [...] Date: 02/09/19 Status: Ordered polyethylene glycol 3350 16404 mg powder for oral solution (3 sources) Osmotic Laxative take 1 dose by mouth once daily Polyethylene glycol 17 g Pack packet Take 1 packet by mouth daily. Active simvastatin 20 mg oral tablet (6 sources) HMG-CoA Reductase Inhibitor Start: 04-27-2022 simvastatin 20 mg Tab Refills(s) 0 Start Date: 04/27/22 Status: Ordered vitamin b12 1 mg oral tablet (4 sources) Vitamin B12 take 1 tablet by mouth once daily cyanocobalamin (VITAMIN B-12) 1,000 mcg tab Take 1,000 mcg by mouth once daily. Active take 2 tablets by mouth once luiza ly cyanocobalamin 500 MCG tablet Take 2 tablets by mouth daily. 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 60 capsule 12/03/2023 01/02/2024 Active Completed/Discontinued Medications Medication Drug Class(es) Dates [...] 11-08-2021 Chronic Other aftercare (1 source) Other half-way (current) drug therapy; Translations: [OTH LONG-TERM CURRENT DRUG THERAPY] Onset: 06-24-2022 Episodic Other [...] Test Name Value Interpretation Reference Range Facility [facility] 12-06-[address] [facility] Telephone ([facility]) ----- CAMEORN HENAO ([id number]) 1950 M Date Time Provider Department 12/06/23 AVIS FINLEY During your visit today, we recorded the following information about you: Brendan Long 12/06/2023 3:04 PM Signed First attempt to schedule physical therapy/OT/Speech consult. Patient's declined at this time. They prefer to find a place closer to home. Deactivated please reinstate if the patient calls to schedule. Allergies As of Date: 12/06/2023 (No Known Allergies) Date Reviewed: 12/03/2023 Reviewed by: Cayla Mccann OCCA - Fully Assessed Reason for Visit: Results [95] Cmt: First attempt to schedule physical therapy/OT/Speech consult. Patient's declined at this time. They prefer to find a place closer to home. Deactivated please reinstate if the patient calls to schedule. Prescriptions as of 12/06/2023 - donepezil (ARICEPT) 23 mg tablet Take 5 mg by mouth daily at 6 am. - memantine (NAMENDA) 10 mg tablet Take 10 mg by mouth two times a day. - lamoTRIgine (LAMICTAL) 100 mg tablet Take 100 mg by mouth. - clonazePAM (KLONOPIN) 0.5 mg tablet Take 0.5 mg by mouth two times a day as needed. - simvastatin (ZOCOR) 20 mg tablet Take 20 mg by mouth daily at bedtime. - cyanocobalamin (VITAMIN B-12) 1,000 mcg tab Take 1,000 mcg by mouth once daily. - zonisamide (ZONEGRAN) 25 mg capsule Take 2 capsules by mouth once daily. Problem List As Of Date: 12/06/2023 (None) Encounter Status:Closed by BRENDAN LONG on 12/06/23 [facility] 12-03-2023 [facility] Office Visit (NRE[facility] ) ----- CAMERON HENAO ([id number]) 1950 M Date Time Provider Department 12/03/23 8:00 AM YE WHITNEY NREUS2 During your visit today, we recorded the following information about you: Pulse Blood pressure 82/minute 124/68 Ye Whitney MD 12/03/2023 4:08 PM Signed [facility] - NEW PATIENT EVALUATION I had the pleasure of evaluating Mr. Henao in our clinic today. 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 He is seen with his and son. Subjective HISTORY OF PRESENT ILLNESS: Initial HPI Mr. Henao is a 73 right handed tran. 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 Most of the Hx was provided by his . She tells me that he was diagnosed with dementia in 2018 but started having trouble with his memory in 2017. She describes this has 'forgetting how to do things'. As examples, he would not be able to figure out how to cut the wood to make a bird house for grand kids, not able to figure out how to put on clothes. Additionally, he has been very sleepy through the day, taking frequent and long naps. When he is not sleepy, he would still be inattentive at times. Additionally, his ability to move around fluctuates tremendously through the day. He would not be able to get off the chair but when he learned there is chocolate in the other room, he would be able to walk across the room without a walker. He has been increasingly confused and disoriented. His 1st fall ws 2 years ago, tripped at his son's house. Most falls are stumbling to the side, once fell back. He has been seen to be slowing down even before his diagnosis of dementia in 2017. He has had falls since Summer 2023. His last fall was a week ago. He fell against his and she broke her right arm. He has fallen 4 times this Summer. He had shingles in the left shoulder area 11/08. He saw neurology in 07/2023 in [place]. He was told he does not have PD and was asked to get an MRI brain. His had to demand an MRI brain and was told it shows the humming bird sign and that he has PSP. He was tried on Sinemet but that did not help. Since 07/2023, he has been getting up at night and going thought the motion as he is working, 'loading hoggs', frming etc. Since 08/2023, he gets more confused at night. His has he had lost depth perception in 2018 when he was having trouble parking his car. 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 He drools in the daytime. He has constipation since 2017. Denies any trouble swallowing. He has trouble projecting his voice, handwriting is smaller, there is no lightheadedness on standing up has trouble standing. He acts out his dreams at night and yells. Father had PD in his 80s. Mother had cancer. One brother of aspiration pneumonia after a fall. 2 sisters are healthy. Movement Disorders Medications Schedule - as of the start of the visit: Medications Prior Anti-Parkinson Therapies Carbidopa/Levodopa Questionnaires Review of Systems ALLERGIES No Known Allergies Current Outpatient Medications Medication Sig donepezil (ARICEPT) 23 mg tablet Take 5 mg by mouth daily at 6 am. memantine (NAMENDA) 10 mg tablet Take 10 mg by mouth two times a day. lamoTRIgine (LAMICTAL) 100 mg tablet Take 100 mg by mouth. clonazePAM (KLONOPIN) 0.5 mg tablet Take 0.5 mg by mouth two times a day as needed. simvastatin (ZOCOR) 20 mg tablet Take 20 mg by mouth daily at bedtime. cyanocobalamin (VITAMIN B-12) 1,000 mcg tab Take 1,000 mcg by mouth once daily. zonisamide (ZONEGRAN) 25 mg capsule Take 2 capsules by mouth once daily. No current facility-administered medications for this visit. Past Medical and Surgical History: has no past medical history on file. has no past surgical history on file. Family History: family history is not on file. Objective Vital Signs: BP 124/68 (BP Site: Right Arm, BP Position: Sitting, BP Cuff Size: Large Adult) Pulse 82 SpO2 99% Orthostatic Vitals: None for this encounter No LMP for male patient. There is no height or weight on file to calculate BMI. General Physical Examination: He is accompanied by his spouse. General: Awake, alert, interactive, no acute distress, good nutritional status, normal development, well-kept General Neurological Examination: Neurological Exam Mental Status Drowsy. Oriented to person, place and time. Recent and remote memory are intact. Speech is normal. Language is fluent with no aphasia. Difficulty spelling words backwards. Fund of knowledge is appropriate for level of education. Cranial Nerves CN II: Visual doll full to confrontation. CN III, IV, : Extraocular movements intact bilaterally. CN VII: Full and symmetric facial movement. CN VIII: Hearing is normal. (more content not included)... Normal [facility] BRAIN WITH AND WITHOUT C [facility] 08-26-2023 MRI BRAIN WITH AND WITHOUT CONTRAST [facility] NAME: CAMERON HENAO DATE OF SERVICE: 08/25/2023 Patient No: [id number] Physician: MARIA EUGENIA Date of : 1950 [...] error, please notify the sender immediately at [phone] and permanently delete the original report and destroy any copies or printouts. Normal [facility] CBC W MANUAL DIFFon 06-20-19 23 ATYPICAL LYMPH # 0.61 103/ul Normal [facility] Comment on above: Performed By: #### C BCMAN #### [facility] [address] [place] [address] Dr. Timmy Grant ATYPICAL LYMPH % 4 % Normal [facility] Comment on above: Performed By: #### C BCMAN #### [facility] [address] [place] [address] Dr. Timmy Grant BAND # 0.0 103/ul Normal 0.0-0.3 [facility] Comment on above: Performed By: #### C BCMAN #### [facility] [address] [place] [address] Dr. Timmy Grant BAND % 0 % Normal 0-5 [facility] Comment on above: Performed By: #### C BCMAN #### [facility] [address] [place] [address] Dr. Timmy Grant BASOM # 0.00 103/ul Normal 0.00-0.10 [facility] Comment on above: Performed By: #### C BCNAFISA #### [facility] [address] [place] [address] Dr. Timmy Grant BASOM % 0.0 % Critically low 0.2-2.0 [facility] Comment on above: Performed By: #### C BCMAN #### [facility] [address] [place] [address] Dr. Timmy Grant BLAST # Normal [facility] Comment on above: Performed By: #### C BCMAN #### [facility] [address] [place] [address] Dr. Timmy Grant BLAST % Normal [facility] Comment on above: Performed By: #### C BCMAN #### [facility] [address] [address] [address] Timmy Grant CORRECTED WBC Normal 4.0-11.0 [facility] Comment on above: Performed By: #### C MARY #### [facility] [address] [place] [address] Dr. Timmy Grant EOS # 0.00 103/ul Normal 0.00-0.70 [facility] Comment on above: Performed By: #### C MARY #### [facility] [address] [address] [address] Timmy Grant EOS% 0.0 % Critically low 0.9-7.0 [facility] Comment on above: Performed By: #### C MARY #### [facility] [address] [place] [address] Dr. Timmy Grant HCT 42.1 % Normal 42.0-54.0 [facility] Comment on above: Performed By: #### C MARY #### [facility] [address] [place] [address] Dr. Timmy Grant HGB 13.8 g/dl Critically low 14.0-18.0 [facility] Comment on above: Performed By: #### C MARY #### [facility] [address] [place] [address] Dr. Timmy Grant LYMPHM # 0.00 103/ul Critically low 1.20-3.80 [facility] Comment on above: Performed By: #### C MARY #### [facility] [address] [place] [address] Dr. Timmy Grant LYMPHM% 0.0 % Critically low 20.5-60.0 [facility] Comment on above: Performed By: #### C MARY #### [facility] [address] [place] [address] Dr. Timmy Grant MCH 27.4 pg Normal 25.9-34.0 [facility] Comment on above: Performed By: #### C MARY #### [facility] [address] [place] [address] Dr. Timmy Grant MCHC 32.8 g/dl Normal 29.9-35.2 [facility] Comment on above: Performed By: #### C BCNAFISA #### [facility] [address] [place] [address] Dr. Timmy Grant MCV 83.7 fL Normal 80.0-94.0 [facility] Comment on above: Performed By: #### C BCMAN #### [facility] [address] [place] [address] Dr. Timmy Grant METAMYELOCYTE # Normal [facility] Comment on above: Performed By: #### C BCNAFISA #### [facility] [address] [place] [address] Dr. Timmy Grant METAMYELOCYTE % Normal [facility] Comment on above: Performed By: #### C MARY #### [facility] [address] [place] [address] Dr. Timmy Grant MONOM# 0.00 103/ul Critically low 0.30-0.80 [facility] Comment on above: Performed By: #### C BCNAFISA #### [facility] [address] [place] [address] Dr. Timmy Grant MONOM% 0.0 % Critically low 1.7-12.0 [facility] Comment on above: Performed By: #### C MARY #### [facility] [address] [place] [address] Dr. Timmy Grant MPV 9.7 fL Normal 9.5-13.5 [facility] Comment on above: Performed By: #### C BCMAN #### [facility] [address] [place] [address] Dr. Timmy Grant MYELOCYTE # Normal [facility] Comment on above: Performed By: #### C BCNAFISA #### [facility] [address] [place] [address] Dr. Timmy Grant MYELOCYTE % Normal [facility] Comment on above: Performed By: #### C BCNAFISA #### [facility] [address] [place] [address] Dr. Timmy Grant NRBC Normal [facility] Comment on above: Performed By: #### C MARY #### [facility] [address] [id number] Timmy rGant PLT 224 103/ul Normal 150-450 [facility] Comment on above: Performed By: #### C MARY #### [facility] [id number] Timmy Grant RBC 5.03 106/ul Normal 4.70-6.10 [facility] Comment on above: Performed By: #### C MARY #### [facility] [address] [address] [address] Timmy Grant RDW 12.8 % Normal 11.0-15.0 [facility] Comment on above: Performed By: #### C MARY #### [facility] [address] [address] [address] Timmy Grant SEG # 14.69 103/ul Critically high 1.40-6.[address] [facility] Comment on above: Performed By: #### C MARY #### [facility] [address] [address] [address] Timmy Grant SEG % 96.0 % Critically high 43.0-75.0 [facility] Comment on above: Performed By: #### C MARY #### [facility] [address] [address] [address] Timmy Grant WBC 15.3 103/ul Critically high 4.0-11.0 [facility] Comment on above: Performed By: #### C MARY #### [facility] [address] [address] [address] Timmy Grant PROF 14(COMP METB)on 023 Albumin [Mass/Vol] 3.2 g/dL Critically low 3.4-5.0 [facility] Comment on above: Performed By: #### O BSCRN #### [facility] [id number] Timmy Grant Albumin/Globulin [Mass ratio] 0.8 {ratio} Normal [facility] Comment on above: Performed By: #### O BSCRN #### [facility] [address] [address] [address] Timmy Grant ALP [Catalytic activity/Vol] 92 U/L Normal 46-116 [facility] Comment on above: Performed By: #### O BSCRN #### [facility] [address] [address] [address] Timmy Grant ALT [Catalytic activity/Vol] 13 U/L Critically low 16-63 [facility] Comment on above: Performed By: #### O BSCRN #### [facility] [address] [address] [address] Timmy Grant Anion gap [Moles/Vol] 11.0 mmol/L Normal [facility] Comment on above: Performed By: #### O BSCRN #### [facility] [address] [address] [address] Timmy Grant AST [Catalytic activity/Vol] 14 U/L Critically low 15-37 [facility] Comment on above: Performed By: #### O BSCRN #### [facility] [address] [address] [address] Timmy Grant Bilirubin [Mass/Vol] 0.5 mg/dL Normal 0.2-1.0 [facility] Comment on above: Performed By: #### O BSCRN #### [facility] [address] [address] [address] Timmy Grant Calcium [Mass/Vol] 9.5 mg/dL Normal 8.5-10.1 [facility] Comment on above: Performed By: #### O BSCRN #### [facility] [address] [address] [address] Timmy Grant Chloride [Moles/Vol] 105 mmol/L Normal 98-107 [facility] Comment on above: Performed By: #### O BSCRN #### [facility] [address] [address] [address] Timmy Grant CO2 [Moles/Vol] 26.2 mmol/L Normal 21.0-32.0 [facility] Comment on above: Performed By: #### O BSCRN #### [facility] [address] [address] [address] Timmy Grant Creatinine [Mass/Vol] 1.12 mg/dL Normal 0.70-1.30 [facility] Comment on above: Performed By: #### O BSCRN #### [facility] [address] [address] [address] Timmy Grant EGFR-AF MALAYSIAN >60 Normal >=60 [facility] Comment on above: Performed By: #### O BSCRN #### [facility] [address] [address] [address] Timmy Grant EGFR-NON AF MALAYSIAN >60 Normal >=60 [facility] Comment on above: Performed By: #### O BSCRN #### [facility] [address] [place] [address] Dr. Timmy Grant Globulin (S) [Mass/Vol] 4.2 g/dL Normal [facility] Comment on above: Performed By: #### O BSCRN #### [facility] [address] [place] [address] Dr. Tmimy Grant Glucose [Mass/Vol] 171 mg/dL Critically high 74-106 [facility] Comment on above: Performed By: #### O BSCRN #### [facility] [address] [place] [address] Dr. Timmy Grant Potassium [Moles/Vol] 4.2 mmol/L Normal 3.5-5.1 [facility] Comment on above: Performed By: #### O BSCRN #### [facility] [address] [place] [address] Dr. Timmy Grant Protein [Mass/Vol] 7.4 g/dL Normal 6.4-8.2 [facility] Comment on above: Performed By: #### O BSCRN #### [facility] [address] [place] [address] Dr. Timmy Grant Sodium [Moles/Vol] 138 mmol/L Normal 136-145 [facility] Comment on above: Performed By: #### O BSCRN #### [facility] [address] [place] [address] Dr. Timmy Grant Urea nitrogen [Mass/Vol] 15.0 mg/dL Normal 7.0-18.0 [facility] Comment on above: Performed By: #### O BSCRN #### [facility] [address] [place] [address] Dr. Timmy Grant Urea nitrogen/Creatinin e [Mass ratio] 13.4 mg/mg Normal [facility] Comment on above: Performed By: #### O BSCRN #### [facility] [address] [place] [address] Dr. Timmy Grant BNPon 06-18-2022 Natriuretic peptide B (Bld) [Mass/Vol] 114.0 pg/mL Normal <=900.0 [facility] Comment on above: Performed By: #### O BSCRN #### [facility] [address] [place] [address] Dr. Timmy Grant CARDIAC SANJUANA ADMITon 023 CK [Catalytic activity/Vol] 209 U/L Normal 39-308 [facility] Comment on above: Performed By: #### O BSCRN #### [facility] [address] [place] [address] Dr. Timmy Grant CK.MB [Mass/Vol] 2.98 ng/mL Normal <=3.60 [facility] Comment on above: Performed By: #### O BSCRN #### [facility] [address] [place] [address] Dr. Timmy Grant HSTROP 5.6 pg/mL Normal 4.0-76.1 [facility] Comment on above: Result Comment: CUT- OFF POINTS HAVE BEEN ESTABLISHED BASED ON THE FOURTH UNIVERSAL DEFINITIONS OF MYOCARDIAL INFARCTION. THE UPPER REFERENCE LIMIT (URL) OF TROPONIN, DEFINED THE 99TH PERCENTILE OF cTnI DISTRIBUTION IN A REFERENCE POPULATION, HAS BEEN CONFIRMED THE DECISION THRESHOLD FOR MT DIAGNOSIS. Performed By: #### O BSCRN #### [facility] [address] [place] [address] Dr. Timmy Grant NAFISA 118 ng/mL Critically high 16-96 [facility] Comment on above: Performed By: #### O BSCRN #### [facility] [address] [place] [address] Dr. Timmy Grant CBC W MANUAL DIFFon 06-19-19 23 ATYPICAL LYMPH # Normal [facility] Comment on above: Performed By: #### C MARY #### [facility] [address] [place] [address] Dr. Timmy Grant ATYPICAL LYMPH % Normal [facility] Comment on above: Performed By: #### C MARY #### [facility] [address] [place] [address] Dr. Timmy Grant BAND # 0.6 103/ul Critically high 0.0-0.3 [facility] Comment on above: Performed By: #### C MARY #### [facility] [address] [place] [address] Dr. Timmy Grant BAND % 5 % Normal 0-5 [facility] Comment on above: Performed By: #### C MARY #### [facility] [address] [place] [address] Dr. Timmy Grant BASOM # 0.00 103/ul Normal 0.00-0.10 [facility] Comment on above: Performed By: #### C MARY #### [facility] [address] [place] [address] Dr. Timmy Grant BASOM % 0.0 % Critically low 0.2-2.0 [facility] Comment on above: Performed By: #### C MARY #### [facility] [address] [place] [address] Dr. Timmy Grant BLAST # Normal [facility] Comment on above: Performed By: #### C MARY #### [facility] [address] [place] [address] Dr. Timmy Grant BLAST % Normal [facility] Comment on above: Performed By: #### C MARY #### [facility] [address] [place] [address] Dr. Timmy Grant CORRECTED WBC Normal 4.0-11.0 [facility] Comment on above: Performed By: #### C MARY #### [facility] [address] [address] [address] Timmy Grant EOS # 0.00 103/ul Normal 0.00-0.70 [facility] Comment on above: Performed By: #### C MARY #### [facility] [address] [address] [address] Timmy Grant EOS% 0.0 % Critically low 0.9-7.0 [facility] Comment on above: Performed By: #### C MARY #### [facility] [address] [place] [address] Dr. Timmy Grant HCT 46.4 % Normal 42.0-54.0 [facility] Comment on above: Performed By: #### C MARY #### [facility] [address] [place] [address] Dr. Timmy Grant HGB 14.8 g/dl Normal 14.0-18.0 [facility] Comment on above: Performed By: #### Tali HERNANDEZ #### [facility] [address] [place] [address] Dr. Timmy Grant LYMPHM # 0.57 103/ul Critically low 1.20-3.80 [facility] Comment on above: Performed By: #### C MARY #### [facility] [address] [place] [address] Dr. Timmy Grant LYMPHM% 5.0 % Critically low 20.5-60.0 [facility] Comment on above: Performed By: #### C MARY #### [facility] [address] [place] [address] Dr. Timmy Grant MCH 26.8 pg Normal 25.9-34.0 [facility] Comment on above: Performed By: #### Tali HERNANDEZ #### [facility] [address] [place] [address] Dr. Timmy Grant MCHC 31.9 g/dl Normal 29.9-35.2 [facility] Comment on above: Performed By: #### Tali HERNANDEZ #### [facility] [address] [place] [address] Dr. Timmy Grant MCV 84.1 fL Normal 80.0-94.0 [facility] Comment on above: Performed By: #### C MARY #### [facility] [address] [place] [address] Dr. Timmy Grant METAMYELOCYTE # Normal [facility] Comment on above: Performed By: #### C MARY #### [facility] [address] [place] [address] Dr. Timmy Grant METAMYELOCYTE % Normal [facility] Comment on above: Performed By: #### C MARY #### [facility] [address] [place] [address] Dr. Timmy Grant MONOM# 0.23 103/ul Critically low 0.30-0.80 [facility] Comment on above: Performed By: #### C MARY #### [facility] [address] [place] [address] Dr. Timmy Grant MONOM% 2.0 % Normal 1.7-12.0 [facility] Comment on above: Performed By: #### C MARY #### [facility] [address] [place] [address] Dr. Timmy Grant MPV 9.5 fL Normal 9.5-13.5 [facility] Comment on above: Performed By: #### C MARY #### [facility] [address] [place] [address] Dr. Timmy Grant MYELOCYTE # Normal [facility] Comment on above: Performed By: #### C MARY #### [facility] [address] [place] [address] Dr. Timmy Grant MYELOCYTE % Normal [facility] Comment on above: Performed By: #### C MARY #### [facility] [address] [place] [address] Dr. Timmy Grant NRBC Normal [facility] Comment on above: Performed By: #### C MARY #### [facility] [address] [place] [address] Dr. Timmy Grant PLT 219 103/ul Normal 150-450 [facility] Comment on above: Performed By: #### C MARY #### [facility] [address] [place], [place] [address] Dr. Timmy Grant RBC 5.52 106/ul Normal 4.70-6.10 [facility] Comment on above: Performed By: #### C MARY #### [facility] [address] [place], [place] [address] Dr. Timmy Grant RDW 12.6 % Normal 11.0-15.0 [facility] Comment on above: Performed By: #### C MARY #### [facility] [address] [place], [place] [address] Dr. Timmy Grant SEG # 10.12 103/ul Critically high 1.40-6.[address] [facility] Comment on above: Performed By: #### C MARY #### [facility] [address] [address] [address] Timmy Grant SEG % 88.0 % Critically high 43.0-75.0 [facility] Comment on above: Performed By: #### C MARY #### [facility] [address] [place], [place] [address] Dr. Timmy Grant WBC 11.5 103/ul Critically high 4.0-11.0 [facility] Comment on above: Performed By: #### C MARY #### [facility] [address] [place], [place] [address] HEAD WO CONon 06-18-2022 CT HEAD WO CON EXAM: CT HEAD WO CON ; [id number] REASON FOR EXAM: Pain COMPARISON: None. TECHNIQUE: [...] by: BENTON FOSTER Date: 2022-06-18 11:17 Normal [facility] CULTURE BLOODon 06-18-2022 Microscopic examination of blood, culture Culture Observations: NO GROWTH AT 5 DAYS. Normal [facility] Comment on above: Performed By: #### O BSCRN #### [facility] [address] [place] [address] Dr. Timmy Grant Microscopic examination of blood, culture Culture Observations: NO GROWTH AT 5 DAYS. Normal [facility] Comment on above: Performed By: #### O BSCRN #### [facility] [address] [place] [address] Dr. Timmy Grant ER URINE PROFILEon 3 Bilirubin Ql (U) Negative Normal NEGATIVE [facility] Comment on above: Performed By: #### E RUR #### [facility] [address] [place] [address] Dr. Timmy Grant Clarity (U) CLEAR Normal CLEAR [facility] Comment on above: Performed By: #### E RUR #### [facility] [address] [place] [address] Dr. Timmy Grant Color (U) YELLOW Normal YELLOW [facility] Comment on above: Performed By: #### E RUR #### [facility] [address] [place] [address] Dr. Timmy Grant ERUAHD A micrscopic examina tion will be performed if indicated. Normal [facility] Comment on above: Performed By: #### E RUR #### [facility] [address] [place] [address] Dr. Timmy Grant Glucose Ql (U) Negative Normal NEGATIVE [facility] Comment on above: Performed By: #### E RUR #### [facility] [address] [place] [address] Dr. Timmy Grant Hemoglobin Ql (U) Negative Normal NEGATIVE [facility] Comment on above: Performed By: #### E RUR #### [facility] [address] [place] [address] Dr. Timmy Grant Ketones Ql (U) TRACE Abnormal NEGATIVE [facility] Comment on above: Performed By: #### E RUR #### [facility] [address] [place] [address] Dr. Timmy Grant LEUKOCYTES Negative Normal NEGATIVE [facility] Comment on above: Performed By: #### E RUR #### [facility] [address] [place] [address] Dr. Timmy Grant Nitrite Ql (U) Negative Normal NEGATIVE [facility] Comment on above: Performed By: #### E RUR #### [facility] [address] [place] [address] Dr. Timmy Grant pH (U) 5.5 [pH] Normal 5-9 [facility] Comment on above: Performed By: #### E RUR #### [facility] [address] [place] [address] Dr. Timmy Grant SPEC GRAVITY 1.025 Normal 1.005-<=1.02 5 [facility] Comment on above: Performed By: #### E RUR #### [facility] [address] [place] [address] Dr. Timmy Grant UA PROTEIN Negative Normal NEGATIVE/ TRACE [facility] Comment on above: Performed By: #### E RUR #### [facility] [address] [place] [address] Dr. Timmy Grant UR MICRO IND NOT INDICATED Normal [facility] Comment on above: Performed By: #### E RUR #### [facility] [address] [place] [address] Dr. Timmy Grant Urobilinogen Qn (U) 0.2 {Ana'U}/dL Normal 0.2 - 1.0 [facility] Comment on above: Performed By: #### E RUR #### [facility] [address] [place] [address] Dr. Timmy Grant GROUP A STREP CULTUREon 06-08 S. pyogenes Ag Ql (Unsp spec) Culture Observations: NEGATIVE FOR GROUP A STREPTOCOCCUS. Normal [facility] Comment on above: Performed By: #### P SASC, VITB12, VITAD #### [facility] [address] [place] [address] Dr. Timmy Grant LACTATE/LACTIC ACIDon 2022 Lactate [Moles/Vol] 2.0 mmol/L Normal 0.4-2.0 [facility] Comment on above: Performed By: #### P SASC, VITB12, VITAD #### [facility] [address] [place] [address] Dr. Timmy Grant Lactate [Moles/Vol] 1.7 mmol/L Normal 0.4-2.0 [facility] Comment on above: Performed By: #### E RUR #### [facility] [address] [place] [address] Dr. Timmy Grant PROF 14(COMP METB)on 023 Albumin [Mass/Vol] 3.6 g/dL Normal 3.4-5.0 [facility] Comment on above: Performed By: #### O BSCRN #### [facility] [address] [place] [address] Dr. Timmy Grant Albumin/Globulin [Mass ratio] 0.8 {ratio} Normal [facility] Comment on above: Performed By: #### O BSCRN #### [facility] [address] [place] [address] Dr. Timmy Grant ALP [Catalytic activity/Vol] 94 U/L Normal 46-116 [facility] Comment on above: Performed By: #### O BSCRN #### [facility] [address] [place] [address] Dr. Timmy Grant ALT [Catalytic activity/Vol] 33 U/L Normal 16-63 [facility] Comment on above: Performed By: #### O BSCRN #### [facility] [address] [address] [address] Timmy Grant Anion gap [Moles/Vol] 12.5 mmol/L Normal [facility] Comment on above: Performed By: #### O BSCRN #### [facility] [address] [address] [address] Timmy Grant AST [Catalytic activity/Vol] 19 U/L Normal 15-37 [facility] Comment on above: Performed By: #### O BSCRN #### [facility] [address] [address] [address] Timmy Grant Bilirubin [Mass/Vol] 0.8 mg/dL Normal 0.2-1.0 [facility] Comment on above: Performed By: #### O BSCRN #### [facility] [address] [address] [address] Timmy Grant Calcium [Mass/Vol] 9.4 mg/dL Normal 8.5-10.1 [facility] Comment on above: Performed By: #### O BSCRN #### [facility] [address] [address] [address] Timmy Grant Chloride [Moles/Vol] 100 mmol/L Normal 98-107 [facility] Comment on above: Performed By: #### O BSCRN #### [facility] [address] [address] [address] Timmy Grant CO2 [Moles/Vol] 28.7 mmol/L Normal 21.0-32.0 [facility] Comment on above: Performed By: #### O BSCRN #### [facility] [address] [address] [address] Timmy Grant Creatinine [Mass/Vol] 1.43 mg/dL Critically high 0.70-1.30 [facility] Comment on above: Performed By: #### O BSCRN #### [facility] [address] [address] [address] Timmy Grant EGFR-AF MALAYSIAN 59 mL/min/1.73m2 Critically low >=60 [facility] Comment on above: Performed By: #### O BSCRN #### [facility] [address] [address] [address] Timmy Grant EGFR-NON AF MALAYSIAN 49 mL/min/1.73m2 Critically low >=60 [facility] Comment on above: Performed By: #### O BSCRN #### [facility] [address] [address] [address] Timmy Grant Globulin (S) [Mass/Vol] 4.6 g/dL Normal [facility] Comment on above: Performed By: #### O BSCRN #### [facility] [address] [address] [address] Timmy Grant Glucose [Mass/Vol] 161 mg/dL Critically high 74-106 [facility] Comment on above: Performed By: #### O BSCRN #### [facility] [address] [place] [address] Dr. Timmy Grant Potassium [Moles/Vol] 4.2 mmol/L Normal 3.5-5.1 [facility] Comment on above: Performed By: #### O BSCRN #### [facility] [address] [address] [address] Timmy Grant Protein [Mass/Vol] 8.2 g/dL Normal 6.4-8.2 [facility] Comment on above: Performed By: #### O BSCRN #### [facility] [address] [place] [address] Dr. Timmy Grant Sodium [Moles/Vol] 137 mmol/L Normal 136-145 [facility] Comment on above: Performed By: #### O BSCRN #### [facility] [address] [address] [address] Timmy Grant Urea nitrogen [Mass/Vol] 14.0 mg/dL Normal 7.0-18.0 [facility] Comment on above: Performed By: #### O BSCRN #### [facility] [address] [address] [address] Timmy Grant Urea nitrogen/Creatinin e [Mass ratio] 9.8 mg/mg Normal [facility] Comment on above: Performed By: #### O BSCRN #### [facility] [address] [place] [address] Dr. Timmy Grant PROTIMEon 06-18-2022 INR Coag (PPP) [Relative time] 1.01 {INR} Normal [facility] Comment on above: Performed By: #### P SASC, VITB12, VITAD #### [facility] [address] [place] [address] Dr. Timmy Grant INR GUIDELINES SEE BELOW Normal [facility] Comment on above: Result Comment: REMIGIO RED INR: 2.0 - 3.0 CONDITIONS NOT LISTED BELOW 2.5 - 3.5 FOR PROSTHETIC HEART VALVE REPLACEMENT 2.5 - 3.5 RECURRENT THROMBOSIS Performed By: #### P SASC, VITB12, VITAD #### [facility] [address] [place] [address] Dr. Timmy Grant PT Coag (PPP) [Time] 10.7 s Normal 9.0-11.6 [facility] Comment on above: Performed By: #### P SASC, VITB12, VITAD #### [facility] [address] [place] [address] Dr. Timmy Grant PTTon 06-18-2022 aPTT Coag (Bld) [Time] 31.4 s Normal 22.3-36.2 [facility] Comment on above: Performed By: #### P SASC, VITB12, VITAD #### [facility] [address] [place] [address] Dr. Timmy Grant STREPT SCREENon 06-18-2022 STREP SCREEN A Negative Normal NEGATIVE [facility] Comment on above: Performed By: #### E RUR #### [facility] [address] [place] [address] Dr. Timmy Grant SYMPTOMATIC COVID-19 ANTIGEN on 06-18-2022 EUA Statement SEE BELOW Normal [facility] Comment on above: Result Comment: This [...] By: #### P SASC, VITB12, VITAD #### [facility] [address] [place] [address] Dr. Timmy Grant SARS-CoV-2 (COVID-19) RNA ALEXA+probe Ql (Unsp spec) Negative Normal NEGATIVE [facility] Comment on above: Performed By: #### P SASC, VITB12, VITAD #### [facility] [address] [place] [address] Dr. Timmy Grant XR CHEST 1 Von [...] by: ELI RAMÍREZ Date: 2022-06-18 08:25 Normal [facility] VIT B12 AND FOLATEon 023 Cobalamin (Vitamin B12) [Mass/Vol] 270.0 pg/mL Normal 193.0-986.0 [facility] Comment on above: Performed By: #### B 12FOL #### [facility] [address] [place] [address] Dr. Timmy Grant FOLATE 23.00 ng/mL Normal 8.60-58.90 [facility] Comment on above: Performed By: #### B 12FOL #### [facility] [address] [address] [address] Timmy Grant Ambulatory Visit Summaryon 0 04-27-2022 Ambulatory Visit Summary CAMERON HENAO :1950 Visit Date:04/27/2022 Ambulatory Visit Instructions Your Diagnosis BPH with urinary obstruction Tests Performed Urnls Dip Stick Auto w/o Microscopy POC 27025 Your Care Team Attending Physician - Owen [...] Where: [facility] [address] [place] [address]- Medications What How Much When Instructions Unchanged [...] Urnls Dip Stick Auto w/o Microscopy POC 97121 (04/27/2022) Bilirubin Urine Dipstick - Negative Blood Urine Dipstick - Negative Glucose Urine Dipstick - Negative Ketones Urine Dipstick - Negative Leukocytes Urine Dipstick - Negative Nitrite Urine Dipstick - Negative Protein Urine Dipstick - Negative Specific [place] Urine Dipstick - 1.015 Urine Appearance Urine [...] of these risk factors: ? Being of -Swedish descent. ? Having a family history of [...] Are older than age 55. ? Are -Swedish. ? Have a father, brother, or uncle who has been diagnosed with prostate cancer. The risk may be higher if your family member's cancer occurred at an early age. What are the benefits of screening? Th (more content not included)... Normal [facility] Patient Educationon 04-28-19 Patient Education Oncology Prostate [...] of these risk factors: ? Being of -Swedish descent. ? Having a family history of [...] Are older than age 55. ? Are -Swedish. ? Have a father, brother, or uncle [...] Document R (more content not included)... Normal [facility] Urology Office/Clinic Noteon 04-27-2022 Urology Office/Clinic Note [...] Owen Ko, URL [facility] [address] [place] [address]- Additional Instructions: PRN, PSA with Dr. Kong [...] Protein Urine Dipstick: Negative (04/27/22 11:39:00) Specific [place] Urine Dipstick: 1.015 (04/27/22 11:39:00) Urine Appearance Urine Dipstick: Clear (04/27/22 11:39:00) Urine Color (more content not included)... Normal [facility] Comment on above: Result Comment: Elec tronically Signed By: Owen COOPER MD\.br\Date and Time Signed: 04/27/22 12:37 EDT\.br\Electronically Co-Signed By: Archana Cheng\.br\Date and Time Co-Signed: 04/27/22 12:36 EDT Lab Reportson 01-28-2022 Lab Reports [id number] Normal [facility] Covid-19 PCR (CVDTB)on 01-08 SARS-CoV-2 (COVID-19) RNA ALEXA+probe Ql (Unsp spec) Not detected Normal NOT DETECTED [facility] Comment on above: Result Comment: When [...] for this test is supported by the [employer] of [employer] and Human Service's declaration that [...] longer be used). Performed By: #### C VDFLO[facility] #### [facility] [address] [place] [address] Dr. Timmy Grant INFLUENZA A AND B AGon 01-21 [facility] SEE BELOW Normal [facility] Comment on above: Result Comment: Nega tive for Flu B protein antigen. Infection due to Flu B cannot be ruled out. Flu B antigen in the sample may be below the detection limit of the test. Performed By: #### E RUR #### [facility] [address] [place] [address] Dr. Timmy Grant INFLUENZA A AG Positive Abnormal NEGATIVE SEE COMMENT [facility] Comment on above: Performed By: #### E RUR #### [facility] [address] [place] [address] Dr. Timmy Grant INFLUENZA B AG Negative Normal NEGATIVE SEE COMMENT [facility] Comment on above: Performed By: #### E RUR #### [facility] [address] [place], [place] [address] Dr. Timmy Grant INFLUPOSH SEE BELOW Normal [facility] Comment on above: Result Comment: NOTE : Live attenuated influenzae vaccine viruses can cause a positive result for a rapid influenza diagnostic test if administered up to 7 days prior to rapid testing. Performed By: #### E RUR #### [facility] [address] [id number] Timmy Grant INTERNAL CONTROLS Within Normal Limits Normal Wi thin Normal Limits [facility] Comment on above: Performed By: #### E RUR #### [facility] [address] [place], [place] [address] Dr. Timmy Grant XR wrist LT min 3V*on 2021 XR wrist LT min 3V* [facility] [employer] Other XR wrist LT min 3V* [facility] [employer] Other XR wrist LT min 3V* [address] [place] [address] [employer] Other XR wrist LT min 3V* [place] [address] [employer] Other XR wrist LT min 3V* [facility] Report Sense[employer] Other XR wrist LT min 3V* Signed [employer] Other XR wrist LT min 3V* Patient: Cameron Henao MR#: [id number] [employer] Other XR wrist LT min 3V* 2 [employer] Other XR wrist LT min 3V* : 1950 Acct:[id number] [employer] Other XR wrist LT min 3V* Age/Sex: 71 / M ADM Date: 01/13/22 Sensee Other XR wrist LT min 3V* Loc: XDUCLY Room: Type: [facility] Sensee Other XR wrist LT min 3V* Attending Dr: Lynn Gomez [facility] Other XR wrist LT min 3V* Copies to: LYNN GOMEZ [facility] Sense[employer] Other XR wrist LT min 3V* Ordering Provider: LYNN GOMEZ [facility] Sense[employer] Other XR wrist LT min 3V* Date of Service: 01/13/22 [employer] Other XR wrist LT min 3V* XR/XR wrist LT min 3V*: LEFT WRIST INJURY [employer] Other XR wrist LT min 3V* LEFT WRIST - 4 views [employer] Other XR wrist LT min 3V* CLINICAL HISTORY: Fell yesterday now with pain in left wrist and swelling. [employer] Other XR wrist LT min 3V* COMPARISON: None [employer] Other XR wrist LT min 3V* FINDINGS: [employer] Other XR wrist LT min 3V* Mild soft tissue swelling. Calcification versus radiopaque foreign body along the volar soft [employer] Other XR wrist LT min 3V* tissues. No acute bony process. Presumed remote triquetral fracture. Cystic changes involving the [employer] Other XR wrist LT min 3V* carpal bones without significant joint space narrowing. [employer] Other XR wrist LT min 3V* XR/XR wrist LT min 3V* [employer] Other XR wrist LT min 3V* IMPRESSION: [employer] Other XR wrist LT min 3V* MILD SOFT TISSUE SWELLING WITHOUT DEFINITIVE ACUTE BONY PROCESS. [employer] Other XR wrist LT min 3V* PRESUMED REMOTE TRIQUETRAL FRACTURE. CORRELATION WITH PAIN IS RECOMMENDED. [employer] Other XR wrist LT min 3V* Impression dictated by: Mehrdad Garcia Jr., D.OLexi01/13/2022 10:23 AM [employer] Other XR wrist LT min 3V* Dictation Location: [facility] Sensee Other XR wrist LT min 3V* Transcribed By: [facility] 01/13/22 102 [employer] Other XR wrist LT min 3V* Dictated By: Mehrdad Garcia Jr, DO 01/13/22 [facility] [employer] Other XR wrist LT min 3V* Signed By: Sense[employer] Other XR wrist LT min 3V* 01/13/22 [facility] Sense[employer] Other XR wrist LT min 3V* [facility] Main [place] [address] [place] [address] XRay Report Signed Patient: Cameron Henao MR#: [id number] 2 : 1950 Acct:[id number] Age/Sex: 71 / M ADM Date: 01/13/22 Loc: [facility] Room: Type: [facility] Attending Dr: Lynn FIERRO Copies to: LYNN [...] RECOMMENDED. Impression dictated by: Mehrdad Garcia Jr., D.O.01/13/2022 10:23 AM Dictation Location: [place] [address] Transcribed By: [facility] 01/13/22 1023 Dictated By: Mehrdad Garcia Jr, DO 01/13/22 1020 Signed By: 01/13/22 1023 [facility] OCC BLD IMMUNO SCREENon 10-0 OCCULT BLOOD Negative Normal NEGATIVE [facility] Comment on above: Performed By: #### O BSCRN #### [facility] [address] [place] [address] Dr. Timmy Grant INSULINon 11-07-2021 Insulin 27.7 uIU/mL Critically high 2.6-24.9 [facility] Comment on above: Performed By: #### P SASC, VITB12, VITAD #### [facility] [address] [place] [address] Dr. Timmy Grant T4, T3U, FTI LABCORPon 11-07 Free Thyroxine Index 1.7 Normal 1.2-4.9 [facility] Comment on above: Performed By: #### T HYLC #### [facility] [address] [place] [address] Dr. Timmy Grant T3 Uptake 23 % Critically low 24-39 [facility] Comment on above: Performed By: #### T HYLC #### [facility] [address] [place] [address] Dr. Timmy Grant T4 [Mass/Vol] 7.2 ug/dL Normal 4.5-12.0 [facility] Comment on above: Performed By: #### T HYLC #### [facility] [address] [place] [address] Dr. Timmy Grant BNPon 11-06-2021 Natriuretic peptide B (Bld) [Mass/Vol] 31.0 pg/mL Normal <=900.0 [facility] Comment on above: Performed By: #### E RUR #### [facility] [address] [place] [address] Dr. Timmy Grant CBC AUTO DIFFon 11-06-2021 BASO # 0.0 103/ul Normal 0.0-0.1 [facility] Comment on above: Performed By: #### P SASC, VITB12, VITAD #### [facility] [address] [place] [address] Dr. Timmy Grant Basophils/100 WBC (Bld) 0.6 % Normal 0.2-2.0 [facility] Comment on above: Performed By: #### P SASC, VITB12, VITAD #### [facility] [address] [place] [address] Dr. Timmy Grant EO # 0.1 103/ul Normal 0.0-0.7 [facility] Comment on above: Performed By: #### P SASC, VITB12, VITAD #### [facility] [address] [place] [address] Dr. Timmy Grant Eosinophils/100 WBC (Bld) 1.7 % Normal 0.9-7.0 [facility] Comment on above: Performed By: #### P SASC, VITB12, VITAD #### [facility] [address] [place] [address] Dr. Timmy Grant Erythrocyte distribution width (RBC) [Ratio] 13.3 % Normal 11.0-15.0 [facility] Comment on above: Performed By: #### P SASC, VITB12, VITAD #### [facility] [address] [place] [address] Dr. Timmy Grant Hematocrit (Bld) [Volume fraction] 48.8 % Normal 42.0-54.0 [facility] Comment on above: Performed By: #### P SASC, VITB12, VITAD #### [facility] [address] [place] [address] Dr. Timmy Grant Hemoglobin (Bld) [Mass/Vol] 15.7 g/dL Normal 14.0-18.0 [facility] Comment on above: Performed By: #### P SASC, VITB12, VITAD #### [facility] [address] [place] [address] Dr. Timmy Grant IG # 0.01 10e3/ul Normal 0.00-0.03 [facility] Comment on above: Performed By: #### P SASC, VITB12, VITAD #### [facility] [address] [place] [address] Dr. Timmy Grant IG % 0.2 % Normal 0.0-0.5 [facility] Comment on above: Performed By: #### P SASC, VITB12, VITAD #### [facility] [address] [place] [address] Dr. Timmy Grant LYMPH # 1.5 103/ul Normal 1.2-3.8 [facility] Comment on above: Performed By: #### P SASC, VITB12, VITAD #### [facility] [address] [place] [address] Dr. Timmy Grant Lymphocytes/100 WBC (Bld) 28.3 % Normal 20.5-60.0 [facility] Comment on above: Performed By: #### P SASC, VITB12, VITAD #### [facility] [address] [place] [address] Dr. Timmy Grant MANUAL DIFF REQ NO Normal [facility] Comment on above: Performed By: #### P SASC, VITB12, VITAD #### [facility] [address] [place] [address] Dr. Timmy Grant MCH (RBC) [Entitic mass] 27.1 pg Normal 25.9-34.0 [facility] Comment on above: Performed By: #### P SASC, VITB12, VITAD #### [facility] [address] [place] [address] Dr. Timmy Grant MCHC (RBC) [Mass/Vol] 32.2 g/dL Normal 29.9-35.2 [facility] Comment on above: Performed By: #### P SASC, VITB12, VITAD #### [facility] [address] [place] [address] Dr. Timmy Grant MCV (RBC) [Entitic vol] 84.3 fL Normal 80.0-94.0 [facility] Comment on above: Performed By: #### P SASC, VITB12, VITAD #### [facility] [address] [place] [address] Dr. Timmy Grant MONO # 0.4 103/ul Normal 0.3-0.8 [facility] Comment on above: Performed By: #### P SASC, VITB12, VITAD #### [facility] [address] [place] [address] Dr. Timmy Grant Monocytes/100 WBC (Bld) 7.8 % Normal 1.7-12.0 [facility] Comment on above: Performed By: #### P SASC, VITB12, VITAD #### [facility] [address] [place] [address] Dr. Timmy Grant NEUT # 3.2 103/ul Normal 1.4-6.5 [facility] Comment on above: Performed By: #### P SASC, VITB12, VITAD #### [facility] [address] [place] [address] Dr. Timmy Grant Neutrophils/100 WBC (Bld) 61.4 % Normal 43.0-75.0 [facility] Comment on above: Performed By: #### P SASC, VITB12, VITAD #### [facility] [address] [place] [address] Dr. Timmy Grant Platelet mean volume (Bld) [Entitic vol] 9.9 fL Normal 9.5-13.5 [facility] Comment on above: Performed By: #### P SASC, VITB12, VITAD #### [facility] [address] [place] [address] Dr. Timmy Grant PLT 237 103/ul Normal 150-450 [facility] Comment on above: Performed By: #### P SASC, VITB12, VITAD #### [facility] [address] [place] [address] Dr. Timmy Grant RBC 5.79 106/ul Normal 4.70-6.10 [facility] Comment on above: Performed By: #### P SASC, VITB12, VITAD #### [facility] [address] [place] [address] Dr. Timmy Grant WBC 5.3 103/ul Normal 4.0-11.0 [facility] Comment on above: Performed By: #### P SASC, VITB12, VITAD #### [facility] [address] [place] [address] Dr. Timmy Grant GLYCOHEMOGLOBIN A1Con 2021 ADA RECOMMENDATION SEE BELOW Normal [facility] Comment on above: Result Comment: ADA RECOMMENDED LIMIT 4.0 - 6.0 ADA THERAPEUTIC TARGET < 7.0 ACTION SUGGESTED > 7.0 Performed By: #### E RUR #### [facility] [address] [place] [address] Dr. Timmy Grant Glucose [Mass/Vol] 117 mg/dL Normal [facility] Comment on above: Performed By: #### E RUR #### [facility] [address] [place] [address] Dr. Timmy Grant HbA1c (Bld) [Mass fraction] 5.7 % Normal 4.5-6.2 [facility] Comment on above: Performed By: #### E RUR #### [facility] [address] [place] [address] Dr. Timmy Grant LIPID PROFILEon 11-06-2021 CHOL-HDL RATIO NORM SEE BELOW Normal [facility] Comment on above: Result Comment: 3.3 - 4.4 LOW RISK 4.4 - 7.1 AVERAGE RISK 7.1 - 11.0 MODERATE RISK >11.0 HIGH RISK Performed By: #### E RUR #### [facility] [address] [place] [address] Dr. Timmy Grant Cholesterol [Mass/Vol] 175 mg/dL Normal <=200 [facility] Comment on above: Performed By: #### E RUR #### [facility] [address] [place] [address] Dr. Timmy Grant Cholesterol in HDL [Mass/Vol] 65 mg/dL Critically high 40-60 [facility] Comment on above: Performed By: #### E RUR #### [facility] [address] [place] [address] [address] Timmy Grant Cholesterol in LDL [Mass/Vol] 98.4 mg/dL Normal [facility] Comment on above: Performed By: #### E RUR #### [facility] [address] [place] [address] [address] Timmy Grant Cholesterol.total/ Cholesterol in HDL [Mass ratio] 2.7 {ratio} Normal [facility] Comment on above: Performed By: #### E RUR #### [facility] [address] [place] [address] [address] Timmy Grant HDL NORMAL > or = 60 mg/dl - LO W CARDIOVASCULAR RISK <40 mg/dl - HIGH CARDIOVASCULAR RISK Normal [facility] Comment on above: Performed By: #### E RUR #### [facility] [address] [place] [address] Dr. Timmy Grant LDL CALC NORMAL SEE BELOW Normal [facility] Comment on above: Result Comment: <100 mg/dl OPTIMAL 100 - 129 mg/dl NEAR OR ABOVE OPTIMAL 130 - 159 mg/dl BORDERLINE HIGH 160 - 189 mg/dl HIGH >190 mg/dl VERY HIGH Performed By: #### E RUR #### [facility] [address] [place] [address] [address] Timmy Grant Triglyceride [Mass/Vol] 58 mg/dL Normal <=150 [facility] Comment on above: Performed By: #### E RUR #### [facility] [address] [place] [address] Dr. Timmy Grant VLDL CALC 11.6 mg/dL Normal [facility] Comment on above: Performed By: #### E RUR #### [facility] [address] [place] [address] Dr. Timmy Grant NM STRESS/REST MULTIon 11-06 NM STRESS/REST MULTI Patient: CAMERON HENAO Exam Date: 11/06/2021 : 1950 Gender:M Ordering : DR JAYLA KONG . Admission #: [id number] Family : Order #: [id number] CLICK HERE TO VIEW EXAM RADIOLOGY REPORT [...] Armstrong M.D. on 11/06/2021 at 14:54 Normal [facility] PROF 14(COMP METB)on 022 Albumin [Mass/Vol] 4.1 g/dL Normal 3.4-5.0 [facility] Comment on above: Performed By: #### E RUR #### [facility] [address] [place] [address] Dr. Timmy Grant Albumin/Globulin [Mass ratio] 1.1 {ratio} Normal [facility] Comment on above: Performed By: #### E RUR #### [facility] [address] [place] [address] [address] Timmy Grant ALP [Catalytic activity/Vol] 79 U/L Normal 46-116 [facility] Comment on above: Performed By: #### E RUR #### [facility] [address] [place] [address] [address] Timmy Grant ALT [Catalytic activity/Vol] 47 U/L Normal 16-63 [facility] Comment on above: Performed By: #### E RUR #### [facility] [address] [place] [address] Dr. Timmy Grant Anion gap [Moles/Vol] 10.5 mmol/L Normal [facility] Comment on above: Performed By: #### E RUR #### [facility] [address] [place] [address] [address] Timmy Grant AST [Catalytic activity/Vol] 25 U/L Normal 15-37 [facility] Comment on above: Performed By: #### E RUR #### [facility] [address] [place] [address] Dr. Timmy Grant Bilirubin [Mass/Vol] 0.6 mg/dL Normal 0.2-1.0 [facility] Comment on above: Performed By: #### E RUR #### [facility] [address] [place] [address] Dr. Timmy Grant Calcium [Mass/Vol] 9.3 mg/dL Normal 8.5-10.1 [facility] Comment on above: Performed By: #### E RUR #### [facility] [address] [place] [address] Dr. Timmy Grant Chloride [Moles/Vol] 101 mmol/L Normal 98-107 [facility] Comment on above: Performed By: #### E RUR #### [facility] [address] [place] [address] Dr. Timmy Grant CO2 [Moles/Vol] 31.1 mmol/L Normal 21.0-32.0 [facility] Comment on above: Performed By: #### E RUR #### [facility] [address] [place] [address] Dr. Timmy Grant Creatinine [Mass/Vol] 1.17 mg/dL Normal 0.70-1.30 [facility] Comment on above: Performed By: #### E RUR #### [facility] [address] [place] [address] Dr. Timmy Grant EGFR-AF MALAYSIAN >60 Normal >=60 [facility] Comment on above: Performed By: #### E RUR #### [facility] [address] [place] [address] [address] Timmy Grant EGFR-NON AF MALAYSIAN >60 Normal >=60 [facility] Comment on above: Performed By: #### E RUR #### [facility] [address] [place] [address] [address] Timmy Grant Globulin (S) [Mass/Vol] 3.7 g/dL Normal [facility] Comment on above: Performed By: #### E RUR #### [facility] [address] [place] [address] [address] Timmy Grant Glucose [Mass/Vol] 106 mg/dL Normal 74-106 [facility] Comment on above: Performed By: #### E RUR #### [facility] [address] [place] [address] Dr. Timmy Grant Potassium [Moles/Vol] 4.6 mmol/L Normal 3.5-5.1 [facility] Comment on above: Performed By: #### E RUR #### [facility] [address] [place] [address] Dr. Timmy Grant Protein [Mass/Vol] 7.8 g/dL Normal 6.4-8.2 [facility] Comment on above: Performed By: #### E RUR #### [facility] [address] [place] [address] Dr. Timmy Grant Sodium [Moles/Vol] 138 mmol/L Normal 136-145 [facility] Comment on above: Performed By: #### E RUR #### [facility] [address] [place] [address] [address] Timmy Grant Urea nitrogen [Mass/Vol] 14.0 mg/dL Normal 7.0-18.0 [facility] Comment on above: Performed By: #### E RUR #### [facility] [address] [place] [address] Dr. Timmy Grant Urea nitrogen/Creatinin e [Mass ratio] 12.0 mg/mg Normal [facility] Comment on above: Performed By: #### E RUR #### [facility] [address] [place] [address] Dr. Timmy Grant TSHon 11-06-2021 TSH 0.931 uIU/mL Normal 0.358-3.740 [facility] Comment on above: Performed By: #### E RUR #### [facility] [address] [place] [address] Dr. Timmy Grant URIC ACID SERUMon 11-06-2021 Urate [Mass/Vol] 5.4 mg/dL Normal 3.5-7.2 [facility] Comment on above: Performed By: #### E RUR #### [facility] [address] [place] [address] Dr. Timmy Grant VITAMIN B12on 11-06-2021 Cobalamin (Vitamin B12) [Mass/Vol] 369.0 pg/mL Normal 193.0-986.0 [facility] Comment on above: Performed By: #### P SASC, VITB12, VITAD #### [facility] [address] [place] [address] Dr. Timmy Grant VITAMIN D 25 OHon 11-06-2021 VIT D 25-OH 35.4 ng/mL Normal [facility] Comment on above: Performed By: #### P SASC, VITB12, VITAD #### [facility] [address] [place] [address] Dr. Timmy Grnat VIT D RANGES SEE BELOW Normal [facility] Comment on above: Result Comment: <20 ng/mL Vit D deficient 20 - <30 ng/mL Vit D insufficient 30 - 100 ng/mL Vit D sufficient >100 ng/mL Potential Toxicity Performed By: #### P SASC, VITB12, VITAD #### [facility] [address] [place] [address] Dr. Timmy Grant XR FOOT ABHINAV MIN [...] NARA ARMSTRONG Date: 2021-10-15 13:51 Normal [facility] Rehab Psych Evaluationon Rehab Psych Evaluation MR#: [id number] SERVICES( ) INPATIENT ( x )OUTPATIENT Patient Name: Cameron Henao Date of : 1950 Referring Physician: Maria C Gonzales D.O. 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 Donis. He reports no history ofcounseling, [...] he and his of 44 years reside [place], [place]. 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 He notes theyhave 3 sons.EDUCATIONAL HISTORY: [...] his sleep is perhaps more restlesswith the gnosticist of the donepezil. 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 [id number] difference is significant, indicating attenuation.Orientation: Mr. Henao [...] symptomatology. His responses indicate heis endorsing a ynox-[id number] level of depressive symptoms.TEST DATA:TOPF: Pred FSIQ: [...] assign a trustedindividual with durable power of gasateria attendant. This person should accompany himto all appointments. 5. Based on the diagnosis of dementia, I am concerned about Mr. Henao continuing to drive. If Dr. Gonzales shares my concern, he may wish to refer Mr. Henao for a driving simulation evaluation. An order may be faxed to [phone]. Mr. Henao should be aware that the [...] found online or with the Alzheimer's association: Alz.org;692.334.7903. 7. I encourage Mr. Henao to remain [...] to participate in the care of this nicegentleman. If you have any questions, call [phone].DICTATED AND REVIEWED BY:Electronically Signed by:Sarah Estrada, PhD, ABPP 04/23/2017 08:35 A Sarah Estrada, PhD, ABPPBoard Certified Clinical NeuropsychologistDate Dict: 04/15/2017/11:18 A/Sarah Estrada, PhD, ABPPDate Trans: 04/16/2017 07:20 A/mmoAddendum: 04/16/2017 01:23 P/paDN_[id number]: Sarah Estrada, PhD, ABPP [address] [facility] [address] Maria C Gonzales D.O. [address] [facility] [address] Jayla Kong M.D. [facility] [address] [facility], [facility] [id number] *Mr. cameron henao ([address]; [place] [address]) Normal [facility] Vital Signs Date Time Vital Sign Value Performing Clinician Scotty smith 09-14-2023 13:48-0400 Body height 188 cm Dustin Burns DO Work Phone: [facility] 09-14-2023 13:48-0400 Body mass index (BMI) [Ratio] 27.73 kg/m2 Dustin Burns DO Work Phone: [facility] 09-14-2023 13:48-0400 Body weight 97.98 kg Dustin Burns DO Work Phone: [facility] 09-14-2023 13:48-0400 Diastolic blood pressure 66 mm[Hg] Dustin Burns DO Work Phone: [facility] 09-14-2023 13:48-0400 Heart rate 101 /min Dustin Burns DO Work Phone: [facility] 09-14-2023 13:48-0400 Systolic blood pressure 125 mm[Hg] Dustin Burns DO Work Phone: [facility] 08-25-2023 13:29-0400 Body height 188 cm Dustin Burns DO Work Phone: [facility] 08-25-2023 13:29-0400 Body mass index (BMI) [Ratio] 27.73 kg/m2 Dustin Burns DO Work Phone: [facility] 08-25-2023 13:29-0400 Body weight 97.98 kg Dustin Burns DO Work Phone: [facility] 08-25-2023 13:29-0400 Diastolic blood pressure 71 mm[Hg] Dustin Burns DO Work Phone: [facility] 08-25-2023 13:29-0400 Heart rate 108 /min Dustin Burns DO Work Phone: [facility] 08-25-2023 13:29-0400 Systolic blood pressure 130 mm[Hg] Dustin Burns DO Work Phone: [facility] 08-04-2023 15:19-0400 Body height 188 cm Dustin Burns DO Work Phone: [facility] 08-04-2023 15:19-0400 Body mass index (BMI) [Ratio] 27.73 kg/m2 Dustin Burns DO Work Phone: [facility] 08-04-2023 15:19-0400 Body temperature 97.2 [degF] Dustin Burns DO Work Phone: [facility] 08-04-2023 15:19-0400 Body weight 97.98 kg Dustin Burns DO Work Phone: [facility] 08-04-2023 15:19-0400 Diastolic blood pressure 80 mm[Hg] Dustin Burns DO Work Phone: [facility] 08-04-2023 15:19-0400 Heart rate 100 /min Dustin Burns DO Work Phone: [facility] 08-04-2023 15:19-0400 Systolic blood pressure 136 mm[Hg] Dustin Niharikastephieqian DO Work Phone: [facility] 04-27-2022 11:43-0400 Blood Pressure Location Owen COOPER [facility] 04-27-2022 11:43-0400 Diastolic blood pressure 84 mm[Hg] Owen COOPER [facility] 04-27-2022 11:43-0400 Heart rate 76 /min Owen COOPER [facility] 04-27-2022 11:43-0400 Respiratory rate 16 /min Owen COOPER [facility] 04-27-2022 11:43-0400 Systolic blood pressure 132 mm[Hg] Owen COOPER [facility] 01-13-2022 10:25-0500 Body height 187.96 cm Lynn Gomez Other [employer] [facility] Other 01-13-2022 10:25-0500 Body mass index (BMI) [Ratio] 29.53 kg/m2 Lynn Gomez Other [employer] Other 01-13-2022 10:25-0500 Body temperature 97.8 [degF] Lynn Gomez Other [employer] Other 01-13-2022 10:25-0500 Body weight 104.33 kg Lynn Gomez Other [employer] Other 01-13-2022 10:25-0500 Diastolic blood pressure 70 mm[Hg] Lynn Gomez Other [employer] Other 01-13-2022 10:25-0500 Respiratory rate 18 /min Lynn Gomez Other [employer] Other 01-13-2022 10:25-0500 SaO2% (BldA) [Mass fraction] 97 % Lynn Gomez Other [employer] Other 01-13-2022 10:25-0500 Systolic blood pressure 122 mm[Hg] Lynn Gomez Other [employer] Other Encounters Encounter Date Encounter Type Care Provider Facility Start: 12-06-2023 End: 12-06-2023 Telephone encounter Avis Finley PT Work Phone: [facility] Comment on above: Results (First attem pt to schedule physical therapy/OT/Speech consult. Patient's declined at this time. They prefer to find a place closer to home. Deactivated please reinstate if the patient calls to schedule. /) Start: 12-03-2023 End: 12-03-2023 ambulatory YE WHITNEY Facility:[facility] Start: 09-14-2023 End: 09-14-2023 Office outpatient visit 40 minutes Dustin Burns DO Work Phone: [facility] Comment on above: Atypical parkinsonis m (Primary Dx); Abnormality of gait and mobility; Eye movement abnormality; Vivid dream; Alzheimers disease; Cognitive impairment; Nocturia; Emotional lability Start: 09-14-2023 ambulatory JAYLA KONG Facility: [facility] Start: 08-25-2023 ambulatory JAYLA KONG Facility: [facility] Start: 08-25-2023 End: 08-25-2023 Subsequent hospital visit by physician Dustin Bursn DO Work Phone: [facility] [place] Comment on above: Arrived Start: 08-04-2023 End: 08-04-2023 Office outpatient new 60 minutes Dustin Burns DO [facility] Comment on above: Atypical parkinsonis m (Primary Dx); Alzheimers disease; Abnormality of gait and mobility Start: 08-04-2023 ambulatory JAYLA KONG Facility: [facility] Start: 03-02-2023 End: 03-02-2023 ambulatory JUAN DANIEL GARCIA Not Available Start: 06-18-2022 End: 06-19-[address] JAYLA KONG . Facility: Start: 05-14-2022 End: 05-15-2022 ambulatory CHELSEA MARIANO Facility: Start: 04-27-2022 End: 04-28-2022 ambulatory Owen COOPER Facility:[facility] Start: 04-27-2022 End: 04-27-2022 Patient encounter procedure Owen COOPER [facility] Start: 01-27-2022 End: 01-28-[address] KONG Elliott Facility: Start: 01-21-2022 End: 01-21-[address] JAYLA KONG . Facility: Start: 01-13-2022 Office outpatient ne w 20 minutes Lynn Gomez [facility] Start: 01-13-2022 End: 01-13-2022 ambulatory MD Jayla Kong Work Phone: [employer] Other Start: 01-13-2022 End: 01-13-2022 Patient encounter procedure MD Jayla Kong Work Phone: [facility] Start: 11-11-2021 End: 11-11-[address] JAYLA KONG . Facility:[facility] Start: 11-06-2021 End: 11-07-[address] JAYLA KONG . Facility: Start: 11-04-2021 End: 12-12-[address] JAYLA KONG . Facility: Start: 10-15-2021 End: 2021 ambulatory MICHELLE DWYER Facility: Start: 04-08-2017 End: 05-09-2017 Ambulatory JAYLA KONG Facility:[facility] Start: 03-11-2017 End: 04-08-2017 Ambulatory MARIA C GONZALES Facility:[facility] Start: 02-26-2017 End: 03-11-2017 Ambulatory DAVIDAMAU ÁLVAREZETT Facility:[facility] Start: 02-26-2017 End: 02-27-2017 Ambulatory DEFAULT PHYSICIAN Facility:[facility] Procedures Date Procedure Procedure Detail Performing Clinician Start: 09-14-2023 Follow-up visit Follow-up DUSTIN BURNS Start: 01-27-[address] KINA KONG . Comment on above: Performed By: #### O BSCRN #### [facility] [address] [place] [address] Dr. Timmy Grant Start: 01-13-2022 Plain X-ray of left wrist MD Jayla Kong Work Phone: Start: 11-06-[address] KINA KONG . Comment on above: Performed By: #### P SASC, VITB12, VITAD #### [facility] [address] [place] [address] Dr. Timmy Grant Start: 03-04-2016 Transurethral prostatectomy Owen COOPER Start: 04-26-2015 Cystoscopy Owen CARL Vasectomy Owen COOPER Plan of Treatment Date Care Activity Detail Author Start: 2024 RSV Vaccine (1 - 1-dose 75+ series) RSV Vaccine (1 - 1-dose 75+ series) [facility] Start: 12-16-2023 End: 12-16-2023 Telemedicine consultation with patient 12/16/2023 3:00 PM EST Telemedicine [facility] [place] [id number] Dustin Burns, DO [address] [place] [address] [place] [address] [facility] [place] Start: 11-25-2023 End: 11-25-2023 Patient encounter procedure 11/25/2023 3:00 PM EDT Office Visit [facility] [address] [place] [address] Nuha Olguin, 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 Start: 10-10-2023 Covid-19 Vaccine ( season) Covid-19 Vaccine ( season) [facility] Start: 10-10-2023 Influenza vaccination [facility]FLUENZA [facility]ACCINE (#[facility] Start: 02-08-2023 Advance Directive Discussion Advance Directive Discussion [facility] Start: 10-09-2022 COVID-19 VACCINE ( season) COVID-19 VACCINE () [facility] Start: 2014 Abdominal aortic aneurysm screening ABDOMINAL AORTIC ANEURYSM HIGH RISK SCREEN [facility] Start: 10-17-1999 Prostate specific antigen measurement PROSTATE CANCER SCREENING DISCUSSION [facility] Start: 1994 Diabetes Screening Diabetes Screening [facility] Start: 1994 Screening for malignant neoplasm of colon [facility] Start: 1989 Lipid panel LIPID SCREENING [facility] Start: 1984 Lipid panel Lipid Screening [facility] Start: 1968 Third diphtheria, tetanus and acellular pertussis (DTaP) vaccination TDAP (ADULT) [facility] Start: 1968 Urine microalbumin profile DTaP,Tdap,Td Vaccine (1 - Tdap) [facility] Start: 10-17-1967 Anxiety Screening Anxiety Screening [facility] Start: 10-17-1967 Depression Screening Depression Screening [facility] Start: 10-17-1967 Hepatitis C screening Hepatitis C Screening [facility] Start: 1950 Hepatitis C screening HEPATITIS C VIRUS SCREENING [facility] Start: 1950 Tetanus vaccination TETANUS [facility] Immunizations Immunization Date Immunization Notes Care Provider Lora mathew 01-13-2021 SARS-CoV-2 (COVID-19 ) mRNA-1273 vaccine Owen COOPER [facility] 12-09-2020 SARS-CoV-2 (COVID-19 ) mRNA-1273 vaccine Owen COOPER [facility] Comment on above: Result Comment: *Stephens ster 05-14-2020 SARS-CoV-2 (COVID-19 ) mRNA-1273 vaccine Owen COOPER [facility] 04-16-2020 SARS-CoV-2 (COVID-19 ) mRNA-1273 vaccine Owen COOPER [facility] Comment on above: Result Comment: 2022: [id number] 03-11-2020 SARS-CoV-2 (COVID-19 ) mRNA-1273 vaccine Owen COOPER [facility] 02-09-2020 SARS-CoV-2 (COVID-19 ) mRNA-1273 vaccine Owen COOPER [facility] 06-26-2018 zoster vaccine recombinant Owen COOPER [facility] 05-05-2017 zoster vaccine recombinant Owen COOPER [facility] Payers Date Payer Category Payer Private Health Insurance [id number] 2022 Self-pay [id number] 2019 Private Health Insurance [id number] 2015 Private Health Insurance HUMANA HUMANA MEDICARE SUPPLEMENT [id number] 2015-Present [phone] [address] [address] [place] [address] Indemnity [id number] 2015 Unknown 2014 Medicare [id number] 2014 Medicare [id number] 1959 Medicare [id number] 1959 Private Health Insurance [id number] [id number] 1949 Unknown [id number] 2.16.840.1.425069.3.579. 2.727 1949 Unknown [id number] 2.16.840.1.178761.3.579. 2.593 1949 Unknown [id number] 2.16.840.1.097415.3.579. 2.593 1949 Unknown [id number] 2.16.840.1.646217.3.579. 2.593 1949 Unknown [id number] 2.16.840.1.155727.3.579. 2.593 1949 Unknown [id number] 2.16.840.1.054849.3.579. 2.593 1949 Unknown [id number] 2.16.840.1.043291.3.579. 2.593 1949 Unknown [id number] 2.16.840.1.640183.3.579. 2.593 1949 Unknown [id number] 2.16.840.1.812193.3.579. 2.593 1949 Unknown [id number] 2.16.840.1.156099.3.579. 2.1259 1949 Unknown [id number] 2.16.840.1.082736.3.579. 2.594 1949 Unknown [id number] 2.16.840.1.253462.3.579. 2.594 1949 Unknown [id number] 2.16.840.1.702908.3.579. 2.594 Medicare [id number] Unknown [id number] 2.16.840.1.947411.3.579. 2.531 Social History Date Type Detail Facility Sex Assigned At [facility] Start: 1950 Sex Assigned At Male F [facility] Start: 04-27-2022 Tobacco smoking status Never smoked tobacco (finding) [facility] Tobacco smoking status Never [facility] Tobacco smoking status NHIS Tobacco smoking consumption unknown [facility] Start: 1950 Sex assigned at Not on file O [facility] Functional Status Date Assessment Result Facility 04-27-2022 Functional Status N/A [facility] Clinical Notes 01-13-2022 to 12-06-2023 Telephone Encounter - Brendan Long - 12/06/2023 3:03 PM EDTTelephone Encounter - Brendan Long - 12/06/2023 3:03 PM Bassem Burns DO - 09/14/2023 2:00 PM EDTPatient Instructions Note Date & Type Note Facility 12-06-2023 Telephone encounter Note First attempt to schedule physical therapy/OT/Speech consult. Patient's declined at this time. They prefer to find a place closer to home. Deactivated please reinstate if the patient calls to schedule. [facility] 12-06-2023 Miscellaneous Notes First attempt to schedule physical therapy/OT/Speech consult. Patient's declined at this time. They prefer to find a place closer to home. Deactivated please reinstate if the patient calls to schedule. documented in this encounter [facility] 12-03-2023 Note HNO ID: [id number] Author: YE WHITNEY MD Service: ? Author Type: Physician Type: Progress Notes Filed: 12/03/2023 16:08 Note Text: [facility] - NEW PATIENT EVALUATION I had the pleasure of evaluating Mr. Henao in our clinic today. 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 He is seen with his and son. Subjective HISTORY OF PRESENT ILLNESS: Initial HPI Mr. Henao is a 73 right handed tran. 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 Most of the Hx was provided by his . She tells me that he was diagnosed with dementia in 2018 but started having trouble with his memory in 2017. She describes this has 'forgetting how to do things'. As examples, he would not be able to figure out how to cut the wood to make a bird house for grand kids, not able to figure out how to put on clothes. Additionally, he has been very sleepy through the day, taking frequent and long naps. When he is not sleepy, he would still be inattentive at times. Additionally, his ability to move around fluctuates tremendously through the day. He would not be able to get off the chair but when he learned there is chocolate in the other room, he would be able to walk across the room without a walker. He has been increasingly confused and disoriented. His 1st fall ws 2 years ago, tripped at his son's house. Most falls are stumbling to the side, once fell back. He has been seen to be slowing down even before his diagnosis of dementia in 2018. He has had falls since Summer 2023. His last fall was a week ago. He fell against his and she broke her right arm. He has fallen 4 times this Summer. He had shingles in the left shoulder area 11/08. He saw neurology in 07/2023 in [place]. He was told he does not have PD and was asked to get an MRI brain. His had to demand an MRI brain and was told it shows the humming bird sign and that he has PSP. He was tried on Sinemet but that did not help. Since 07/2023, he has been getting up at night and going thought the motion as he is working, 'loading hoggs', frming etc. Since 08/2023, he gets more confused at night. His has he had lost depth perception in 2018 when he was having trouble parking his car. 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 He drools in the daytime. He has constipation since 2017. Denies any trouble swallowing. He has trouble projecting his voice, handwriting is smaller, there is no lightheadedness on standing up has trouble standing. He acts out his dreams at night and yells. Father had PD in his 80s. Mother had cancer. One brother of aspiration pneumonia after a fall. 2 sisters are healthy. Movement Disorders Medications Schedule - as of the start of the visit: Medications Prior Anti-Parkinson Therapies Carbidopa/Levodopa Questionnaires Review of Systems ALLERGIES No Known Allergies Current Outpatient Medications Medication Sig donepezil (ARICEPT) 23 mg tablet Take 5 mg by mouth daily at 6 am. memantine (NAMENDA) 10 mg tablet Take 10 mg by mouth two times a day. lamoTRIgine (LAMICTAL) 100 mg tablet Take 100 mg by mouth. clonazePAM (KLONOPIN) 0.5 mg tablet Take 0.5 mg by mouth two times a day as needed. simvastatin (ZOCOR) 20 mg tablet Take 20 mg by mouth daily at bedtime. cyanocobalamin (VITAMIN B-12) 1,000 mcg tab Take 1,000 mcg by mouth once daily. zonisamide (ZONEGRAN) 25 mg capsule Take 2 capsules by mouth once daily. No current facility-administered medications for this visit. Past Medical and Surgical History: has no past medical history on file. has no past surgical history on file. Family History: family history is not on file. Objective Vital Signs: BP 124/68 (BP Site: Right Arm, BP Position: Sitting, BP Cuff Size: Large Adult) Pulse 82 SpO2 99% Orthostatic Vitals: None for this encounter No LMP for male patient. There is no height or weight on file to calculate BMI. General Physical Examination: He is accompanied by his spouse. General: Awake, alert, interactive, no acute distress, good nutritional status, normal development, well-kept General Neurological Examination: Neurological Exam Mental Status Drowsy. Oriented to person, place and time. Recent and remote memory are intact. Speech is normal. Language is fluent with no aphasia. Difficulty spelling words backwards. Fund of knowledge is appropriate for level of education. Cranial Nerves CN II: Visual doll full to confrontation. CN III, IV, : Extraocular movements intact bilaterally. CN VII: Full and symmetric facial movement. CN VIII: Hearing is normal. CN XI: Shoulder shrug strength is normal. Motor Normal muscle bulk throughout. Increased muscle tone. Rigidity in neck and left more than right side. The following abnormal movements were seen: Reduced blink rate Paucity of mov (more content not included)... [facility] 09[facility] History of Present illness Narrative Images from the original note were not included. [facility] [address] [place] [address] [facility] Neurology Follow-Up Note - [facility] Center 09/14/2023 Cameron Henao 1950 72 y.o. [id number] REFERRED BY: Self Self No address on [...] dementia by a neurologist, Dr. 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 They continued to follow with Dr. Gonzales, [...] detail. I also gave them the website CurePSP. We did discuss management strategies going forward. [...] HAS CHANGED IN ANY WAY REFERRAL TO NAIL MAKING MACHINE TENDER LIZA DELAROSA ABOUT COMMUNITY/HOME HELP AND SAFETY RESOURCES MONITOR SWALLOWING, AND FALL RISK [employer] CureP - www.psp.org - select Progressive Supranuclear Palsy [...] includes pre-visit chart review (including relevant labs/imaging), cilk-xa-bnae time counseling and educating the patient, pre- and post-visit documentation and placing referrals. Dustin Burns D.O., M.B.A. Division of Movement Disorders Department of Neurology CC: Jayla Kong CC: - Neurology documented in this encounter [facility] 09-14-2023 Instructions Dustin Burns DO - [...] HAS CHANGED IN ANY WAY REFERRAL TO NAIL MAKING MACHINE TENDER LIZA DELAROSA ABOUT COMMUNITY/HOME HELP AND SAFETY RESOURCES MONITOR SWALLOWING, AND FALL RISK [employer] CurePSP - www.[email or web address] - select Progressive Supranuclear Palsy SET UP VIDEO VIRTUAL VISIT IN 3 MONTHS documented in this encounter [facility] 08-04-2023 History of Present illness Narrative Images from the original note were not included. [facility] [address] [place] [address] Dr Scott MIRANDA [address] [facility] Neurology New Patient Note - [facility] 08/04/2023 Cameron Henao 1950 72 y.o. [id number] REFERRED BY: Jayla Kong MD [address] [place] [address] Chief Complaint Patient presents with New Patient [...] be seen by Jayla Kong MD [address] [place] [address] , as well as his PCP, Jayla Kong. He reportedly has a history of dementia and so his family provides the history. He was diagnosed with dementia by a neurologist, Dr. 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 They continued to follow with Dr. Gonzales, [...] No truncal ataxia is seen while sitting. Iarvnt-bzoq-iqlyfj testing is normal bilaterally without dysmetria. Rapid [...] includes pre-visit chart review (including relevant labs/imaging), ieiv-iz-jsmv time counseling and educating the patient, pre- and post-visit documentation and placing referrals. Dustin Burns D.O., M.B.A. Division of Movement Disorders Department of Neurology CC: Jayla Kong CC: - Neurology Cameron Henao was offered and declined a Medical Converting Supervisor for this exam/procedure/test 08/04/2023. documented in this encounter [facility] 08-04-2023 Instructions Dustin Burns, DO - 08/04/2023 [...] IN 3 MONTHS documented in this encounter [facility] 04-27-2022 Hospital Discharge instructions Patient Education 04/27/2022 [...] one of these risk factors: ?Being of -Swedish descent. ?Having a family history of prostate [...] you: Are older than age 55. Are -Swedish. Have a father, brother, or uncle who [...] 11/05/2017 Document Revised: 01/07/2018 Document Reviewed: 11/05/2017 TBS Patient Education 2020 [employer]. Follow Up Care 02/11/2021 08:58:53 With:DONAVON KOENIG, Owen Ko, URL Address: [facility] [address] , [place] [address]- When: Unknown [facility] 01-13-2022 Evaluation note Encounter Date Diagnosis [...] office today. Contact PCP for follow up [facility] Other Evaluation + Plan note No data available for this section [facility] evaluation noteNo assessment information available [facility] Work Phone: Evaluation note* Diagnosis Atypical parkinsonism- Primary Paralysis agitans Alzheimers disease Alzheimer's disease Abnormality of gait and mobility Abnormality of gait [facility] Diagnosis Atypical parkinsonism- Primary Paralysis agitans Abnormality of gait and mobility Abnormality of gait Eye movement abnormality Unspecified disorder of eye movements Vivid dream Other dysfunctions of sleep stages or arousal from sleep Alzheimers disease Alzheimer's disease Cognitive impairment Unspecified persistent mental disorders due to conditions classified elsewhere Nocturia Emotional lability [facility] - Reported* Type Description Date Medical History hypercholesterolemia Medical History Depression Medical History alzheimers disease [facility] Other Progress note No data available for this section [facility] reason for referral (narrative)* Consultation (Routine) - New Request Specialty Diagnoses / Procedures Referred By Mone woodward Referred To Contact Neurology Diagnoses Atypical parkinsonism Cognitive impairment Dustin Burns, [address] [place] [address] [place] [address] Liza Delarosa, GLOST TILE SHADER [address] [place] [address] Referral ID Status Reason Start Date Expiration Date V isits Requested Visits Authorized [id number] New Request 09/14/2023 10/08/2024 1 1 [facility] Summary Purpose Family History No Family History Records FoundNo Family History Records FoundNo Family History Records FoundNo Family History Records FoundNo Family History Records FoundNo Family History Records FoundNo Family History Records Found Advance Directives No Advanced Directives Records Found Advance Directive Response Recorded Date/ Time Advance Directives No June 01 018 2:30pm Additional Source Comments (unrecognized sect ion and content) No Status Records FoundNo Status Records FoundNo Status Records FoundNo Status Records FoundNo Status Records FoundNo Status Records FoundNo Status Records Found INFORMATION SOURCE (unrecogn ized section and content) DATE CREATED AUTHOR 07/29/2017 [facility] DATE CREATED AUTHOR AUTHOR'S ORGANIZ ATION 01/30/2022 [facility] DATE CREATED AUTHOR AUTHOR'S ORGANIZ ATION 04/28/2022 [facility] DATE CREATED AUTHOR AUTHOR'S ORGANIZ ATION 06/24/2022 [facility] DATE CREATED AUTHOR AUTHOR'S ORGANIZ ATION 03/03/[address] [facility] DATE CREATED AUTHOR AUTHOR'S ORGANIZ ATION 09/16/2023 [facility] DATE CREATED AUTHOR AUTHOR'S ORGANIZ ATION 12/07/2023 [facility] REASON FOR VISIT (unrecogniz ed section and content) Reason Comments New Patient 72 year old Male PD. Specialty Diagnoses / Procedures Referred By Mone woodward Referred To Contact Neurology Diagnoses Parkinson's disease, unspecified whether dyskinesia present, unspecified whether manifestations fluctuate Jayla Kong MD [address] [place] [facility] [place] [address] [facility] [address] [place] [address] Referral ID Status Reason Start Date Expiration Date V isits Requested Visits Authorized [id number] Pending Review 07/21/2023 08/14/2024 1 1 Specialty Diagnoses / Procedures Referred By Mone woodward Referred To Contact Diagnoses Atypical parkinsonism Procedures MRI BRAIN WITH AND WITHOUT CONTRAST CHG MRI BRAIN BRAIN STEM W/O W/CONTRAST MATERIAL Dustin Burns, [address] [place] [address] Referral ID Status Reason Start Date Expiration Date V isits Requested Visits Authorized [id number] New Request 08/18/2023 09/11/2024 1 1 Reason Comments Follow-up Reason Comments Results First attempt to [facility] physical therapy/OT/Speech consult. Patient's declined at this time. They prefer to find a place closer to home. Deactivated please reinstate if the patient calls to schedule. Care Teams (unrecognized sec tion and content) Team Status: Inactive Member Role Status Dates Jayla Kong MD Primary Care Provider Active VADIM Pablo Attending Provider Active Team Status: Active Member Role Status Dates Jayla Kong MD Primary Care Provider Active Retail Training Manager Relationship Specialty Start Date End Date Jayla Kong MD [address] [place] [address] PCP - General Family Medicine 08/04/23 Retail Training Manager Relationship Specialty Start Date End Date Jayla Kong MD [address] [place] [address] PCP - General Family Medicine 08/04/23 Retail Training Manager Relationship Specialty Start Date End Date Jayla Kong MD [address] [place] [address] PCP - General Family Medicine 08/04/23 Goals (unrecognized section and content) Goals may be documented in a n alternate section Source Comments (unrecognize d section and content) In the event this informatio n is protected by the Federal Confidentiality of Alcohol and Drug Abuse Patient Records regulations: The Federal rules restrict any use of the information to criminally investigate or prosecute any alcohol or drug abuse patient.[facility] FOR RECORDS PERTAINING TO PATIENTS WHO ARE [...] BE BASED ON THE PRIMARY CLINICAL RECORDS. [facility]. provides no warranty or guarantee of the accuracy or completeness of information in this document.
--- NOTE | 2023-12-10 06:58 | XR_ITS ---
The [address] [address] Patient Name: DEDE ESTEVEZ MRN: [id number] date: 1950 Sex: M Assigned Patient Location: ER Current Patient Location: ER Accession/Order Number: [id number] Exam Date: 12/10/2023 07:12 Report Date: 12/10/2023 07:58 At the request of: JOSIANE NIETO Procedure: XR shoulder LT min 2V EXAM: XR shoulder LT min 2V HISTORY: pain, deformity COMPARISON: None. TECHNIQUE: AP and transscapular views left shoulder performed. FINDINGS: There is an acute displaced fracture of the distal left clavicle with 2.8 cm superior displacement of the proximal fracture fragment. There is widening of the coracoclavicular interval measuring 2.6 cm consistent with disruption of the coracoclavicular ligament. The AC joint remains intact. The glenohumeral articulation is maintained. The proximal humerus and imaged portions of the ribs are unremarkable. XR/XR shoulder LT min 2V IMPRESSION: There is an acute displaced fracture of the distal left clavicle with 2.8 cm superior displacement of the proximal fracture fragment. There is widening of the coracoclavicular interval measuring 2.6 cm consistent with disruption of the coracoclavicular ligament. The AC joint is maintained. Electronically authenticated by: MICHELLE LONGORIA Date: 12/10/2023 07:58
[2023-12-10] MEDS: KETOROLAC TROMETHAMINE 30 MG/ML VIAL 15 MG IVP (07:50)
--- NOTE | 2023-12-10 08:00 | ED_ITS ---
HPI HPI - Fall General Chief Complaint: Fall Stated Complaint: fall l shoulder injury Time Seen by Provider: 12/10/23 07:03 Source: family Mode of arrival: Wheelchair Limitations: physical limitation History of Present Illness HPI Narrative: The patient is coming to us with a left shoulder pain that started this morning after he fell down, patient had no head injury he had history of Parkinson he have some balance issues sometimes No loss of consciousness no other concern except for the left shoulder pain Related Data Home Medications ?Medication ?Instructions ?Recorded ?Confirmed carbidopa 25 mg-levodopa 100 mg 2 tab PO TID 07/17/23 12/10/23 tablet clonazepam 0.5 mg tablet 0.5 mg PO Q12H 07/17/23 12/10/23 donepezil 23 mg tablet 23 mg PO DAILY 07/17/23 12/10/23 lamotrigine 100 mg tablet 100 mg PO Q12H 07/17/23 12/10/23 memantine 10 mg tablet 10 mg PO BID 07/17/23 12/10/23 polyethylene glycol 3350 17 gram 17 g PO DAILY 07/17/23 12/10/23 oral powder packet (ClearLax) simvastatin 20 mg tablet 20 mg PO DAILY 07/17/23 12/10/23 quetiapine 25 mg tablet mg 12/10/23 trospium 20 mg tablet mg 12/10/23 zonisamide 25 mg capsule mg PO 12/10/23 Previous Rx's ?Medication ?Instructions ?Recorded diclofenac sodium 50 mg 50 mg PO Q12H PRN pain #14 tabs 12/10/23 tablet,delayed release oxycodone-acetaminophen 5 mg-325 1 tab PO Q8H PRN pain 5 days #15 12/10/23 mg tablet (Percocet) tabs Allergies Allergy/AdvReac Type Severity Reaction Status Date / Time No Known Drug Allergies Allergy Verified 12/10/23 06:51 Opioid HPI Opioid Management Most Recent Pain and Opioid Data: Last Pain Scale 6 07/21/23 12:04 07/21/23 Last Pain Intensity 4 07/19/23 08:29 07/19/23 Last MAR Pain Assessment 12/10/23 07:50 Last ORT Total Score 1 07/17/23 13:20 07/17/23 Last ORT Risk Category Low Risk 07/17/23 13:20 07/17/23 Review of Systems ROS Status of ROS 10 or more systems reviewed and unremark able except as noted in history and below [facility] Medical History (Updated 12/10/23 @ 08:30 by Janna Woods MD) Closed fracture of transverse process of lumbar vertebra ?S32.009A - Unspecified fracture of unspecified lumbar vertebra, initial encounter for closed fracture (ICD-10) Anxiety ?F41.9 - Anxiety disorder, unspecified (ICD-10) Depression ?F32.A - Depression, unspecified (ICD-10) Urinary hesitancy ?R39.11 - Hesitancy of micturition (ICD-10) High blood cholesterol ?E78.00 - Pure hypercholesterolemia, unspecified (ICD-10) Dementia ?F03.90 - Unspecified dementia, unspecified severity, without behavioral disturbance, psychotic disturbance, mood disturbance, and anxiety (ICD-10) Parkinson disease ?G20.A1 - Parkinson's disease without dyskinesia, without mention of fluctu ations (ICD-10) Surgical History (Updated 07/17/23 @ 13:47 by Kiah Garcia) H/O transurethral resection of prostate ?Z98.890 - Other specified postprocedural states (ICD-10) ?Z90.79 - Acquired absence of other genital organ(s) (ICD-10) Family History (Updated 07/17/23 @ 13:47 by Kiah Garcia) Mother Family history of cancer Sister Family history of hypertension Social History (Updated 07/17/23 @ 13:50 by Kiah Garcia) Within the past year, how often did you have a drink containing alcohol: never Within the past year, how often did you have six or more drinks on one occasion: never Score interpretation: A score less than 4 is consistent with normal alcohol consumption. Smoking status: Never smoker Non-prescribed substance use: denies use Previous occupational history: retired Highest level of school completed/degree received: high school graduate Are you now , , , , never or living with a partner: Little interest or pleasure in doing things: not at all Feeling down, depressed, or hopeless: not at all Feel stressed/tense/nervous/anxious/difficulty sleeping: not at all Exam Narrative Exam Narrative: Nurses notes and vital signs reviewed and patient is not hypoxic. Left arm: The patient have an obvious deformity of the left shoulder with elevated clavicle mostly the patient have no pain upon palpation of the left shoulder itself and the patient have good pulse in the radial The patient have no other injuries otherwise they have intact neurovascular system in the left arm General: Well-appearing and in no apparent distress. Skin: Warm, dry, no pallor noted. No rash. Head: Normocephalic, atraumatic. Neck: Supple, non-tender. Eye: Pupils are equal, round and EOMI. No scleral icterus. Ears, Nose, Mouth, and Throat: TM are clear, no nasal mucosal hypertrophy. Oral mucosa is moist, no posterior oropharynx erythema, uvula is mid-line Cardiovascular: Regular Rate and Rhythm without murmur, gallop or rub. Respiratory: No accessory muscle use or respiratory distress. Lungs are clear to auscultation, no wheezing, rales or rhonchi Chest Wall: no tenderness Back: No midline thoracic or lumbar vertebral tenderness. No CVA tenderness GI: Abdomen is soft, non-distended. Normal bowel sounds. No masses appreciated. No tenderness to palpation. No rebound, guarding, or rigidity noted. Constitutional Vital Signs, click to edit/add: Last Vital Signs Temp 97.3 F L 12/10/23 06:43 Pulse 103 H 12/10/23 06:43 Resp 16 12/10/23 06:43 BP 173/98 H 12/10/23 06:43 Pulse Ox 99 12/10/23 06:43 O2 Del Method Room Air 12/10/23 06:43 Course Vital Signs Vital signs: Vital Signs Temperature 97.3 F L 12/10/23 06:43 Pulse Rate 103 H 12/10/23 06:43 Respiratory Rate 16 12/10/23 06:43 Blood Pressure 173/98 H 12/10/23 06:43 Pulse Oximetry 99 12/10/23 06:43 Oxygen Delivery Method Room Air 12/10/23 06:43 Temperature 97.3 F L 12/10/23 06:43 Pulse Rate 103 H 12/10/23 06:43 Respiratory Rate 16 12/10/23 06:43 Blood Pressure 173/98 H 12/10/23 06:43 Pulse Oximetry 99 12/10/23 06:43 Oxygen Delivery Method Room Air 12/10/23 06:43 MDM - Fall MDM Narrative Medical decision making narrative: The patient x-ray of the left arm showed that the patient have left displaced distal end of the clavicle that is showing a significant tenting of the skin After applying a shoulder sling the patient has his case discussed with Dr. Jacome and orthopedic service and he will follow-up with him Wednesday Meanwhile the patient will continue with pain control with Voltaren and Percocet The patient is to follow up with primary care physician in next 2-3 days or to return to the emergency department should any of the signs or symptoms worsen or new symptoms develop. The patient agrees with the following Diagnosis and Treatment plan and the patient will be discharged home.. Discharge Plan Discharge Chief Complaint: Fall Clinical Impression: Clavicular fracture Qualifiers: Encounter type: initial encounter Clavicle location: unspecified part of clavicle Fracture type: closed Fracture alignment: displaced Laterality: left Q ualified Code(s): S42.002A - Fracture of unspecified part of left clavicle, initial encounter for closed fracture Patient Disposition: Home, Self-Care Time of Disposition Decision: 08:30 Condition: Good Prescriptions / Home Meds: New diclofenac sodium 50 mg tablet,delayed release (DR/EC) 50 mg PO Q12H PRN (Reason: pain) Qty: 14 0RF oxycodone-acetaminophen [Percocet] 5-325 mg tablet 1 tab PO Q8H PRN (Reason: pain) 5 Days Qty: 15 0RF Discontinued acetaminophen 500 mg Tablet 1,000 mg PO Q6H PRN (Reason: Pain) Qty: 240 11RF No Action carbidopa-levodopa 25-100 mg tablet 2 tab PO TID clonazepam 0.5 mg tablet 0.5 mg PO Q12H donepezil 23 mg tablet 23 mg PO DAILY lamotrigine 100 mg tablet 100 mg PO Q12H simvastatin 20 mg tablet 20 mg PO DAILY polyethylene glycol 3350 [ClearLax] 17 gram powder in packet 17 g PO DAILY memantine 10 mg tablet 10 mg PO BID Rx Instructions: AT 6 AND 6 quetiapine 25 mg tablet zonisamide 25 mg capsule PO trospium 20 mg tablet Print Language: Gibraltarian Instructions: Clavicle Fracture (DC) Referrals: Lázaro Kong MD [Primary Care Provider] - 1 week Garrick Jacome MD [Physician] - 12/13/23 12:30 pm Discharge Date/Time: 12/10/23 08:54
[2023-12-10] MEDS: OXYCODONE HCL/ACETAMINOPHEN 5MG/325MG 1 TAB PO (08:18)
== END 2023-12-10 08:54 | disposition home or self-care (01) ==
PROVIDERS: Emergency Provider Emergency Medicine; PCP Family Medicine
DX: S42.032A Displaced fracture of lateral end of left clavicle, initial encounter for closed fracture (principal); W19.XXXA Unspecified fall, initial encounter; G20.A1 Parkinson's disease without dyskinesia, without mention of fluctuations
CPT/HCPCS: 73030; 96374; 99284; J1885

== ENCOUNTER 2023-12-20 12:16 | Outpatient (OUT) | payer MEDICARE, OTHER, SELFPAY ==
--- NOTE | 2023-12-20 | XR_ITS ---
The [address] [address] Patient Name: DEDE ESTEVEZ MRN: [id number] date: 1950 Sex: M Assigned Patient Location: Current Patient Location: Accession/Order Number: [id number] Exam Date: 12/20/2023 12:17 Report Date: 12/23/2023 06:50 At the request of: NARA VERNON Procedure: XR clavicle LT PROCEDURE: XR clavicle LT HISTORY: LEFT CLAVICLE PAIN COMPARISON: XR shoulder left 12/10/2023 FINDINGS: BONES:Fracture of the distal end of the clavicle with cephalad displacement 2.7 cm in relation to the distal fragment. The acromioclavicular joint appears to remain intact. Abnormal widening of the coracoclavicular interval suggesting disruption of the ligament. SOFT TISSUES:Significant skin surface contour deformity overlying shoulder secondary to above-described displaced fracture. EFFUSION:None visible. OTHER: Negative. XR/XR clavicle LT IMPRESSION: 1. Acute, markedly displaced distal left clavicle fracture. Electronically authenticated by: NARA BO Date: 12/23/2023 06:50
--- OUTSIDE RECORDS SUMMARY | 2023-12-20 12:34 | XMS_ITS | CCD ---
Author Organization [facility] CliniSyhi Care Team Providers Care Hydraulic Specialist Name Role Phone PHYSICIAN, DEFAULT Unavailable [...] Primary Care Provider VADIM Gomez Attending Provider [phone] Lynn Gomez Attending Unavailable Lynn Gomez Admitting [...] Unavailable HOY ., DR DICKERSON Consulting Unavailable VIENNA, DR ELI Sanchez Consulting Unavailable SLOAN ., GENE Consulting Unavailable HOY ., DR DICKERSON Admitting Unavailable HOY ., DR DICKERSON Attending Unavailable HOY ., DR DICKERSON Consulting Unavailable HOY ., DR DICKERSON Primary Care Unavailable JUAN DANIEL GARCIA Attending Unavailable Jayla Kong MD Primary Care Provider [phone] JAYLA KONG Referring Unavailable JAYLA KONG Primary [...] Medication Allergies] Propensity to adverse reactions (disorder) [facility] Repository Medications Current Medications Medication Drug [...] hydrochloride 10 mg oral tablet (6 sources) O-xxyxck-S-aspartate Receptor Antagonist Start: 09-14-2023 take 1 tablet [...] Date: 02/09/19 Status: Ordered polyethylene glycol 3350 88394 mg powder for oral solution (3 sources) [...] 11-08-2021 Chronic Other aftercare (1 source) 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 He saw neurology in 07/2023 in [place]. He was told he does not have [...] is normal. (more content not included)... Normal [facility] MRI BRAIN WITH AND WITHOUT C [facility] 08-26-2023 MRI BRAIN WITH AND WITHOUT CONTRAST [facility] NAME: CAMERON HENAO DATE OF SERVICE: 08/25/2023 Patient No: [id number] Physician: MARIA EUGENIA Date of : 1950 [...] error, please notify the sender immediately at [phone] and permanently delete the original report and destroy any copies or printouts. Normal [facility] CBC W MANUAL DIFFon 06-20-19 23 ATYPICAL LYMPH # 0.61 103/ul Normal [facility] Comment on above: Performed By: #### C BCMAN #### [facility] [address] [place] [address] Dr. Timmy Grant ATYPICAL LYMPH % 4 % Normal [facility] Comment on above: Performed By: #### C BCMAN #### [facility] [address] [place] [address] Dr. Timmy Grant BAND # 0.0 103/ul Normal 0.0-0.3 [facility] Comment on above: Performed By: #### C BCMAN #### [facility] [address] [place] [address] Dr. Timmy Grant BAND % 0 % Normal 0-5 [facility] Comment on above: Performed By: #### C BCMAN #### [facility] [address] [place] [address] Dr. Timmy Grant BASOM # 0.00 103/ul Normal 0.00-0.10 [facility] Comment on above: Performed By: #### C BCNAFISA #### [facility] [address] [place] [address] Dr. Timmy Grant BASOM % 0.0 % Critically low 0.2-2.0 [facility] Comment on above: Performed By: #### C BCMAN #### [facility] [address] [place] [address] Dr. Timmy Grant BLAST # Normal [facility] Comment on above: Performed By: #### C BCMAN #### [facility] [address] [place] [address] Dr. Timmy Grant BLAST % Normal [facility] Comment on above: Performed By: #### C BCMAN #### [facility] [address] [address] [address] Timmy Grant CORRECTED WBC Normal 4.0-11.0 [facility] Comment on above: Performed By: #### C MARY #### [facility] [address] [place] [address] Dr. Timmy Grant EOS # 0.00 103/ul Normal 0.00-0.70 [facility] Comment on above: Performed By: #### C MARY #### [facility] [address] [address] [address] Timmy Grant EOS% 0.0 % Critically low 0.9-7.0 [facility] Comment on above: Performed By: #### C MARY #### [facility] [address] [place] [address] Dr. Timmy Grant HCT 42.1 % Normal 42.0-54.0 [facility] Comment on above: Performed By: #### C MARY #### [facility] [address] [place] [address] Dr. Timmy Grant HGB 13.8 g/dl Critically low 14.0-18.0 [facility] Comment on above: Performed By: #### C MARY #### [facility] [address] [place] [address] Dr. Timmy Grant LYMPHM # 0.00 103/ul Critically low 1.20-3.80 [facility] Comment on above: Performed By: #### C MARY #### [facility] [address] [place] [address] Dr. Timmy Grant LYMPHM% 0.0 % Critically low 20.5-60.0 [facility] Comment on above: Performed By: #### C MARY #### [facility] [address] [place] [address] Dr. Timmy Grant MCH 27.4 pg Normal 25.9-34.0 [facility] Comment on above: Performed By: #### C MARY #### [facility] [address] [place] [address] Dr. Timmy Grant MCHC 32.8 g/dl Normal 29.9-35.2 [facility] Comment on above: Performed By: #### C BCNAFISA #### [facility] [address] [place] [address] Dr. Timmy Grant MCV 83.7 fL Normal 80.0-94.0 [facility] Comment on above: Performed By: #### C BCMAN #### [facility] [address] [place] [address] Dr. Timmy Grant METAMYELOCYTE # Normal [facility] Comment on above: Performed By: #### C BCNAFISA #### [facility] [address] [place] [address] Dr. Timmy Grant METAMYELOCYTE % Normal [facility] Comment on above: Performed By: #### C MARY #### [facility] [address] [place] [address] Dr. Timmy Grant MONOM# 0.00 103/ul Critically low 0.30-0.80 [facility] Comment on above: Performed By: #### C BCNAFISA #### [facility] [address] [place] [address] Dr. Timmy Grant MONOM% 0.0 % Critically low 1.7-12.0 [facility] Comment on above: Performed By: #### C MARY #### [facility] [address] [place] [address] Dr. Timmy Grant MPV 9.7 fL Normal 9.5-13.5 [facility] Comment on above: Performed By: #### C BCMAN #### [facility] [address] [place] [address] Dr. Timmy Grant MYELOCYTE # Normal [facility] Comment on above: Performed By: #### C BCNAFISA #### [facility] [address] [place] [address] Dr. Timmy Grant MYELOCYTE % Normal [facility] Comment on above: Performed By: #### C BCNAFISA #### [facility] [address] [place] [address] Dr. Timmy Grant NRBC Normal [facility] Comment on above: Performed By: #### C MARY #### [facility] [id number] Timmy Grant PLT 224 103/ul Normal 150-450 [facility] Comment on above: Performed By: #### C MARY #### [facility] [id number] Timmy Grant RBC 5.03 106/ul Normal 4.70-6.10 [facility] Comment on above: Performed By: #### C MARY #### [facility] [address] [address] [address] Timmy Grant RDW 12.8 % Normal 11.0-15.0 [facility] Comment on above: Performed By: #### C MARY #### [facility] [address] [address] [address] Timmy Grant SEG # 14.69 103/ul Critically high 1.40-6.50 [facility] Comment on above: Performed By: #### C MARY #### [facility] [address] [address] [address] Timmy Grant SEG % 96.0 % Critically high 43.0-75.0 [facility] Comment on above: Performed By: #### C MARY #### [facility] [address] [address] [address] Timmy Grant WBC 15.3 103/ul Critically high 4.0-11.0 [facility] Comment on above: Performed By: #### C MARY #### [facility] [address] [address] [address] Timmy Grant PROF 14(COMP METB)on 023 Albumin [Mass/Vol] 3.2 g/dL Critically low 3.4-5.0 [facility] Comment on above: Performed By: #### O BSCRN #### [facility] [id number] Timmy Grant Albumin/Globulin [Mass ratio] 0.8 {ratio} Normal [facility] Comment on above: Performed By: #### O BSCRN #### [facility] [address] [address] [address] Timmy Grant ALP [Catalytic activity/Vol] 92 U/L Normal 46-116 [facility] Comment on above: Performed By: #### O BSCRN #### [facility] [address] [address] [address] Timmy Grant ALT [Catalytic activity/Vol] 13 U/L Critically low 16-63 [facility] Comment on above: Performed By: #### O BSCRN #### [facility] [address] [address] [address] Timmy Grant Anion gap [Moles/Vol] 11.0 mmol/L Normal [facility] Comment on above: Performed By: #### O BSCRN #### [facility] [address] [address] [address] Timmy Grant AST [Catalytic activity/Vol] 14 U/L Critically low 15-37 [facility] Comment on above: Performed By: #### O BSCRN #### [facility] [address] [address] [address] Timmy Grant Bilirubin [Mass/Vol] 0.5 mg/dL Normal 0.2-1.0 [facility] Comment on above: Performed By: #### O BSCRN #### [facility] [address] [address] [address] Timmy Grant Calcium [Mass/Vol] 9.5 mg/dL Normal 8.5-10.1 [facility] Comment on above: Performed By: #### O BSCRN #### [facility] [address] [address] [address] Timmy Grant Chloride [Moles/Vol] 105 mmol/L Normal 98-107 [facility] Comment on above: Performed By: #### O BSCRN #### [facility] [address] [address] [address] Timmy Grant CO2 [Moles/Vol] 26.2 mmol/L Normal 21.0-32.0 [facility] Comment on above: Performed By: #### O BSCRN #### [facility] [address] [address] [address] Timmy Grant Creatinine [Mass/Vol] 1.12 mg/dL Normal 0.70-1.30 [facility] Comment on above: Performed By: #### O BSCRN #### [facility] [address] [address] [address] Timmy Grant EGFR-AF [place]ER >60 Normal >=60 [facility] Comment on above: Performed By: #### O BSCRN #### [facility] [address] [address] [address] Timmy Grant EGFR-NON AF [place] >60 Normal >=60 [facility] Comment on above: Performed By: #### O BSCRN #### [facility] [address] [place] [address] Dr. Timmy Grant Globulin (S) [Mass/Vol] 4.2 g/dL Normal [facility] Comment on above: Performed By: #### O BSCRN #### [facility] [address] [place] [address] Dr. Timmy Grant Glucose [Mass/Vol] 171 mg/dL Critically high 74-106 [facility] Comment on above: Performed By: #### O BSCRN #### [facility] [address] [place] [address] Dr. Timmy Grant Potassium [Moles/Vol] 4.2 mmol/L Normal 3.5-5.1 [facility] Comment on above: Performed By: #### O BSCRN #### [facility] [address] [place] [address] Dr. Timmy Grant Protein [Mass/Vol] 7.4 g/dL Normal 6.4-8.2 [facility] Comment on above: Performed By: #### O BSCRN #### [facility] [address] [place] [address] Dr. Timmy Grant Sodium [Moles/Vol] 138 mmol/L Normal 136-145 [facility] Comment on above: Performed By: #### O BSCRN #### [facility] [address] [place] [address] Dr. Timmy Grant Urea nitrogen [Mass/Vol] 15.0 mg/dL Normal 7.0-18.0 [facility] Comment on above: Performed By: #### O BSCRN #### [facility] [address] [place] [address] Dr. Timmy Grant Urea nitrogen/Creatinin e [Mass ratio] 13.4 mg/mg Normal [facility] Comment on above: Performed By: #### O BSCRN #### [facility] [address] [place] [address] Dr. Timmy Grant BNPon 06-18-2022 Natriuretic peptide B (Bld) [Mass/Vol] 114.0 pg/mL Normal <=900.0 [facility] Comment on above: Performed By: #### O BSCRN #### [facility] [address] [place] [address] Dr. Timmy Grant CARDIAC SANJUANA ADMITon 023 CK [Catalytic activity/Vol] 209 U/L Normal 39-308 [facility] Comment on above: Performed By: #### O BSCRN #### [facility] [address] [place] [address] Dr. Timmy Grant CK.MB [Mass/Vol] 2.98 ng/mL Normal <=3.60 [facility] Comment on above: Performed By: #### O BSCRN #### [facility] [address] [place] [address] Dr. Timmy Grant HSTROP 5.6 pg/mL Normal 4.0-76.1 [facility] Comment on above: Result Comment: CUT- OFF POINTS HAVE BEEN ESTABLISHED BASED ON THE FOURTH UNIVERSAL DEFINITIONS OF MYOCARDIAL INFARCTION. THE UPPER REFERENCE LIMIT (URL) OF TROPONIN, DEFINED THE 99TH PERCENTILE OF cTnI DISTRIBUTION IN A REFERENCE POPULATION, HAS BEEN CONFIRMED THE DECISION THRESHOLD FOR MA DIAGNOSIS. Performed By: #### O BSCRN #### [facility] [address] [place] [address] Dr. Timmy Grant NAFISA 118 ng/mL Critically high 16-96 [facility] Comment on above: Performed By: #### O BSCRN #### [facility] [address] [place] [address] Dr. Timmy Grant CBC W MANUAL DIFFon 06-19-19 23 ATYPICAL LYMPH # Normal [facility] Comment on above: Performed By: #### C MARY #### [facility] [address] [place] [address] Dr. Timmy Grant ATYPICAL LYMPH % Normal [facility] Comment on above: Performed By: #### C MARY #### [facility] [address] [place] [address] Dr. Timmy Grant BAND # 0.6 103/ul Critically high 0.0-0.3 [facility] Comment on above: Performed By: #### C MARY #### [facility] [address] [place] [address] Dr. Timmy Grant BAND % 5 % Normal 0-5 [facility] Comment on above: Performed By: #### C MARY #### [facility] [address] [place] [address] Dr. Timmy Grant BASOM # 0.00 103/ul Normal 0.00-0.10 [facility] Comment on above: Performed By: #### C MARY #### [facility] [address] [place] [address] Dr. Timmy Grant BASOM % 0.0 % Critically low 0.2-2.0 [facility] Comment on above: Performed By: #### C MARY #### [facility] [address] [place] [address] Dr. Timmy Grant BLAST # Normal [facility] Comment on above: Performed By: #### C MARY #### [facility] [address] [place] [address] Dr. Timmy Grant BLAST % Normal [facility] Comment on above: Performed By: #### C MARY #### [facility] [address] [place] [address] Dr. Timmy Grant CORRECTED WBC Normal 4.0-11.0 [facility] Comment on above: Performed By: #### C MARY #### [facility] [address] [address] [address] Timmy Grant EOS # 0.00 103/ul Normal 0.00-0.70 [facility] Comment on above: Performed By: #### C MARY #### [facility] [address] [address] [address] Timmy Grant EOS% 0.0 % Critically low 0.9-7.0 [facility] Comment on above: Performed By: #### C MARY #### [facility] [address] [place] [address] Dr. Timmy Grant HCT 46.4 % Normal 42.0-54.0 [facility] Comment on above: Performed By: #### C MARY #### [facility] [address] [place] [address] Dr. Timmy Grant HGB 14.8 g/dl Normal 14.0-18.0 [facility] Comment on above: Performed By: #### Tali HERNANDEZ #### [facility] [address] [place] [address] Dr. Timmy Grant LYMPHM # 0.57 103/ul Critically low 1.20-3.80 [facility] Comment on above: Performed By: #### C MARY #### [facility] [address] [place] [address] Dr. Timmy Grant LYMPHM% 5.0 % Critically low 20.5-60.0 [facility] Comment on above: Performed By: #### C MARY #### [facility] [address] [place] [address] Dr. Timmy Grant MCH 26.8 pg Normal 25.9-34.0 [facility] Comment on above: Performed By: #### Tali HERNANDEZ #### [facility] [address] [place] [address] Dr. Timmy Grant MCHC 31.9 g/dl Normal 29.9-35.2 [facility] Comment on above: Performed By: #### Tali HERNANDEZ #### [facility] [address] [place] [address] Dr. Timmy Grant MCV 84.1 fL Normal 80.0-94.0 [facility] Comment on above: Performed By: #### C MARY #### [facility] [address] [place] [address] Dr. Timmy Grant METAMYELOCYTE # Normal [facility] Comment on above: Performed By: #### C MARY #### [facility] [address] [place] [address] Dr. Timmy Grant METAMYELOCYTE % Normal [facility] Comment on above: Performed By: #### C MARY #### [facility] [address] [place] [address] Dr. Timmy Grant MONOM# 0.23 103/ul Critically low 0.30-0.80 [facility] Comment on above: Performed By: #### C MARY #### [facility] [address] [place] [address] Dr. Timmy Grant MONOM% 2.0 % Normal 1.7-12.0 [facility] Comment on above: Performed By: #### C AMRY #### [facility] [address] [place] [address] Dr. Timmy Grant MPV 9.5 fL Normal 9.5-13.5 [facility] Comment on above: Performed By: #### C MARY #### [facility] [address] [place] [address] Dr. Timmy Grant MYELOCYTE # Normal [facility] Comment on above: Performed By: #### C MARY #### [facility] [address] [place] [address] Dr. Timmy Grant MYELOCYTE % Normal [facility] Comment on above: Performed By: #### C MARY #### [facility] [address] [place] [address] Dr. Timmy Grant NRBC Normal [facility] Comment on above: Performed By: #### C MARY #### [facility] [address] [place] [address] Dr. Timmy Grant PLT 219 103/ul Normal 150-450 [facility] Comment on above: Performed By: #### C MARY #### [facility] [address] [place], [place] [address] Dr. Timmy Grant RBC 5.52 106/ul Normal 4.70-6.10 [facility] Comment on above: Performed By: #### C MARY #### [facility] [address] [place], [place] [address] Dr. Timmy Grant RDW 12.6 % Normal 11.0-15.0 [facility] Comment on above: Performed By: #### C MARY #### [facility] [address] [place], [place] [address] Dr. Timmy Grant SEG # 10.12 103/ul Critically high 1.40-6.50 [facility] Comment on above: Performed By: #### C MARY #### [facility] [address] [address] [address] Timmy Grant SEG % 88.0 % Critically high 43.0-75.0 [facility] Comment on above: Performed By: #### C MARY #### [facility] [address] [place], [place] [address] Dr. Timmy Grant WBC 11.5 103/ul Critically high 4.0-11.0 [facility] Comment on above: Performed By: #### C MARY #### [facility] [address] [place], [place] [address] HEAD WO CONon 06-18-2022 CT HEAD WO CON EXAM: CT HEAD WO CON ; [id number] REASON FOR EXAM: Pain COMPARISON: None. TECHNIQUE: [...] by: BENTON FOSTER Date: 2022-06-18 11:17 Normal [facility] CULTURE BLOODon 06-18-2022 Microscopic examination of blood, culture Culture Observations: NO GROWTH AT 5 DAYS. Normal [facility] Comment on above: Performed By: #### O BSCRN #### [facility] [address] [place] [address] Dr. Timmy Grant Microscopic examination of blood, culture Culture Observations: NO GROWTH AT 5 DAYS. Normal [facility] Comment on above: Performed By: #### O BSCRN #### [facility] [address] [place] [address] Dr. Timmy Grant ER URINE PROFILEon 3 Bilirubin Ql (U) Negative Normal NEGATIVE [facility] Comment on above: Performed By: #### E RUR #### [facility] [address] [place] [address] Dr. Timmy Grant Clarity (U) CLEAR Normal CLEAR [facility] Comment on above: Performed By: #### E RUR #### [facility] [address] [place] [address] Dr. Timmy Grant Color (U) YELLOW Normal YELLOW [facility] Comment on above: Performed By: #### E RUR #### [facility] [address] [place] [address] Dr. Timmy Grant ERUAHD A micrscopic examina tion will be performed if indicated. Normal [facility] Comment on above: Performed By: #### E RUR #### [facility] [address] [place] [address] Dr. Timmy Grant Glucose Ql (U) Negative Normal NEGATIVE [facility] Comment on above: Performed By: #### E RUR #### [facility] [address] [place] [address] Dr. Timmy Grant Hemoglobin Ql (U) Negative Normal NEGATIVE [facility] Comment on above: Performed By: #### E RUR #### [facility] [address] [place] [address] Dr. Timmy Grant Ketones Ql (U) TRACE Abnormal NEGATIVE [facility] Comment on above: Performed By: #### E RUR #### [facility] [address] [place] [address] Dr. Timmy Grant LEUKOCYTES Negative Normal NEGATIVE [facility] Comment on above: Performed By: #### E RUR #### [facility] [address] [place] [address] Dr. Timmy Grant Nitrite Ql (U) Negative Normal NEGATIVE [facility] Comment on above: Performed By: #### E RUR #### [facility] [address] [place] [address] Dr. Timmy Grant pH (U) 5.5 [pH] Normal 5-9 [facility] Comment on above: Performed By: #### E RUR #### [facility] [address] [place] [address] Dr. Timmy Grant SPEC GRAVITY 1.025 Normal 1.005-<=1.02 5 [facility] Comment on above: Performed By: #### E RUR #### [facility] [address] [place] [address] Dr. Timmy Grant UA PROTEIN Negative Normal NEGATIVE/ TRACE [facility] Comment on above: Performed By: #### E RUR #### [facility] [address] [place] [address] Dr. Timmy Grant UR MICRO IND NOT INDICATED Normal [facility] Comment on above: Performed By: #### E RUR #### [facility] [address] [place] [address] Dr. Timmy Grant Urobilinogen Qn (U) 0.2 {Ana'U}/dL Normal 0.2 - 1.0 [facility] Comment on above: Performed By: #### E RUR #### [facility] [address] [place] [address] Dr. Timmy Grant GROUP A STREP CULTUREon 06-08 S. pyogenes Ag Ql (Unsp spec) Culture Observations: NEGATIVE FOR GROUP A STREPTOCOCCUS. Normal [facility] Comment on above: Performed By: #### P SASC, VITB12, VITAD #### [facility] [address] [place] [address] Dr. Timmy Grant LACTATE/LACTIC ACIDon 2022 Lactate [Moles/Vol] 2.0 mmol/L Normal 0.4-2.0 [facility] Comment on above: Performed By: #### P SASC, VITB12, VITAD #### [facility] [address] [place] [address] Dr. Timmy Grant Lactate [Moles/Vol] 1.7 mmol/L Normal 0.4-2.0 [facility] Comment on above: Performed By: #### E RUR #### [facility] [address] [place] [address] Dr. Timmy Grant PROF 14(COMP METB)on 023 Albumin [Mass/Vol] 3.6 g/dL Normal 3.4-5.0 [facility] Comment on above: Performed By: #### O BSCRN #### [facility] [address] [place] [address] Dr. Timmy Grant Albumin/Globulin [Mass ratio] 0.8 {ratio} Normal [facility] Comment on above: Performed By: #### O BSCRN #### [facility] [address] [place] [address] Dr. Timmy Grant ALP [Catalytic activity/Vol] 94 U/L Normal 46-116 [facility] Comment on above: Performed By: #### O BSCRN #### [facility] [address] [place] [address] Dr. Timmy Grant ALT [Catalytic activity/Vol] 33 U/L Normal 16-63 [facility] Comment on above: Performed By: #### O BSCRN #### [facility] [address] [address] [address] Timmy Grant Anion gap [Moles/Vol] 12.5 mmol/L Normal [facility] Comment on above: Performed By: #### O BSCRN #### [facility] [address] [address] [address] Timmy Grant AST [Catalytic activity/Vol] 19 U/L Normal 15-37 [facility] Comment on above: Performed By: #### O BSCRN #### [facility] [address] [address] [address] Timmy Grant Bilirubin [Mass/Vol] 0.8 mg/dL Normal 0.2-1.0 [facility] Comment on above: Performed By: #### O BSCRN #### [facility] [address] [address] [address] Timmy Grant Calcium [Mass/Vol] 9.4 mg/dL Normal 8.5-10.1 [facility] Comment on above: Performed By: #### O BSCRN #### [facility] [address] [address] [address] Timmy Grant Chloride [Moles/Vol] 100 mmol/L Normal 98-107 [facility] Comment on above: Performed By: #### O BSCRN #### [facility] [address] [address] [address] Timmy Grant CO2 [Moles/Vol] 28.7 mmol/L Normal 21.0-32.0 [facility] Comment on above: Performed By: #### O BSCRN #### [facility] [address] [address] [address] Timmy Grant Creatinine [Mass/Vol] 1.43 mg/dL Critically high 0.70-1.30 [facility] Comment on above: Performed By: #### O BSCRN #### [facility] [address] [address] [address] Timmy Grant EGFR-AF [place] 59 mL/min/1.73m2 Critically low >=60 [facility] Comment on above: Performed By: #### O BSCRN #### [facility] [address] [address] [address] Timmy Grant EGFR-NON AF [place] 49 mL/min/1.73m2 Critically low >=60 [facility] Comment on above: Performed By: #### O BSCRN #### [facility] [address] [address] [address] Timmy Grant Globulin (S) [Mass/Vol] 4.6 g/dL Normal [facility] Comment on above: Performed By: #### O BSCRN #### [facility] [address] [address] [address] Timmy Grant Glucose [Mass/Vol] 161 mg/dL Critically high 74-106 [facility] Comment on above: Performed By: #### O BSCRN #### [facility] [address] [place] [address] Dr. Timmy Grant Potassium [Moles/Vol] 4.2 mmol/L Normal 3.5-5.1 [facility] Comment on above: Performed By: #### O BSCRN #### [facility] [address] [address] [address] Timmy Grant Protein [Mass/Vol] 8.2 g/dL Normal 6.4-8.2 [facility] Comment on above: Performed By: #### O BSCRN #### [facility] [address] [place] [address] Dr. Timmy Grant Sodium [Moles/Vol] 137 mmol/L Normal 136-145 [facility] Comment on above: Performed By: #### O BSCRN #### [facility] [address] [address] [address] Timmy Grant Urea nitrogen [Mass/Vol] 14.0 mg/dL Normal 7.0-18.0 [facility] Comment on above: Performed By: #### O BSCRN #### [facility] [address] [address] [address] Timmy Grant Urea nitrogen/Creatinin e [Mass ratio] 9.8 mg/mg Normal [facility] Comment on above: Performed By: #### O BSCRN #### [facility] [address] [place] [address] Dr. Timmy Grant PROTIMEon 06-18-2022 INR Coag (PPP) [Relative time] 1.01 {INR} Normal [facility] Comment on above: Performed By: #### P SASC, VITB12, VITAD #### [facility] [address] [place] [address] Dr. Timmy Grant INR GUIDELINES SEE BELOW Normal [facility] Comment on above: Result Comment: REMIGIO RED INR: 2.0 - 3.0 CONDITIONS NOT LISTED BELOW 2.5 - 3.5 FOR PROSTHETIC HEART VALVE REPLACEMENT 2.5 - 3.5 RECURRENT THROMBOSIS Performed By: #### P SASC, VITB12, VITAD #### [facility] [address] [place] [address] Dr. Timmy Grant PT Coag (PPP) [Time] 10.7 s Normal 9.0-11.6 [facility] Comment on above: Performed By: #### P SASC, VITB12, VITAD #### [facility] [address] [place] [address] Dr. Timmy Grant PTTon 06-18-2022 aPTT Coag (Bld) [Time] 31.4 s Normal 22.3-36.2 [facility] Comment on above: Performed By: #### P SASC, VITB12, VITAD #### [facility] [address] [place] [address] Dr. Timmy Grant STREPT SCREENon 06-18-2022 STREP SCREEN A Negative Normal NEGATIVE [facility] Comment on above: Performed By: #### E RUR #### [facility] [address] [place] [address] Dr. Timmy Grant SYMPTOMATIC COVID-19 ANTIGEN on 06-18-2022 EUA Statement SEE BELOW Normal [facility] Comment on above: Result Comment: This test [...] By: #### P SASC, VITB12, VITAD #### [facility] [address] [place] [address] Dr. Timmy Grant SARS-CoV-2 (COVID-19) RNA ALEXA+probe Ql (Unsp spec) Negative Normal NEGATIVE [facility] Comment on above: Performed By: #### P SASC, VITB12, VITAD #### [facility] [address] [place] [address] Dr. Timmy Grant XR CHEST 1 Von [...] ELI RAMÍREZ Date: 2022-06-18 08:25 Normal [facility] VIT B12 AND FOLATEon 023 Cobalamin (Vitamin B12) [Mass/Vol] 270.0 pg/mL Normal 193.0-986.0 [facility] Comment on above: Performed By: #### B 12FOL #### [facility] [address] [place] [address] Dr. Timmy Grant FOLATE 23.00 ng/mL Normal 8.60-58.90 [facility] Comment on above: Performed By: #### B 12FOL #### [facility] [address] [address] [address] Timmy Grant Ambulatory Visit Summaryon 0 04-27-2022 Ambulatory Visit Summary CAMERON HENAO :1950 Visit Date:04/27/2022 Ambulatory Visit Instructions Your Diagnosis BPH with urinary obstruction Tests Performed Urnls Dip Stick Auto w/o Microscopy POC 01266 Your Care Team Attending Physician - Owen [...] Where: [facility] [address] [place] [address]- Medications What How Much When Instructions Unchanged [...] Urnls Dip Stick Auto w/o Microscopy POC 11248 (04/27/2022) Bilirubin Urine Dipstick - Negative Blood Urine Dipstick - Negative Glucose Urine Dipstick - Negative Ketones Urine Dipstick - Negative Leukocytes Urine Dipstick - Negative Nitrite Urine Dipstick - Negative Protein Urine Dipstick - Negative Specific [place] Urine Dipstick - 1.015 Urine Appearance Urine [...] of these risk factors: ? Being of -[place] descent. ? Having a family history of [...] Are older than age 55. ? Are -Burmese. ? Have a father, brother, or uncle who has been diagnosed with prostate cancer. The risk may be higher if your family member's cancer occurred at an early age. What are the benefits of screening? Th (more content not included)... Normal [facility] Patient Educationon 04-28-19 Patient Education Oncology Prostate [...] of these risk factors: ? Being of -[place] descent. ? Having a family history of [...] Are older than age 55. ? Are -Burmese. ? Have a father, brother, or uncle [...] R (more content not included)... Normal [facility] Urology Office/Clinic Noteon 04-27-2022 Urology Office/Clinic Note [...] [facility] [address], [place] [address]- Additional Instructions: PRN, PSA with Dr. Kong [...] Protein Urine Dipstick: Negative (04/27/22 11:39:00) Specific [place] Urine Dipstick: 1.015 (04/27/22 11:39:00) Urine Appearance Urine Dipstick: Clear (04/27/22 11:39:00) Urine Color (more content not included)... Normal [facility] Comment on above: Result Comment: Elec tronically Signed By: Owen COOPER MD\.br\Date and Time Signed: 04/27/22 12:37 EDT\.br\Electronically Co-Signed By: Archana Cheng\.br\Date and Time Co-Signed: 04/27/22 12:36 EDT [facility] 01-28-2022 Lab Reports [id number]:12 [id number] Normal [facility] Covid-19 PCR (CVDTB)on 01-08 SARS-CoV-2 (COVID-19) RNA ALEXA+probe Ql (Unsp spec) Not detected Normal NOT DETECTED [facility] Comment on above: Result Comment: When [...] for this test is supported by the [place] of Health and Human Service's declaration that [...] longer be used). Performed By: #### [facility] #### [facility] [address] [place] [address] Dr. Timmy Grant INFLUENZA A AND B AGon 01-21 [facility] SEE BELOW Normal [facility] Comment on above: Result Comment: Nega tive for Flu B protein antigen. Infection due to Flu B cannot be ruled out. Flu B antigen in the sample may be below the detection limit of the test. Performed By: #### E RUR #### [facility] [address] [place] [address] Dr. Timmy Grant INFLUENZA A AG Positive Abnormal NEGATIVE SEE COMMENT [facility] Comment on above: Performed By: #### E RUR #### [facility] [address] [place] [address] Dr. Timmy Grant INFLUENZA B AG Negative Normal NEGATIVE SEE COMMENT [facility] Comment on above: Performed By: #### E RUR #### [facility] [address] [place], [place] [address] Dr. Timmy Grant INFLUPOSH SEE BELOW Normal [facility] Comment on above: Result Comment: NOTE : Live attenuated influenzae vaccine viruses can cause a positive result for a rapid influenza diagnostic test if administered up to 7 days prior to rapid testing. Performed By: #### E RUR #### [facility] [id number] Timmy Grant INTERNAL CONTROLS Within Normal Limits Normal Wi thin Normal Limits [facility] Comment on above: Performed By: #### E RUR #### [facility] [address] [place], [place] [address] Dr. Timmy Grant XR wrist LT min 3V*on 2021 XR wrist LT min 3V* [facility] Other XR wrist LT min 3V* [facility] [employer] Other XR wrist LT min 3V* [address] [place] [address] [employer] Other XR wrist LT min 3V* [place] [address] [employer] Other XR wrist LT min 3V* XRay Report [employer] Other XR wrist LT min 3V* Signed [employer] Other XR wrist LT min 3V* Patient: Cameron Henao MR#: [id number] [employer] Other XR wrist LT min 3V* 2 [employer] Other XR wrist LT min 3V* : 1950 Acct:[id number] [employer] Other XR wrist LT min 3V* Age/Sex: 71 / M ADM Date: 01/13/22 [employer] Other XR wrist LT min 3V* Loc: XDUCLY Room: Type: [facility] [employer] Other XR wrist LT min 3V* Attending Dr: Lynn Gomez [facility] Other XR wrist LT min 3V* Copies to: LYNN GOMEZ [facility] [employer] Other XR wrist LT min 3V* Ordering Provider: LYNN GOMEZ [facility] [employer] Other XR wrist LT min 3V* Date of Service: 01/13/22 [employer] Other XR wrist LT min 3V* XR/XR wrist LT min 3V*: LEFT WRIST INJURY [employer] Other XR wrist LT min 3V* LEFT WRIST - 4 views [employer] Other XR wrist LT min 3V* CLINICAL HISTORY: Fell yesterday now with pain in left wrist and swelling. [employer] Other XR wrist LT min 3V* COMPARISON: None [facility] Other XR wrist LT min 3V* FINDINGS: [employer] Other XR wrist LT min 3V* Mild soft tissue swelling. Calcification versus radiopaque foreign body along the volar soft [employer] Other XR wrist LT min 3V* tissues. No acute bony process. Presumed remote triquetral fracture. Cystic changes involving the [employer] Other XR wrist LT min 3V* carpal bones without significant joint space narrowing. [employer] Other XR wrist LT min 3V* XR/XR wrist LT min 3V* [facility] Other XR wrist LT min 3V* IMPRESSION: [employer] Other XR wrist LT min 3V* MILD SOFT TISSUE SWELLING WITHOUT DEFINITIVE ACUTE BONY PROCESS. [employer] Other XR wrist LT min 3V* PRESUMED REMOTE TRIQUETRAL FRACTURE. CORRELATION WITH PAIN IS RECOMMENDED. [employer] Other XR wrist LT min 3V* Impression dictated by: Mehrdad Garcia Jr., D.OLexi01/13/2022 10:23 AM [employer] Other XR wrist LT min 3V* Dictation Location: [facility] [employer] Other XR wrist LT min 3V* Transcribed By: [facility] 01/13/22 102 [employer] Other XR wrist LT min 3V* Dictated By: Mehrdad Garcia Jr, DO 01/13/22 [facility] [employer] Other XR wrist LT min 3V* Signed By: [employer] Other XR wrist LT min 3V* 01/13/22 [facility] Other XR wrist LT min 3V* [facility] [place] [address] [place] [address] XRay Report Signed Patient: Cameron Henao MR#: [id number] 2 : 1950 Acct:[id number] Age/Sex: 71 / M ADM Date: 01/13/22 Loc: [facility] Room: Type: [facility] Attending Dr: Lynn FIERRO Copies to: LYNN [...] Garcia Jr., D.O.01/13/2022 10:23 AM Dictation Location: [place] [address] Transcribed By: [facility] 01/13/22 1023 Dictated By: Mehrdad Garcia Jr, DO 01/13/22 1020 Signed By: 01/13/22 1023 [facility] OCC BLD IMMUNO SCREENon 10-0 OCCULT BLOOD Negative Normal NEGATIVE [facility] Comment on above: Performed By: #### O BSCRN #### [facility] [address] [place] [address] Dr. Timmy Grant INSULINon 11-07-2021 Insulin 27.7 uIU/mL Critically high 2.6-24.9 [facility] Comment on above: Performed By: #### P SASC, VITB12, VITAD #### [facility] [address] [place] [address] Dr. Timmy Grant T4, T3U, FTI LABCORPon 11-07 Free Thyroxine Index 1.7 Normal 1.2-4.9 [facility] Comment on above: Performed By: #### T HYLC #### [facility] [address] [place] [address] Dr. Timmy Grant T3 Uptake 23 % Critically low 24-39 [facility] Comment on above: Performed By: #### T HYLC #### [facility] [address] [place] [address] Dr. Timmy Grant T4 [Mass/Vol] 7.2 ug/dL Normal 4.5-12.0 [facility] Comment on above: Performed By: #### T HYLC #### [facility] [address] [place] [address] Dr. Timmy Grant BNPon 11-06-2021 Natriuretic peptide B (Bld) [Mass/Vol] 31.0 pg/mL Normal <=900.0 [facility] Comment on above: Performed By: #### E RUR #### [facility] [address] [place] [address] Dr. Timmy Grant CBC AUTO DIFFon 11-06-2021 BASO # 0.0 103/ul Normal 0.0-0.1 [facility] Comment on above: Performed By: #### P SASC, VITB12, VITAD #### [facility] [address] [place] [address] Dr. Timmy Grant Basophils/100 WBC (Bld) 0.6 % Normal 0.2-2.0 [facility] Comment on above: Performed By: #### P SASC, VITB12, VITAD #### [facility] [address] [place] [address] Dr. Timmy Grant EO # 0.1 103/ul Normal 0.0-0.7 [facility] Comment on above: Performed By: #### P SASC, VITB12, VITAD #### [facility] [address] [place] [address] Dr. Timmy Grant Eosinophils/100 WBC (Bld) 1.7 % Normal 0.9-7.0 [facility] Comment on above: Performed By: #### P SASC, VITB12, VITAD #### [facility] [address] [place] [address] Dr. Timmy Grant Erythrocyte distribution width (RBC) [Ratio] 13.3 % Normal 11.0-15.0 [facility] Comment on above: Performed By: #### P SASC, VITB12, VITAD #### [facility] [address] [place] [address] Dr. Timmy Grant Hematocrit (Bld) [Volume fraction] 48.8 % Normal 42.0-54.0 [facility] Comment on above: Performed By: #### P SASC, VITB12, VITAD #### [facility] [address] [place] [address] Dr. Timmy Grant Hemoglobin (Bld) [Mass/Vol] 15.7 g/dL Normal 14.0-18.0 [facility] Comment on above: Performed By: #### P SASC, VITB12, VITAD #### [facility] [address] [place] [address] Dr. Timmy Grant IG # 0.01 10e3/ul Normal 0.00-0.03 [facility] Comment on above: Performed By: #### P SASC, VITB12, VITAD #### [facility] [address] [place] [address] Dr. Timmy Grant IG % 0.2 % Normal 0.0-0.5 [facility] Comment on above: Performed By: #### P SASC, VITB12, VITAD #### [facility] [address] [place] [address] Dr. Timmy Grant LYMPH # 1.5 103/ul Normal 1.2-3.8 [facility] Comment on above: Performed By: #### P SASC, VITB12, VITAD #### [facility] [address] [place] [address] Dr. Timmy Grant Lymphocytes/100 WBC (Bld) 28.3 % Normal 20.5-60.0 [facility] Comment on above: Performed By: #### P SASC, VITB12, VITAD #### [facility] [address] [place] [address] Dr. Timmy Grant MANUAL DIFF REQ NO Normal [facility] Comment on above: Performed By: #### P SASC, VITB12, VITAD #### [facility] [address] [place] [address] Dr. Timmy Grant MCH (RBC) [Entitic mass] 27.1 pg Normal 25.9-34.0 [facility] Comment on above: Performed By: #### P SASC, VITB12, VITAD #### [facility] [address] [place] [address] Dr. Timmy Grant MCHC (RBC) [Mass/Vol] 32.2 g/dL Normal 29.9-35.2 [facility] Comment on above: Performed By: #### P SASC, VITB12, VITAD #### [facility] [address] [place] [address] Dr. Timmy Grant MCV (RBC) [Entitic vol] 84.3 fL Normal 80.0-94.0 [facility] Comment on above: Performed By: #### P SASC, VITB12, VITAD #### [facility] [address] [place] [address] Dr. Timmy Grant MONO # 0.4 103/ul Normal 0.3-0.8 [facility] Comment on above: Performed By: #### P SASC, VITB12, VITAD #### [facility] [address] [place] [address] Dr. Timmy Grant Monocytes/100 WBC (Bld) 7.8 % Normal 1.7-12.0 [facility] Comment on above: Performed By: #### P SASC, VITB12, VITAD #### [facility] [address] [place] [address] Dr. Timmy Grant NEUT # 3.2 103/ul Normal 1.4-6.5 [facility] Comment on above: Performed By: #### P SASC, VITB12, VITAD #### [facility] [address] [place] [address] Dr. Timmy Grant Neutrophils/100 WBC (Bld) 61.4 % Normal 43.0-75.0 [facility] Comment on above: Performed By: #### P SASC, VITB12, VITAD #### [facility] [address] [place] [address] Dr. Timmy Grant Platelet mean volume (Bld) [Entitic vol] 9.9 fL Normal 9.5-13.5 [facility] Comment on above: Performed By: #### P SASC, VITB12, VITAD #### [facility] [address] [place] [address] Dr. Timmy Grant PLT 237 103/ul Normal 150-450 [facility] Comment on above: Performed By: #### P SASC, VITB12, VITAD #### [facility] [address] [place] [address] Dr. Timmy Grant RBC 5.79 106/ul Normal 4.70-6.10 [facility] Comment on above: Performed By: #### P SASC, VITB12, VITAD #### [facility] [address] [place] [address] Dr. Timmy Grant WBC 5.3 103/ul Normal 4.0-11.0 [facility] Comment on above: Performed By: #### P SASC, VITB12, VITAD #### [facility] [address] [place] [address] Dr. Timmy Grant GLYCOHEMOGLOBIN A1Con 2021 ADA RECOMMENDATION SEE BELOW Normal [facility] Comment on above: Result Comment: ADA RECOMMENDED LIMIT 4.0 - 6.0 ADA THERAPEUTIC TARGET < 7.0 ACTION SUGGESTED > 7.0 Performed By: #### E RUR #### [facility] [address] [place] [address] Dr. Timmy Grant Glucose [Mass/Vol] 117 mg/dL Normal [facility] Comment on above: Performed By: #### E RUR #### [facility] [address] [place] [address] Dr. Timmy Grant HbA1c (Bld) [Mass fraction] 5.7 % Normal 4.5-6.2 [facility] Comment on above: Performed By: #### E RUR #### [facility] [address] [place] [address] Dr. Timmy Grant LIPID PROFILEon 11-06-2021 CHOL-HDL RATIO NORM SEE BELOW Normal [facility] Comment on above: Result Comment: 3.3 - 4.4 LOW RISK 4.4 - 7.1 AVERAGE RISK 7.1 - 11.0 MODERATE RISK >11.0 HIGH RISK Performed By: #### E RUR #### [facility] [address] [place] [address] Dr. Timmy Grant Cholesterol [Mass/Vol] 175 mg/dL Normal <=200 [facility] Comment on above: Performed By: #### E RUR #### [facility] [address] [place] [address] Dr. Timmy Grant Cholesterol in HDL [Mass/Vol] 65 mg/dL Critically high 40-60 [facility] Comment on above: Performed By: #### E RUR #### [facility] [address] [address] [address] Timmy Grant Cholesterol in LDL [Mass/Vol] 98.4 mg/dL Normal [facility] Comment on above: Performed By: #### E RUR #### [facility] [address] [address] [address] Timmy Grant Cholesterol.total/ Cholesterol in HDL [Mass ratio] 2.7 {ratio} Normal [facility] Comment on above: Performed By: #### E RUR #### [facility] [address] [address] [address] Timmy Grant HDL NORMAL > or = 60 mg/dl - LO W CARDIOVASCULAR RISK <40 mg/dl - HIGH CARDIOVASCULAR RISK Normal [facility] Comment on above: Performed By: #### E RUR #### [facility] [address] [place] [address] Dr. Timmy Grant LDL CALC NORMAL SEE BELOW Normal [facility] Comment on above: Result Comment: <100 mg/dl OPTIMAL 100 - 129 mg/dl NEAR OR ABOVE OPTIMAL 130 - 159 mg/dl BORDERLINE HIGH 160 - 189 mg/dl HIGH >190 mg/dl VERY HIGH Performed By: #### E RUR #### [facility] [address] [address] [address] Timmy Grant Triglyceride [Mass/Vol] 58 mg/dL Normal <=150 [facility] Comment on above: Performed By: #### E RUR #### [facility] [address] [place] [address] Dr. Timmy Grant VLDL CALC 11.6 mg/dL Normal [facility] Comment on above: Performed By: #### E RUR #### [facility] [address] [place] [address] Dr. Timmy Grant NM STRESS/REST MULTIon 11-06 NM STRESS/REST MULTI Patient: CAMERON HENAO Exam Date: 11/06/2021 : 1950 Gender:M Ordering : DR JAYLA KONG . Admission #: [id number] Family : Order #: [id number] CLICK HERE TO VIEW EXAM RADIOLOGY REPORT [...] Armstrong M.D. on 11/06/2021 at 14:54 Normal [facility] PROF 14(COMP METB)on 022 Albumin [Mass/Vol] 4.1 g/dL Normal 3.4-5.0 [facility] Comment on above: Performed By: #### E RUR #### [facility] [address] [place] [address] Dr. Timmy Grant Albumin/Globulin [Mass ratio] 1.1 {ratio} Normal [facility] Comment on above: Performed By: #### E RUR #### [facility] [address] [place] [address] [address] Timmy Grant ALP [Catalytic activity/Vol] 79 U/L Normal 46-116 [facility] Comment on above: Performed By: #### E RUR #### [facility] [address] [place] [address] [address] Timmy Grant ALT [Catalytic activity/Vol] 47 U/L Normal 16-63 [facility] Comment on above: Performed By: #### E RUR #### [facility] [address] [place] [address] Dr. Timmy Grant Anion gap [Moles/Vol] 10.5 mmol/L Normal [facility] Comment on above: Performed By: #### E RUR #### [facility] [address] [place] [address] [address] Timmy Grant AST [Catalytic activity/Vol] 25 U/L Normal 15-37 [facility] Comment on above: Performed By: #### E RUR #### [facility] [address] [place] [address] Dr. Timmy Grant Bilirubin [Mass/Vol] 0.6 mg/dL Normal 0.2-1.0 [facility] Comment on above: Performed By: #### E RUR #### [facility] [address] [place] [address] Dr. Timmy Grant Calcium [Mass/Vol] 9.3 mg/dL Normal 8.5-10.1 [facility] Comment on above: Performed By: #### E RUR #### [facility] [address] [place] [address] Dr. Timmy Grant Chloride [Moles/Vol] 101 mmol/L Normal 98-107 [facility] Comment on above: Performed By: #### E RUR #### [facility] [address] [place] [address] Dr. Timmy Grant CO2 [Moles/Vol] 31.1 mmol/L Normal 21.0-32.0 [facility] Comment on above: Performed By: #### E RUR #### [facility] [address] [place] [address] Dr. Timmy Grant Creatinine [Mass/Vol] 1.17 mg/dL Normal 0.70-1.30 [facility] Comment on above: Performed By: #### E RUR #### [facility] [facility] [address] [place] [address] Dr. Timmy Grant EGFR-AF CAYMAN ISLANDER >60 Normal >=60 [facility] Comment on above: Performed By: #### E RUR #### [facility] [address] [address] [address] Timmy Grant EGFR-NON AF [place] ISLANDER >60 Normal >=60 [facility] Comment on above: Performed By: #### E RUR #### [facility] [address] [address] [address] Timmy Grant Globulin (S) [Mass/Vol] 3.7 g/dL Normal [facility] Comment on above: Performed By: #### E RUR #### [facility] [address] [address] [address] Timmy Grant Glucose [Mass/Vol] 106 mg/dL Normal 74-106 [facility] Comment on above: Performed By: #### E RUR #### [facility] [address] [place] [address] Dr. Timmy Grant Potassium [Moles/Vol] 4.6 mmol/L Normal 3.5-5.1 [facility] Comment on above: Performed By: #### E RUR #### [facility] [address] [place] [address] Dr. Timmy Grant Protein [Mass/Vol] 7.8 g/dL Normal 6.4-8.2 [facility] Comment on above: Performed By: #### E RUR #### [facility] [address] [place] [address] Dr. Timmy Grant Sodium [Moles/Vol] 138 mmol/L Normal 136-145 [facility] Comment on above: Performed By: #### E RUR #### [facility] [address] [address] [address] Timmy Grant Urea nitrogen [Mass/Vol] 14.0 mg/dL Normal 7.0-18.0 [facility] Comment on above: Performed By: #### E RUR #### [facility] [address] [place] [address] Dr. Timmy rGant Urea nitrogen/Creatinin e [Mass ratio] 12.0 mg/mg Normal [facility] Comment on above: Performed By: #### E RUR #### [facility] [address] [place] [address] Dr. Timmy Grant TSHon 11-06-2021 TSH 0.931 uIU/mL Normal 0.358-3.740 [facility] Comment on above: Performed By: #### E RUR #### [facility] [address] [place] [address] Dr. Timmy Grant URIC ACID SERUMon 11-06-2021 Urate [Mass/Vol] 5.4 mg/dL Normal 3.5-7.2 [facility] Comment on above: Performed By: #### E RUR #### [facility] [address] [place] [address] Dr. Timmy Grant VITAMIN B12on 11-06-2021 Cobalamin (Vitamin B12) [Mass/Vol] 369.0 pg/mL Normal 193.0-986.0 [facility] Comment on above: Performed By: #### P SASC, VITB12, VITAD #### [facility] [address] [place] [address] Dr. Timmy Grant VITAMIN D 25 OHon 11-06-2021 VIT D 25-OH 35.4 ng/mL Normal [facility] Comment on above: Performed By: #### P SASC, VITB12, VITAD #### [facility] [address] [place] [address] Dr. Timmy Grant VIT D RANGES SEE BELOW Normal [facility] Comment on above: Result Comment: <20 ng/mL Vit D deficient 20 - <30 ng/mL Vit D insufficient 30 - 100 ng/mL Vit D sufficient >100 ng/mL Potential Toxicity Performed By: #### P SASC, VITB12, VITAD #### [facility] [address] [place] [address] Dr. Timmy Grant XR FOOT ABHINAV MIN [...] NARA ARMSTRONG Date: 2021-10-15 13:51 Normal [facility] Re[facility] Psych Evaluationon Rehab Psych Evaluation MR#: [id number] SERVICES( ) INPATIENT ( x )OUTPATIENT Patient Name: Cameron Henao Date of : 1950 Referring Physician: Maria C Gonzales D.O. 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 Donis. He reports no history ofcounseling, [...] he and his of 44 years reside [place], [place]. He notes he is a [place] of [employer]. He notes theyhave 3 sons.EDUCATIONAL HISTORY: Mr. [...] his sleep is perhaps more restlesswith the yazidi of the donepezil. 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 Igyf38-onxks difference is significant, indicating attenuation.Orientation: Mr. Henao [...] symptomatology. His responses indicate heis endorsing a hsur-vn-ycnlnyfn level of depressive symptoms.TEST DATA:TOPF: Pred FSIQ: [...] assign a trustedindividual with durable power of ip attorney. This person should accompany himto all appointments. 5. Based on the diagnosis of dementia, I am concerned about Mr. Henao continuing to drive. If Dr. Gonzales shares my concern, he may wish to refer Mr. Henao for a driving simulation evaluation. An order may be faxed to [phone]. Mr. Henao should be aware that the [...] found online or with the Alzheimer's association: Alz.org;233.585.1175. 7. I encourage Mr. Henao to remain [...] nicegentleman. If you have any questions, call [phone].DICTATED AND REVIEWED BY:Electronically Signed by:Sarah Estrada, PhD, ABPP 04/23/2017 08:35 A Sarah Estrada, PhD, ABPPBoard Certified Clinical NeuropsychologistDate Dict: 04/15/2017/11:18 A/Sarah Estrada, PhD, ABPPDate Trans: 04/16/2017 07:20 A/mmoAddendum: 04/16/2017 01:23 P/paDN_JN:[id number]/ [id number]: Sarah Estrada, PhD, ABPP [address] [facility] Re[facility] Medicine [facility] [address] Maria C Gonzales D.O. [address] [facility] [address] Jayla Kong M.D. [facility] [address] [facility] [address] *Mr. cameron henao ([address]; [place] [address]) Normal [facility] Vital Signs Date Time Vital Sign Value Performing Clinician Scotty smith 09-14-2023 13:48-0400 Body height 188 cm Dustin Burns DO Work Phone: [facility] 09-14-2023 13:48-0400 Body mass index (BMI) [Ratio] 27.73 kg/m2 Dustin Burns DO Work Phone: [facility] 09-14-2023 13:48-0400 Body weight 97.98 kg Dustin Burns DO Work Phone: [facility] 09-14-2023 13:48-0400 Diastolic blood pressure 66 mm[Hg] Dustin Burns DO Work Phone: [facility] 09-14-2023 13:48-0400 Heart rate 101 /min Dustin Burns DO Work Phone: [facility] 09-14-2023 13:48-0400 Systolic blood pressure 125 mm[Hg] Dustin Burns DO Work Phone: [facility] 08-25-2023 13:29-0400 Body height 188 cm Dustin Burns DO Work Phone: [facility] 08-25-2023 13:29-0400 Body mass index (BMI) [Ratio] 27.73 kg/m2 Dustin Burns DO Work Phone: [facility] 08-25-2023 13:29-0400 Body weight 97.98 kg Dustin Burns DO Work Phone: [facility] 08-25-2023 13:29-0400 Diastolic blood pressure 71 mm[Hg] Dustin Burns DO Work Phone: [facility] 08-25-2023 13:29-0400 Heart rate 108 /min Dustin Burns DO Work Phone: [facility] 08-25-2023 13:29-0400 Systolic blood pressure 130 mm[Hg] Dustin Burns DO Work Phone: [facility] 08-04-2023 15:19-0400 Body height 188 cm Dustin Burns DO Work Phone: [facility] 08-04-2023 15:19-0400 Body mass index (BMI) [Ratio] 27.73 kg/m2 Dustin Burns DO Work Phone: [facility] 08-04-2023 15:19-0400 Body temperature 97.2 [degF] Dustin Burns DO Work Phone: [facility] 08-04-2023 15:19-0400 Body weight 97.98 kg Dustin Burns DO Work Phone: [facility] 08-04-2023 15:19-0400 Diastolic blood pressure 80 mm[Hg] Dustin Burns DO Work Phone: [facility] 08-04-2023 15:19-0400 Heart rate 100 /min Dustin Burns DO Work Phone: [facility] 08-04-2023 15:19-0400 Systolic blood pressure 136 mm[Hg] Dustin Niharikastephieqian DO Work Phone: [facility] 04-27-2022 11:43-0400 Blood Pressure Location Owen COOPER [facility] 04-27-2022 11:43-0400 Diastolic blood pressure 84 mm[Hg] Owen COOPER [facility] 04-27-2022 11:43-0400 Heart rate 76 /min Owen COOPER [facility] 04-27-2022 11:43-0400 Respiratory rate 16 /min Owen COOPER [facility] 04-27-2022 11:43-0400 Systolic blood pressure 132 mm[Hg] Owen COOPER [facility] 01-13-2022 10:25-0500 Body height 187.96 cm Lynn Gomez Other [employer] [facility] [email or web address] Other 01-13-2022 10:25-0500 Body mass index (BMI) [Ratio] 29.53 kg/m2 Lynn Gomez Other [facility] Other 01-13-2022 10:25-0500 Body temperature 97.8 [degF] Lynn Gomez Other [facility] Other 01-13-2022 10:25-0500 Body weight 104.33 kg Lynn Gomez Other [facility] Other 01-13-2022 10:25-0500 Diastolic blood pressure 70 mm[Hg] Lynn Gomez Other [facility] Other 01-13-2022 10:25-0500 Respiratory rate 18 /min Lynn Gomez Other [facility] Other 01-13-2022 10:25-0500 SaO2% (BldA) [Mass fraction] 97 % Lynn Gomez Other [facility] Other 01-13-2022 10:25-0500 Systolic blood pressure 122 mm[Hg] Lynn Gomez Other [facility] Other Encounters Encounter Date Encounter Type Care Provider Facility Start: 12-06-2023 End: 12-06-2023 Telephone encounter Avis Finley PT Work Phone: [facility] Comment on above: Results (First attem pt to schedule physical therapy/OT/Speech consult. Patient's declined at this time. They prefer to find a place closer to home. Deactivated please reinstate if the patient calls to schedule. /) Start: 12-03-2023 End: 12-03-2023 ambulatory YE WHITNEY Facility:[facility] Start: 09-14-2023 End: 09-14-2023 Office outpatient visit 40 minutes Dustin Burns DO Work Phone: [facility] Comment on above: Atypical parkinsonis m (Primary Dx); Abnormality of gait and mobility; Eye movement abnormality; Vivid dream; Alzheimers disease; Cognitive impairment; Nocturia; Emotional lability Start: 09-14-2023 ambulatory JAYLA KONG Facility: [facility] Start: 08-25-2023 ambulatory JAYLA KONG Facility: [facility] Start: 08-25-2023 End: 08-25-2023 Subsequent hospital visit by physician Dustin Burns DO Work Phone: [facility] Comment on above: Arrived Start: 08-04-2023 End: 08-04-2023 Office outpatient new 60 minutes Dustin Burns DO Work Phone[facility] Comment on above: Atypical parkinsonis m (Primary Dx); Alzheimers disease; Abnormality of gait and mobility Start: 08-04-2023 ambulatory JAYLA KONG Facility: [facility] Start: 03-02-2023 End: 03-02-2023 ambulatory JUAN DANIEL GARCIA Not Available Start: 06-18-2022 End: 06-19-[address] JAYLA KONG . Facility: Start: 05-14-2022 End: 05-15-2022 ambulatory CHELSEA MARIANO Facility: Start: 04-27-2022 End: 04-28-2022 ambulatory Owen COOPER Facility:[facility] Start: 04-27-2022 End: 04-27-2022 Patient encounter procedure Owen COOPER [facility] Start: 01-27-2022 End: 01-28-[address] KONG Elliott Facility: Start: 01-21-2022 End: 01-21-[address] JAYLA KONG . Facility: Start: 01-13-2022 Office outpatient ne w 20 minutes Lynn Gomez [facility] Start: 01-13-2022 End: 01-13-2022 ambulatory MD Jayla Kong Work Phone: [facility] Other Start: 01-13-2022 End: 01-13-2022 Patient encounter procedure MD Jayla Kong Work Phone: [facility] Start: 11-11-2021 End: 11-11-[address] JAYLA KONG . Facility:[facility] Start: 11-06-2021 End: 11-07-[address] JAYLA KONG . Facility: Start: 11-04-2021 End: 12-12-[address] JAYLA KONG . Facility: Start: 10-15-2021 End: 2021 ambulatory MICHELLE DWYER Facility: Start: 04-08-2017 End: 05-09-2017 Ambulatory JAYLA KONG Facility:[facility] Start: 03-11-2017 End: 04-08-2017 Ambulatory MARIA C GONZALES Facility:[facility] Start: 02-26-2017 End: 03-11-2017 Ambulatory DAVIDAMAU ÁLVAREZETT Facility:[facility] Start: 02-26-2017 End: 02-27-2017 Ambulatory DEFAULT PHYSICIAN Facility:[facility] Procedures Date Procedure Procedure Detail Performing Clinician Start: 09-14-2023 Follow-up visit Follow-up DUSTIN BURNS Start: 01-27-[address] KINA KONG . Comment on above: Performed By: #### O BSCRN #### [facility] [address] [place] [address] Dr. Timmy Garnt Start: 01-13-2022 Plain X-ray of left wrist MD Jayla Kong Work Phone: Start: 11-06-[address] KINA KONG . Comment on above: Performed By: #### P SASC, VITB12, VITAD #### [facility] [address] [place] [address] Dr. Timmy Grant Start: 03-04-2016 Transurethral prostatectomy Owen COOPER Start: 04-26-2015 Cystoscopy Owen CARL Vasectomy Owen COOPER Plan of Treatment Date Care Activity Detail Author Start: 2024 RSV Vaccine (1 - 1-dose 75+ series) RSV Vaccine (1 - 1-dose 75+ series) [facility] Start: 12-16-2023 End: 12-16-2023 Telemedicine consultation with patient 12/16/2023 3:00 PM EST Telemedicine [facility] [place] [id number] Dustin Burns, DO [address] [place] [address] [place] [address] [facility] [place] Start: 11-25-2023 End: 11-25-2023 Patient encounter procedure 11/25/2023 3:00 PM EDT Office Visit [facility] [address] [place] [address] Nuha Olguin, STRAP FOLDING MACHINE OPERATOR-JET SKI MECHANIC [address] [place] [address] [facility] Start: 10-10-2023 Covid-19 Vaccine ( season) Covid-19 Vaccine ( season) [facility] Start: 10-10-2023 Influenza vaccination INFLUENZA VACCINE (#1) [facility] Start: 02-08-2023 Advance Directive Discussion Advance Directive Discussion [facility] Start: 10-09-2022 COVID-19 VACCINE ( season) COVID-19 VACCINE () [facility] Start: 2014 Abdominal aortic aneurysm screening ABDOMINAL AORTIC ANEURYSM HIGH RISK SCREEN [facility] Start: 10-17-1999 Prostate specific antigen measurement PROSTATE CANCER SCREENING DISCUSSION [facility] Start: 1994 Diabetes Screening Diabetes Screening [facility] Start: 1994 Screening for malignant neoplasm of colon [facility] Start: 1989 Lipid panel LIPID SCREENING [facility] Start: 1984 Lipid panel Lipid Screening [facility] Start: 1968 Third diphtheria, tetanus and acellular pertussis (DTaP) vaccination TDAP (ADULT) [facility] Start: 1968 Urine microalbumin profile DTaP,Tdap,Td Vaccine (1 - Tdap) [facility] Start: 10-17-1967 Anxiety Screening Anxiety Screening [facility] Start: 10-17-1967 Depression Screening Depression Screening [facility] Start: 10-17-1967 Hepatitis C screening Hepatitis C Screening [facility] Start: 1950 Hepatitis C screening HEPATITIS C VIRUS SCREENING [facility] Start: 1950 Tetanus vaccination TETANUS [facility] Immunizations Immunization Date Immunization Notes Care Provider Lora mathew 01-13-2021 SARS-CoV-2 (COVID-19 ) mRNA-1273 vaccine Owen COOPER [facility] 12-09-2020 SARS-CoV-2 (COVID-19 ) mRNA-1273 vaccine Owen COOPER [facility] Comment on above: Result Comment: *Stephens ster 05-14-2020 SARS-CoV-2 (COVID-19 ) mRNA-1273 vaccine Owen COOPER [facility] 04-16-2020 SARS-CoV-2 (COVID-19 ) mRNA-1273 vaccine Owen COOPER [facility] Comment on above: Result Comment: 2022: [id number] 03-11-2020 SARS-CoV-2 (COVID-19 ) mRNA-1273 vaccine Owen COOPER [facility] 02-09-2020 SARS-CoV-2 (COVID-19 ) mRNA-1273 vaccine Owen COOPER [facility] 06-26-2018 zoster vaccine recombinant Owen COOPER [facility] 05-05-2017 zoster vaccine recombinant Owen COOPER [facility] Payers Date Payer Category Payer Private Health Insurance [id number] 2022 Self-pay [id number] 2019 Private Health Insurance [id number] 2015 Private Health Insurance HUMANA HUMANA MEDICARE SUPPLEMENT [id number] 2015-Present [phone] [address] [address] [place] [address] Indemnity [id number] 2015 Unknown 2014 Medicare [id number] 2014 Medicare [id number] 1959 Medicare [id number] 1959 Private Health Insurance [id number] [id number] 1949 Unknown [id number] 2.16.840.1.208859.3.579. 2.727 1950 Unknown [id number] 2.16.840.1.949562.3.579. 2.593 1949 Unknown [id number] 2.16.840.1.784416.3.579. 2.593 1949 Unknown [id number] 2.16.840.1.187826.3.579. 2.593 1949 Unknown [id number] 2.16.840.1.655348.3.579. 2.593 1949 Unknown [id number] 2.16.840.1.960138.3.579. 2.593 1949 Unknown [id number] 2.16.840.1.345868.3.579. 2.593 1949 Unknown [id number] 2.16.840.1.365853.3.579. 2.593 1949 Unknown [id number] 2.16.840.1.539958.3.579. 2.593 1949 Unknown [id number] 2.16.840.1.337651.3.579. 2.1259 1949 Unknown [id number] 2.16.840.1.674116.3.579. 2.594 1949 Unknown [id number] 2.16.840.1.467740.3.579. 2.594 1949 Unknown [id number] 2.16.840.1.175502.3.579. 2.594 Medicare [id number] Unknown [id number] 2.16.840.1.702173.3.579. 2.531 Social History Date Type Detail Facility Sex Assigned At [facility] Start: 1950 Sex Assigned At Male F [facility] Start: 04-27-2022 Tobacco smoking status Never smoked tobacco (finding) [facility] Tobacco smoking status Never [facility] Tobacco smoking status NHIS Tobacco smoking consumption unknown [facility] Start: 1950 Sex assigned at Not on file [facility] Functional Status Date Assessment Result Facility 04-27-2022 Functional Status N/A [facility] Clinical Notes 01-13-2022 to 12-06-2023 Telephone [...] reinstate if the patient calls to schedule. [facility] 12-06-2023 Miscellaneous Notes First attempt to schedule physical therapy/OT/Speech consult. Patient's declined at this time. They prefer to find a place closer to home. Deactivated please reinstate if the patient calls to schedule. documented in this encounter [facility] 12-03-2023 Note HNO ID: [id number] Author: YE WHITNEY MD Service: ? Author [...] 11/08. He saw neurology in 07/2023 in [place]. He was told he does not have [...] Paucity of mov (more content not included)... [facility] 09-14-2023 History of Present illness Narrative Images from the original note were not included. [facility] [address] [place] [address] [facility] Neurology Follow-Up Note - Movement Disorders Center 09/14/2023 Cameron Henao 1950 72 y.o. [id number] REFERRED BY: Self Self No address on [...] dementia by a neurologist, Dr. Gonzales in [place], by Jan 2017/February 2017 and started on Aricept for early onset dementia as diagnosed in [place]. They continued to follow with Dr. Gonzales, [...] HAS CHANGED IN ANY WAY REFERRAL TO MANUFACTURING ELECTRICIAN LIZA DELAROSA ABOUT COMMUNITY/HOME HELP AND SAFETY [...] includes pre-visit chart review (including relevant labs/imaging), ibfj-kw-vghu time counseling and educating the patient, pre- and post-visit documentation and placing referrals. Dustin Burns D.O., M.B.A. Division of Movement Disorders Department of Neurology CC: Jayla Kong CC: - Neurology documented in this encounter [facility] 09-14-2023 Instructions Dustin Burns DO - 09/14/2023 [...] HAS CHANGED IN ANY WAY REFERRAL TO MANUFACTURING ELECTRICIAN LIZA DELAROSA ABOUT COMMUNITY/HOME HELP AND SAFETY RESOURCES MONITOR SWALLOWING, AND FALL RISK [employer]P - [email or web address] - select Progressive Supranuclear Palsy SET UP VIDEO VIRTUAL VISIT IN 3 MONTHS documented in this encounter [facility] 08-04-2023 History of Present illness Narrative Images from the original note were not included. [facility] [address] [place] [address] Dr Scott MIRANDA [address] [facility] Neurology New Patient Note - Movement Disorders Center 08/04/2023 Cameron Henao 1950 72 y.o. [id number] REFERRED BY: Jayla Kong MD [address] [place] [address] Chief Complaint Patient presents with New Patient [...] seen by Jayla Kong MD [address] [place] [address] , as well as his PCP, Jayla Kong. He reportedly has a history of dementia and so his family provides the history. He was diagnosed with dementia by a neurologist, Dr. Gonzales in [place], by Jan 2017/February 2017 and started on Aricept for early onset dementia as diagnosed in [place]. They continued to follow with Dr. Gonzales, [...] No truncal ataxia is seen while sitting. Uortru-vkoy-knmpey testing is normal bilaterally without dysmetria. Rapid [...] includes pre-visit chart review (including relevant labs/imaging), quun-cr-rgsk time counseling and educating the patient, pre- and post-visit documentation and placing referrals. Dustin Burns D.O., M.B.A. Division of Movement Disorders Department of Neurology CC: Jayla Kong CC: - Neurology Cameron Henao was offered and declined a Medical Hvac Commercial Salesperson for this exam/procedure/test 08/04/2023. documented in this encounter [facility] 08-04-2023 Instructions Dustin Burns, DO - 08/04/2023 [...] IN 3 MONTHS documented in this encounter [facility] 04-27-2022 Hospital Discharge instructions Patient Education 04/27/2022 [...] one of these risk factors: ?Being of -Burmese descent. ?Having a family history of prostate [...] you: Are older than age 55. Are -Burmese. Have a father, brother, or uncle who [...] 11/05/2017 Document Revised: 01/07/2018 Document Reviewed: 11/05/2017 [employer] Patient Education 2020 [employer]. Follow Up Care 02/11/2021 08:58:53 With:DONAVON KOENIG, Owen Ko, URL Address: [facility] [address] , [place] [address]- When: Unknown [facility] 01-13-2022 Evaluation note Encounter Date Diagnosis [...] office today. Contact PCP for follow up [facility] Other Evaluation + Plan note No data available for this section [facility] evaluation noteNo assessment information available [facility] Work Phone: Evaluation note* Diagnosis Atypical parkinsonism- Primary Paralysis agitans Alzheimers disease Alzheimer's disease Abnormality of gait and mobility Abnormality of gait [facility] Atypical parkinsonism- Primary Paralysis agitans Abnormality of gait and mobility Abnormality of gait Eye movement abnormality Unspecified disorder of eye movements Vivid dream Other dysfunctions of sleep stages or arousal from sleep Alzheimers disease Alzheimer's disease Cognitive impairment Unspecified persistent mental disorders due to conditions classified elsewhere Nocturia Emotional lability [facility] N[facility] - Reported* Type Description Date Medical History hypercholesterolemia Medical History Depression Medical History alzheimers disease [facility] Other Progress note No data available for this section [facility] Hospital reason for referral (narrative)* Consultation (Routine) - New Request Specialty Diagnoses / Procedures Referred By Mone woodward Referred To Contact Neurology Diagnoses Atypical parkinsonism Cognitive impairment Dustin Burns, [address] [place] [address] [place] [address] Liza Delarosa, AGRICULTURE LABORATORY TECHNICIAN [address] [place] [address] Referral ID Status Reason Start Date Expiration Date V isits Requested Visits Authorized [id number] New Request 09/14/2023 10/08/2024 1 1 [facility] Summary Purpose Family History No [...] section and content) DATE CREATED AUTHOR 07/29/2017 [facility] DATE CREATED AUTHOR AUTHOR'S ORGANIZ ATION 01/30/2022 [facility] DATE CREATED AUTHOR AUTHOR'S ORGANIZ ATION 04/28/2022 [facility] DATE CREATED AUTHOR AUTHOR'S ORGANIZ ATION 06/24/2022 [facility] DATE CREATED AUTHOR AUTHOR'S ORGANIZ ATION 03/03/2023 [facility] DATE CREATED AUTHOR AUTHOR'S ORGANIZ ATION 09/16/2023 [facility] DATE CREATED AUTHOR AUTHOR'S ORGANIZ ATION 12/07/2023 [facility] REASON FOR VISIT (unrecogniz ed section and content) Reason Comments New Patient 72 year old Male PD. Specialty Diagnoses / Procedures Referred By Mone woodward Referred To Contact Neurology Diagnoses Parkinson's disease, unspecified whether dyskinesia present, unspecified whether manifestations fluctuate Jayla Kong MD [address] [facility] [place] [address] [facility] [address] [place] [address] Referral ID Status Reason Start Date Expiration Date V isits Requested Visits Authorized [id number] Pending Review 07/21/2023 08/14/2024 1 1 Specialty Diagnoses / Procedures Referred By Mone woodward Referred To Contact Diagnoses Atypical parkinsonism Procedures MRI BRAIN WITH AND WITHOUT CONTRAST CHG MRI BRAIN BRAIN STEM W/O W/CONTRAST MATERIAL Dustin Burns, [address] [place] [address] Referral ID Status Reason Start Date Expiration Date V isits Requested Visits Authorized [id number] New Request 08/18/2023 09/11/2024 1 1 Reason Comments Follow-up Reason Comments Results First attempt to [facility] physical therapy/OT/Speech consult. Patient's declined at this [...] Jayla Kong MD Primary Care Provider Active Hydraulic Specialist Relationship Specialty Start Date End Date Jayla Kong MD [address] [place] [address] PCP - General Family Medicine 08/04/23 Hydraulic Specialist Relationship Specialty Start Date End Date Jayla Kong MD [address] [place] [address] PCP - General Family Medicine 08/04/23 Hydraulic Specialist Relationship Specialty Start Date End Date Jayla Kong MD [address] [place] [address] PCP - General Family Medicine 08/04/23 Goals [...] or prosecute any alcohol or drug abuse patient.[facility] FOR RECORDS PERTAINING TO PATIENTS WHO ARE [...] BE BASED ON THE PRIMARY CLINICAL RECORDS. [employer] [facility]. provides no warranty or guarantee of the accuracy or completeness of information in this document.
== END 2023-12-20 12:17 | disposition home or self-care (01) ==
LOC: EC 12:16
PROVIDERS: PCP Family Medicine; Visit Provider Orthopaedic Surgery
DX: S42.032A Displaced fracture of lateral end of left clavicle, initial encounter for closed fracture (principal)
CPT/HCPCS: 73000

== ENCOUNTER 2024-02-14 07:01 | Emergency (ER) | payer MEDICARE, OTHER, SELFPAY ==
[2024-02-14] VITALS (12 sets, daily range): BP systolic 115; BP diastolic 71; PULSE 92–134; TEMP 37; O2SAT 94–97; BMI 26.4
--- NOTE | 2024-02-14 07:29 | ECG_ITS ---
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
--- NOTE | 2024-02-14 07:30 | XR_ITS ---
The [address] [address] Patient Name: DEDE ESTEVEZ MRN: [id number] date: 1950 Sex: M Assigned Patient Location: ER Current Patient Location: ER Accession/Order Number: [id number] Exam Date: 02/14/2024 07:35 Report Date: 02/14/2024 07:56 At the request of: ARTHUR MCGREGOR Procedure: XR chest 1V EXAMINATION: XR chest 1V HISTORY: weak COMPARISON: 12/15/2022 TECHNIQUE: AP portable FINDINGS: LUNGS: Low lung volumes. Mild bibasilar infiltrates, left greater than right VASCULATURE: No increased pulmonary vasculature. PLEURA: No pneumothorax, effusion, or pleural thickening. CARDIAC: No cardiomegaly or cardiac silhouette abnormality. MEDIASTINUM: No visible mass or adenopathy. BONES: No fracture or visible bone lesion. OTHER: Negative. XR/XR chest 1V IMPRESSION: Mild bibasilar infiltrates, atelectasis versus pneumonia. Electronically authenticated by: ELI RAMÍREZ Date: 02/14/2024 07:56
--- NOTE | 2024-02-14 07:37 | ED.GENADUL1 ---
HPI HPI - General Adult General Chief complaint: Upper Respiratory Infection Stated complaint: congestion Time Seen by Provider: 02/14/24 07:24 Source: patient Mode of arrival: walk-in Limitations: no limitations History of Present Illness HPI narrative: 73-year-old male presents to the emergency department for evaluation. All the history is obtained from his who gives an excellent history. She reports that he was not fully acting himself and she is worried about him having pneumonia or UTI. He has a history of Parkinson and had a restless night last night. He has had a minimal cough and no documented fever. No vomiting or diarrhea. Symptoms present for the last day or 2. Related Data Home Medications ?Medication ?Instructions ?Recorded ?Confirmed clonazepam 0.5 mg tablet 0.5 mg PO Q12H 07/17/23 12/10/23 donepezil 23 mg tablet 23 mg PO DAILY 07/17/23 02/14/24 lamotrigine 100 mg tablet 100 mg PO Q12H 07/17/23 12/10/23 memantine 10 mg tablet 10 mg PO BID 07/17/23 02/14/24 polyethylene glycol 3350 17 gram 17 g PO DAILY 07/17/23 12/10/23 oral powder packet (ClearLax) simvastatin 20 mg tablet 20 mg PO DAILY 07/17/23 12/10/23 quetiapine 25 mg tablet mg 12/10/23 trospium 20 mg tablet 20 mg 12/10/23 zonisamide 25 mg capsule mg PO 12/10/23 clonazepam 0.5 mg tablet (Klonopin) 0.25 mg PO BID 02/14/24 02/14/24 lamotrigine 100 mg tablet 100 mg PO BID 02/14/24 02/14/24 (Lamictal) polyethylene glycol 3350 17 17 g PO DAILY 02/14/24 02/14/24 gram/dose oral powder (Miralax) simvastatin 20 mg tablet (Zocor) 20 mg PO DAILY 02/14/24 02/14/24 Previous Rx's ?Medication ?Instructions ?Recorded diclofenac sodium 50 mg 50 mg PO Q12H PRN pain #14 tabs 12/10/23 tablet,delayed release oxycodone-acetaminophen 5 mg-325 1 tab PO Q8H PRN pain 5 days #15 12/10/23 mg tablet (Percocet) tabs azithromycin 250 mg tablet See Rx Instructions PO .COMPLEX #6 02/14/24 (Zithromax Z-Ananda) tabs Allergies Allergy/AdvReac Type Severity Reaction Status Date / Time No Known Drug Allergies Allergy Verified 12/10/23 06:51 Opioid HPI Opioid Management Most Recent Opioid Data: Last Pain Scale 6 07/21/23 12:04 07/21/23 Last Pain Intensity 4 07/19/23 08:29 07/19/23 Last ORT Total Score 1 07/17/23 13:20 07/17/23 Last ORT Risk Category Low Risk 07/17/23 13:20 07/17/23 Review of Systems ROS Narrative Not obtainable from the patient, nonverbal for me [facility] Medical History (Updated 02/14/24 @ 08:31 by Tarik Tellez MD) Closed fracture of transverse process of lumbar vertebra ?S32.009A - Unspecified fracture of unspecified lumbar vertebra, initial encounter for closed fracture (ICD-10) Anxiety ?F41.9 - Anxiety disorder, unspecified (ICD-10) Depression ?F32.A - Depression, unspecified (ICD-10) Urinary hesitancy ?R39.11 - Hesitancy of micturition (ICD-10) High blood cholesterol ?E78.00 - Pure hypercholesterolemia, unspecified (ICD-10) Dementia ?F03.90 - Unspecified dementia, unspecified severity, without behavioral disturbance, psychotic disturbance, mood disturbance, and anxiety (ICD-10) Parkinson disease ?G20.A1 - Parkinson's disease without dyskinesia, without mention of fluctuations (ICD-10) Surgical History (Updated 07/17/23 @ 13:47 by Kiah Garcia) H/O transurethral resection of prostate ?Z98.890 - Other specified postprocedural states (ICD-10) ?Z90.79 - Acquired absence of other genital organ(s) (ICD-10) Family History (Updated 07/17/23 @ 13:47 by Kiah Garcia) Mother Family history of cancer Sister Family history of hypertension Social History (Updated 07/17/23 @ 13:50 by Kiah Garcia) Within the past year, how often did you have a drink containing alcohol: never Within the past year, how often did you have six or more drinks on one occasion: never Score interpretation: A score less than 4 is consistent with normal alcohol consumption. Smoking status: Never smoker Non-prescribed substance use: denies use Previous occupational history: retired Highest level of school completed/degree received: high school graduate Are you now , , , , never or living with a partner: Little interest or pleasure in doing things: not at all Feeling down, depressed, or hopeless: not at all Feel stressed/tense/nervous/anxious/difficulty sleeping: not at all Exam Narrative Exam Narrative: Nurses note and vital signs reviewed and patient is not hypoxic. General: The patient appears in no apparent distress. Patient is resting comfortably on cart. Skin: Warm, dry, no pallor noted. There is no rash noted. Head: Normocephalic, atraumatic Eye: Normal conjunctiva, no drainage Ears, Nose, Mouth, and Throat: oral mucosa is moist. Nares patent. Cardiovascular: Regular Rate and Rhythm Respiratory: Patient is in no distress, no accessory muscle use, lungs are clear to auscultation, no wheezing, rales or rhonchi Back: non-tender GI: Soft and nontender Musculoskeletal: The patient has no evidence of calf tenderness, no pitting edema, symmetrical pulses noted bilaterally Neurological: Awake and alert. Looking around the room. Psychiatric: Not uncooperative Constitutional Vital Signs, click to edit/add: Last Vital Signs Temp 98.6 F 02/14/24 07:12 Pulse 103 H 02/14/24 07:12 Resp 18 02/14/24 07:12 BP 115/71 02/14/24 07:12 Pulse Ox 96 02/14/24 07:12 O2 Del Method Room Air 02/14/24 07:12 Course Vital Signs Vital signs: Vital Signs Temperature 98.6 F 02/14/24 07:12 Pulse Rate 103 H 02/14/24 07:12 Respiratory Rate 18 02/14/24 07:12 Blood Pressure 115/71 02/14/24 07:12 Pulse Oximetry 96 02/14/24 07:12 Oxygen Delivery Method Room Air 02/14/24 07:12 Temperature 98.6 F 02/14/24 07:12 Pulse Rate 103 H 02/14/24 07:12 Respiratory Rate 18 02/14/24 07:12 Blood Pressure 115/71 02/14/24 07:12 Pulse Oximetry 96 02/14/24 07:12 Oxygen Delivery Method Room Air 02/14/24 07:12 Medical Decision Making MDM Narrative Medical decision making narrative: COVID and influenza swabs are negative. No evidence of UTI. Chest x-ray per radiologist suggest pneumonia. His vital signs are essentially normal and at this point he does not need to be admitted to the hospital. He will be discharged home with Zithromax. Treatment diagnosis and follow-up were discussed with the patient's . Differential Diagnosis Differential Diagnosis: Pneumonia, UTI, COVID, influenza, viral illness Lab Data Lab results reviewed: Yes I reviewed the patient's lab results Labs: Lab Results 02/14/24 02/14/24 02/14/24 Range/Units 07:27 07:37 07:58 WBC 8.5 (4.0-11.0) 10^3/uL RBC 5.55 (4.70-6.10) 10^6/uL Hgb 15.4 (14.0-18.0) g/dL Hct 46.0 (42.0-54.0) % MCV 82.9 (80.0-94.0) fL MCH 27.7 (25.9-34.0) pg MCHC 33.5 (29.9-35.2) g/dL RDW 13.2 (11.0-15.0) % Plt Count 220 (150-450) 10^3/uL MPV 9.3 L (9.5-13.5) fL Neut % (Auto) 84.5 H (43.0-75.0) % Lymph % (Auto) 9.5 L (20.5-60.0) % [place] % (Auto) 5.0 (1.7-12.0) % Eos % (Auto) 0.4 L (0.9-7.0) % Baso % (Auto) 0.4 (0.2-2.0) % Neut # (Auto) 7.2 H (1.4-6.5) 10^3/uL Lymph # (Auto) 0.8 L (1.2-3.8) 10^3/uL [place] # (Auto) 0.4 (0.3-0.8) 10^3/uL Eos # (Auto) 0.0 (0.0-0.7) 10^3/uL Baso # (Auto) 0.0 (0.0-0.1) 10^3/uL Abs Immat Gran (auto) 0.02 (0.00-0.03) 10^3/uL Imm/Tot Granulo (auto) 0.2 (0.0-0.5) % Sodium 137 (136-145) mmol/L Potassium 4.1 (3.5-5.1) mmol/L Chloride 100 (98-107) mmol/L Carbon Dioxide 27.4 (21.0-32.0) mmol/L Anion Gap 13.7 BUN 11.0 (7.0-18.0) mg/dL Creatinine 1.10 (0.70-1.30) mg/dL Est GFR ( Amer) >60 (>=60 mL/min/1.73m^2) Est GFR (Non-Af Amer) >60 (>=60 mL/min/1.73m^2) BUN/Creatinine Ratio 10.0 Glucose 106 (74-106) mg/dL Calcium 9.4 (8.5-10.1) mg/dL Urine Color Yellow (YELLOW) Urine Clarity Clear (CLEAR) Urine pH 6.0 (5.0-9.0) Ur Specific [place] >=1.030 A (1.005-1.025) Urine Protein Negative (NEG/TRACE) mg/dL Urine Glucose (UA) Negative (NEGATIVE) mg/dL Urine Ketones Negative (NEGATIVE) mg/dL Urine Occult Blood Negative (NEGATIVE) Urine Nitrite Negative (NEGATIVE) Urine Bilirubin Negative (NEGATIVE) Urine Urobilinogen 0.2 (0.2-1.0) EU/dL Ur Leukocyte Esterase Negative (NEGATIVE) Urine RBC None seen (0-2) #/HPF Urine WBC None seen (NONE SEEN) #/HPF Ur Squamous Epith Cells None seen (NONE/RARE) #/LPF Urine Crystals None seen (None Seen) #/HPF Urine Bacteria None seen (NONE SEEN) #/HPF Urine Casts None seen (NONE SEEN) #/LPF Urine Mucus Small A (NONE SEEN) Influenza Type A Ag Negative Influenza Type B Ag Negative SARS-CoV-2 Ag (CV2AG) Negative (NEGATIVE) Imaging Data Chest x-ray: Radiologist's impression: ITS Impressions Chest X-Ray 02/14/24 07:30 IMPRESSION: Mild bibasilar infiltrates, atelectasis versus pneumonia. Electronically authenticated by: ELI RAMÍREZ Date: 02/14/2024 07:56 Discharge Plan Discharge Chief Complaint: Upper Respiratory Infection Clinical Impression: Pneumonia Patient Disposition: Home, Self-Care Time of Disposition Decision: 08:31 Condition: Good Mode of Transportation: Private Vehicle Prescriptions / Home Meds: New azithromycin [Zithromax Z-Ananda] 250 mg tablet See Rx Instructions .ROUTE .COMPLEX Qty: 6 0RF Rx Instructions: For 250 mg dose pack: take 500 mg today (day 1), then 250 mg for 4 days (days 2-5) No Action clonazepam 0.5 mg tablet 0.5 mg PO Q12H donepezil 23 mg tablet 23 mg PO DAILY lamotrigine 100 mg tablet 100 mg PO Q12H simvastatin 20 mg tablet 20 mg PO DAILY polyethylene glycol 3350 [ClearLax] 17 gram powder in packet 17 g PO DAILY memantine 10 mg tablet 10 mg PO BID Rx Instructions: AT 6 AND 6 lamotrigine [Lamictal] 100 mg tablet 100 mg PO BID simvastatin [Zocor] 20 mg tablet 20 mg PO DAILY clonazepam [Klonopin] 0.5 mg tablet 0.25 mg PO BID polyethylene glycol 3350 [Miralax] 17 gram/dose powder 17 g PO DAILY quetiapine 25 mg tablet zonisamide 25 mg capsule PO trospium 20 mg tablet 20 mg diclofenac sodium 50 mg tablet,delayed release (DR/EC) 50 mg PO Q12H PRN (Reason: pain) Qty: 14 0RF oxycodone-acetaminophen [Percocet] 5-325 mg tablet 1 tab PO Q8H PRN (Reason: pain) 5 Days Qty: 15 0RF Print Language: Ug[place] Instructions: Pneumonia (ED) Referrals: Lázaro Kong MD [Primary Care Provider] - 1 week
[2024-02-14 07:45] LABS: Basophils Percent Auto 0.4 % (0.2-2.0); Eosinophils Percent Auto 0.4 % (0.9-7.0); Hemoglobin 15.4 g/dL (14.0-18.0); Immature Granulocytes Abs Auto 0.02 10^3/uL (0.00-0.03); Immature Granulocytes Pct Auto 0.2 % (0.0-0.5); Lymphocytes Absolute Auto 0.8 10^3/uL (1.2-3.8); Lymphocytes Percent Auto 9.5 % (20.5-60.0); Mean Corpuscular HGB Conc 33.5 g/dL (29.9-35.2); Mean Corpuscular Hemoglobin 27.7 pg (25.9-34.0); Mean Corpuscular Volume 82.9 fL (80.0-94.0); Mean Platelet Volume 9.3 fL (9.5-13.5); Monocytes Absolute Auto 0.4 10^3/uL (0.3-0.8); Neutrophils Absolute Auto 7.2 10^3/uL (1.4-6.5); Neutrophils Percent Auto 84.5 % (43.0-75.0); Platelet Count 220 10^3/uL (150-450); Red Blood Count 5.55 10^6/uL (4.70-6.10); Red Cell Distribution Width 13.2 % (11.0-15.0); White Blood Count 8.5 10^3/uL (4.0-11.0)
[2024-02-14 07:51] LABS: Anion Gap 13.7; Calcium 9.4 mg/dL (8.5-10.1); Carbon Dioxide 27.4 mmol/L (21.0-32.0); Chloride 100 mmol/L (98-107); Estimated GFR (African America >60 (>=60 mL/min/1.73m^2); Estimated GFR (Non-African Ame >60 (>=60 mL/min/1.73m^2); Glucose 106 mg/dL (74-106); Potassium 4.1 mmol/L (3.5-5.1); Sodium 137 mmol/L (136-145)
[2024-02-14 07:55] LABS: Influenza Virus A Antigen Negative; Influenza Virus B Antigen Negative; Internal Control Within Normal Limits; SARS-CoV-2 Ag NEGATIVE (NEGATIVE)
[2024-02-14 08:14] LABS: Bilirubin Urine NEGATIVE (NEGATIVE); Blood Urine NEGATIVE (NEGATIVE); Clarity Urine CLEAR (CLEAR); Color Urine YELLOW (YELLOW); Glucose Urine UA NEGATIVE (NEGATIVE); Ketones Urine NEGATIVE (NEGATIVE); Leukocyte Esterase Urine NEGATIVE (NEGATIVE); Nitrite Urine NEGATIVE (NEGATIVE); Protein Urine NEGATIVE (NEG/TRACE); Specific Gravity Urine >=1.030 (1.005-1.025); Urobilinogen Urine 0.2 EU/dL (0.2-1.0)
[2024-02-14 08:23] LABS: Bacteria Urine NONE SEEN #/HPF (NONE SEEN); Cast Seen? NONE SEEN #/LPF (NONE SEEN); Crystals Seen? None Seen #/HPF (None Seen); Mucus Urine SMALL (NONE SEEN); RBC Urine NONE SEEN #/HPF (0-2); Squamous Epithelial Cell Urine NONE SEEN #/LPF (NONE/RARE); WBC Urine NONE SEEN #/HPF (NONE SEEN)
== END 2024-02-14 09:28 | disposition home or self-care (01) ==
PROVIDERS: Emergency Provider Emergency Medicine; PCP Family Medicine
DX: J18.9 Pneumonia, unspecified organism (principal); G20.A1 Parkinson's disease without dyskinesia, without mention of fluctuations
CPT/HCPCS: 36415; 71045; 80048; 81001; 85025; 87804; 87811; 93005; 99285